=== PATIENT | male | born 1945 | race African-American/Black ===

== ENCOUNTER 2017-08-20 17:03 | Inpatient (IN) | payer OTHER ==
--- OUTSIDE RECORDS SUMMARY | 2017-08-20 17:07 | XMS REPORT | Continuity of Care Document ---
:1945 Author Organization Interface Problems Problem Status Onset Classification Date Comments Source Date Reported 4 WEEK FOLLOW UP Active 07/11/[address] NEW PT/ SHORTNESS Active 06/13/19 [facility] OS BREATH/REF. Medical [facility] Dizziness and 04/03/19 07/02/2017 Dior olvinyolanda [address] [place] [address] N18.3 - "CHRONIC Active 10/24/19 OPID KIDNEY DISEASE, 17 [facility]ior STAGE" Diabetes Resolved 01/17/20 Problem 08/08/[address] MANUEL R[facility] Hypertension Resolved 01/17/20 Problem 08/08/[address] MANUEL Rader, [facility] Diabetes Resolved 01/17/20 Problem 07/28/[address] MANUEL Rader,[facility] Hypertension Resolved 01/17/20 Problem 07/28/[address] MANUEL Rader,[facility] Chronic kidney Resolved Problem 08/08/2017 [facility] disease, stage 3 [facility] MANUEL Rader, [facility] Stage 4 chronic Active Problem 08/08/2017 [facility] kidney disease [facility] Medical [facility] Peripheral Active Problem 08/08/2017 [facility] neuropathy [facility] MANUEL Rader, [facility] Non-compliance Active Problem 08/08/2017 [facility] MANUEL Rader, [facility] Glaucoma Active Problem 08/08/2017 [facility] MANUEL Rader, [facility] Hyperlipidemia Active Problem 08/08/2017 [facility] MANUEL Rader, [facility] Malignant Resolved Problem 08/08/2017 [facility] hypertension [facility] renal OPID disease stage III [facility] Bladder cancer Resolved Problem 08/08/2017 [facility] MANUEL Rader, [facility] Obesity Active Problem 08/08/2017 [facility] MANUEL Rader, [facility] Cataracts, both Resolved Problem 08/08/2017 [facility] Medical Group Malignant Active Problem 08/08/2017 [facility] hypertension with Hospital, chronic kidney Medical disease Group Cataracts, both Resolved Problem 07/28/2017 [facility] Chronic kidney Resolved Problem 07/28/2017 [facility] disease, stage 3 Hospital,[facility] Dior,[facility] Stage 4 chronic Active Problem 07/28/2017 [facility] kidney disease [facility] Peripheral Active Problem 07/28/2017 [facility] Non-compliance Active Problem 07/28/2017 [facility] Glaucoma Active Problem 07/28/2017 [facility] Hyperlipidemia Active Problem 07/28/2017 [facility] Malignant Active Problem 07/28/2017 [facility] hypertension with Hospital, chronic kidney [facility] Malignant Resolved Problem 07/28/2017 [facility] hypertension with [facility], chronic renal OPID disease stage III [facility] Bladder cancer Resolved Problem 07/28/2017 [facility] MARIA R Dior,[facility] Obesity Active Problem 07/28/2017 [facility] MARIA R [facility]ior,[facility] Weakness Resolved Problem 08/08/2017 Medical Group Controlled type 2 Active Problem 08/08/2017 Medical diabetes with Group neuropathy Syncope and 07/02/2017 [facility] collapse Hospital Weakness 07/02/2017 [facility] Type 2 diabetes 07/02/2017 [facility] mellitus with Hospital diabetic chronic kidney disease Type 2 diabetes 07/02/2017 [facility] mellitus with Hospital hyperglycemia Hypertensive 07/02/2017 [facility] chronic kidney Hospital disease with stage 1 through stage 4 chronic kidney disease, or unspecified chronic kidney disease Chronic kidney 07/02/2017 [facility] disease, stage 4 Hospital Acute kidney 07/02/2017 [facility] failure, Hospital unspecified Hyperlipidemia, 07/02/2017 [facility] unspecified Hospital [facility] use of 07/02/2017 [facility] insulin Hospital ENCNTR FOR Active [facility] ADULT Medical MEDICAL EXAM W/ Center Medications Medication Details Route Status Patient Ordering Order Source Instructions Provider Date Fluticasone
See Active propionate 0.05 Instructions, 2018 Medical MG/ACTUAT Metered # 48 mL, Group Dose Nasal [place] Refill(s) 1, SHAKE LIQUID AND USE 2 SPRAYS IN EACH NOSTRIL DAILY, Pharmacy: [facility] [id number] pregabalin 50 MG
50 mg=1 Active Oral Capsule cap, PO, BID, 2018 Medical [Lyrica] # 180 cap, 0 Group Refill(s) Fluticasone
2 spray, Inactive propionate 0.05 NASAL, Daily, 2018 Medical MG/ACTUAT Metered in each Group Dose Nasal [place] nostril, # 16 gm, 1 Refill(s), Pharmacy: [facility] [id number] cilostazol 50 MG
50 mg=1 Active [facility] Oral Tablet tab, PO, BID, 2018 Medical [Pletal] # 60 tab, 3 Center Refill(s), [id number] 60 ACTUAT
2 puff, Active [facility] tiotropium 0.0025 INHALATION, 2018 Medical MG/ACTUAT Metered Daily, 0 Center Dose Inhaler Refill(s) [Spiriva] capsaicin topical
1 appl, Inactive [facility] 0.025% cream Route: [facility], 2018 [facility] TID, Drug form: CRM, Start date: 03/26/17 10:30:00 MINE ENGINEERING SUPERINTENDENT, Duration: 30 day, Stop date: 04/25/17 9:00:00 MINE ENGINEERING SUPERINTENDENT
Notes : (Same As: Zostrix) Clonidine
0.1 mg, Inactive [facility] Hydrochloride 0.1 1 tab, Route: 2018 Hospital MG Oral Tablet PO, Drug form: TAB, BID, Dosing Weight 88.182, kg, PRN Elevated BP, Priority: STAT, Start date: 03/26/17 9:25:00 MINE ENGINEERING SUPERINTENDENT, Duration: 30 day, Stop date: 04/25/17 9:24:00 MINE ENGINEERING SUPERINTENDENT
No brianda: (Same As: Catapres) Losartan
100 mg, Inactive Dior 1 tab, Route: 2018 [facility] PO, Drug form: TAB, Daily, Dosing Weight 88.182, kg, Start date: 03/26/17 9:00:00 MINE ENGINEERING SUPERINTENDENT, Duration: 30 day, Stop date: 04/24/17 9:00:00 MINE ENGINEERING SUPERINTENDENT
Notes : (Same as: Cozaar) Aspirin
81 mg, 1 Inactive Dior tab, Route: 2018 [facility] PO, Drug form: ECTAB, Daily, Dosing Weight 88.182, kg, Start date: 03/26/17 9:00:00 MINE ENGINEERING SUPERINTENDENT, Duration: 30 day, Stop date: 04/24/17 9:00:00 MINE ENGINEERING SUPERINTENDENT
Notes : Do not crush or chew. (Same As: Ecotrin) omega-3
1,000 Inactive Dior polyunsaturated mg, 1 cap, [address] [place] [address] fatty acids Route: PO, Drug form: CAP, Daily, Dosing Weight 88.182, kg, Start date: 03/26/17 9:00:00 MINE ENGINEERING SUPERINTENDENT, Duration: 30 day, Stop date: 04/24/17 9:00:00 MINE ENGINEERING SUPERINTENDENT
Notes : (Same as: Lovaza, formally named [place]) "Do Not Crush" NIFEdipine 60 mg
60 mg, 1 Inactive [facility]ior oral tablet, tab, Route: [address] [place] [address] extended release PO, Drug form: ERTAB, Daily, Dosing Weight 88.182, kg, Start date: 03/26/17 9:00:00 MINE ENGINEERING SUPERINTENDENT, Duration: 30 day, Stop date: 04/24/17 9:00:00 MINE ENGINEERING SUPERINTENDENT
Notes : (Same as: Adalat CC, Procardia XL) Give on empty stomach. Take 1 hour before or 2 hours after meal; "Avoid grapefruit and grapefruit juice". Do not crush Protonix
40 mg, 1 Inactive [facility]ior tab, Route: [address] [place] [address] PO, Drug form: ECTAB, Before Breakfast, Dosing Weight 88.182, kg, Start date: 03/26/17 7:30:00 MINE ENGINEERING SUPERINTENDENT, Duration: 30 day, Stop date: 04/24/17 7:30:00 MINE ENGINEERING SUPERINTENDENT
Notes : Tablet should not be chewed or crushed. (Same as: Protonix) latanoprost 0.05
1 drp, No Longer D[facility] MG/ML Ophthalmic Route: BOTH Active 2018 [facility] EYES, QPM, Drug form: SOLN, Start date: 03/25/17 21:00:00 MINE ENGINEERING SUPERINTENDENT, Duration: 30 day, Stop date: 04/23/17 21:00:00 MINE ENGINEERING SUPERINTENDENT
Notes : Keep refrigerated. (Same as:Xalatan) Opened bottle may be stored at room temperature for 6 weeks insulin glargine
30 unit, No Longer Dior 0.3 mL, Active [address] [place] [address] Route: SUB-Q, Drug form: SOLN, Q12H, Start date: 03/25/17 21:00:00 MINE ENGINEERING SUPERINTENDENT, Duration: 30 day, Stop date: 04/24/17 9:00:00 MINE ENGINEERING SUPERINTENDENT
Notes : (Same as: Bekah) Do not hold insulin without contacting prescriber WASTE: F/P - Black; E - [place] Trash Bin "single patient use only" heparin
5,000 No Longer [facility]ior unit, 1 mL, Active [address] [place] [address] Route: SUB-Q, Drug form: INJ, Q12H, Dosing Weight 88.182, kg, Start date: 03/25/17 21:00:00 MINE ENGINEERING SUPERINTENDENT, Duration: 30 day, Stop date: 04/24/17 9:00:00 MINE ENGINEERING SUPERINTENDENT
Notes : porcine heparin Crestor
20 mg, 2 No Longer [facility] tab, Route: Active [facility] PO, Drug form: TAB, Bedtime, Dosing Weight 88.182, kg, Start date: 03/25/17 21:00:00 MINE ENGINEERING SUPERINTENDENT, Stop date: 04/23/17 21:00:00 MINE ENGINEERING SUPERINTENDENT
Notes : (Same As: Crestor) isosorbide
20 mg, 2 No Longer Dior dinitrate tab, Route: Active [address] [place] [address] PO, Drug form: TAB, TID, Start date: 03/25/17 17:00:00 MINE ENGINEERING SUPERINTENDENT, Duration: 30 day, Stop date: 04/24/17 13:00:00 MINE ENGINEERING SUPERINTENDENT
Notes : (Same as:Isordil) Take on empty stomach/ full glass of water Hydralazine
1 tab, Inactive [facility] Hydrochloride Route: PO, 2018 Hospital 37.5 MG / Drug Form: Isosorbide TAB, Dosing Dinitrate 20 MG Weight Oral Tablet 88.182, kg, [Bidil] TID, Start date: 03/25/17 17:00:00 MINE ENGINEERING SUPERINTENDENT, Duration: 30 day, Stop date: 04/24/17 13:00:00 MINE ENGINEERING SUPERINTENDENT Levemir
30 unit, Inactive Dior Route: SUB-Q, [address] [place] [address] BID, Dosing Weight 88.182, kg, Start date: 03/25/17 17:00:00 MINE ENGINEERING SUPERINTENDENT, Duration: 30 day, Stop date: 04/24/17 9:00:00 MINE ENGINEERING SUPERINTENDENT hydrALAZINE
37.5 mg, No Longer Dior 1.5 tab, Active [facility] Route: PO, Drug form: TAB, TID, Start date: 03/25/17 17:00:00 MINE ENGINEERING SUPERINTENDENT, Duration: 30 day, Stop date: 04/24/17 13:00:00 MINE ENGINEERING SUPERINTENDENT
Notes : (Same as: Apresoline) May interfere w/enteral feedings Take With Food. Humalog
5 unit, No Longer Dior 0.05 mL, Active [address] [place] [address] Route: SUB-Q, Drug form: SOLN, TID-Before Meals, Dosing Weight 88.182, kg, Start date: 03/25/17 16:30:00 MINE ENGINEERING SUPERINTENDENT, Duration: 30 day, Stop date: 04/24/17 11:30:00 MINE ENGINEERING SUPERINTENDENT
Notes : Roll in palms of hands gently; Do not shake `vigorously. (Same as: Humalog ) "Single Patient Use Only " WASTE: F/P - Black; E - [place] Trash Bin Stable for 28 days at room temperature. Expires in days from _Date Amitiza
24 No Longer Dior microgram, [address] [place] [address] cap, Route: PO, Drug form: CAP, Daily, Dosing Weight 88.182, kg, PRN Constipation, Start date: 03/25/17 16:04:00 MINE ENGINEERING SUPERINTENDENT, Duration: 30 day, Stop date: 04/24/17 16:03:00 MINE ENGINEERING SUPERINTENDENT
Notes : Same as Amitiza (Do Not Crush) Non Formulary Insulin Lispro
3 unit, No Longer Dior 0.03 mL, Active 2018 [facility] Route: SUB-Q, Drug form: SOLN, TID-Before Meals, Dosing Weight 88.182, kg, PRN Blood Glucose Results, Start date: 03/25/17 16:04:00 MINE ENGINEERING SUPERINTENDENT, Duration: 30 day, Stop date: 04/24/17 16:03:00 MINE ENGINEERING SUPERINTENDENT
Notes : Roll in palms of hands gently; Do not shake `vigorously. (Same as: Humalog ) "Single Patient Use Only " WASTE: F/P - Black; E - [place] Trash Bin Stable for 28 days at room temperature. Expires in days from _Date Dextrose 50%
25 gm, No Longer Dior Syringe 50 mL, Route: Active 2018 [facility] IVP, Drug Form: INJ, Dosing Weight 88.182, kg, PRN, PRN Blood Glucose Results, Start date: 03/25/17 16:04:00 MINE ENGINEERING SUPERINTENDENT, Duration: 30 day, Stop date: 04/24/17 16:03:00 MINE ENGINEERING SUPERINTENDENT Glucagon
1 mg, No Longer Dior Route: IM, Active [address] [place] [address] Drug form: PDR/INJ, PRN, Dosing Weight 88.182, kg, PRN Blood Glucose Results, Start date: 03/25/17 16:04:00 MINE ENGINEERING SUPERINTENDENT, Duration: 30 day, Stop date: 04/24/17 16:03:00 MINE ENGINEERING SUPERINTENDENT Ondansetron
4 mg, 2 No Longer Dior mL, Route: Active 2018 [facility] IVP, Drug form: INJ, Q6H, Dosing Weight 88.182, kg, PRN Nausea & Vomiting, Start date: 03/25/17 16:00:00 MINE ENGINEERING SUPERINTENDENT, Duration: 30 day, Stop date: 04/24/17 15:59:00 MINE ENGINEERING SUPERINTENDENT
No brianda: (Same as: Markel) MEDICATION WASTE Product Size: 4 mg Product Wasted: ___ mg Acetaminophen
650 mg, No Longer Dior 2 tab, Route: Active 2018 Hospital PO, Drug form: TAB, Q4H, Dosing Weight 88.182, kg, PRN Pain 1-3/Temp > 100.4 F, Start date: 03/25/17 16:00:00 MINE ENGINEERING SUPERINTENDENT, Duration: 30 day, Stop date: 04/24/17 15:59:00 MINE ENGINEERING SUPERINTENDENT
No brianda: Do not exceed 4 gm/day. (Same as: Tylenol) influenza virus
0.5 mL, No Longer [facility] vaccine, Route: IM, Active 2018 Hospital inactivated Drug Form: SUSP, ONCALL, Start date: 03/25/17 16:00:00 MINE ENGINEERING SUPERINTENDENT, Duration: 1 doses or times
Not es: (Same as: Fluzone Quadrivalent, Fluarix Quadrivalent) For 3 years of age and older (0.5 mL IM) Shake well before use Humalog 100
5 unit, Active [facility]ior units/mL SUB-Q, [address] [place] [address] TID-Before Meals, 0 Refill(s) Amitiza
24 No Longer [facility] microgram, Active 2018 Hospital PO, PRN, 0 Refill(s) [place]-3 1000 mg
1,000 Active [facility] oral capsule mg=1 cap, PO, 2018 Hospital 0 Refill(s) Crestor
20 mg, No Longer [facility] PO, Bedtime, Active 2018 Hospital 0 Refill(s) Losartan
100 mg, No Longer [facility] PO, Daily, 0 Active 2018 Hospital Refill(s) Aspirin
325 mg, Inactive Dior 1 tab, Route: 2018 Hospital PO, Drug form: TAB, ONCE, Dosing Weight 85, kg, Priority: STAT, Start date: 03/25/17 13:44:00 MINE ENGINEERING SUPERINTENDENT, Stop date: 03/25/17 13:44:00 MINE ENGINEERING SUPERINTENDENT
Notes : Take with food. Sodium Chloride
1,000 Inactive Dior 0.9% (Bolus) IV mL, [address] [place] [address] ml/hr, Infuse Over: 1 hr, Route: IV, 1,000, Drug form: INJ, ONCE, Priority: STAT, Dosing Weight 86.364 kg, Start date: 03/25/17 11:41:00 MINE ENGINEERING SUPERINTENDENT, Stop date: 03/25/17 11:41:00 MINE ENGINEERING SUPERINTENDENT Saline Flush 0.9%
10 mL, No Longer Dior Route: IVP, Active [address] [place] [address] Drug Form: INJ, Dosing Weight 86.364, kg, PRN, PRN Line Flush, Start date: 03/25/17 11:41:00 MINE ENGINEERING SUPERINTENDENT, Duration: 30 day, Stop date: 04/24/17 11:40:00 MINE ENGINEERING SUPERINTENDENT
Notes : (Same as: BD Posiflush) 3 ML insulin
35 Active detemir 100 units, SUB-Q, 2017 Medical UNT/ML Prefilled BID, # 1 box, Group Syringe [Levemir] 3 Refill(s), Pharmacy: [facility] [id number] NIFEdipine 60 mg
60 mg=1 Active oral tablet, tab, PO, 2017 Medical extended release Daily, # 90 Group tab, 1 Refill(s) Hydralazine
1 tab, Active Hydrochloride PO, TID, # 90 2017 Medical 37.5 MG / tab, 0 Group Isosorbide Refill(s) Dinitrate 20 MG Oral Tablet [Bidil] lubiprostone
24 Active 0.024 MG Oral microgram=1 2017 Medical Capsule [Amitiza] cap, PO, BID, Group 0 Refill(s) Allergies, Adverse Reactions, Alerts Substance Category Reaction Severity Reaction Status Date Comments Source type Reported Lipitor<sup Assertion Propensity Active stomach MH >1</sup> to adverse upset Medical reactions Group to drug Vicodin Assertion Vomiting Propensity Active MH (disorder) to adverse Medical reactions Group to drug Immunizations Immunization Date Given Site Status Last Updated Comments Source Results Order Name Results Value Reference Date Interpretation Comments Source Range Chest 2 Chest 2 PA and lateral chest: The cardiomediastinal silhouette, pulmonary vasculature and jamila are within normal limits. The lungs and pleural spaces are clear. There are no significant osseous abnormalities. T 06/26 - [facility]ior views DX views DX here is no significant change compared to 03/25/2017. / 2018 - Hospital Read by: Kwabena Burgos MD IMPRESSION: Dictated Date/time: 06/26/17 14:38 Electronically Signed by: Kwabena Burgos MD 06/26/17 14:39 FINAL REPORT No acute radiographic abnormalities in the chest. [id number] Lung Lung PROCEDURE: 06/26 - [facility] ventilation ventilation/ - Hospital /perfusion perfusion Nuclear medicine ventilation perfusion lung scan. scan NM scan NM Read by: Bran Morgan MD Dictated Date/time: 06/26/17 14:56 INDICATION: Electronically Signed by: Bran Morgan MD 06/26/17 14:57 FINAL REPORT R94.39 Abnormal result of other cardiovascular function study R06.02 Shortness of breath. PROCEDURE: 16 mCi of Xenon-133 gas was inhaled for the ventilation study. Posterior planar imaging was obtained for approximately 1 minute. IV site: Right antecubital 7.3 mCi of 99 M-Technetium MAA was given intravenously for the perfusion study. Multiplanar imaging of the chest performed in anterior, posterior, bilateral anterior posterior oblique, and bilateral projections. COMPARISON: Chest radiographs dated 06/26/2017. FINDINGS: There is normal distribution of the inhaled radiopharmaceutical. Normal washout is demonstrated. Perfusion images demonstrate normal distribution of activity. No significant perfusion defects identified. IMPRESSION: 1. No evidence for pulmonary embolus. SL: [id number] Cardiac Cardiac LEXISCAN CARDIOLITE STRESS TEST 06/19 - [facility] SPECT multi SPECT formerly [facility] /2018 - [facility] studies (C) studies (C) NM NM Reason for study: Dyspnea on exertion Read by: Danya Torres MD Dictated Date/time: 06/20/17 07:30 Electronically Signed by: Danya Torres MD 06/20/17 07:39 FINAL REPORT Site of IV access: Right antecubital Stress ECG Results: After informed consent was obtained the patient was taken to the stress test lab and connected to continuous electrocardiogram monitoring. Baseline electrocardiogram showed sinus rhythm with a heart rat e of 66 bpm and nonspecific T wave abnormalities in the inferior and lateral leads. Blood pressure at rest was 181/79 mmHg. The patient was then injected with 0.4 mg IV of Lexiscan and monitored for tot al of 5 minutes. The heart rate did rise to 72 bpm and the blood pressure did drop to 150/67 mmHg. Electrocardiogram was without any changes. IMPRESSION: Electrocardiogram portion of studies considered nondiagnostic, correlate findings to SPECT imaging. Myocardial Perfusion Imaging: Gated myocardial perfusion SPECT imaging was carried out with 31.2 mCi of technetium 99 sestamibi with Lexiscan at stress and 13 mCi of technetium 99 sestamibi at rest. The end-diastolic volume is 110 , end-systolic volume is 45 , and the calculated stroke volume is 65 mL . The images show on rest imaging homogeneous radiotracer uptake, with the exception of a very small area mild to moderate intensity apical perfusion defect. On stress imaging again there is noted a small area, mild intensity apical wall perfusion defect . Raw imaging shows significant motion artifact. SSS: 7 SRS: 4 SDS: 3 TID: 1.05 Final Impression: 1. Lexiscan technetium 99 sestamibi study showing a fixed apical perfusion defect. Clinical correlation. . 2. Gated perfusion images show ejection fraction of 59% . Carotid Carot[facility] - [facility] Doppler Doppler bilat US bilat US HISTORY: Syncope Read by: Canelo Tompkins MD Dictated Date/time: 06/14/17 16:41 Electronically Signed by: Canelo Tompkins MD 06/14/17 16:43 FINAL REPORT TECHNIQUE: [place]-scale, color Doppler and spectral Doppler of the carotid arteries was performed. Any reported ICA stenoses indirectly reference the distal internal carotid diameter as the denominator fo r stenosis measurement, utilizing consensus panel criteria. RIGHT: There is mild carotid bulb plaque. ICA PSV 86 cm/sec CCA PSV 83 cm/sec ICA/CCA ratio 1.03 Vertebral flow is antegrade. LEFT: There is moderate carotid bulb plaque. ICA PSV 147 cm/sec CCA PSV 85 cm/sec ICA/CCA ratio 1.73 Vertebral flow is antegrade. IMPRESSION: 1. RIGHT: ICA stenosis less than 50 % by velocity criteria. 2. LEFT: ICA stenosis 50-69 % by velocity criteria. End Impression Consensus panel Doppler US criteria for diagnosis of ICA stenosis. Stenosis (%) ICA PSV (cm/sec) ICA/CCA ratio <50 <125 <2.0 50-69 125-230 2.0-4.0 >70 but less than >230 >4.0 near occlusion Near occlusion High, low, or Variable undetectable SL: CL76-M Ext Lower Ext Lower Procedure: Bilateral Lower Extremity Arterial Ultrasound. 06/14 - [facility] Arterial Arterial /2017 - [facility] Doppler Doppler bilat US bilat US Clinical Indication: Bilateral leg pain for 3 months. Read by: Esteban Brown MD Dictated Date/time: 06/14/17 16:53 Electronically Signed by: Esteban Garcia MD 06/14/17 16:56 FINAL REPORT Comparison: None TECHNIQUE: Bilateral lower extremity arterial Doppler evaluation without pressures was performed with madrid scale, color scale and Doppler waveforms evaluation. FINDINGS: RIGHT LOWER EXTREMITY: MIMI is 1.05 There are normal multiphasic waveforms and peak systolic velocities of the right common femoral artery, superficial femoral artery, popliteal artery, anterior tibial artery, posterior tibial artery, and dorsalis pedis artery. LEFT LOWER EXTREMITY: MIMI is 0.97 There are normal multiphasic waveforms and peak systolic velocities of the left common femoral artery, superficial femoral artery and popliteal artery. There are monophasic waveforms with diminished amp litude within the left anterior tibial, posterior tibial and dorsalis pedis artery. Atherosclerotic plaque formation is noted in the bilateral lower extremity arterial vessels. IMPRESSION: 1. Findings suggesting hemodynamically significant stenoses involving the left trifurcation vessels. [id number] CARDIAC Troponin-I 0.05 ng/mL 0.00 - 03/26 [facility] ENZYMES 0.40 /2018 [facility] CHEM PANEL A/G Ratio 0.5 0.7 - 1.6 03/26 Hospital CHEM PANEL ALT 8 unit/L 0 - 65 03/26 Hospital CHEM PANEL Total 6.0 g/dL 6.4 - 8.4 03/26 Hospital CHEM PANEL Globulin 4.1 g/dL 2.7 - 4.2 03/26 Hospital CHEM PANEL Albumin Lvl 1.9 g/dL 3.5 - 5.0 03/26 Hospital CHEM PANEL eGFR 16 03/26 Result Comment: The eGFR is calculated using the CKD-EPI formula. In most young, healthy individuals the eGFR will be >90 mL/ min/1.73m2. The eGFR declines with age. An eGFR of 60-89 may be normal in mL/min/1.7 some populations, particularly the elderly, for whom the CKD-EPI formula has not been extensively validated. Use of the eGFR is not recommended in the following populations: [address] Individuals with unstable creatinine concentrations, including patients and those with serious co-morbid conditions. Patients with extremes in muscle mass or diet. The data above are obtained from the National Kidney Disease Education Program (NKDEP) which additionally recommends that when the eGFR is used in patients with extremes of body mass index for purposes of drug dosing, the eGFR should be multiplied by the estimated BMI. CHEM PANEL Alk Phos 107 unit/L 39 - 136 03/26 Hospital CHEM PANEL Bili Total 0.2 mg/dL 0.2 - 1.3 03/26 Hospital CHEM PANEL AST 11 unit/L 0 - 37 03/26 Hospital CHEM PANEL B/C Ratio 12 6 - 25 03/26 Hospital CHEM PANEL Calcium Lvl 8.0 mg/dL 8.5 - 10.5 03/26 Hospital CHEM PANEL Chloride Lvl 109 meq/L 95 - 109 03/26 Hospital CHEM PANEL AGAP 15.4 meq/L 10.0 - 03/26 20.0 Hospital CHEM PANEL CO2 21 meq/L 24 - 32 03/26 Hospital CHEM PANEL Sodium Lvl 141 meq/L 135 - 145 03/26 Hospital CHEM PANEL Creatinine 4.17 mg/dL 0.50 - 01/16 MH [facility] Lvl 1.40 Hospital CHEM PANEL Potassium 4.4 meq/L 3.5 - 5.1 03/26 [facility] /2017 [facility] CHEM PANEL Glucose Lvl 243 mg/dL 70 - 99 03/26 [facility] CHEM PANEL BUN 48 mg/dL 7 - 22 03/26 [facility] HEMATOLOGY MCHC 34.6 g/dL 32.0 - 03/26 [facility]0 [facility] HEMATOLOGY MCH 30.4 pg 27.0 - 03/26 [facility]0 [facility] HEMATOLOGY MCV 88.0 fL 80.0 - 03/26 [facility] 94[facility]0 [facility] HEMATOLOGY Hgb 10.4 g/dL 14.0 - 03/26 [facility] 18[facility]0 [facility] HEMATOLOGY Hct 30.1 % 42.0 - 03/26 [facility] 54[facility]0 [facility] HEMATOLOGY MPV 7.5 fL 7.4 - 10.4 03/26 [facility] HEMATOLOGY RDW 14.7 % 11.5 - 03/26 [facility] HEMATOLOGY Platelet 325 K/CMM 133 - 450 03/26 [facility] HEMATOLOGY WBC 8.7 K/CMM 3.7 - 10.4 03/26 [facility] HEMATOLOGY RBC 3.43 M/CMM 4.70 - 03/26 [facility]10 [facility] HEMATOLOGY Monocytes # 0.9 K/CMM 0.0 - 0.8 03/26 [facility] HEMATOLOGY Eosinophils 0.1 K/CMM 0.0 - 0.5 03/26 [facility] # /2017 [facility] HEMATOLOGY Segs 66.1 % 45.0 - 03/26 [facility] 75[facility]0 [facility] HEMATOLOGY Lymphocytes 21.9 % 20.0 - 03/26 [facility] 40[facility]0 [facility] HEMATOLOGY Monocytes 10.1 % 2.0 - 12.0 03/26 [facility] HEMATOLOGY Segs-Bands # 5.8 K/CMM 1.5 - 8.1 03/26 [facility] HEMATOLOGY Eosinophils 1.7 % 0.0 - 4.0 03/26 [facility] HEMATOLOGY Basophils 0.2 % 0.0 - 1.0 03/26 [facility] HEMATOLOGY Lymphocytes 1.9 K/CMM 1.0 - 5.5 03/26 [facility] # /2017 [facility] CARDIAC Troponin-I 0.06 ng/mL 0.00 - 03/26 [facility] 0.40 [facility] LIPIDS VLDL 20 03/26 [facility] LIPIDS LDL 91 mg/dL <=99 mg/dL 03/26 [facility] (Calculated) [facility] LIPIDS HDL 40 mg/dL >=61 mg/dL 03/26 [facility] LIPIDS Chol 151 mg/dL <=199 03/26 [facility] mg/dL [facility] LIPIDS Trig 101 mg/dL <=149 03/26 [facility] mg/dL [facility] LIPIDS CHD Risk 3.78 4.00 - 03/26 [facility] 7[facility]30 [facility] SPECIAL Hgb A1C 10.6 % <=5.6 % 03/26 [facility] CHEMISTRY [facility] URINE AND UA Bacteria Occasional None Seen 03/25 [facility] STOOL /HPF /HPF [facility] URINE AND UA Mucus Few /LPF None Seen 03/25 [facility] STOOL /LPF [facility] URINE AND UA RBC 2 /HPF 0 - 2 03/25 [facility] URINE AND UA WBC 5 /HPF 0 - 5 03/25 [facility] URINE AND UA <=1.0 0.1 - 1.0 03/25 [facility] STOOL Urobilinogen mg/dL [facility] URINE AND UA Spec Grav 1.022 <=1.030 03/25 [facility] URINE AND UA Turbidity Marked Clear 03/25 [facility] *ABN* (03/25/17 1:02 PM) URINE AND UA Protein >=300 Negative 03/25 [facility] STOOL mg/dL mg/dL [facility] URINE AND UA pH 5.0 5.0 - 8.0 03/25 [facility] URINE AND UA Color Yellow Yellow 03/25 [facility] *NA* (03/25/17 1:02 PM) URINE AND UA Glucose 500 mg/dL Negative 03/25 [facility] mg/dL [facility] URINE AND UA Bili Negative Negative 03/25 [facility] [address] [place] [address] *NA* (03/25/17 1:02 PM) URINE AND UA Ketones Negative Negative 03/25 [facility] mg/dL mg/dL [facility] URINE AND UA Nitrite Negative Negative 03/25 [facility] (03/25/17 1:02 PM) URINE AND UA Blood Negative Negative 03/25 [facility] (03/25/17 1:02 PM) URINE AND UA Sq Epi Occasional Few /LPF 03/25 [facility] /LPF /2017 [facility] URINE AND UA Leuk Est Negative Negative 03/25 [facility] (03/25/17 1:02 PM) CHEM PANEL Lipase Lvl 213 unit/L 73 - 393 03/25 [facility] CARDIAC Troponin-I 0.02 ng/mL 0.00 - 03/25 [facility] ENZYMES 0.40 [facility] CARDIAC CK MB 1.1 ng/mL 0.5 - 3.6 03/25 [facility] CARDIAC Total CK 64 unit/L 12 - 191 03/25 [facility] CARDIAC CK MB Index 1.7 0.0 - 2.5 03/25 [facility] CHEM PANEL eGFR 17 03/25 Result Comment: The eGFR is calculated using the CKD-EPI formula. In most young, healthy individuals the eGFR will be >90 mL/ min/1.73m2. The eGFR declines with age. An eGFR of 60-89 may be normal in mL/min/1.7 some populations, particularly the elderly, for whom the CKD-EPI formula has not been extensively validated. Use of the eGFR is not recommended in the following populations: Hospital 3m2 Individuals with unstable creatinine concentrations, including patients and those with serious co-morbid conditions. Patients with extremes in muscle mass or diet. The data above are obtained from the National Kidney Disease Education Program (NKDEP) which additionally recommends that when the eGFR is used in patients with extremes of body mass index for purposes of drug dosing, the eGFR should be multiplied by the estimated BMI. CHEM PANEL Globulin 4.6 g/dL 2.7 - 4.2 03/25 [facility] CHEM PANEL A/G Ratio 0.5 0.7 - 1.6 03/25 [facility] CHEM PANEL B/C Ratio 12 6 - 25 03/25 [facility] CHEM PANEL Total 6.8 g/dL 6.4 - 8.4 03/25 [facility] CHEM PANEL Calcium Lvl 8.4 mg/dL 8.5 - 10.5 03/25 [facility] CHEM PANEL AST 6 unit/L 0 - 37 03/25 [facility] CHEM PANEL ALT 14 unit/L 0 - 65 03/25 [facility] CHEM PANEL Albumin Lvl 2.2 g/dL 3.5 - 5.0 03/25 [facility] CHEM PANEL Bili Total 0.2 mg/dL 0.2 - 1.3 03/25 [facility] CHEM PANEL AGAP 13.3 meq/L 10.0 - 03/25 [facility] 20[facility]0 [facility] CHEM PANEL Alk Phos 123 unit/L 39 - 136 03/25 [facility] CHEM PANEL Creatinine 3.90 mg/dL 0.50 - 03/25 [facility] 1[facility] CHEM PANEL Sodium Lvl 140 meq/L 135 - 145 03/25 [facility] CHEM PANEL BUN 47 mg/dL 7 - 22 03/25 [facility] CHEM PANEL Potassium 4.3 meq/L 3.5 - 5.1 03/25 [facility] CHEM PANEL CO2 21 meq/L 24 - 32 03/25 [facility] CHEM PANEL Chloride Lvl 110 meq/L 95 - 109 03/25 [facility] CHEM PANEL Glucose Lvl 174 mg/dL 70 - 99 03/25 [facility] HEMATOLOGY PTT 31.2 s 22.9 - 03/25 [facility] 35[facility]8 [facility] HEMATOLOGY INR 0.98 0.85 - 03/25 [facility] 1[facility]17 [facility] HEMATOLOGY PT 13.0 s 12.0 - 03/25 [facility] 14[facility]7 [facility] HEMATOLOGY MCH 29.6 pg 27.0 - 03/25 [facility] 31[facility] HEMATOLOGY Platelet 371 K/CMM 133 - 450 03/25 [facility] HEMATOLOGY MCV 87.1 fL 80.0 - 03/25 [facility] 94[facility] HEMATOLOGY Hct 33.8 % 42.0 - 03/25 [facility] 54[facility]0 [facility] HEMATOLOGY RBC 3.89 M/CMM 4.70 - 03/25 [facility] 6[facility] HEMATOLOGY Hgb 11.5 g/dL 14.0 - 03/25 [facility] 18[facility]0 [facility] HEMATOLOGY MPV 7.5 fL 7.4 - 10.4 03/25 [facility] HEMATOLOGY MCHC 34.0 g/dL 32.0 - 03/25 [facility] 36.0 [facility] HEMATOLOGY RDW 14.4 % 11.5 - 03/25 [facility] 14[facility] HEMATOLOGY WBC 11.2 K/CMM 3.7 - 10.4 03/25 [facility] HEMATOLOGY Basophils 1.3 % 0.0 - 1.0 03/25 [facility] HEMATOLOGY Eosinophils 0.9 % 0.0 - 4.0 03/25 [facility] HEMATOLOGY Basophils # 0.1 K/CMM 0.0 - 0.2 03/25 [facility] HEMATOLOGY Eosinophils 0.1 K/CMM 0.0 - 0.5 03/25 [facility] HEMATOLOGY Lymphocytes 1.6 K/CMM 1.0 - 5.5 03/25 [facility] HEMATOLOGY Monocytes # 1.1 K/CMM 0.0 - 0.8 03/25 [facility] HEMATOLOGY Segs-Bands # 8.3 K/CMM 1.5 - 8.1 03/25 [facility] HEMATOLOGY Lymphocytes 14.5 % 20.0 - 03/25 [facility] 40[facility]0 [facility] HEMATOLOGY Segs 73.8 % 45.0 - 03/25 [facility] 75[facility]0 [facility] HEMATOLOGY Monocytes 9.5 % 2.0 - 12.0 03/25 [facility] Chest/Abdom Chest/Abdome Study: Chest/Abdomen/Pelvis wo IV contrast 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 Axial, sagittal and coronal reconstructions are available. IV contrast: None. Oral contrast: None. CT radiation dose: FKD=292 mGy-cm FINDINGS: CT CHEST: LOWER NECK: Limited visualization. No abnormality. MEDIASTINUM: Coronary artery calcifications. Otherwise, heart and thoracic aorta are normal. No pericardial effusion. No pathologic adenopathy by size criteria. PULMONARY PARENCHYMA: No lobar consolidation, effusion, pneumothorax, or groundglass opacities. Airways are patent without bronchiectasis. MUSCULOSKELETAL: No acute osseous abnormalities or destructive bony lesions. Vertebral body height are maintained. OTHER: None. CT ABDOMEN/PELVIS: SOLID ORGANS: Liver, spleen, and pancreas are within normal limits. Bilateral adrenal glands and left kidney are within normal limits. Nonobstructing right lower pole intrarenal stone. No hydronephrosis or perinephric fluid collections. No gallstones. No biliary ductal dilatation. BOWEL: No bowel dilatation or bowel wall thickening. Sigmoid colon is unremarkable. Perirectal fat planes are within normal limits. Normal appearing appendix identified within right lower quadrant. PERITONEUM: No free intraperitoneal air or fluid. No stranding of the central mesentery. No peritoneal adenopathy by size criteria. RETROPERITONEUM: Atherosclerosis. Abdominal aorta is normal caliber. No periaortic hematoma. Lack of IV contrast limits assessment for aortic dissection. No retroperitoneal adenopathy by size criteria. PELVIS: No pelvic mass. No pelvic free fluid. Urinary bladder is unremarkable. No pelvic adenopathy by size criteria. MUSCULOSKELETAL: No acute osseous abnormalities or destructive bony lesions. Vertebral body height are maintained. IMPRESSION: 1. No acute findings 2. 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 Coronal and sagittal reformatted images were prepared. FINDINGS: BRAIN PARENCHYMA: 1. Mild diffuse age-appropriate atrophy is present associated with mild nonspecific periventricular low attenuation most consistent with old microangiopathic ischemic change. 2. No evidence of acute intracranial hemorrhage, mass lesion, mass effect , midline shift, or extra-axial fluid collection. 3. 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 4. Low-attenuation in the alyse representing artifact or old ischemic change. 5. Incidental cavum septum pellucidum. VENTRICLES: The lateral ventricles, third ventricle, fourth ventricle, and basilar cisterns are appropriate for degree of atrophy present. PARANASAL SINUSES: The visualized portions of the paranasal sinuses are clear. MASTOIDS: Clear. ORBITS: The visualized portions of the orbits are normal. SOFT TISSUES: No significant abnormality. SKULL: No acute fracture or suspicious osseous lesion. IMPRESSION: 1. Mild diffuse age-appropriate atrophy is present associated with mild nonspecific periventricular low attenuation most consistent with old microangiopathic ischemic change. 2. 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 3. Low-attenuation in the alyse representing artifact versus old ischemic change. SL: TPAINTER-PC Chest 1view Chest 1view PROCEDURE: Chest Radiograph. 03/25 - [facility] DX DX /2018 - [facility] Clinical Indication: Shortness of breath, dizziness, malignant neoplasm of bladder. Read by: Esteban Garcia MD Dictated Date/time: 03/25/17 12:45 Electronically Signed by: Esteban Garcia MD 03/25/17 12:47 FINAL REPORT Comparison: Chest radiograph 10/14/2014. FINDINGS: The chest shows normal lung volumes without interstitial or airspace opacities, pleural effusions or pneumothorax. The patient is rotated ROMANIAN, somewhat limiting interpretation. The cardiac silhouette is upper limits of normal in size for portable technique. Degenerative change involves the thoracic spine. IMPRESSION: 1. No chest radiographic evidence of acute cardiopulmonary disease. SL:[id number] Retroperito Retroperiton Procedure: Renal Ultrasound. 11/01 - MANUEL hdez eal Complete /2016 - [facility] Complete US Clinical Indication: Chronic kidney disease. Read by: Esteban Garcia MD Dictated Date/time: 11/01/16 08:45 Electronically Signed by: Esteban Garcia MD 11/01/16 08:49 FINAL REPORT Comparison: None. TECHNIQUE: Multiple longitudinal and transverse real time sonographic images of the kidneys and urinary bladder are obtained. FINDINGS: KIDNEYS: The right kidney measures 10.3 cm. The left kidney measures 12.4 cm. The kidneys are normal in size, shape, contour, and position. The cortices are normal in thickness and the corticomedullary differentiation is maintained. There is no hydronephrosis, nephrolithiasis, or abnormal perinephric collections. There are 3 cysts within the upper and mid pole of the right kidney measuring 9 mm, 9 mm and 13 mm respectively. There are 3 cysts in the upper to midpole of the le ft kidney measuring 8 mm, 8 mm and 7 mm respectively. BLADDER: Scanning through the pelvis reveals the bladder to be partially distended with anechoic urine. Bilateral ureteral jets are noted. IMPRESSION: 1. Bilateral renal cysts. [id number] Chest 2 Chest 2 Chest x-ray 2 views 10/14 - [facility] views DX views DX /2014 - [facility] Findings: Heart size and central vasculature are within normal limits. There is a probable calcified pulmonary nodule just above the left hilum. There is no effusion or focal pneumonia. No acute osseus Read by: Jose Angel Haywood MD pathology. Mild diffuse degenerative changes are noted. Dictated Date/time: 10/14/14 17:46 Electronically Signed by: Jose Angel Haywood MD 10/14/14 17:48 FINAL REPORT Impression: Possibly calcified 7 mm nodule just above left hilum. No acute abnormality. If there is clinical concern for secondary neoplasm, CT may be more sensitive. Vital Signs Vital Sign Value Date Comments Source Weight 81.818 07/29/2017 [facility] Systolic (mm Hg) 144 07/29/2017 [facility] Diastolic (mm Hg) 71 07/29/2017 [facility] Respitory Rate 16 07/29/2017 [facility] Heart Rate 76 07/29/2017 [facility] Height 172.72 cm 07/29/2017 [facility] BMI Calculated 27.43 07/29/2017 [facility] Height 167.64 cm 07/25/2017 [facility] Weight 80.966 07/25/2017 [facility] BMI Calculated 28.81 07/25/2017 [facility] Systolic (mm Hg) 149 07/25/2017 [facility] Diastolic (mm Hg) 77 07/25/2017 [facility] Respitory Rate 18 07/25/2017 [facility] Temperature Oral (F) 97.4 F 07/25/2017 [facility] Heart Rate 63 07/25/2017 [facility] BMI Calculated 27.81 06/21/2017 [facility] Temperature Oral (F) 97.9 F 06/21/2017 [facility] Heart Rate 65 06/21/2017 [facility] Respitory Rate 16 06/21/2017 [facility] Weight 82.955 06/21/2017 [facility] Height 172.72 cm 06/21/2017 [facility] Systolic (mm Hg) 136 06/21/2017 [facility] Diastolic (mm Hg) 65 06/21/2017 [facility] Respitory Rate 18 03/26/2017 [facility] Systolic (mm Hg) 171 03/26/2017 [facility] Diastolic (mm Hg) 77 03/26/2017 [facility] Heart Rate 66 03/26/2017 [facility] Temperature Oral (F) 98.4 F 03/26/2017 [facility] Heart Rate 70 03/26/2017 [facility] Temperature Oral (F) 98.0 F 03/26/2017 [facility] Systolic (mm Hg) 154 03/26/2017 [facility] Diastolic (mm Hg) 68 03/26/2017 [facility] Respitory Rate 18 03/26/2017 [facility] Temperature Oral (F) 98.0 F 03/26/2017 [facility] Respitory Rate 18 03/26/2017 [facility] Systolic (mm Hg) 131 03/26/2017 [facility] Diastolic (mm Hg) 67 03/26/2017 [facility] Heart Rate 68 03/26/2017 [facility] BMI Calculated 31.38 03/25/2017 [facility] Weight 88.182 03/25/2017 [facility] Height 167.64 cm 03/25/2017 [facility] Weight 85 03/25/2017 [facility] BMI Calculated 30.26 03/25/2017 [facility] Height 167.6 cm 03/25/2017 [facility] Respitory Rate 22 03/25/2017 [facility] Systolic (mm Hg) 109 03/25/2017 [facility] Diastolic (mm Hg) 66 03/25/2017 [facility] Heart Rate 68 03/25/2017 [facility] Weight 86.364 03/25/2017 [facility] BMI Calculated 30.73 03/25/2017 [facility] Height 167.64 cm 03/25/2017 [facility] BMI Calculated 29.25 02/22/2017 [facility] Weight 87.273 02/22/2017 [facility] Heart Rate 78 02/22/2017 [facility] Respitory Rate 16 02/22/2017 [facility] Height 172.72 cm 02/22/2017 [facility] Systolic (mm Hg) 130 02/22/2017 [facility] Diastolic (mm Hg) 78 02/22/2017 [facility] Encounters Location Location Encounter Encounter Reason Attending ADM DC Status Source Details Type Number For Provider Date Date Visit [facility] Outpt Diag [id number] Romario 10/14 10/15 [facility] Outpatient [id number] TALI 01/16 Active [facility] 0 [place] Outpatient [id number] TALI02/19 [facility] 1 [place] Outpatient [id number] TALI 03/21 [facility] 3 [place] Outpatient [id number] TALI04/23 [facility] 2 [place] Outpatient [id number] TALI 09/18 Active [facility] 4 [facility] Outpt Diag [id number] Gavin 11/01 11/02 [facility] 1 [facility] Outpatient [id number] TALI 02/22 Active [facility] 5 [facility] Outpatient [id number] Tali 02/22 02/23 [facility] [place] Outpatient [id number] TALI 03/25 Active [facility] 6 [facility] Outpatient [id number] Tali 03/25 03/26 [facility] [id number] Beverley Hackett 03/25 03/26 [facility] [place] [facility] Outpatient [id number] 04/02 [facility] 7 [place] Outpatient [id number] 04/02 [facility] 8 [place] Outpatient [id number] 04/29 [facility] [place] [facility] Ambulatory [id number] 04/29 Primary Pre-Reg 9 [facility] [place] Outpatient [id number] 05/02 Active [facility] 0 [place] [facility] Ambulatory [id number] 05/02 Primary Pre-Reg 0 [facility] [place] Outpatient [id number] BIBIANA 06/12 [facility] 2 [place] Outpatient [id number] BIBIANA 06/12 Active [facility] [id number] Imran Brian 06/19 06/20 [facility] Outpatient [id number] Imran Brian 06/21 06/22 [facility] [id number] [facility]26 06/27 [facility] Outpatient [id number] 07/01 [facility] [id number] 07/01 Primary Pre-Reg [facility] [place] Outpatient [id number] Imran Brian 07/25 07/26 [facility] [id number] 07/29 [facility] [id number] 07/29 [facility] [place] Outpatient [id number] 10/21 Active [facility] 5 [place] Procedures Procedure Code Date Perfomer Comments Source Bladder operation [id number] 03/11/2009 [facility] Bladder operation [id number] 03/11/2009 [facility] Bladder operation [id number] 03/11/2009 [facility] Bladder operation [id number] 03/11/2009 [facility] Cataract [id number] [facility] Circumcision [id number] [facility] Lithotripsy [id number] [facility] Circumcision [id number] [facility] Lithotripsy [id number] [facility] Circumcision [id number] [facility] Lithotripsy [id number] [facility] Cataract [id number] [facility] Cataract [id number] [facility] Circumcision [id number] [facility] Lithotripsy [id number] [facility]
[2017-08-20] MEDS ORDERED: NA CHLORIDE 0.9% 250 ML ONE (17:49)
[2017-08-20 18:00] LABS: Absolute Lymphocytes (CBC) 1.2 K/uL (0.7-4.9); Absolute Monocytes 0.7 K/uL (0.1-1.3); Absolute Neutrophil 4.7 K/uL (1.8-8.0); Basophils % 0.6 % (0-1.3); Eosinophils % 1.4 % (0-4.4); Hematocrit 34.7 % (39.6-49.0); Lymphocytes % 17.3 % (15.3-44.8); MCH 29.9 pg (27.0-35.0); MCV 92.4 fL (80-100); MPV 8.1 fL (7.6-11.3); Monocytes % 10.3 % (3.3-12.3); RBC Red Blood Cell Count 3.76 M/uL (4.33-5.43)
[2017-08-20 18:19] LABS: Magnesium 2.1 mg/dL (1.8-2.5)
[2017-08-20 18:21] LABS: Potassium 6.5 mEq/L (3.6-5.0)
[2017-08-20] MEDS ORDERED: INSULIN -REGULAR HUMAN 50 UNIT/0.5 ML ML ONE (19:00)
[2017-08-20] MEDS ORDERED: Calcium Gluconate 9.3 mEq (=2gm)/NS 100 mL IVPB IV ONE ×2 (19:00)
[2017-08-20] MEDS ORDERED: D50W 25 GM/50 ML SYRINGE IV ONE (19:00)
[2017-08-20] MEDS ORDERED: SOD POLYSTYREN SUL 15 GM/60 ML UCUP ONE (19:00)
[2017-08-20] MEDS ORDERED: SODIUM BICARB 50 MEQ/50ML VIAL ONE (19:01)
--- NOTE | 2017-08-20 19:14 | EDPHYS ---
Physician Documentation [facility] Name: Job Francis Age: 71 yrs Sex: Male : 1945 Arrival Date: 08/20/2017 Time: 17:07 Bed 30 Private MD: Floyd Keating ED Physician Gianni Ballard HPI: 08/20 18:15 This 71 yrs old Black Male presents to ER via Wheelchair with complaints of high rn potassium. 18:15 Reports sent in for abnormal labs, has had 2 potassiums high, today > 6. Denies any new rn symptoms, feels ok, sees dr renee. No chest pain/abd pain. No new urinary habits or symptoms. . Onset: The symptoms/episode began/occurred at an unknown time. Severity of symptoms: At their worst the symptoms were mild in the emergency department the symptoms are unchanged. The patient has not experienced similar symptoms in the past. The patient has not recently seen a physician. Historical: - Allergies: 17:18 Vicodin; ss - Home Meds: 17:33 hydralazine 100 mg Oral tab 1 tab 3 times per day [Active]; aspirin 81 mg Oral TbEC 1 ss tab once daily [Active]; losartan 100 mg oral tab 1 tab once daily [Active]; Crestor 20 mg oral tab 1 tab once daily [Active]; vit D [Active]; humalog 70/30 PRN [Active]; levemir insulin 35 units daily [Active]; Lyrica 50 mg Oral 2 times per day [Active]; - PMHx: 17:18 Renal Disease; Diabetes - IDDM; Hypertension; Kidney stones; bladder CA; in remission; ss - PSHx: 17:18 Lithotripsy; ss - Immunization history:: Adult Immunizations up to date. - Social history:: Smoking status: Patient/guardian denies using tobacco. - Ebola Screening: : Patient denies exposure to infectious person Patient denies travel to an Ebola-affected area in the 21 days before illness onset. - Family history:: not pertinent. - Hospitalizations: : No recent hospitalization is reported. ROS: 18:15 Constitutional: Negative for fever, chills, and weight loss, Eyes: Negative for injury, rn pain, redness, and discharge, Cardiovascular: Negative for chest pain, palpitations, and edema, Respiratory: Negative for shortness of breath, cough, wheezing, and pleuritic chest pain, Abdomen/GI: Negative for abdominal pain, nausea, vomiting, diarrhea, and constipation, MS/Extremity: Negative for injury and deformity, Skin: Negative for injury, rash, and discoloration, Neuro: Negative for headache, weakness, numbness, tingling, and seizure. Exam: 18:15 Constitutional: This is a well developed, well nourished patient who is awake, alert, rn and in no acute distress. Head/Face: Normocephalic, atraumatic. Eyes: Pupils equal round and reactive to light, extra-ocular motions intact. Lids and lashes normal. Conjunctiva and sclera are non-icteric and not injected. Cornea within normal limits. Periorbital areas with no swelling, redness, or edema. Cardiovascular: Regular rate and rhythm with a normal S1 and S2. No gallops, murmurs, or rubs. Normal PMI, no JVD. No pulse deficits. Respiratory: Lungs have equal breath sounds bilaterally, clear to auscultation and percussion. No rales, rhonchi or wheezes noted. No increased work of breathing, no retractions or nasal flaring. Abdomen/GI: Soft, non-tender, with normal bowel sounds. No distension or tympany. No guarding or rebound. No evidence of tenderness throughout. MS/ Extremity: Pulses equal, no cyanosis. Neurovascular intact. Full, normal range of motion. Equal circumference. Neuro: Awake and alert, GCS 15, oriented to person, place, time, and situation. Cranial nerves II-XII grossly intact. Motor strength 5/5 in all extremities. Sensory grossly intact. Cerebellar exam normal. Normal gait. Vital Signs: 17:18 Resp 16; Weight 79.38 kg; Height 5 ft. 6 in. (167.64 cm); Pain 0/10; ss 17:33 Pulse 62; Resp 16; Temp 97.8(TE); Pulse Ox 99% on R/A; ss 17:51 BP 168 / 64; kr2 19:30 BP 163 / 71; Pulse 61; Resp 17; Pulse Ox 99% on R/A; kr2 20:30 BP 160 / 69; Pulse 63; Resp 17; Pulse Ox 99% on R/A; kr2 22:32 BP 178 / 70; Pulse 88; Resp 16; Pulse Ox 99% on R/A; kr2 17:18 Body Mass Index 28.25 (79.38 kg, 167.64 cm) ss MDM: 17:21 Patient medically screened. rn 19:12 Differential Diagnosis hyperkalemia. Data reviewed: vital signs, nurses notes, lab test rn result(s), EKG, and as a result, I will admit patient. Counseling: I had a detailed discussion with the patient and/or guardian regarding: the historical points, exam findings, and any diagnostic results supporting the discharge/admit diagnosis, lab results, the need for further work-up and treatment in the hospital. Response to treatment: the patient's symptoms have mildly improved after treatment, and as a result, I will admit patient. Admission orders: after a detailed discussion of the patient's condition and case, the admit orders are written by me. 08/20 17:31 Order name: CBC with Diff; Complete Time: 18:20 rn 08/20 17:31 Order name: Basic Metabolic Panel; Complete Time: 18:21 rn 08/20 17:31 Order name: Magnesium; Complete Time: 18:21 08/20 20:50 Order name: Urine Dipstick--Ancillary (enter results); Complete Time: 21:07 08/20 17:31 Order name: IV Start; Complete Time: 17:50 rn 08/20 17:31 Order name: EKG; Complete Time: 17:32 rn 08/20 17:31 Order name: EKG - Nurse/Tech; Complete Time: 17:50 rn 08/20 17:31 Order name: Urine Dipstick-Ancillary (obtain specimen); Complete Time: 22:32 rn Administered Medications: 16:15 Drug: Insulin Regular Human 5 units {Co-Signature: ed1 (Mckenzie Gómez LVN).} Route: IVP; kr2 Site: right antecubital; 22:31 Follow up: Response: No adverse reaction kr2 17:50 Drug: NS 0.9% 250 ml Route: IV; Rate: 1 bolus; Site: right antecubital; kr2 22:31 Follow up: Response: No adverse reaction; IV Status: Completed infusion kr2 19:10 Drug: Sodium Bicarbonate 1 amp Route: IVP; Site: right antecubital; kr2 19:45 Follow up: Response: No adverse reaction kr2 19:20 Drug: Calcium Gluconate 2 grams Route: IVPB; Infused Over: 60 mins; Site: right kr2 antecubital; 20:30 Follow up: Response: No adverse reaction; IV Status: Completed infusion kr2 19:20 Drug: Kayexalate 30 grams Route: PO; kr2 20:00 Follow up: Response: No adverse reaction kr2 19:21 Drug: D50W 50 ml Route: IVP; Site: right antecubital; kr2 22:31 Follow up: Response: No adverse reaction kr2 Disposition: 08/20/17 19:13 Hospitalization ordered by Shani Rice for Inpatient Admission. Preliminary diagnosis is Hyperkalemia. - Bed requested for Telemetry/MedSurg (Inpatient). - Status is Inpatient Admission. kr2 - Condition is Stable. - Problem is new. - Symptoms are unchanged. UTI on Admission? No Signatures: Dispatcher [employer] EDMS Narda Thao RN RN mw Nieto, Roman, MD MD rn Smirch, Shelby, RN RN ss Reaves, Karey, RN RN [facility] Heather Mcmillan Mckenzie Gómez [facility] ed1 Corrections: (The following items were deleted from the chart) 19:45 19:13 Hospitalization Ordered by Shani Rice MD for Inpatient Admission. Preliminary diagnosis is Hyperkalemia. Bed requested for Telemetry/MedSurg (Inpatient). Status is Inpatient Admission. Condition is Stable. Problem is new. Symptoms are unchanged. UTI on Admission? No. rn 20:27 19:45 08/20/2017 19:13 Hospitalization Ordered by Shani Rice MD for Inpatient eb Admission. Preliminary diagnosis is Hyperkalemia. Bed requested for Telemetry/MedSurg (Inpatient). Status is Inpatient Admission. Condition is Stable. Problem is new. Symptoms are unchanged. UTI on Admission? No. mw 22:36 20:27 08/20/2017 19:13 Hospitalization Ordered by Shani Rice MD for Inpatient kr2 Admission. Preliminary diagnosis is Hyperkalemia. Bed requested for Telemetry/MedSurg (Inpatient). Status is Inpatient Admission. Condition is Stable. Problem is new. Symptoms are unchanged. UTI on Admission? No. eb
--- NOTE | 2017-08-20 19:14 | ER ---
Nurse's Notes [facility] Name: Job Francis Age: 71 yrs Sex: Male : 1945 Arrival Date: 08/20/2017 Time: 17:07 Bed 30 Private MD: Floyd Keating Diagnosis: Hyperkalemia Presentation: 08/20 17:12 Presenting complaint: Patient states: "I had blood work drawn yesterday and they said ss it was high so I had it redrawn today and they said it's still high so they sent me here." Dr. Lundberg's office reports pt's potassium level was 6.7 yesterday and was repeated today as 6.2. Pt has no complaints at this time other than his coordination that has been off since May, seems to have been getting worse over the past week or so. Transition of care: patient was not received from another setting of care. Onset of symptoms is unknown. Risk Assessment: Do you want to hurt yourself or someone else? Patient reports no desire to harm self or others. Initial Sepsis Screen: Does the patient meet any 2 criteria? No. Patient's initial sepsis screen is negative. Does the patient have a suspected source of infection? No. Patient's initial sepsis screen is negative. Care prior to arrival: None. 17:12 Method Of Arrival: Wheelchair ss 17:12 Acuity: TIFFANIE 2 ss Triage Assessment: 18:02 General: Appears in no apparent distress. comfortable, well groomed, well developed, kr2 well nourished. Historical: - Allergies: 17:18 Vicodin; ss - Home Meds: 17:33 hydralazine 100 mg Oral tab 1 tab 3 times per day [Active]; aspirin 81 mg Oral TbEC 1 ss tab once daily [Active]; losartan 100 mg oral tab 1 tab once daily [Active]; Crestor 20 mg oral tab 1 tab once daily [Active]; vit D [Active]; humalog 70/30 PRN [Active]; levemir insulin 35 units daily [Active]; Lyrica 50 mg Oral 2 times per day [Active]; - PMHx: 17:18 Renal Disease; Diabetes - IDDM; Hypertension; Kidney stones; bladder CA; in remission; ss - PSHx: 17:18 Lithotripsy; ss - Immunization history:: Adult Immunizations up to date. - Social history:: Smoking status: Patient/guardian denies using tobacco. - Ebola Screening: : Patient denies exposure to infectious person Patient denies travel to an Ebola-affected area in the 21 days before illness onset. - Family history:: not pertinent. - Hospitalizations: : No recent hospitalization is reported. Screenin:01 Abuse screen: Denies threats or abuse. Denies injuries from another. Nutritional kr2 screening: No deficits noted. Tuberculosis screening: No symptoms or risk factors identified. Fall Risk None identified. Assessment: 17:30 General: Appears in no apparent distress. comfortable, well groomed, well developed, kr2 well nourished, Behavior is calm, cooperative, appropriate for age. Neuro:. Neuro: Level of Consciousness is awake, alert, obeys commands, Oriented to person, place, time, situation, Appropriate for age. Cardiovascular: Capillary refill < 3 seconds in bilateral fingers Patient's skin is warm and dry. Respiratory: Airway is patent Respiratory effort is even, unlabored, Respiratory pattern is regular, symmetrical. GI: Bowel sounds present X 4 quads. Abd is soft X 4 quads. : Denies burning with urination, inability to void. EENT: Oral mucosa is moist. Derm: Skin is intact, is healthy with good turgor, Skin is pink, warm \\T\\ dry. Musculoskeletal: Circulation, motion, and sensation intact. 17:30 Pain: Complains of pain in mid abdomen Pain currently is 0 out of 10 on a pain scale. kr2 at worst was 10 out of 10 on a pain scale. Quality of pain is described as crampy, Pain began in April Is intermittent, Alleviated by rest, Aggravated by drinking. 21:30 Reassessment: Patient appears in no apparent distress at this time. Patient and/or kr2 family updated on plan of care and expected duration. Pain level reassessed. Patient is alert, oriented x 3, equal unlabored respirations, skin warm/dry/pink. Given a turkey sandwich and glass of water. Attempted to call report to receiving nurse, held for 6 minutes with no answer Patient denies pain at this time. 21:45 Reassessment: Attempted to call report again, held for 5 minutes. Called back and spoke kr2 with Lia. She states she will have the nurse call me back. Vital Signs: 17:18 Resp 16; Weight 79.38 kg; Height 5 ft. 6 in. (167.64 cm); Pain 0/10; ss 17:33 Pulse 62; Resp 16; Temp 97.8(TE); Pulse Ox 99% on R/A; ss 17:51 BP 168 / 64; kr2 19:30 BP 163 / 71; Pulse 61; Resp 17; Pulse Ox 99% on R/A; kr2 20:30 BP 160 / 69; Pulse 63; Resp 17; Pulse Ox 99% on R/A; kr2 22:32 BP 178 / 70; Pulse 88; Resp 16; Pulse Ox 99% on R/A; kr2 17:18 Body Mass Index 28.25 (79.38 kg, 167.64 cm) ED Course: 17:07 Patient arrived in ED. mr 17:07 Floyd Keating MD is Private Physician. mr 17:15 Triage completed. ss 17:18 Arm band placed on right wrist. ss 17:21 Gianni Ballard MD is Attending Physician. rn 17:30 Inserted saline lock: 22 gauge in right antecubital area, using aseptic technique. kr2 Blood collected. 17:36 Aide Elias RN is Primary Nurse. kr2 17:37 EKG done, by furniture technician. reviewed by Gianni Ballard MD. sm3 18:05 Patient has correct armband on for positive identification. Bed in low position. Call kr2 light in reach. Side rails up X 1. shelter monitor on. Pulse ox on. NIBP on. Door closed. Noise minimized. Warm blanket given. Head of bed elevated. 19:13 Shani Rice MD is Hospitalizing Provider. rn 22:34 No provider procedures requiring assistance completed. Patient admitted, IV remains in kr2 place. Administered Medications: 16:15 Drug: Insulin Regular Human 5 units {Co-Signature: ed1 (Mckenzie Gómez LVN).} Route: IVP; kr2 Site: right antecubital; 22:31 Follow up: Response: No adverse reaction kr2 17:50 Drug: NS 0.9% 250 ml Route: IV; Rate: 1 bolus; Site: right antecubital; kr2 22:31 Follow up: Response: No adverse reaction; IV Status: Completed infusion kr2 19:10 Drug: Sodium Bicarbonate 1 amp Route: IVP; Site: right antecubital; kr2 19:45 Follow up: Response: No adverse reaction kr2 19:20 Drug: Calcium Gluconate 2 grams Route: IVPB; Infused Over: 60 mins; Site: right kr2 antecubital; 20:30 Follow up: Response: No adverse reaction; IV Status: Completed infusion kr2 19:20 Drug: Kayexalate 30 grams Route: PO; kr2 20:00 Follow up: Response: No adverse reaction kr2 19:21 Drug: D50W 50 ml Route: IVP; Site: right antecubital; kr2 22:31 Follow up: Response: No adverse reaction kr2 Outcome: 19:13 Decision to Hospitalize by Provider. rn 22:34 Admitted to Tele accompanied by tech, via wheelchair, room 422, with chart, Report kr2 called to [facility] 22:34 Condition: stable 22:34 Instructed on the need for admit, Demonstrated understanding of instructions. 22:36 Patient left the ED. kr2 Signatures: Michelle Dudley Roman, MD MD rn Smirch, Shelby, RN RN ss Reaves, Karey, RN RN kr2 Savanah Walton 3 Mckenzie Gómez LEVERMAN ed1
--- NOTE | 2017-08-20 20:39 | P.HP ---
Certification for Inpatient Patient admitted to: Observation With expected LOS: <2 Midnights Practitioner: I am a practitioner with admitting privileges, knowledge of patient current condition, hospital course, and medical plan of care. Services: Services provided to patient in accordance with Admission requirements found in Title 42 Section 412.3 of the Code of Federal Regulations Patient History Date of Service: 08/20/17 Reason for admission: hyperkalemia History of Present Illness: Mr Francis is a 71 years old male with history of IDDM, HTN, CKD, who came to ED referred by his Gyn Physician Dr Keating. He has been followed up with lab works due to declining kidney function. Yesterday, his lab work done and today he got the results. It was remarkable for hyperkalemia 6.8. He was referred to ED for evaluation and treatment. The patient has no complaint today. He denied SOB, CP or dizziness. Lab work was again remarkable for hyperkalemia in ED, 6.5. No fever or chills. BP was 168/64. Allergies acetaminophen [From Vicodin] Allergy (Verified 08/20/17 20:18) Itching hydrocodone [From Vicodin] Allergy (Verified 08/20/17 20:18) Itching - Past Medical/Surgical History -: CKD -: IDDM -: HTN -: nephrolithiasis -: Lithoripsy - Family History Family History: Reviewed- Non-Contributory - Social History Smoking Status: Never smoker Alcohol use: No CD- Drugs: No Place of Residence: Home Review of Systems 10-point ROS is otherwise unremarkable Physical Examination - Physical Exam General: Alert, In no apparent distress HEENT: Atraumatic, PERRLA, Mucous membr. moist/pink, EOMI, Sclerae nonicteric Neck: Supple, 2+ carotid pulse no bruit, No LAD, Without JVD or thyroid abnormality Respiratory: Clear to auscultation bilaterally, Normal air movement Cardiovascular: Regular rate/rhythm, Normal S1 S2 Gastrointestinal: Normal bowel sounds, No tenderness Musculoskeletal: No tenderness, Swelling (bilateral LE edema 1+) Integumentary: No rashes Neurological: Normal speech, Normal strength at 5/5 x4 extr, Normal tone, Normal affect Lymphatics: No axilla or inguinal lymphadenopathy - Studies Laboratory Data (last 24 hrs) 08/20/17 17:40: Sodium 135, Potassium 6.5 H*, BUN 83 H, Creatinine 4.65 H, Glucose 158 H, Magnesium 2.1 08/20/17 17:40: WBC 6.7, Hgb 11.2 L, Hct 34.7 L, Plt Count 329 Assessment and Plan - Problems (Diagnosis) (1) CKD (chronic kidney disease) stage 4, GFR 15-29 ml/min Current Visit: Yes Status: Acute (2) Hyperkalemia Current Visit: Yes Status: Acute (3) HTN (hypertension) Current Visit: Yes Status: Acute Qualifiers: Hypertension type: unspecified Qualified Code(s): I10 - Essential (primary ) hypertension (4) Diabetes mellitus Current Visit: Yes Status: Acute Qualifiers: Diabetes mellitus type: type 2 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 The patient is bradycardic, about 55 bpm, EKG shows, with pick T waves in precordial leads. He has been treated with calcium gluconate, Glucose/ Insulin and kayexelate. Will order continue cardiac monitoring, frequent potassium level until decrease to normal limits. Will consult Dr Keating. Will order IV PRN medication for HTN. - Advance Directives Does patient have a Living Will: No Does patient have a Durable POA for Healthcare: No - Code Status/Comfort Care Code Status Assessed: Yes Code Status: Full Code
[2017-08-20 20:59] LABS: Urine Blood NEGATIVE (NEG); Urine Glucose TRACE (NEG); Urine Protein 3+ (NEG); Urine Specific Gravity 1.015 (1.005-1.030)
[2017-08-20] MEDS ORDERED: IPRATROPIUM BROM 0.5MG/2.5ML NEB PRN (22:37)
[2017-08-20] MEDS: INSULIN -REGULAR HUMAN 50 UNIT/0.5 ML ML SQ SCH (22:37)
[2017-08-20] MEDS ORDERED: ONDANSETRON 4 MG/2 ML VIAL IV PRN (22:37)
[2017-08-20] MEDS ORDERED: ACETAMINOPHEN 500 MG TAB PO PRN (22:37)
[2017-08-20] MEDS ORDERED: ALBUTEROL 2.5 MG/3 ML NEB SOL NEB PRN (22:37)
[2017-08-21 00:01] LABS: Potassium 4.8 mEq/L (3.6-5.0)
[2017-08-21] MEDS: SOD POLYSTYREN SUL 15 GM/60 ML UCUP PO SCH (01:00)
[2017-08-21] MEDS: HYDRALAZINE HCL 20 MG/ML VIAL IV PRN ×2 (04:09→11:11)
--- NOTE | 2017-08-21 06:20 | EKG ---
Test Date: 2017-08-20 Test Time: 17:30:17 Wind Operations Supervisor: SMILEY MEASUREMENT RESULTS: Intervals: Rate: 63 CA: 196 QRSD: 96 QT: 376 QTc: 384 Bernard: P: 41 CA: 196 QRS: 1 T: -22 INTERPRETIVE STATEMENTS: Normal sinus rhythm Anteroseptal infarct, age undetermined Abnormal ECG No previous ECG available for comparison Electronically Signed On 08-21-17 06:19:54 CDT by Martinez Mir
[2017-08-21 06:34] LABS: Absolute Lymphocytes (CBC) 0.7 K/uL (0.7-4.9); Absolute Monocytes 0.1 K/uL (0.1-1.3); Absolute Neutrophil 4.8 K/uL (1.8-8.0); Basophils % 0.2 % (0-1.3); Eosinophils % 1.7 % (0-4.4); Hematocrit 33.2 % (39.6-49.0); Lymphocytes % 12.4 % (15.3-44.8); MCH 30.3 pg (27.0-35.0); MCV 91.6 fL (80-100); MPV 8.5 fL (7.6-11.3); Monocytes % 2.4 % (3.3-12.3); RBC Red Blood Cell Count 3.62 M/uL (4.33-5.43)
[2017-08-21 07:04] LABS: Potassium 4.8 mEq/L (3.6-5.0)
[2017-08-21] MEDS: INSULIN -REGULAR HUMAN 50 UNIT/0.5 ML ML SQ SCH ×4 (07:30→21:00)
[2017-08-21 09:45] LABS: CKMB Creatine Kinase MB 3.2 ng/ml (0.3-4.0); Thyroid Stimulating Hormone 0.91 uIU/mL (0.34-5.60); Uric Acid 8.2 mg/dL (4.8-8.7)
[2017-08-21] MEDS: METRONIDAZOLE 500mg IVPB 500 MG/100 ML BAG IV SCH ×2 (11:10→18:17)
[2017-08-21] MEDS: NA CHLORIDE 0.9% 1,000 ML IV SCH (11:11)
--- NOTE | 2017-08-21 11:37 | P.PN ---
Subjective Date of Service: 08/21/17 Chief Complaint: hyperkalemia Subjective: No new changes, Improving Review of Systems Respiratory: SOB with Excertion, Other (for the past month) Gastrointestinal: Vomiting, Abdominal Pain, Diarrhea Physical Examination - Vital Signs Temperature: 100.1 F Blood Pressure: 160/71 Pulse: 87 Respirations: 21 Pulse Ox (%): 0 - Physical Exam General: Oriented x3 HEENT: Atraumatic, Normocephalic, PERRLA Neck: Supple, 2+ carotid pulse no bruit Respiratory: Clear to auscultation bilaterally Cardiovascular: No edema Gastrointestinal: Normal bowel sounds, Other (pt c/o epigastric tenderness, vomited 500ml just prior to my exam. ) Musculoskeletal: No clubbing, No swelling Integumentary: No rashes, No breakdown Neurological: Normal gait, Normal speech Lymphatics: No axilla or inguinal lymphadenopathy External genitalia: Deferred Rectal: Deferred - Studies Laboratory Data (last 24 hrs) 08/20/17 17:40: Sodium 135, Potassium 6.5 H*, BUN 83 H, Creatinine 4.65 H, Glucose 158 H, Magnesium 2.1 08/20/17 17:40: WBC 6.7, Hgb 11.2 L, Hct 34.7 L, Plt Count 329 Assessment & Plan - Problems (Diagnosis) (1) Hyperkalemia Current Visit: Yes Status: Acute Plan: Dr. Keating was in to assess. NS up at 75ml/hr. Flagyl given for diarrhea. Discussed SOB, Dr. Keating states he will reassess.
--- NOTE | 2017-08-21 12:18 | CON ---
Date of Consultation: 08/21/2017 Additional Consulting Physician: Dr. Leona Coates. Reason For Consultation: Elevated BUN and creatinine. History Of Present Illness: This is a pleasant 71-year-old gentleman, well known to me from the [facility] with significant past medical history of chronic kidney disease stage 4 secondary to diabetes neph ropathy with nephrotic range proteinuria, normal size kidney. Workup including SPEP and serology wer e negative, hypertension, diabetes complicated with nephropathy and neuropathy, the patient was in hi s regular state of health. His lab in my office showed elevation in potassium 6.5 and worsening kidn ey function. For that reason, send to the ER. In the ER, potassium 6.5, creatinine above 4, GFR christin n to 14. The patient was started on IV hydration. The patient did well, creatinine started trending down, hyperkalemia resolved. The patient denied taking any nonsteroidal. The patient had diarrhea with some nausea and vomiting after he received Kayexalate. Past Medical History: Includes: 1.Chronic kidney disease, stage 4, nephrotic range of proteinuria, normal sized kidney, secondary to diabetes nephropathy. 2.Diabetes complicated with neuropathy and nephropathy. 3.Hypertension. 4.Hyperlipidemia. 5.Nephrolithiasis, status post lithotripsy. Allergies: TO TYLENOL AND HYDROCODONE. Family History: Positive for hypertension. Social History: Denies smoking. Denies drinking. Denies drug abuse. Past Surgical History: Negative. Review of Systems: Head and Neck: No red eye. No ear pain. GI: Has nausea and vomiting. : No polyuria. No dysuria. NETWORK SYSTEMS ENGINEER: Not applicable. Respiratory: No shortness of breath. Cardiovascular: No chest pain. Neuro: No weakness. Musculoskeletal: Generalized fatigue. Endocrine: No polydipsia. Skin: No rash. Physical Examination: Vital Signs: When I saw the patient, the patient lying in bed, slightly nauseated. Vital Signs: Blood pressure 160/70, pulse of 87, afebrile. Chest: Clear to auscultation. Heart: S1, S2. Regular. Abdomen: Soft, nontender. Extremities: No edema. Laboratory Data: WBC 5.8, H and H 11/33.2, platelets 296. Sodium 141, potassium 4.8, bicarb 17, BUN 77, creatinine 3.8, GFR of 19, glucose 121, BUN 77, calcium 9.1, PTH of 91. Urinalysis negative for infection. Medications: Current medications the patient on its include metronidazole 500 t.i.d., albuterol, hyd ralazine, ipratropium. Assessment And Plan: 1.Acute kidney injury secondary to prerenal, complicated with acidosis and hyperkalemia. I am going to start the patient on IV hydration and we will monitor the patient. 2.Acidosis, non-anion gap, mostly secondary to gastrointestinal loss. I will monitor. I am not goi ng to start on bicarb yet. 3.Hypertension, uncontrolled. We will start the patient on nifedipine. We will keep holding losart an given the hyperkalemia and acute kidney injury. 4.Colitis, possibly secondary to Kayexalate. We will start the patient on symptomatic treatment wit h Flagyl. 5.Hyperkalemia secondary to renal failure and losartan. Discontinue losartan, continue hydration, a nd we will follow up. MARQUISE Voice ID: [id number] Report ID: [id number]
[2017-08-22] MEDS: NA CHLORIDE 0.9% 1,000 ML IV SCH (03:17)
[2017-08-22] MEDS: HYDRALAZINE HCL 20 MG/ML VIAL IV PRN (03:17)
[2017-08-22] MEDS: METRONIDAZOLE 500mg IVPB 500 MG/100 ML BAG IV SCH ×2 (03:17→10:46)
[2017-08-22] MEDS: INSULIN -REGULAR HUMAN 50 UNIT/0.5 ML ML SQ SCH ×2 (07:30→11:30)
[2017-08-22] MEDS ORDERED: NIFEDIPINE XL 60 MG TABLET PO SCH (09:00)
[2017-08-22 12:28] LABS: Potassium 4.5 mEq/L (3.6-5.0)
--- NOTE | 2017-08-22 14:17 | PN ---
Date of Progress Note: 08/22/2017 Subjective: The patient feeling better. No nausea. No vomiting. No diarrhea. Physical Examination: Vital Signs: Blood pressure 152/71, afebrile. Chest: Clear to auscultation. Heart: S1, S2. Regular. Abdomen: Soft, nontender. Extremities: No edema. Laboratory Data: WBC 5.8, H and H 11/33.2. Sodium 136, potassium 4.5, bicarb 18, BUN 57, creatinine 3.4, GFR up to 21. Calcium 7.8. Medications: Current medications the patient on its include: 1.Metronidazole. 2.Breathing treatment. 3.Carvedilol 6.25. 4.Nifedipine. 5.Normal saline. Assessment And Plan: 1.Acute kidney injury secondary to prerenal, recovered, resolved. 2.Hyperkalemia secondary to renal failure, resolved. 3.Acidosis secondary to IV fluid and renal failure. We will discontinue IV fluid. We will follow u p as outpatient. The patient cleared from the Renal standpoint for discharge planning to follow up i n the office in 2 weeks. MARQUISE Voice ID: [id number] Report ID: [id number]
--- NOTE | 2017-08-22 17:02 | P.SSS ---
Patient History Date of Service: 08/22/17 Reason for admission: hyperkalemia History of Present Illness: Mr Francis is a 71 years old male with history of IDDM, HTN, CKD, who came to ED referred by his Jewelry Dipper Dr Keating. He has been followed up with lab works due to declining kidney function. Yesterday, his lab work done and today he got the results. It was remarkable for hyperkalemia 6.8. He was referred to ED for evaluation and treatment. The patient has no complaint today. He denied SOB, CP or dizziness. Lab work was again remarkable for hyperkalemia in ED, 6.5. No fever or chills. BP was 168/64. Allergies acetaminophen [From Vicodin] Allergy (Verified 08/20/17 20:18) Itching hydrocodone [From Vicodin] Allergy (Verified 08/20/17:18) Itching Home Medications: Cilostazol 50 mg PO BID 08/20/17 Cyclosporine [Restasis] 1 gtt EACH EYE BID 08/20/17 Fluticasone [Flonase 50MCG Nasal [place]*] 2 spray JORDAN DAILY 08/20/17 Insulin Detemir [Levemir Flextouch] 35 units SQ BID 08/20/17 Latanoprost Ophth [Xalatan 0.005%*] 1 drop EACH EYE BEDTIME 08/20/17 Nifedipine [Nifedipine ER] 2 tab PO DAILY 08/20/17 [place]-3 Acid Ethyl Esters 1 cap PO DAILY 08/20/17 Pregabalin [Lyrica*] 50 mg PO BID 08/20/17 Tiotropium [place] [Spiriva Respimat] 1 inh PO DAILY 08/20/17 Carvedilol [Coreg*] 6.25 mg PO BID #60 tab 08/22/17 - Past Medical/Surgical History Has patient received pneumonia vaccine in the past: Yes Diabetic: Yes -: CKD -: IDDM -: HTN -: nephrolithiasis -: BLADDER CA -: Lithoripsy - Family History Family History: Reviewed- Non-Contributory - Social History Smoking Status: Never smoker Alcohol use: No CD- Drugs: No Caffeine use: No Place of Residence: Home Review of Systems General: As per HPI Physical Examination - Vital Signs Temperature: 98.5 F Blood Pressure: 152/71 Pulse: 65 Respirations: 18 Pulse Ox (%): 97 - Physical Exam General: Alert, In no apparent distress HEENT: Atraumatic, PERRLA, Mucous membr. moist/pink, EOMI, Sclerae nonicteric Neck: Supple, 2+ carotid pulse no bruit, No LAD, Without JVD or thyroid abnormality Respiratory: Clear to auscultation bilaterally, Normal air movement Cardiovascular: Regular rate/rhythm, Normal S1 S2 Gastrointestinal: Normal bowel sounds, No tenderness Musculoskeletal: No tenderness Integumentary: No rashes Neurological: Normal gait, Normal speech, Normal strength at 5/5 x4 extr, Normal tone, Normal affect Lymphatics: No axilla or inguinal lymphadenopathy - Diagnosis (Problem(s)) (1) Hyperkalemia Onset Date: 08/21/17 Status: Resolved (2) CKD (chronic kidney disease) stage 4, GFR 15-29 ml/min Onset Date: 08/21/17 Status: Chronic (3) Diabetes mellitus Onset Date: 08/21/17 Status: Chronic Qualifiers: Diabetes mellitus type: type 2 Diabetes mellitus shelter insulin use: with shelter use Diabetes mellitus complication status: with unspecified complications Qualified Code(s): E11.8 - Type 2 diabetes mellitus with unspecified complications; Z79.4 - halfway (current) use of insulin (4) HTN (hypertension) Onset Date: 08/21/17 Status: Chronic Qualifiers: Hypertension type: essential hypertension Qualified Code(s): I10 - Essential (primary) hypertension Treatment Summary: All during the hospital stay patient remained stable The patient was initially admitted to the hospital for acute on chronic kidney injury. Most likely secondary to prerenal which recovered after IV fluids. Nephrology was consulted who agreed with the plan of IV fluids as well. Patient also had hyperkalemia most likely secondary to renal failure which resolved with IV fluids as well. Once patient's BUN and creatinine improved markedly here in the hospital patient is fluids were discontinued and patient was cleared for discharge home and to have follow up with kidney doctor in about 2 weeks. - Disposition Disposition: ROUTINE DISCHARGE Condition: GOOD Patient Discharge Instructions: Please f.u with PCP and Nephrology in 1 to 2 week post discharge. New medication. Coreg 6.125mg BID daily. Stop taking losartan 100mg daily for now till you f.u with PCP. You will need repeat BMP at that time and can restart losartan if okay with PCP Diet: Regular Activity: Ad emma
[2017-08-22] MEDS ORDERED: CARVEDILOL 6.25 MG TAB PO SCH (21:00)
== END 2017-08-22 15:42 | disposition home or self-care (01) | DRG 683 ==
LOC: ER 17:03 → ERHOLD 20:36 → 4TH 22:23
PROVIDERS: ADMIT Internal Medicine; ATTEND Internal Medicine
DX: I12.9 Hypertensive chronic kidney disease with stage 1 through stage 4 chronic kidney disease, or unspecified chronic kidney disease (principal); N18.4 Chronic kidney disease, stage 4 (severe); N17.9 Acute kidney failure, unspecified; E11.22 Type 2 diabetes mellitus with diabetic chronic kidney disease; E87.5 Hyperkalemia; E11.40 Type 2 diabetes mellitus with diabetic neuropathy, unspecified; E78.5 Hyperlipidemia, unspecified; N25.89 Other disorders resulting from impaired renal tubular function
CPT/HCPCS: 36415; 80048; 81003; 82553; 82962; 83735; 83970; 84132; 84443; 84550; 85025; 93005; 96365; 96366; 96375; 99285; J0360; J0610; J7030

== ENCOUNTER 2018-07-30 14:41 | Inpatient (IN) | payer OTHER ==
--- NOTE | 2018-07-30 15:23 | P.HP ---
Certification for Inpatient Patient admitted to: Inpatient With expected LOS: >2 Midnights Patient will require the following post-hospital care: None Practitioner: I am a practitioner with admitting privileges, knowledge of patient current condition, hospital course, and medical plan of care. Services: Services provided to patient in accordance with Admission requirements found in Title 42 Section 412.3 of the Code of Federal Regulations Patient History Date of Service: 07/30/18 Primary Care Provider: Dr Keating - Nephrology Reason for admission: Anasarca History of Present Illness: 72 y/o M with PMHX of Type 2 DM, HTN and Previous TIA who was admitted to the hospital directly from the Nephrology office for progressively worsening renal Anasarca. Pt has been having Declining Kidney function for past 1 year and now has developed Severe Anasarca and needs to be started on HD per nephrology. Pt has had several Admission last year for Hyperkalemia and Volume overload. Denies having any chest pain, fever, chills, N/V. Does have SOB and abd pain. Per pt also has intermittent Slurred Speech. Allergies acetaminophen [From Vicodin] Allergy (Verified 08/20/17 20:18) Itching hydrocodone [From Vicodin] Allergy (Verified 08/20/17 20:18) Itching Home Medications: Cilostazol 50 mg PO BID 08/20/17 Cyclosporine [Restasis] 1 gtt EACH EYE BID 08/20/17 Fluticasone [Flonase 50MCG Nasal [place]*] 2 spray JORDAN DAILY 08/20/17 Insulin Detemir [Levemir Flextouch] 35 units SQ BID 08/20/17 Latanoprost Ophth [Xalatan 0.005%*] 1 drop EACH EYE BEDTIME 08/20/17 Nifedipine [Nifedipine ER] 2 tab PO DAILY 08/20/17 [place]-3 Acid Ethyl Esters 1 cap PO DAILY 08/20/17 Pregabalin [Lyrica*] 50 mg PO BID 08/20/17 Tiotropium [place] [Spiriva Respimat] 1 inh PO DAILY 08/20/17 Carvedilol [Coreg*] 6.25 mg PO BID #60 tab 08/22/17 - Past Medical/Surgical History Has patient received pneumonia vaccine in the past: Yes Diabetic: Yes -: CKD -: IDDM -: HTN -: nephrolithiasis -: BLADDER CA -: Lithoripsy - Family History Family History: Reviewed- Non-Contributory - Family History Father -: Heart disease, Diabetes Mother -: Hypertension Brother -: Hypertension, Diabetes - Social History Smoking Status: Former smoker Counseled patient to stop smoking for: more than 10 minutes Smoking therapy provided: Yes Patient receptive to therapy: Yes Alcohol use: No CD- Drugs: No Caffeine use: No Place of Residence: Home Review of Systems 10-point ROS is otherwise unremarkable Physical Examination - Physical Exam General: Alert, Oriented x3, Mild distress Respiratory: Normal air movement, Crackles/rales Cardiovascular: Regular rate/rhythm, Normal S1 S2, Edema (2+ [place] BL LE and Generalzied Edema ) Gastrointestinal: Normal bowel sounds, Other (Abdominal Anasarca noted ) Musculoskeletal: Swelling (2+ Pedal Edema ), Other (Swealling in the groin and Thigh area as well. ) Integumentary: No rashes Neurological: Normal speech, Normal tone Lymphatics: No axilla or inguinal lymphadenopathy Assessment and Plan - Problems (Diagnosis) (1) Renal anasarca Current Visit: Yes Status: Acute Plan: Renal Anasarca with progressive worsening. -2+ BL LE pedal Edema extending to the thigh and groin area. -+ orthopena and Dyspnea as well -Nephrology consulted. Appreciated Reccs -General Surgery consulted. Appreciated Reccs -Tunnled HD catheter to be placed jaret at 9AM -NPO after midnight -Hold ASA -Acute Hepatitis Panel, Renal U.S and CM consult (2) CKD (chronic kidney disease) stage 4, GFR 15-29 ml/min Onset Date: 08/21/17 Current Visit: No Status: Chronic Plan: See # 1 (3) H/O TIA (transient ischemic attack) and stroke Current Visit: Yes Status: Acute Plan: H.o Past TIA with Intermittent Slurred Speech. -Will get Head CT to R/o acute abnormality -Hold ASA for procedure jaret (4) Diabetes mellitus Onset Date: 08/21/17 Current Visit: No Status: Chronic Plan: Type 2 DM with CKD -ISS and Accu Checks Qualifiers: Diabetes mellitus type: type 2 Diabetes mellitus long term care pharmacist insulin use: without residential use Diabetes mellitus complication status: with kidney complications Diabetes mellitus complication detail: with chronic kidney disease Chronic kidney disease stage: stage 5, not on chronic dialysis Qualified Code(s): E11.22 - Type 2 diabetes mellitus with diabetic chronic kidney disease; N18.5 - Chronic kidney disease, stage 5 (5) HTN (hypertension) Onset Date: 08/21/17 Current Visit: No Status: Chronic Plan: Currently Stable -Restart home medication Qualifiers: Hypertension type: essential hypertension Qualified Code(s): I10 - Essential (primary) hypertension Discharge Plan: Other Plan to discharge in: Greater than 2 days - Advance Directives Does patient have a Living Will: No Does patient have a Durable POA for Healthcare: No - Code Status/Comfort Care Code Status Assessed: Yes Critical Care: No
[2018-07-30] MEDS ORDERED: D50W 25 GM/50 ML SYRINGE IV PRN (15:30)
[2018-07-30] MEDS ORDERED: GLUCAGON 1 MG/VIAL IM PRN (15:30)
[2018-07-30] MEDS: INSULIN -REGULAR HUMAN 50 UNIT/0.5 ML ML SQ SCH ×2 (15:51→20:05)
[2018-07-30] MEDS ORDERED: CEFAZOLIN/SWI 1gm 1 GM/10 ML SYR IVP SCH (16:00)
[2018-07-30 16:20] LABS: Albumin 2.9 g/dL (3.4-5.0); Bilirubin Total 0.3 mg/dL (0.2-1.0); Protein, Total 6.3 g/dL (6.4-8.2); Thyroid Stimulating Hormone 1.22 uIU/mL (0.360-3.740)
--- NOTE | 2018-07-30 16:20 | RAD REPORT ---
EXAM DESCRIPTION: CT - Head Brain Wo Cont - 07/30/2018 4:11 pm CLINICAL HISTORY: TIA h.o with Slurred Speech Intermittenly TIA symptomology COMPARISON: No comparisons TECHNIQUE: All CT scans are performed using dose optimization technique as appropriate and may inclu de automated exposure control or mA/KV adjustment according to patient size. FINDINGS: No intracranial hemorrhage, hydrocephalus or extra-axial fluid collection.Small areas of g liosis in the brainstem noted likely related to old infarctions.Mild generalized brain atrophy is pre sent with mild periventricular and deep white matter chronic microvascular ischemic changes. The paranasal sinuses and mastoids are clear. The calvarium is intact. IMPRESSION: No acute intracranial abnormality.
[2018-07-30 16:21] LABS: Protime INR 1.15
--- NOTE | 2018-07-30 16:40 | RAD REPORT ---
EXAM DESCRIPTION: US - Renal Ultrasound-Complete - 07/30/2018 4:28 pm CLINICAL HISTORY: ESRD COMPARISON: Renal Ultrasound-Complete dated 05/20/2017 FINDINGS: Both kidneys are highly echogenic. Small benign bilateral renal cysts. The right kidney measures 11.3 x 5.7 x 4.3 cm. No hydronephrosis, focal mass or perinephric fluid. The left kidney measures 11.4 x 6.0 x 5.9 cm. No hydronephrosis, focal mass or perinephric fluid. The urinary bladder is incompletely distended without gross abnormality seen. IMPRESSION: Highly echogenic kidneys compatible with underlying medical renal disease.
--- OUTSIDE RECORDS SUMMARY | 2018-07-30 16:41 | XMS REPORT ---
:1945 [facility] Address [address] [place] [address] Dr. Moody [address] [place] [id number] Care Team Providers Name Role Phone Unavailable Unavailable Unavailable Problems This patient has no known problems. Allergies, Adverse Reactions, Alerts This patient has no known allergies or adverse reactions. Medications This patient has no known medications. Encounters Start End Encounter Admission Attending Care Care Encounter Date/Time Date/Time Type Type Clinicians Facility Department ID 2018-07-14 2018-07-14 Outpatient [id number] 05:24:00 05:24:00
[2018-07-30 19:51] LABS: Absolute Lymphocytes (CBC) 0.8 K/uL (0.7-4.9); Absolute Monocytes 0.5 K/uL (0.1-1.3); Absolute Neutrophil 3.3 K/uL (1.8-8.0); Basophils % 1.2 % (0-1.3); Eosinophils % 4.4 % (0-4.4); Hematocrit 22.2 % (39.6-49.0); Lymphocytes % 16.5 % (15.3-44.8); MPV 8.2 fL (7.6-11.3); Monocytes % 10.9 % (3.3-12.3); RBC Red Blood Cell Count 2.37 M/uL (4.33-5.43)
[2018-07-30 22:31] LABS: Urine Appearance CLEAR; Urine Bilirubin NEGATIVE (NEG); Urine Blood NEGATIVE (NEG); Urine Color YELLOW; Urine Glucose TRACE (NEG); Urine Protein 2+ (NEG); Urine Specific Gravity 1.015 (1.005-1.030); Urine Urobilinogen 0.2 mg/dL (0.2-1.0)
[2018-07-30 22:32] LABS: Urine Microscopic Reflex ORDER UMIC
[2018-07-30 22:33] LABS: Urine Bacteria <20 /HPF (NONE SEEN); Urine Culture Reflex Order NOT NEEDED
[2018-07-30 23:48] LABS: Urine RBC <5 /HPF (NONE SEEN)
[2018-07-31] MEDS: FUROSEMIDE 40 MG/4 ML VIAL IV SCH ×3 (01:08→17:55)
[2018-07-31 05:31] LABS: Absolute Lymphocytes (CBC) 0.9 K/uL (0.7-4.9); Absolute Monocytes 0.5 K/uL (0.1-1.3); Absolute Neutrophil 3.1 K/uL (1.8-8.0); Basophils % 1.2 % (0-1.3); Eosinophils % 5.3 % (0-4.4); Hematocrit 24.1 % (39.6-49.0); Lymphocytes % 19.3 % (15.3-44.8); MPV 8.7 fL (7.6-11.3); Monocytes % 10.6 % (3.3-12.3); RBC Red Blood Cell Count 2.59 M/uL (4.33-5.43)
[2018-07-31 05:40] LABS: Albumin 2.8 g/dL (3.4-5.0); Bilirubin Total 0.2 mg/dL (0.2-1.0); Potassium 5.2 mmol/L (3.5-5.1); Protein, Total 5.9 g/dL (6.4-8.2)
[2018-07-31] MEDS: INSULIN -REGULAR HUMAN 50 UNIT/0.5 ML ML SQ SCH ×4 (07:30→21:00)
[2018-07-31] MEDS ORDERED: NS 0.9% VIAL 10 ML ONE (07:51)
[2018-07-31] MEDS: HEPARIN 5000 UNIT/ML 1 ML VIAL ONE ×3 (07:51→08:37)
[2018-07-31] MEDS ORDERED: LIDOCAINE 1% MPF 30 ML VIAL ONE (07:52)
[2018-07-31] MEDS ORDERED: NA CHLORIDE 0.9% 100 ML IV ONE (07:52)
[2018-07-31] MEDS ORDERED: HEPARIN 5000 UNIT/ML 1 ML VIAL ONE (07:55)
[2018-07-31] MEDS ORDERED: NA CHLORIDE 0.9% 500 ML ONE (08:02)
[2018-07-31] MEDS ORDERED: LIDOCAINE 2% MPF 5 ML VIAL ONE (08:14)
[2018-07-31] MEDS ORDERED: PROPOFOL 200 MG/20 ML VIAL IV ONE (08:14)
[2018-07-31] MEDS ORDERED: FENTANYL CITR 100 MCG/2 ML ONE (08:14)
[2018-07-31] MEDS ORDERED: MIDAZOLAM HCL 2 MG/2 ML INJ ONE (08:15)
[2018-07-31] MEDS ORDERED: ONDANSETRON 4 MG/2 ML VIAL ONE (08:15)
[2018-07-31] MEDS: CEFAZOLIN SODIUM 1 GM/VIAL ONE ×2 (08:27→08:35)
--- NOTE | 2018-07-31 08:41 | P.OP ---
Preoperative diagnosis: ESRD Postoperative diagnosis: same Primary procedure: DOMENICO Wills, Fluoroscopy Anesthesia: MAC Estimated blood loss: min Specimen: none Findings: normal anatomy Complications: None Transferred to: Recovery Room Condition: Good
--- NOTE | 2018-07-31 08:55 | RAD REPORT ---
EXAM DESCRIPTION: RAD - Fluoroscopy <1 Hour - 07/31/2018 8:46 am FINDINGS: There were 4 portable C-arm views obtained during fluoroscopic assisted placement of a lef t-sided Tessio catheter. No suspicious or unexpected findings. Fluoro time was 0.1 minutes.
--- NOTE | 2018-07-31 09:32 | RAD REPORT ---
EXAM DESCRIPTION: RAD - Chest Single View - 07/31/2018 9:12 am CLINICAL HISTORY: Left-side Tessio catheter placement COMPARISON: None. TECHNIQUE: AP portable chest image was obtained 0910 hours . FINDINGS: Left-sided Tessio catheter placement noted. Both the long and short arm of the catheter ar e in the brachiocephalic vein. No acute lung parenchymal process. Heart and vasculature are normal. No pneumothorax or pleural fluid collection. No acute bony abnormality seen. No acute aortic findings suspected. IMPRESSION: No pneumothorax. Long and short arm of the left-side Tessio catheter are in the brachiocephalic vein.
--- NOTE | 2018-07-31 10:01 | P.PN ---
Subjective Date of Service: 07/31/18 Primary Care Provider: Dr Keating - Nephrology Chief Complaint: Anasarca Patient seen and examined at bedside with RN. Chart reviewed. Case discussed with general surgery and nephrology. Currently patient is scheduled for a tunneled HD catheter placement today at 9 a.m. Review of Systems 10-point ROS is otherwise unremarkable Physical Examination - Vital Signs Temperature: 98 F Blood Pressure: 168/59 Pulse: 59 Respirations: 16 Pulse Ox (%): 100 - Physical Exam General: Alert, Mild distress Neck: JVD distended Respiratory: Normal air movement, Crackles/rales Cardiovascular: Regular rate/rhythm, Normal S1 S2, Edema (Bilateral lower extremity edema 2+ pitting edema) Gastrointestinal: Normal bowel sounds, No tenderness Musculoskeletal: Swelling Integumentary: No rashes Neurological: Normal speech, Normal tone, Normal affect Lymphatics: No axilla or inguinal lymphadenopathy - Studies Laboratory Data (last 24 hrs) 07/31/18 04:50: Sodium 143, Potassium 5.2 H, BUN 84 H, Creatinine 6.30 H*, Glucose 112 H, Total Bilirubin 0.2, AST 12 L, ALT 51, Alkaline Phosphatase 92 07/31/18 04:50: WBC 4.9, Hgb 7.9 L*, Hct 24.1 L, Plt Count 260 07/30/18 19:43: WBC 4.9, Hgb 7.2 L*, Hct 22.2 L, Plt Count 232 07/30/18 15:43: PT 13.5 H, INR 1.15, APTT 31.7 07/30/18 15:43: Sodium 143, Potassium 5.0, BUN 81 H, Creatinine 6.06 H*, Glucose 119 H, Total Bilirubin 0.3, AST 17, ALT 55, Alkaline Phosphatase 96 Medications List Reviewed: Yes Assessment And Plan - Current Problems (Diagnosis) (1) Renal anasarca Current Visit: Yes Status: Acute Plan: Renal Anasarca with progressive worsening. -2+ BL LE pedal Edema extending to the thigh and groin area. -+ orthopena and Dyspnea as well -Nephrology consulted. Appreciated Reccs -General Surgery consulted. Appreciated Reccs -Tunnled HD catheter to be placed today at 9AM -has been NPO after midnight -Hold ASA -Acute Hepatitis Panel, Renal U.S and CM consult (2) CKD (chronic kidney disease) stage 4, GFR 15-29 ml/min Onset Date: 08/21/17 Current Visit: No Status: Chronic Plan: See # 1 (3) H/O TIA (transient ischemic attack) and stroke Current Visit: Yes Status: Acute Plan: H.o Past TIA with Intermittent Slurred Speech. -head CT negative for any acute abnormality -Hold ASA for procedure jaret (4) Diabetes mellitus Onset Date: 08/21/17 Current Visit: No Status: Chronic Plan: Type 2 DM with CKD -ISS and Accu Checks Qualifiers: Diabetes mellitus type: type 2 Diabetes mellitus detention insulin use: without detention use Diabetes mellitus complication status: with kidney complications Diabetes mellitus complication detail: with chronic kidney disease Chronic kidney disease stage: stage 5, not on chronic dialysis Qualified Code(s): E11.22 - Type 2 diabetes mellitus with diabetic chronic kidney disease; N18.5 - Chronic kidney disease, stage 5 (5) HTN (hypertension) Onset Date: 08/21/17 Current Visit: No Status: Chronic Plan: Currently Stable -Restart home medication Qualifiers: Hypertension type: essential hypertension Qualified Code(s): I10 - Essential (primary) hypertension Discharge Plan: Home Plan to discharge in: 48 Hours - Code Status/Comfort Care Code Status Assessed: Yes Critical Care: No
--- NOTE | 2018-07-31 12:34 | PREOPCON ---
Date of Consultation: 07/30/2018 Reason For Consultation: The patient needs emergent dialysis. History Of Present Illness: The patient is a 72-year-old gentleman with chronic kidney disease, who was going to need dialysis, but he came in with anasarca, worsening of renal function. He has a fist go in his right upper extremity but has not matured yet. Therefore, he needs the Tesio catheter for urgent dialysis. He is awake and alert, in no acute distress. No fever or chills. No chest pain. No nausea or vomiting. Does have some shortness of breath. Occasional intermittent slurred speech with previous TIA. Review of Systems: Otherwise unremarkable. Past Medical History: Significant for diabetes, hypertension, TIA, and chronic renal disease. Past Surgical History: Lithotripsy, bladder cancer surgery, and right arm fistula. Allergies: HYDROCODONE AND TYLENOL. Social History: The patient used to smoke in the past. Does not currently. Does not drink alcohol. Family History: Significant for diabetes and hypertension. Physical Examination: Vital Signs: Stable. He is afebrile. General: He is awake, alert, and oriented x3. Head and neck: There is no evidence of icterus. Cranial nerves 2 through 12 are grossly within norm al limits. No neck masses. No JVD. Throat clear. Neck is supple. Chest: Clear. Heart: S1 and S2. Abdomen: Soft. Extremities: Neurovascularly intact. Neuro: Nonfocal. Laboratory Data: Showed H and H to be 7.9 and 24.1, platelets are 260, white cells are normal. INR is 1.15. BUN is 84 and creatinine 6.3. CO2 is 16. Assessment: A 72-year-old gentleman with multiple medical problems with end-stage renal disease requ iring dialysis. Recommendations: We will put a left-sided Tesio catheter. The patient understands the risks, benefi ts, and alternatives and agrees to procedure. /MODL Voice ID: [id number] Report ID: [id number]
[2018-07-31] MEDS ORDERED: NA CHLORIDE 0.9% 1,000 ML IV PRN (12:38)
[2018-07-31] MEDS ORDERED: MANNITOL 25% 12.5 GM/50 ML VIAL IV PRN (12:38)
[2018-07-31] MEDS ORDERED: ALBUMIN HUMAN 25% 50 ML IV SCH (13:00)
--- NOTE | 2018-07-31 15:57 | CON ---
Date of Consultation: 07/31/2018 Consulting Physician: Dr. Rothman. Reason For Consultation: Elevated BUN/creatinine, anasarca, hypertension. History Of Present Illness: This is a pleasant 72-year-old gentleman, well known to me from the [facility] with significant past medical history of hypertension; chronic kidney disease stage 4/5, progressi on to end-stage, normal-size kidney; diabetes complicated with neuropathy, nephropathy; hyperlipidemi a; nephrolithiasis, status post lithotripsy. The patient came to the office for followup. AV fistul a was placed on the 14 of July on his right upper arm. Since then, the patient started feeling weak, increase in his leg swelling with shortness of breath. In the office, patient was with respiratory distress. For that reason, we sent the patient for direct admission to initiate dialysis. The patie nt had his PermCath inserted by Dr. Lemus. We took the patient for dialysis for a session. The christiano ent is going to be dialyzed today and tomorrow and day after. Past Medical History: 1.Chronic kidney disease stage 5, progression to end-stage renal disease. 2.Diabetes complicated with neuropathy, nephropathy. 3.Hypertension. 4.Hyperlipidemia. 5.Nephrolithiasis, status post lithotripsy. Allergies: NO KNOWN DRUG ALLERGY. Family History: Positive for hypertension. Social History: Denies smoking. Denies drinking. Denies drug abuse. Past Surgical History: Negative. Review of Systems: Head and Neck: No red eye. No ear pain. GI: No nausea, no vomiting. : No polyuria. No dysuria. No hematuria. Decreased urine output. Spring Clipper: Not applicable. Respiratory: Has shortness of breath, has orthopnea, has leg edema. Neuro: Patient feeling fatigued and multiple episodes of slurred speech. Musculoskeletal: Low back pain. Endocrine: No polydipsia. Skin: No rash. Physical Examination: Vital Signs: When I saw the patient, the patient lying in bed, blood pressure 192/84, pulse of 61. Chest: Crackles at bilateral base. Heart: S1, S2. Systolic murmur. Abdomen: Soft, nontender. Extremities: +3 edema. Laboratory Data: WBC 4.9, H and H 7.9/24.1, platelets 260. Sodium 143, potassium 5.2, bicarb 16, ch loride 119, BUN 84, creatinine 6.3, calcium 8.1. Chest x-ray, cardiomegaly. Hepatitis still pending. Assessment And Plan: 1.End-stage renal disease, over volume. We will initiate the patient on dialysis. As I mentioned, the patient is going to require dialysis today and tomorrow and Saturday. Then, hopefully we will sw itch him, we will send workup to set up patient's dialysis. 2.Hypertension. I am going to utilize blood pressure for more ultrafiltration, and we will follow u p the patient. 3.We will continue Lasix 80 b.i.d. 4.I am going to start the patient on NELY inhibitor. We will follow up. 5.Diabetes, as by Primary. 6.Recurrent slurred speech. I am going to go ahead and get CT brain. We will follow up. MARQUISE Voice ID: [id number] Report ID: [id number]
--- NOTE | 2018-07-31 18:58 | OP ---
Date of Procedure: 07/31/2018 Surgeon: Fadi Lemus MD Preoperative Diagnosis: End-stage renal disease. Postoperative Diagnosis: End-stage renal disease. Procedures: Placement of left internal jugular Tesio catheter. Interpretation of intraoperative flu oroscopy. Estimated Blood Loss: Minimal. Specimen: None. Findings: Normal anatomy. Anesthesia: MAC. Complications: None. Disposition: The patient tolerated the procedure in stable condition and taken to Recovery in good g eneral condition. Procedure In Detail: The patient was brought to the OR, placed in the supine position. MAC anesthes ia was began. The patient was prepped and draped in the usual sterile fashion. Lidocaine 1% was inf iltrated locally. An 18-gauge needle was used to access the left IJ. Guidewire passed. Position co nfirmed with fluoroscopy. Counterincision was made on the left anterior chest and then tunneling dev ice was used to tunnel the catheter between the 2 wounds. Seldinger technique was used and tip of th e catheter was placed in the right side of the circulatory system in the proximal SVC, it had good bl ood flow. Catheter packed with heparin and flushed with heparin, and then 3-0 chromic used to approx imate the subcutaneous tissue and 3-0 nylon used to secure the tube to the chest wall. Sterile dress ing was applied. The patient was awakened and taken to Recovery in good general condition. A chest x-ra y has been ordered. /MODAlexandra Voice ID: [id number] Report ID: [id number]
[2018-07-31] MEDS: ONDANSETRON 4 MG/2 ML VIAL IV PRN (23:07)
[2018-08-01 06:40] LABS: Absolute Lymphocytes (CBC) 0.8 K/uL (0.7-4.9); Absolute Monocytes 0.8 K/uL (0.1-1.3); Absolute Neutrophil 4.9 K/uL (1.8-8.0); Basophils % 0.8 % (0-1.3); Eosinophils % 3.8 % (0-4.4); Hematocrit 26.3 % (39.6-49.0); Lymphocytes % 11.8 % (15.3-44.8); MPV 8.6 fL (7.6-11.3); Monocytes % 11.9 % (3.3-12.3); RBC Red Blood Cell Count 2.81 M/uL (4.33-5.43)
[2018-08-01 07:13] LABS: Albumin 2.8 g/dL (3.4-5.0); Bilirubin Total 0.4 mg/dL (0.2-1.0); Potassium 4.6 mmol/L (3.5-5.1); Protein, Total 6.4 g/dL (6.4-8.2)
[2018-08-01] MEDS: INSULIN -REGULAR HUMAN 50 UNIT/0.5 ML ML SQ SCH ×4 (07:30→21:00)
[2018-08-01] MEDS: LISINOPRIL 20 MG TAB PO SCH (08:08)
[2018-08-01] MEDS: FUROSEMIDE 40 MG/4 ML VIAL IV SCH ×2 (08:08→17:05)
--- NOTE | 2018-08-01 09:20 | P.PN ---
Subjective Date of Service: 08/01/18 Primary Care Provider: Dr Keating - Nephrology Chief Complaint: Anasarca Patient seen and examined at bedside with RN. Chart reviewed. Case discussed with general surgery and nephrology. DOing well overall. S/P HD placement and First HD session yesterday Review of Systems 10-point ROS is otherwise unremarkable Physical Examination - Vital Signs Temperature: 98.2 F Blood Pressure: 184/84 Pulse: 68 Respirations: 18 Pulse Ox (%): 100 - Physical Exam General: Alert, In no apparent distress Neck: JVD distended Respiratory: Clear to auscultation bilaterally, Normal air movement Cardiovascular: Regular rate/rhythm, Normal S1 S2, Edema Gastrointestinal: Normal bowel sounds, No tenderness Musculoskeletal: No tenderness, Swelling (2+ edema BL LE and Extending to the Groin area) Integumentary: No rashes Neurological: Normal speech, Normal tone, Normal affect Lymphatics: No axilla or inguinal lymphadenopathy - Studies Laboratory Data (last 24 hrs) 08/01/18 06:30: Sodium 142, Potassium 4.6, BUN 56 H D, Creatinine 5.20 H* D, Glucose 144 H, Total Bilirubin 0.4, AST 11 L, ALT 38, Alkaline Phosphatase 100 08/01/18 06:30: WBC 6.8 D, Hgb 8.7 L, Hct 26.3 L, Plt Count 253 Medications List Reviewed: Yes Assessment And Plan - Current Problems (Diagnosis) (1) Renal anasarca Current Visit: Yes Status: Acute Plan: Renal Anasarca with progressive worsening. -2+ BL LE pedal Edema extending to the thigh and groin area. Improving but minimally -+ orthopena and Dyspnea on admission, Now improved -Nephrology consulted. Appreciated Reccs -General Surgery consulted. Appreciated Reccs -S/P HD catheter Placement POD # 1 -Started on HD yesterday. Will receive Today and jaret. -Acute Hepatitis Panel, Renal U.S and CM consulted for Outpt HD setup (2) CKD (chronic kidney disease) stage 4, GFR 15-29 ml/min Onset Date: 08/21/17 Current Visit: No Status: Chronic Plan: See # 1 (3) H/O TIA (transient ischemic attack) and stroke Current Visit: Yes Status: Acute Plan: H.o Past TIA with Intermittent Slurred Speech. -head CT negative for any acute abnormality -Restart ASA now (4) Diabetes mellitus Onset Date: 08/21/17 Current Visit: No Status: Chronic Plan: Type 2 DM with CKD -ISS and Accu Checks Qualifiers: Diabetes mellitus type: type 2 Diabetes mellitus care home insulin use: without termite control representative use Diabetes mellitus complication status: with kidney complications Diabetes mellitus complication detail: with chronic kidney disease Chronic kidney disease stage: stage 5, not on chronic dialysis Qualified Code(s): E11.22 - Type 2 diabetes mellitus with diabetic chronic kidney disease; N18.5 - Chronic kidney disease, stage 5 (5) HTN (hypertension) Onset Date: 08/21/17 Current Visit: No Status: Chronic Plan: Currently Stable -Restart home medication Qualifiers: Hypertension type: essential hypertension Qualified Code(s): I10 - Essential (primary) hypertension Discharge Plan: Home Plan to discharge in: Greater than 2 days - Code Status/Comfort Care Code Status Assessed: Yes Critical Care: No
--- NOTE | 2018-08-01 15:59 | P.PN ---
Subjective Date of Service: 08/01/18 Primary Care Provider: Dr Keating - Nephrology Chief Complaint: Anasarca Subjective: No new changes Pt with CKD V, developed uremic symptoms and hypervolemia , started on HD via perm cath non mature AVF feels weak trace edema will do dialysis tomorrow and then X3/wk S/W for OP dialysis arrangement Physical Examination - Vital Signs Temperature: 98.2 F Blood Pressure: 184/84 Pulse: 68 Respirations: 18 Pulse Ox (%): 100 - Physical Exam General: Oriented x3, Oriented x2, Cooperative, Acute distress Neck: Supple, Without JVD or thyroid abnormality Respiratory: Clear to auscultation bilaterally, Normal air movement Cardiovascular: No edema (trace edema ), Regular rate/rhythm, Normal S1 S2, No rubs, No murmurs, Edema Gastrointestinal: Normal bowel sounds, Soft and benign - Studies Laboratory Data (last 24 hrs) 08/01/18 06:30: Sodium 142, Potassium 4.6, BUN 56 H D, Creatinine 5.20 H* D, Glucose 144 H, Total Bilirubin 0.4, AST 11 L, ALT 38, Alkaline Phosphatase 100 08/01/18 06:30: WBC 6.8 D, Hgb 8.7 L, Hct 26.3 L, Plt Count 253 Medications List Reviewed: Yes Assessment And Plan - Current Problems (Diagnosis) (1) ESRD (end stage renal disease) on dialysis Current Visit: Yes Status: Acute - Plan End-stage renal disease, over volume. Dialysis today and tomorrrow reanl dose meds HTN uncontrolled will add amlodipine edema almost resolved HD and lasix DM as per PCP
[2018-08-01] MEDS: CARVEDILOL 25 MG TAB PO SCH (21:24)
[2018-08-01] MEDS: ROSUVASTATIN 10 MG TAB PO SCH (21:24)
[2018-08-01] MEDS: CILOSTAZOL 100 MG TAB PO SCH (21:24)
[2018-08-01] MEDS: ONDANSETRON 4 MG/2 ML VIAL IV PRN (23:29)
[2018-08-02] MEDS: ONDANSETRON 4 MG/2 ML VIAL IV PRN ×2 (05:40→23:19)
[2018-08-02 06:28] LABS: Absolute Lymphocytes (CBC) 0.9 K/uL (0.7-4.9); Absolute Monocytes 0.9 K/uL (0.1-1.3); Basophils % 0.7 % (0-1.3); Eosinophils % 1.8 % (0-4.4); Hematocrit 26.8 % (39.6-49.0); Lymphocytes % 13.3 % (15.3-44.8); MPV 8.5 fL (7.6-11.3); Monocytes % 12.4 % (3.3-12.3); RBC Red Blood Cell Count 2.93 M/uL (4.33-5.43)
[2018-08-02 06:45] LABS: Albumin 2.7 g/dL (3.4-5.0); Bilirubin Total 0.3 mg/dL (0.2-1.0); Potassium 4.4 mmol/L (3.5-5.1); Protein, Total 6.4 g/dL (6.4-8.2)
[2018-08-02] MEDS: INSULIN -REGULAR HUMAN 50 UNIT/0.5 ML ML SQ SCH ×4 (07:30→20:11)
[2018-08-02] MEDS ORDERED: ALTEPLASE 2 MG/VIAL IV SCH (09:00)
--- NOTE | 2018-08-02 10:05 | P.PN ---
Subjective Date of Service: 08/02/18 Primary Care Provider: Dr Keating - Nephrology Chief Complaint: Anasarca Patient seen and examined at bedside with RN. Chart reviewed. Case discussed with general surgery and nephrology. Doing well overall. S/P HD placement and now started HD. Denies SOB, CP and N/V Review of Systems 10-point ROS is otherwise unremarkable Physical Examination - Vital Signs Temperature: 98.0 F Blood Pressure: 200/81 Pulse: 76 Respirations: 20 Pulse Ox (%): 96 - Physical Exam General: Alert, In no apparent distress HEENT: Atraumatic, PERRLA, EOMI Neck: Supple, JVD not distended Respiratory: Clear to auscultation bilaterally, Normal air movement Cardiovascular: Regular rate/rhythm, Normal S1 S2 Gastrointestinal: Normal bowel sounds, No tenderness Musculoskeletal: No tenderness, Swelling (2+ Pedal Edema) Integumentary: No rashes Neurological: Normal speech, Normal tone, Normal affect Lymphatics: No axilla or inguinal lymphadenopathy - Studies Laboratory Data (last 24 hrs) 08/02/18 05:46: Sodium 143, Potassium 4.4, BUN 41 H, Creatinine 4.76 H, Glucose 119 H, Total Bilirubin 0.3, AST 10 L, ALT 25, Alkaline Phosphatase 101 08/02/18 05:46: WBC 7.0, Hgb 9.3 L, Hct 26.8 L, Plt Count 244 Medications List Reviewed: Yes Assessment And Plan - Current Problems (Diagnosis) (1) Renal anasarca Current Visit: Yes Status: Acute Plan: Renal Anasarca now with Improvement. -2+ BL LE pedal Edema extending to the thigh and groin area. Improving Now -+ orthopena and Dyspnea on admission, which is Now improved -Nephrology consulted. Appreciated Reccs -General Surgery consulted. Appreciated Reccs -S/P HD catheter Placement POD # 2 -Receiving HD now. -Pending Outpt Chair time and HD setup. (2) CKD (chronic kidney disease) stage 4, GFR 15-29 ml/min Onset Date: 08/21/17 Current Visit: No Status: Chronic Plan: See # 1 (3) H/O TIA (transient ischemic attack) and stroke Current Visit: Yes Status: Acute Plan: H.o Past TIA with Intermittent Slurred Speech. -head CT negative for any acute abnormality -Restart ASA now (4) Diabetes mellitus Onset Date: 08/21/17 Current Visit: No Status: Chronic Plan: Type 2 DM with CKD -ISS and Accu Checks Qualifiers: Diabetes mellitus type: type 2 Diabetes mellitus termite treater insulin use: without termite treater use Diabetes mellitus complication status: with kidney complications Diabetes mellitus complication detail: with chronic kidney disease Chronic kidney disease stage: stage 5, not on chronic dialysis Qualified Code(s): E11.22 - Type 2 diabetes mellitus with diabetic chronic kidney disease; N18.5 - Chronic kidney disease, stage 5 (5) HTN (hypertension) Onset Date: 08/21/17 Current Visit: No Status: Chronic Plan: Currently Stable -Restart home medication Qualifiers: Hypertension type: essential hypertension Qualified Code(s): I10 - Essential (primary) hypertension - Plan Pending Chair time and HD outpt Setup. Doing well overall. Discharge Plan: Home Plan to discharge in: Greater than 2 days - Code Status/Comfort Care Code Status Assessed: Yes Critical Care: No
[2018-08-02] MEDS: CILOSTAZOL 100 MG TAB PO SCH ×2 (12:37→20:08)
[2018-08-02] MEDS: TIOTROPIUM 5 SPRAYS/INHALER IH SCH (12:37)
[2018-08-02] MEDS: LISINOPRIL 20 MG TAB PO SCH (12:38)
[2018-08-02] MEDS: PREGABALIN 50 MG CAP PO SCH (12:38)
[2018-08-02] MEDS: ISOSORBIDE MONO SR 30 MG TAB PO SCH (12:39)
[2018-08-02] MEDS: FUROSEMIDE 40 MG/4 ML VIAL IV SCH ×2 (12:39→16:50)
[2018-08-02] MEDS: CARVEDILOL 25 MG TAB PO SCH ×2 (12:39→20:10)
[2018-08-02] MEDS: DOCOSAHEXANOIC AC/EPA 1000 MG PO SCH (12:39)
[2018-08-02] MEDS: AMLODIPINE 5 MG TAB PO SCH (12:48)
[2018-08-02] MEDS: ROSUVASTATIN 10 MG TAB PO SCH (20:10)
[2018-08-02] MEDS: TRAMADOL HCL 50 MG TAB PO PRN (23:19)
--- NOTE | 2018-08-03 01:48 | PN ---
Date of Progress Note: 08/03/2018 Chief Complaint: Anasarca, chronic kidney disease stage 5. History Of Present Illness: The patient developed uremic symptoms and hypervolemia. He started on d ialysis via permanent catheter and AV fistula is maturing. The patient received dialysis today. Cat heter was malfunctioning and the patient had tPA procedure done for catheter. The patient completed treatment without difficulties. Review of Systems: Denies fever, chills. Physical Examination: Lungs: Clear to auscultation bilaterally. Heart: S1-S2. Abdomen: Soft, benign. Extremities: Edema in both legs. Laboratory Data: Sodium 142, potassium 4.6, BUN 56, creatinine 5.20, glucose 144, hemoglobin 8.7, pl atelet count 253,000. Impression And Plan: 1.End-stage renal disease, new onset. Continue renal diet. Dialysis started via permanent dialysis catheter. Monitor catheter performance. The patient will have dialysis tomorrow. 2.Hypoalbuminemia. Increase p.o. protein intake. 3.Renal osteodystrophy. Monitor phosphorus level. Adjust binders. 4.Hypertension. Blood pressure control. Continue low-sodium diet and medication. Adjust ultrafilt ration with dialysis to prevent fluid overload. 5.Edema, fluid overload. Continue low-sodium diet. 6.Treatment with dialysis is scheduled for tomorrow. TABATHA/VIKIL Voice ID: [id number] Report ID: [id number]
[2018-08-03] MEDS: TRAMADOL HCL 50 MG TAB PO PRN (05:24)
[2018-08-03] MEDS: ONDANSETRON 4 MG/2 ML VIAL IV PRN ×3 (05:25→17:20)
[2018-08-03] MEDS: INSULIN -REGULAR HUMAN 50 UNIT/0.5 ML ML SQ SCH ×4 (07:30→21:00)
[2018-08-03] MEDS: CILOSTAZOL 100 MG TAB PO SCH ×2 (10:19→21:02)
[2018-08-03] MEDS: DOCOSAHEXANOIC AC/EPA 1000 MG PO SCH (10:20)
[2018-08-03] MEDS: ISOSORBIDE MONO SR 30 MG TAB PO SCH (10:20)
[2018-08-03] MEDS: PREGABALIN 50 MG CAP PO SCH (10:20)
[2018-08-03] MEDS: FUROSEMIDE 40 MG/4 ML VIAL IV SCH ×2 (10:21→16:35)
[2018-08-03] MEDS: LISINOPRIL 20 MG TAB PO SCH (10:21)
[2018-08-03] MEDS: CARVEDILOL 25 MG TAB PO SCH ×2 (10:21→21:02)
[2018-08-03] MEDS: AMLODIPINE 5 MG TAB PO SCH (10:27)
[2018-08-03] MEDS: MORPHINE 2 MG/ML SYR IM PRN (10:32)
[2018-08-03] MEDS: TIOTROPIUM 5 SPRAYS/INHALER IH SCH (10:33)
--- NOTE | 2018-08-03 10:58 | P.PN ---
Subjective Date of Service: 08/03/18 Primary Care Provider: Dr Keating - Nephrology Chief Complaint: Anasarca Patient seen and examined at bedside with RN. Chart reviewed. Case discussed with general surgery and nephrology. S/P HD placement and now started HD. C/O of having Severe Left sided Shoulder pain, Unable to move arm per due to pain. Also c/o Nausea when getting up at the edge of the bed. Review of Systems 10-point ROS is otherwise unremarkable Physical Examination - Vital Signs Temperature: 97.6 F Blood Pressure: 168/71 Pulse: 65 Respirations: 18 Pulse Ox (%): 98 - Physical Exam General: Alert, In no apparent distress Respiratory: Normal air movement, Crackles/rales Cardiovascular: Regular rate/rhythm, Normal S1 S2 Gastrointestinal: Normal bowel sounds, No tenderness Musculoskeletal: Other (left Shoulder Decreased ROM due to Pain. ) Integumentary: No rashes Neurological: Normal speech, Normal tone, Normal affect Lymphatics: No axilla or inguinal lymphadenopathy - Studies Medications List Reviewed: Yes Assessment And Plan - Current Problems (Diagnosis) (1) Renal anasarca Current Visit: Yes Status: Acute Plan: Renal Anasarca now with Improvement. -1+ pedal Edema, marked improvement. -+ orthopena and Dyspnea on admission, which is Now improved -Nephrology consulted. Appreciated Reccs -General Surgery consulted. Appreciated Reccs -S/P HD catheter Placement POD # 3 -Receiving HD now. -Pending Outpt Chair time and HD setup. (2) CKD (chronic kidney disease) stage 4, GFR 15-29 ml/min Onset Date: 08/21/17 Current Visit: No Status: Chronic Plan: See # 1 (3) H/O TIA (transient ischemic attack) and stroke Current Visit: Yes Status: Acute Plan: H.o Past TIA with Intermittent Slurred Speech. -head CT negative for any acute abnormality -Restart ASA now (4) Diabetes mellitus Onset Date: 08/21/17 Current Visit: No Status: Chronic Plan: Type 2 DM with CKD -ISS and Accu Checks Qualifiers: Diabetes mellitus type: type 2 Diabetes mellitus termite technician insulin use: without termite technician use Diabetes mellitus complication status: with kidney complications Diabetes mellitus complication detail: with chronic kidney disease Chronic kidney disease stage: stage 5, not on chronic dialysis Qualified Code(s): E11.22 - Type 2 diabetes mellitus with diabetic chronic kidney disease; N18.5 - Chronic kidney disease, stage 5 (5) HTN (hypertension) Onset Date: 08/21/17 Current Visit: No Status: Chronic Plan: Currently Stable -Restart home medication Qualifiers: Hypertension type: essential hypertension Qualified Code(s): I10 - Essential (primary) hypertension (6) Left shoulder pain Current Visit: Yes Status: Acute Plan: Acute shoulder pain s/p HD catheter placement. Most likely pain 2.2 to surgery vs Frozen Shoulder -Limited ROM due to pain. -MRI of the shoulder, Wont be done till saturday -Pain mgmt and PT/OT consulted. -Reevaluate in 24 to 48hrs Qualifiers: Chronicity: acute Qualified Code(s): M25.512 - Pain in left shoulder - Plan Pending Chair time and HD outpt Setup. Doing well overall. Discharge Plan: Home Plan to discharge in: 48 Hours - Code Status/Comfort Care Code Status Assessed: Yes Critical Care: No
--- NOTE | 2018-08-03 12:19 | RAD REPORT ---
EXAM DESCRIPTION: RAD - Abdomen 1 View (KUB) - 08/03/2018 11:55 am CLINICAL HISTORY: Abdominal pain, decreased bowel movement COMPARISON: None. FINDINGS: Mild to moderate stool volume is present. No abnormal distention of the rectum or sigmoid colon. A few air-filled, nondilated small bowel loops present. No free air or pneumatosis. No bowel o bstruction. No suspicious calcifications. No significant bony findings IMPRESSION: Bowel gas pattern is nonspecific. No abnormal stool volume. No free air, pneumatosis or other emergent finding.
[2018-08-03] MEDS: PANTOPRAZOLE 40MG TABLET PO SCH (14:21)
[2018-08-03] MEDS: ROSUVASTATIN 10 MG TAB PO SCH (21:02)
[2018-08-03] MEDS: DOCUSATE NA 100 MG CAP PO SCH (21:04)
--- NOTE | 2018-08-04 02:32 | PN ---
Date of Progress Note: 08/03/2018 Chief Complaint: Anasarca and chronic kidney disease stage 5. Subjective: The patient developed uremic symptoms and hypervolemia. He was started on dialysis via permanent dialysis catheter and AV fistula is maturing. The patient received dialysis yesterday. Ca theter was malfunctioning and tPA procedure was done for the catheter. Review of Systems: Denies fever or chills. Physical Examination: Lungs: Few crackles at bases. Heart: S1, S2. Abdomen: Soft, benign. Extremities: Edema in both legs. Impression And Plan: 1.End-stage renal disease. Next dialysis tomorrow. 2.Hypoalbuminemia. Increase p.o. protein intake. 3.Renal osteodystrophy. Continue renal diet and binders. 4.Edema, fluid overload. Continue low-sodium diet and p.o. fluid restriction. Diuretic will be used for volemia control as well as dialysis with ultrafiltration. TABATHA/MODL Voice ID: [id number] Report ID: [id number]
[2018-08-04 02:54] LABS: HBsAG Nonreactive (Nonreactive); Hepatitis A IgM Antibody Nonreactive
[2018-08-04] MEDS: TRAMADOL HCL 50 MG TAB PO PRN ×3 (03:39→19:33)
[2018-08-04] MEDS: ONDANSETRON 4 MG/2 ML VIAL IV PRN (03:39)
[2018-08-04] MEDS: PANTOPRAZOLE 40MG TABLET PO SCH (05:35)
[2018-08-04 06:23] LABS: Albumin 3.1 g/dL (3.4-5.0); Bilirubin Total 0.3 mg/dL (0.2-1.0); Potassium 5.2 mmol/L (3.5-5.1); Protein, Total 7.5 g/dL (6.4-8.2)
[2018-08-04 06:46] LABS: Absolute Neutrophil 6.2 K/uL (1.8-8.0); Basophils % 0.5 % (0-1.3); Eosinophils % 0.9 % (0-4.4); Hematocrit 30.8 % (39.6-49.0); Lymphocytes % 11.6 % (15.3-44.8); MPV 8.3 fL (7.6-11.3); Monocytes % 12.4 % (3.3-12.3); RBC Red Blood Cell Count 3.36 M/uL (4.33-5.43)
[2018-08-04] MEDS: INSULIN -REGULAR HUMAN 50 UNIT/0.5 ML ML SQ SCH ×4 (07:30→20:57)
[2018-08-04] MEDS: DOCUSATE NA 100 MG CAP PO SCH ×2 (08:26→20:56)
[2018-08-04] MEDS: CARVEDILOL 25 MG TAB PO SCH ×2 (08:26→20:56)
[2018-08-04] MEDS: DOCOSAHEXANOIC AC/EPA 1000 MG PO SCH (08:26)
[2018-08-04] MEDS: FUROSEMIDE 40 MG/4 ML VIAL IV SCH ×2 (08:27→16:55)
[2018-08-04] MEDS: LISINOPRIL 20 MG TAB PO SCH (08:27)
[2018-08-04] MEDS: CILOSTAZOL 100 MG TAB PO SCH ×2 (08:27→20:56)
[2018-08-04] MEDS: AMLODIPINE 5 MG TAB PO SCH (09:00)
[2018-08-04] MEDS: PREGABALIN 50 MG CAP PO SCH (09:00)
[2018-08-04] MEDS: GLUCERNA SHAKE 237 ML CAN PO SCH ×2 (09:48→20:57)
[2018-08-04] MEDS: TIOTROPIUM 5 SPRAYS/INHALER IH SCH (09:52)
--- NOTE | 2018-08-04 10:21 | RAD REPORT ---
EXAM DESCRIPTION: MRI - Shoulder Left Wo Cont - 08/04/2018 10:03 am CLINICAL HISTORY: Shoulder pain ICD M 75.102 COMPARISON: None. TECHNIQUE: Axial, sagittal and coronal magnetic resonance imaging left shoulder obtained FINDINGS: Some images are degraded by patient motion artifact Signal within the supraspinatus tendon has the appearance of a partial tear. Hypertrophic changes involve the AC joint Bicep tendon lies within the bicipital groove demonstrating normal signal. A glenoid labrum tear is not seen. Small amount of fluid is present within the subacromion subdeltoid bursa. Subchondral cysts are present within the humeral head. Small glenohumeral joint effusion IMPRESSION: Partial tear of the supraspinatus tendon
--- NOTE | 2018-08-04 12:52 | P.PN ---
Subjective Date of Service: 08/04/18 Primary Care Provider: Dr Keating - Nephrology Chief Complaint: Anasarca Subjective: Other (Patient continues to have left shoulder pain. Some nausea.) Physical Examination - Vital Signs Temperature: 97 F Blood Pressure: 189/84 Pulse: 89 Respirations: 19 Pulse Ox (%): 100 - Physical Exam General: Alert, In no apparent distress, Cooperative HEENT: Atraumatic Neck: Supple Respiratory: Clear to auscultation bilaterally, Normal air movement Cardiovascular: Normal pulses, Regular rate/rhythm Gastrointestinal: Normal bowel sounds, Soft and benign, Non-distended, No rebound, No guarding Musculoskeletal: Tenderness (Pain to the left shoulder region) Neurological: Normal speech, Abnormal strength (Pain to the left shoulder region. Decreased strength to the left shoulder area.) - Studies Laboratory Data (last 24 hrs) 08/04/18 05:37: Sodium 138, Potassium 5.2 H, BUN 60 H, Creatinine 6.13 H* D, Glucose 157 H, Total Bilirubin 0.3, AST 13 L, ALT 25, Alkaline Phosphatase 111 08/04/18 05:37: WBC 8.3 D, Hgb 10.6 L, Hct 30.8 L, Plt Count 280 Medications List Reviewed: Yes Assessment & Plan Discharge Plan: Home Plan to discharge in: 48 Hours Physician Review Additional Text: Impression: Renal anasarca related to chronic renal disease stage 5 now in stage renal disease on hemodialysis Left shoulder pain secondary to partial tear of supraspinatus tendon Hypertension Diabetes mellitus type 2, insulin dependent History of TIA Anemia of chronic disease Diabetic neuropathy Plan: Renal anasarca related to chronic renal disease stage 5 now with End stage renal disease on hemodialysis: Patient status post hemodialysis catheter placed 4 days ago. Now on hemodialysis. Will discuss with nephrology and social work to arrange for outpatient chair time with hemodialysis and continued arrangements of care. Encourage ambulation. Anticipate discharge in the next 1-2 days if outpatient dialysis can be arranged. Left shoulder pain secondary to partial tear of supraspinatus tendon: Patient had shoulder plain after placement of hemodialysis catheter. MRI shows partial tear. Will continue with physical therapy. Patient will need orthopedic evaluation as an outpatient. Will provide medication for pain. Patient will likely require home health and physical therapy at discharge. Will discuss with patient and family. Hypertension: Continue with medication. Nephrology has adjusted medication for better control. Diabetes mellitus type 2, insulin dependent: Overall stable. Continue with medication. Patient on sliding scale. History of TIA: Continue with aspirin. Anemia of chronic disease: Overall stable. Will monitor closely. Diabetic neuropathy: Continue with pain control medication Time Spent Managing Pts Care (In Minutes): 55
--- NOTE | 2018-08-04 15:14 | PN ---
Date of Progress Note: 08/04/2018 Chief Complaint: Anasarca, fluid overload, chronic kidney disease stage 5. Subjective: The patient developed uremic symptoms and hypervolemia. He was started on dialysis via permanent dialysis catheter and AV fistula is maturing. The patient received dialysis on Saturday. Yesterday, he developed some left shoulder pain, and an MRI without contrast was done for evaluation. The patient was found to have malfunctioning dialysis catheter and tPA was used per the catheter pr otocol. Review of Systems: Denies headache or vision changes. He is complaining of some shoulder pain. Denies fever or chills. Left shoulder pain and has been worse over the last several days. Physical Examination: Lungs: Clear to auscultation bilaterally. Heart: S1, S2. Abdomen: Soft, benign. Extremities: Edema in both legs. Laboratory Data: Hemoglobin 10.6, WBC 8.3, platelet count is 280,000. Sodium 138, potassium 5.2, ch loride 103, CO2 of 24, BUN 60, creatinine 6.13, albumin 3.1, and total protein is 7.5. Impression And Plan: 1.End-stage renal disease. The patient has fluid overload, anasarca, hyperkalemia. Dialysis will b e done today for metabolic clearance and ultrafiltration. Monitor blood pressure during dialysis and advance ultrafiltration accordingly. 2.Hypertensive heart and kidney disease. Congestive heart failure with diastolic dysfunction, acute on chronic. No need of oxygenation and oxygen therapy. 3.Hypertension. Blood pressure elevated. Adjust blood pressure medication for adequate blood press ure control in view of hypertensive heart disease. The patient may start NELY inhibitor. Continue ca rvedilol and amlodipine dose to be advanced to 10 mg a day. 4.Osteoarthritis. MRI was done. Avoid nonsteroidal anti-inflammatory medication. 5.Renal osteodystrophy. Continue renal diet and binders. EB/MODL Voice ID: [id number] Report ID: [id number]
[2018-08-04] MEDS: AMLODIPINE 10 MG TAB PO SCH (15:18)
[2018-08-04] MEDS: ISOSORBIDE MONO SR 30 MG TAB PO SCH (15:19)
--- NOTE | 2018-08-04 17:08 | CON ---
Date of Consultation: 08/04/2018 Brief Hpi: The patient is a 72-year-old gentleman with past medical history of diab etes, hypertension, and previous TIA, admitted on 07/30 with worsening renal dysfunction and anasarca from the conceptor office. He had been having declining kidney function, ultimately during his a dmission he had a catheter placed on the left IJ position by Dr. Lemus on 07/31 for hemodialysis. He has been getting hemodialysis through this and there was some concern by report that there was oozin g/blood coming from the exit site of the hemodialysis catheter. The patient received dialysis earlie r today and had the dressings replaced. He has no active bleeding at this time. He has been complai presley of left shoulder pain as well for some time. Past Medical History: Significant for CKD, diabetes, hypertension, nephrolithiasis, bladder cancer, lithotripsy. Allergies: TO VICODIN, ACETAMINOPHEN/HYDROCODONE. Home Medications: Cilostazol, Restasis, Flonase, Levemir, Xalatan, nifedipine, Lyrica, Spiriva, Core g, omega-3 acid ethyl nori. Social History: He is a former smoker. Review of Systems: A 10-point review of systems other than HPI denies. Physical Examination: General: At time of my examination, he is awake, alert, and oriented. Psychiatric: He is appropriate, conversive. HEENT: Normocephalic. Focused examination; left IJ insertion site appears clean and dry without daiana dence of hematoma or infection. Catheter exit site on the chest wall appears clean, dry, and without any evidence of bleeding. There is no hematoma there. There is no fluid collection. There is no e vidence of infection. Skin: Otherwise is warm and dry. Imaging: He had a shoulder MRI performed on 08/04/2018, which was officially read as partial tear of the supraspinatus tendon on the left shoulder. His chest x-ray from 07/31/[address], the long and short arm of the left-sided Tesio catheter are in the brachiocephalic vein. Assessment And Plan: This is a 72-year-old male with end-stage renal disease, on hemodialysis, who b y report had oozing from his catheter. This can be related to anticoagulation/thrombolytic therapy a nd as such I recommend close monitoring and having the patient sit in a more upright position with sl ight pressure in the area should there be continued bleeding during dialysis. Additionally, please n otify me regarding any other future episodes of bleeding from this site as I do not find that there i s any active evidence of bleeding at this time and no hematomas or surgical interventions and by repo rt the dialysis catheter seems to be functioning at this point. I will sit the patient upright as mu ch as possible when in bed to help decrease the orthostatic pressure on the venous side to help with decreased bleeding from the site should this recur as well. I will be available for future needs. Thank you for this interesting consult. CLEMENTINA/TORY Voice ID: [id number] Report ID: [id number]
[2018-08-04] MEDS: ROSUVASTATIN 10 MG TAB PO SCH (20:56)
[2018-08-05] MEDS: TRAMADOL HCL 50 MG TAB PO PRN ×2 (02:08→07:56)
[2018-08-05 05:34] LABS: Basophils % 0.5 % (0-1.3); Eosinophils % 2.7 % (0-4.4); Lymphocytes % 13.7 % (15.3-44.8); MPV 7.8 fL (7.6-11.3); Monocytes % 13.6 % (3.3-12.3); RBC Red Blood Cell Count 2.87 M/uL (4.33-5.43)
[2018-08-05] MEDS: PANTOPRAZOLE 40MG TABLET PO SCH (05:59)
[2018-08-05 06:01] LABS: Albumin 2.8 g/dL (3.4-5.0); Bilirubin Total 0.3 mg/dL (0.2-1.0); Potassium 4.6 mmol/L (3.5-5.1); Protein, Total 6.4 g/dL (6.4-8.2)
[2018-08-05] MEDS: INSULIN -REGULAR HUMAN 50 UNIT/0.5 ML ML SQ SCH ×4 (07:30→21:00)
[2018-08-05] MEDS: PREGABALIN 50 MG CAP PO SCH (07:57)
[2018-08-05] MEDS: LISINOPRIL 20 MG TAB PO SCH (07:57)
[2018-08-05] MEDS: DOCOSAHEXANOIC AC/EPA 1000 MG PO SCH (07:57)
[2018-08-05] MEDS: DOCUSATE NA 100 MG CAP PO SCH ×2 (07:57→21:09)
[2018-08-05] MEDS: CARVEDILOL 25 MG TAB PO SCH (07:58)
[2018-08-05] MEDS: FUROSEMIDE 40 MG/4 ML VIAL IV SCH ×2 (07:58→16:50)
[2018-08-05] MEDS: ISOSORBIDE MONO SR 30 MG TAB PO SCH (07:58)
[2018-08-05] MEDS: AMLODIPINE 10 MG TAB PO SCH (07:58)
[2018-08-05] MEDS: TIOTROPIUM 5 SPRAYS/INHALER IH SCH (07:59)
[2018-08-05] MEDS: CILOSTAZOL 100 MG TAB PO SCH ×2 (07:59→21:08)
[2018-08-05] MEDS: GLUCERNA SHAKE 237 ML CAN PO SCH ×2 (08:05→21:10)
[2018-08-05] MEDS ORDERED: MORPHINE 2 MG/ML SYR IV PRN ×2 (08:22→08:25)
[2018-08-05] MEDS: LIDOCAINE 5% PATCH TOP SCH (09:41)
[2018-08-05] MEDS: PREGABALIN 75 MG CAP PO SCH ×2 (09:41→21:08)
[2018-08-05] MEDS: MORPHINE 2 MG/ML SYR IM PRN (09:41)
--- NOTE | 2018-08-05 10:49 | P.PN ---
Subjective Date of Service: 08/05/18 Primary Care Provider: Dr Keating - Nephrology Chief Complaint: Anasarca Subjective: Other (Still with pain to the left shoulder. Especially with motion. Patient requiring IV pain medication) Physical Examination - Vital Signs Temperature: 98.1 F Blood Pressure: 136/63 Pulse: 68 Respirations: 20 Pulse Ox (%): 100 - Physical Exam General: Alert, In no apparent distress, Cooperative HEENT: Atraumatic Neck: Supple Respiratory: Clear to auscultation bilaterally, Normal air movement Cardiovascular: Normal pulses, Regular rate/rhythm Gastrointestinal: Normal bowel sounds, Soft and benign, Non-distended, No tenderness, No masses, No rebound, No guarding Musculoskeletal: Tenderness (Pain to the left shoulder region. Not able to move arm appropriately without pain) Neurological: Normal speech, Normal strength at 5/5 x4 extr, Normal tone, Normal affect - Studies Laboratory Data (last 24 hrs) 08/05/18 05:19: Sodium 137, Potassium 4.6, BUN 52 H, Creatinine 5.42 H*, Glucose 158 H, Total Bilirubin 0.3, AST 9 L, ALT 22, Alkaline Phosphatase 95 08/05/18 05:19: WBC 7.2, Hgb 8.9 L, Hct 26.0 L D, Plt Count 234 Medications List Reviewed: Yes Assessment & Plan Discharge Plan: Home Plan to discharge in: 24 Hours (To 48 hr pending outpatient HD set up) Physician Review Additional Text: Impression: Renal anasarca related to chronic renal disease stage 5 now in stage renal disease on hemodialysis Left shoulder pain secondary to partial tear of supraspinatus tendon Hypertension Diabetes mellitus type 2, insulin dependent History of TIA Anemia of chronic disease Diabetic neuropathy Plan: Renal anasarca related to chronic renal disease stage 5 now with End stage renal disease on hemodialysis: Patient status post hemodialysis catheter placed 5 days ago. Now on hemodialysis. MRI of shoulder showed partial tear of tendon. Surgery reassessed HD catheter. This appears to be working appropriately. Continue with dialysis. Await outpatient set up for hemodialysis. Case discussed with social worker psychiatric. Will discuss further with nephrology. Anticipate discharge in the next 1 to 3 days for approval of HD set up. Left shoulder pain secondary to partial tear of supraspinatus tendon: Patient still with pain. MRI shows small amount of fluid within the subacromium subdeltoid bursa, small glenohumeral joint effusion and partial tear of supraspinatus tendon. Patient requires IV pain medication. Will add lidocaine patch. Will place patient in sleep. Will discuss case with orthopedics. May need to have orthopedic evaluation while in the hospital. Patient may benefit with injection to joint area for pain control. Hypertension: Continue with medication. Nephrology has adjusted medication for better control. Will continue to monitor and address closely. Diabetes mellitus type 2, insulin dependent: Overall stable. Continue with medication. Patient on sliding scale. History of distant TIA: Continue with aspirin. Anemia of chronic disease: Overall stable. Will monitor closely. Diabetic neuropathy: Continue with pain control medication Time Spent Managing Pts Care (In Minutes): 55
[2018-08-05] MEDS: METOCLOPRAMIDE 10 MG/2mL INJ IV SCH ×2 (12:18→16:38)
[2018-08-05] MEDS: ROSUVASTATIN 10 MG TAB PO SCH (21:09)
[2018-08-05] MEDS: CARVEDILOL 6.25 MG TAB PO SCH (21:09)
[2018-08-06] MEDS: TRAMADOL HCL 50 MG TAB PO PRN (00:01)
--- NOTE | 2018-08-06 00:09 | PN ---
Subjective: The patient was admitted with anasarca, shortness of breath, and treated on dialysis. Physical Examination: VITAL SIGNS: When I saw the patient, blood pressure 118/56, pulse 64. Chest: Clear to auscultation. Heart: S1, S2 regular. Abdomen: Soft, nontender. Extremities: Plus edema. Laboratory Data: WBC 7.3, H and H 8.9/26, platelets 234. Sodium 137, potassium 4.6, bicarb 27, BUN 52, creatinine 5.4, calcium 7.9. Current Medications: The patient on include amlodipine 10 mg, Plavix, carvedilol 25 b.i.d., isosorbi de, Lasix 80 b.i.d., lisinopril 20 daily, Zofran, pantoprazole, docusate, morphine, and tramadol. Assessment And Plan: 1.End-stage renal disease, tolerating dialysis very well. I am going to continue dialysis. The [facility] ient is going to be scheduled for dialysis tomorrow. 2.Hypertension. Given the controlled blood pressure, I am going to discontinue amlodipine, decrease carvedilol to 6.25, and we will monitor the patient. 3.Anemia of chronic kidney disease. Continue Epogen. 4.Shoulder pain secondary to partial tear of ligament. Follow up with primary. Follow up with Orth o. Continue shoulder rest. 5.Gastroenteritis. Start the patient on PPI and Reglan. We will follow up. MARQUISE Voice ID: [id number] Report ID: [id number]
[2018-08-06] MEDS: ONDANSETRON 4 MG/2 ML VIAL IV PRN (04:17)
[2018-08-06 04:25] LABS: Absolute Lymphocytes (CBC) 1.1 K/uL (0.7-4.9); Absolute Neutrophil 4.3 K/uL (1.8-8.0); Basophils % 0.9 % (0-1.3); Eosinophils % 2.9 % (0-4.4); Hematocrit 24.2 % (39.6-49.0); Lymphocytes % 16.7 % (15.3-44.8); Monocytes % 15.7 % (3.3-12.3); RBC Red Blood Cell Count 2.66 M/uL (4.33-5.43)
[2018-08-06 04:45] LABS: Albumin 2.5 g/dL (3.4-5.0); Bilirubin Total 0.2 mg/dL (0.2-1.0); Potassium 4.8 mmol/L (3.5-5.1)
[2018-08-06 05:21] LABS: Basophilic Stippling 2+; Blood Morphology Comment NOTED (NOT SEEN); Platelet Estimate ADEQ
[2018-08-06] MEDS: PANTOPRAZOLE 40MG TABLET PO SCH (05:27)
[2018-08-06] MEDS: INSULIN -REGULAR HUMAN 50 UNIT/0.5 ML ML SQ SCH ×4 (07:30→20:45)
[2018-08-06] MEDS: PREGABALIN 75 MG CAP PO SCH ×2 (08:35→20:43)
[2018-08-06] MEDS: DOCUSATE NA 100 MG CAP PO SCH ×2 (08:36→20:44)
[2018-08-06] MEDS: DOCOSAHEXANOIC AC/EPA 1000 MG PO SCH (08:36)
[2018-08-06] MEDS: GLUCERNA SHAKE 237 ML CAN PO SCH ×2 (08:37→20:45)
[2018-08-06] MEDS: LIDOCAINE 5% PATCH TOP SCH (08:37)
[2018-08-06] MEDS: TIOTROPIUM 5 SPRAYS/INHALER IH SCH (08:38)
[2018-08-06] MEDS: METOCLOPRAMIDE 10 MG/2mL INJ IV SCH ×3 (08:43→17:36)
[2018-08-06] MEDS: FUROSEMIDE 40 MG/4 ML VIAL IV SCH ×2 (09:00→17:37)
[2018-08-06] MEDS: ISOSORBIDE MONO SR 30 MG TAB PO SCH (09:00)
[2018-08-06] MEDS: CARVEDILOL 6.25 MG TAB PO SCH ×2 (09:00→20:44)
[2018-08-06] MEDS: CILOSTAZOL 100 MG TAB PO SCH (09:00)
--- NOTE | 2018-08-06 09:59 | P.PN ---
Subjective Date of Service: 08/06/18 Primary Care Provider: Dr Keating - Nephrology Chief Complaint: Anasarca Subjective: Improving (Patient doing better. Left arm improved with lidocaine patch. concerned about discharge status. She prefers skilled placement for the patient due to his current needs) Physical Examination - Vital Signs Temperature: 98.3 F Blood Pressure: 117/46 Pulse: 79 Respirations: 18 Pulse Ox (%): 99 - Physical Exam General: Alert, In no apparent distress, Cooperative HEENT: Atraumatic Neck: Supple Respiratory: Clear to auscultation bilaterally, Normal air movement Cardiovascular: Normal pulses, Regular rate/rhythm Gastrointestinal: Normal bowel sounds, Soft and benign, Non-distended Musculoskeletal: Other (Pain to the left shoulder improved. Better movement noted today.) Neurological: Normal speech, Normal strength at 5/5 x4 extr, Normal tone, Normal affect - Studies Laboratory Data (last 24 hrs) 08/06/18 03:59: Sodium 137, Potassium 4.8, BUN 65 H, Creatinine 7.11 H* D, Glucose 180 H, Total Bilirubin 0.2, AST 10 L, ALT 19, Alkaline Phosphatase 93 08/06/18 03:59: WBC 6.7, Hgb 8.3 L, Hct 24.2 L, Plt Count 223 Medications List Reviewed: Yes Assessment & Plan Discharge Plan: Other (nursing home facility) Plan to discharge in: 24 Hours Physician Review Additional Text: Impression: Renal anasarca related to chronic renal disease stage 5 now in stage renal disease on hemodialysis Left shoulder pain secondary to partial tear of supraspinatus tendon Hypertension Diabetes mellitus type 2, insulin dependent History of TIA Anemia of chronic disease Diabetic neuropathy COPD Plan: Renal anasarca related to chronic renal disease stage 5 now with End stage renal disease on hemodialysis: Patient status post hemodialysis catheter placed 6 days ago. Patient continues on hemodialysis. Awaiting approval for outpatient hemodialysis chair time. Patient desires skilled placement. Social work consulted to help in this process. Arrangements for dialysis from the skilled placement facility will need to be arranged. Likely discharge in the next 1-2 days once HD is set up along with skilled placement. Will continue with physical therapy and occupational therapy at this time. Will discuss further with nephrology concerning plan of care and medications. Left shoulder pain secondary to partial tear of supraspinatus tendon: Pain to the left shoulder improved. Case discussed with orthopedics yesterday. MRI shows small amount of fluid within the subacromium subdeltoid bursa, small glenohumeral joint effusion and partial tear of supraspinatus tendon. Continue with lidocaine patch which seems to be helping. Limit IV pain medication. Will provide other alternatives. Lyrica has been increased. Continue to work with physical therapy and occupational therapy Hypertension: Continue with medication. Overall stable. Will continue to monitor and adjust medication. Nephrology has adjusted medication for better control. Diabetes mellitus type 2, insulin dependent: Overall stable. Continue with medication. Patient on sliding scale. History of distant TIA: Continue with aspirin. Anemia of chronic disease: Overall stable. Will monitor closely. Diabetic neuropathy: Continue with pain control medication COPD: Stable this time. Continue with medication Time Spent Managing Pts Care (In Minutes): 55
[2018-08-06] MEDS ORDERED: WATER FOR INJ,STERILE 10 ML IV SCH (10:21)
[2018-08-06] MEDS ORDERED: ALTEPLASE 2 MG/VIAL IV SCH (10:21)
[2018-08-06] MEDS: EPOETIN ALFA 10,000 UNIT/ML VIAL IV SCH (10:22)
[2018-08-06] MEDS: LISINOPRIL 20 MG TAB PO SCH (14:21)
[2018-08-06] MEDS: ROSUVASTATIN 10 MG TAB PO SCH (20:43)
[2018-08-07 05:12] LABS: Magnesium 2.3 mg/dL (1.8-2.4); Potassium 4.7 mmol/L (3.5-5.1)
[2018-08-07] MEDS: PANTOPRAZOLE 40MG TABLET PO SCH (06:32)
[2018-08-07] MEDS: INSULIN -REGULAR HUMAN 50 UNIT/0.5 ML ML SQ SCH ×4 (07:30→21:39)
[2018-08-07] MEDS: DOCOSAHEXANOIC AC/EPA 1000 MG PO SCH (08:31)
[2018-08-07] MEDS: ISOSORBIDE MONO SR 30 MG TAB PO SCH ×2 (08:31→14:26)
[2018-08-07] MEDS: GLUCERNA SHAKE 237 ML CAN PO SCH ×2 (08:31→21:39)
[2018-08-07] MEDS: DOCUSATE NA 100 MG CAP PO SCH ×2 (08:31→21:39)
[2018-08-07] MEDS: CARVEDILOL 6.25 MG TAB PO SCH ×3 (08:31→21:38)
[2018-08-07] MEDS: PREGABALIN 75 MG CAP PO SCH ×2 (08:31→21:38)
[2018-08-07] MEDS: LISINOPRIL 20 MG TAB PO SCH ×2 (08:32→14:26)
[2018-08-07] MEDS: METOCLOPRAMIDE 10 MG/2mL INJ IV SCH ×3 (08:34→17:13)
[2018-08-07] MEDS: FUROSEMIDE 40 MG/4 ML VIAL IV SCH ×2 (08:34→18:43)
[2018-08-07] MEDS: TIOTROPIUM 5 SPRAYS/INHALER IH SCH (09:00)
[2018-08-07] MEDS: LIDOCAINE 5% PATCH TOP SCH ×2 (09:00→17:16)
[2018-08-07] MEDS: BUPIVACA 0.25%/EPI 0.0005% MDV 50 ML VIAL ONE ×2 (09:15→12:12)
[2018-08-07] MEDS: HEPARIN 5000 UNIT/ML 1 ML VIAL ONE ×2 (09:15→12:13)
[2018-08-07] MEDS ORDERED: LIDOCAINE 1% MPF 5 ML VIAL ONE (09:16)
[2018-08-07] MEDS ORDERED: FENTANYL CITR 100 MCG/2 ML ONE (09:16)
[2018-08-07] MEDS ORDERED: MIDAZOLAM HCL 2 MG/2 ML INJ ONE (09:16)
[2018-08-07] MEDS ORDERED: PROPOFOL 200 MG/20 ML VIAL IV ONE (09:16)
[2018-08-07] MEDS ORDERED: NA CHLORIDE 0.9% 0 ML ONE (09:17)
[2018-08-07] MEDS ORDERED: NA CHLORIDE 0.9% 100 ML IV ONE (09:18)
[2018-08-07] MEDS ORDERED: NA CHLORIDE 0.9% 500 ML ONE (09:59)
--- NOTE | 2018-08-07 10:55 | P.PN ---
Subjective Date of Service: 08/07/18 Primary Care Provider: Dr Keating - Nephrology Chief Complaint: Anasarca Subjective: Improving (Patient doing well. Patient to have dialysis catheter replaced today. Left arm/shoulder pain improved.) Physical Examination - Vital Signs Temperature: 98.9 F Blood Pressure: 140/56 Pulse: 67 Respirations: 16 Pulse Ox (%): 99 - Physical Exam General: Alert, In no apparent distress, Oriented x3, Cooperative HEENT: Atraumatic Neck: Supple Respiratory: Clear to auscultation bilaterally, Normal air movement Cardiovascular: Normal pulses, Regular rate/rhythm Gastrointestinal: Normal bowel sounds, Soft and benign, Non-distended Integumentary: Other (Left shoulder pain improved. Better movement noted.) Neurological: Normal speech, Normal strength at 5/5 x4 extr, Normal tone, Normal affect - Studies Laboratory Data (last 24 hrs) 08/07/18 03:38: Sodium 136, Potassium 4.7, BUN 52 H, Creatinine 6.33 H*, Glucose 135 H, Magnesium 2.3 Medications List Reviewed: Yes Assessment & Plan Discharge Plan: Other (detention facility) Plan to discharge in: 24 Hours Physician Review Additional Text: Impression: Renal anasarca related to chronic renal disease stage 5 now in stage renal disease on hemodialysis Left shoulder pain secondary to partial tear of supraspinatus tendon Hypertension Diabetes mellitus type 2, insulin dependent History of TIA Anemia of chronic disease Diabetic neuropathy COPD Plan: Renal anasarca related to chronic renal disease stage 5 now with End stage renal disease on hemodialysis: Patient to have hemodialysis catheter replaced today. Patient will continue with hemodialysis. Awaiting skilled placement approval. Arrangements for hemodialysis transportation to dialysis outpatient facility will need to be arranged through skilled placement. Patient working with physical therapy. Likely discharge in the next 1-2 days once arrangements have been set up. Will need to make sure he mall dialysis catheter replacement is working properly. Patient has follow up with cardiovascular surgery in the next 2 weeks to follow up AV graft on the right side. Left shoulder pain secondary to partial tear of supraspinatus tendon: Pain to the left shoulder improved. Patient continues to work with physical therapy. Case has been discussed with orthopedics. MRI shows small amount of fluid within the subacromium subdeltoid bursa, small glenohumeral joint effusion and partial tear of supraspinatus tendon. Continue with lidocaine patch which seems to be helping. Limit IV pain medication. Will provide other alternatives. Lyrica has been increased. Continue to work with physical therapy and occupational therapy Hypertension: Continue with medication. Overall stable. Will continue to monitor and adjust medication. Nephrology has adjusted medication for better control. Diabetes mellitus type 2, insulin dependent: Overall stable. Continue with medication. Patient on sliding scale. History of distant TIA: Continue with aspirin. Anemia of chronic disease: Overall stable. Will monitor closely. Diabetic neuropathy: Continue with pain control medication COPD: Stable this time. Continue with medication Time Spent Managing Pts Care (In Minutes): 55
[2018-08-07] MEDS ORDERED: NS 0.9% VIAL 10 ML ONE (12:24)
[2018-08-07] MEDS ORDERED: EPHEDRINE SULF 50 MG/ML VIAL ONE (12:24)
--- NOTE | 2018-08-07 12:26 | P.OP ---
Preoperative diagnosis: Catheter Dysfunction Postoperative diagnosis: Catheter Dysfunction Primary procedure: LEFT Subclavian Tesio, Fluoroscopy Secondary procedure: micro introducer used Anesthesia: MAC + Local Estimated blood loss: <5cc Specimen: None Findings: Non-pulsatile dark blood returned Complications: None Implants: 23cm hemospit catheter Transferred to: Recovery Room Condition: Good
--- NOTE | 2018-08-07 13:16 | RAD REPORT ---
EXAM DESCRIPTION: RAD - Chest Single View - 08/07/2018 1:09 pm CLINICAL HISTORY: S P HEMODIALYSIS CATH PLACEMENT Chest pain. COMPARISON: Abdomen 1 View (KUB) dated 08/03/2018; Chest Single View dated 07/31/2018 FINDINGS: Portable technique limits examination quality. A left-sided venous catheter is in place with tip in the SVC. No postprocedure pneumothorax. The lung s are clear. The heart is normal in size. No displaced fractures. IMPRESSION: No postprocedure pneumothorax.
--- NOTE | 2018-08-07 13:16 | RAD REPORT ---
EXAM DESCRIPTION: RAD - Fluoroscopy <1 Hour - 08/07/2018 12:54 pm CLINICAL HISTORY: Venous catheter insertion. HEMODIALYSIS CATHETER PLACEMENT COMPARISON: Fluoroscopy <1 Hour dated 07/31/2018 FINDINGS: Fluoroscopic imaging is submitted from placement of a venous catheter. Details of the pro cedure not available. Fluoroscopy time: 0.1 minutes.
--- NOTE | 2018-08-07 14:30 | EKG ---
Test Date: 2018-08-07 Test Time: 10:16:53 Head Charrer: SMILEY MEASUREMENT RESULTS: Intervals: Rate: 67 KS: 196 QRSD: 86 QT: 390 QTc: 412 [place]: P: 58 KS: 196 QRS: 26 T: 3 INTERPRETIVE STATEMENTS: Normal sinus rhythm Septal infarct, age undetermined T wave abnormality, consider inferior ischemia Abnormal ECG Compared to ECG 08/20/2017 17:30:17 T-wave abnormality now present Possible ischemia now present Myocardial infarct finding still present Electronically Signed On 08-07-18 14:28:49 CDT by Marv Castro
--- NOTE | 2018-08-07 19:58 | P.PN ---
Date of Service: 08/06/18 Subjective: The patient was admitted with anasarca, shortness of breath, and treated on dialysis. Physical Examination: VITAL SIGNS: When I saw the patient, blood pressure 118/56, pulse 64. Chest: Clear to auscultation. Heart: S1, S2 regular. Abdomen: Soft, nontender. Extremities: Plus edema. Laboratory Data: WBC 7.3, H and H 8.9/26, platelets 234. Sodium 137, potassium 4.6, bicarb 27, BUN 52, creatinine 5.4, calcium 7.9. Current Medications: The patient on include amlodipine 10 mg, Plavix, carvedilol 25 b.i.d., isosorbide, Lasix 80 b.i.d., lisinopril 20 daily, Zofran, pantoprazole, docusate, morphine, and tramadol. Assessment And Plan: 1. End-stage renal disease, tolerating dialysis very well. I am going to continue dialysis. poor function PC will discussed with the surgen for exchange 2. Hypertension. Given the controlled blood pressure, I am going to discontinue amlodipine, decrease carvedilol to 6.25, and we will monitor the patient. 3. Anemia of chronic kidney disease. Continue Epogen. 4. Shoulder pain secondary to partial tear of ligament. Follow up with primary. Follow up with Ortho. Continue shoulder rest. 5. Gastroenteritis. Start the patient on PPI and Reglan. We will follow up.
[2018-08-07] MEDS: ROSUVASTATIN 10 MG TAB PO SCH (21:37)
[2018-08-07] MEDS: CILOSTAZOL 100 MG TAB PO SCH (21:38)
--- NOTE | 2018-08-07 23:44 | OP ---
Date of Procedure: 08/07/2018 Surgeon: Bonilla Franco MD, Preoperative Diagnosis: Catheter dysfunction. Postoperative Diagnosis: Catheter dysfunction. Procedure Performed: A left subclavian Tesio/HemoSplit tunneled hemodialysis catheter placement usin g fluoroscopic guidance in the left subclavian position. Secondary Procedure: Microintroducer set was used. Anesthesia: MAC plus local with 0.25% Marcaine. Estimated Blood Loss: Less than 5 cc. Specimen: None. Findings: Dark red nonpulsatile blood returned. Complications: None. Implants: A 23 cm HemoSplit catheter. Disposition: Transferred to recovery room in good condition. Procedure In Detail: After informed consent was obtained, the patient was brought to the operating r oom, prepped and draped in the usual sterile fashion. After adequate anesthesia was achieved, the pa tient was placed in steep Trendelenburg position. A left subclavian insertion was made with a microi ntroducer set. Dark red nonpulsatile blood was returned. Microwire was advanced. Fluoroscopy confi rmed position. At this point, a maya incision was made over the wire insertion point and the microin troducer set was placed into the subclavian position without evidence of complication. The standard wire was then advanced through this. Fluoroscopy confirmed position once again. I then created a se parate incision inferolateral to the insertion site on the chest wall, anesthetized the tract appropr iately, and used the tunneling device to pass the 23 cm HemoSplit catheter out through the insertion site at this time. This was placed easily at this time without evidence of complication. I then per formed sequential dilatation of the tract and placed the catheter in using the introducer sheath. Th e introducer sheath was removed in its entirety, placed on the back table. Fluoroscopy confirmed pos ition of the catheter to be in good position at this time. Both ports flushed quite easily and were flushed with saline first and then packed with heparin super flush 2 cc per port. Only dark red nonp ulsatile blood was returned throughout the procedure. The catheter was then secured to the chest wal l. At this time, the previous catheter was then removed and sent on the back table. There was no in fection and it appeared to be intact at this time. I then cleansed the previous insertion site from the previous catheter and after irrigating and drying this completely, I placed sutures to close this defect. Pressure was placed on the internal jugular insertion site for approximately 5 minutes whil e the patient was placed in Trendelenburg. Ultimately, head up position for 5 minutes. Pressure was performed and there was no evidence a hematoma at the end of procedure. Sterile dressing was then p laced over top. The patient tolerated the procedure well without evidence of complication, transferr ed to PACU in good condition. All counts were correct at the end of the case. A stat chest x-ray wi ll be performed to confirm position in the PACU. CLEMENTINA/TORY Voice ID: [id number] Report ID: [id number]
[2018-08-08] MEDS: TRAMADOL HCL 50 MG TAB PO PRN (00:24)
[2018-08-08] MEDS: PANTOPRAZOLE 40MG TABLET PO SCH (05:41)
[2018-08-08 06:39] LABS: Magnesium 2.5 mg/dL (1.8-2.4)
[2018-08-08] MEDS: INSULIN -REGULAR HUMAN 50 UNIT/0.5 ML ML SQ SCH ×4 (07:30→20:38)
[2018-08-08] MEDS: DOCOSAHEXANOIC AC/EPA 1000 MG PO SCH (08:13)
[2018-08-08] MEDS: CARVEDILOL 6.25 MG TAB PO SCH ×2 (08:13→20:39)
[2018-08-08] MEDS: PREGABALIN 75 MG CAP PO SCH ×2 (08:13→20:40)
[2018-08-08] MEDS: ISOSORBIDE MONO SR 30 MG TAB PO SCH (08:14)
[2018-08-08] MEDS: LISINOPRIL 20 MG TAB PO SCH (08:14)
[2018-08-08] MEDS: FUROSEMIDE 40 MG/4 ML VIAL IV SCH ×2 (08:14→17:03)
[2018-08-08] MEDS: DOCUSATE NA 100 MG CAP PO SCH ×2 (08:15→20:40)
[2018-08-08] MEDS: METOCLOPRAMIDE 10 MG/2mL INJ IV SCH ×3 (08:15→16:30)
[2018-08-08] MEDS: CILOSTAZOL 100 MG TAB PO SCH ×2 (08:15→20:39)
[2018-08-08] MEDS: LIDOCAINE 5% PATCH TOP SCH (08:16)
[2018-08-08] MEDS: GLUCERNA SHAKE 237 ML CAN PO SCH ×2 (08:17→20:38)
[2018-08-08] MEDS: TIOTROPIUM 5 SPRAYS/INHALER IH SCH (08:17)
[2018-08-08] MEDS ORDERED: ALTEPLASE 2 MG/VIAL IV ONE (12:00)
--- NOTE | 2018-08-08 14:02 | P.PN ---
Subjective Date of Service: 08/08/18 Primary Care Provider: Dr Keating - Nephrology Chief Complaint: Anasarca Subjective: Other (Patient doing well this time. Nephrology reports HD catheter may not be working properly.) Physical Examination - Vital Signs Temperature: 98.6 F Blood Pressure: 137/62 Pulse: 65 Respirations: 19 Pulse Ox (%): 99 - Physical Exam General: Alert, In no apparent distress, Oriented x3, Cooperative HEENT: Atraumatic Neck: Supple Respiratory: Clear to auscultation bilaterally, Normal air movement Cardiovascular: Normal pulses, Regular rate/rhythm Gastrointestinal: Normal bowel sounds, Soft and benign, Non-distended - Studies Laboratory Data (last 24 hrs) 08/08/18 05:38: Sodium 139, Potassium 5.0, BUN 70 H, Creatinine 6.51 H*, Glucose 169 H, Magnesium 2.5 H Medications List Reviewed: Yes Assessment & Plan Discharge Plan: Other (alf facility) Plan to discharge in: 48 Hours Physician Review Additional Text: Impression: Renal anasarca related to chronic renal disease stage 5 now in stage renal disease on hemodialysis Left shoulder pain secondary to partial tear of supraspinatus tendon Hypertension Diabetes mellitus type 2, insulin dependent History of TIA Anemia of chronic disease Diabetic neuropathy COPD Plan: Renal anasarca related to chronic renal disease stage 5 now with End stage renal disease on hemodialysis: Patient had HD catheter replaced yesterday. Case discussed with surgery. Surgery did not have any problems putting in HD catheter yesterday. Today nephrology reports that HD had problems with catheter. Surgery recommends cath flow. Will continue to monitor and reassess. If still with HD catheter difficulties, wanted consider transfer for intervention Radiology to replace HD catheter. Will also need to consider CV surgery. Still awaiting approval for transfer to skilled placement and HD as an outpatient. Will continue to monitor and readdress with patient and nephrology. Left shoulder pain secondary to partial tear of supraspinatus tendon: Pain to the left shoulder improved. Patient continues to work with physical therapy. Case has been discussed with orthopedics. MRI shows small amount of fluid within the subacromium subdeltoid bursa, small glenohumeral joint effusion and partial tear of supraspinatus tendon. Continue with lidocaine patch which seems to be helping. Limit IV pain medication. Will provide other alternatives. Lyrica has been increased. Continue to work with physical therapy and occupational therapy Hypertension: Continue with medication. Overall stable. Will continue to monitor and adjust medication. Nephrology has adjusted medication for better control. Diabetes mellitus type 2, insulin dependent: Overall stable. Continue with medication. Patient on sliding scale. History of distant TIA: Continue with aspirin. Anemia of chronic disease: Overall stable. Will monitor closely. Diabetic neuropathy: Continue with pain control medication COPD: Stable this time. Continue with medication Time Spent Managing Pts Care (In Minutes): 55
--- NOTE | 2018-08-08 15:36 | P.PN ---
Subjective Date of Service: 08/08/18 Primary Care Provider: Dr Keating - Nephrology Chief Complaint: Anasarca Subjective: No new changes Pt with CKD V, developed uremic symptoms and hypervolemia , started on HD via perm cath non mature AVF new Subclavian cath placed today , High arterial pressure , improved after cathh flow pending op HD chair time arrangement will try dialysis again on Saturday and if still have issue then will need transfer for IR cath placement Physical Examination - Vital Signs Temperature: 98.6 F Blood Pressure: 137/62 Pulse: 65 Respirations: 19 Pulse Ox (%): 99 - Physical Exam General: Alert, In no apparent distress HEENT: Atraumatic Neck: Supple, Without JVD or thyroid abnormality Respiratory: Clear to auscultation bilaterally, Normal air movement Cardiovascular: No edema, Regular rate/rhythm, Normal S1 S2 Gastrointestinal: Normal bowel sounds, Soft and benign - Studies Laboratory Data (last 24 hrs) 08/08/18 05:38: Sodium 139, Potassium 5.0, BUN 70 H, Creatinine 6.51 H*, Glucose 169 H, Magnesium 2.5 H Medications List Reviewed: Yes Assessment And Plan - Current Problems (Diagnosis) (1) ESRD (end stage renal disease) on dialysis Current Visit: Yes Status: Acute - Plan End-stage renal disease, HD today renal dose meds HTN controlled Anemia Cont Epogen edema , resolved r DM as per PCP
[2018-08-08] MEDS: ROSUVASTATIN 10 MG TAB PO SCH (20:39)
[2018-08-09] MEDS: PANTOPRAZOLE 40MG TABLET PO SCH (05:15)
[2018-08-09 06:20] LABS: Magnesium 2.5 mg/dL (1.8-2.4); Potassium 4.6 mmol/L (3.5-5.1)
[2018-08-09] MEDS: INSULIN -REGULAR HUMAN 50 UNIT/0.5 ML ML SQ SCH ×4 (07:30→22:46)
[2018-08-09] MEDS: FUROSEMIDE 40 MG/4 ML VIAL IV SCH ×2 (08:21→18:06)
[2018-08-09] MEDS: METOCLOPRAMIDE 10 MG/2mL INJ IV SCH ×3 (08:21→18:07)
[2018-08-09] MEDS: LIDOCAINE 5% PATCH TOP SCH (08:21)
[2018-08-09] MEDS: CILOSTAZOL 100 MG TAB PO SCH ×2 (08:22→22:44)
[2018-08-09] MEDS: LISINOPRIL 20 MG TAB PO SCH (08:22)
[2018-08-09] MEDS: PREGABALIN 75 MG CAP PO SCH ×2 (08:22→22:45)
[2018-08-09] MEDS: ISOSORBIDE MONO SR 30 MG TAB PO SCH (08:22)
[2018-08-09] MEDS: DOCUSATE NA 100 MG CAP PO SCH ×2 (08:22→22:45)
[2018-08-09] MEDS: DOCOSAHEXANOIC AC/EPA 1000 MG PO SCH (08:22)
[2018-08-09] MEDS: TIOTROPIUM 5 SPRAYS/INHALER IH SCH (08:23)
[2018-08-09] MEDS: GLUCERNA SHAKE 237 ML CAN PO SCH ×2 (09:00→21:00)
[2018-08-09] MEDS: CARVEDILOL 6.25 MG TAB PO SCH ×2 (09:00→22:45)
--- NOTE | 2018-08-09 12:44 | P.PN ---
Subjective Date of Service: 08/09/18 Primary Care Provider: Dr Keating - Nephrology Chief Complaint: Anasarca Subjective: Doing well Physical Examination - Vital Signs Temperature: 97.8 F Blood Pressure: 117/53 Pulse: 65 Respirations: 18 Pulse Ox (%): 100 - Physical Exam General: Alert, In no apparent distress, Cooperative HEENT: Atraumatic Neck: Supple Respiratory: Clear to auscultation bilaterally, Normal air movement Cardiovascular: Normal pulses, Regular rate/rhythm Gastrointestinal: Normal bowel sounds, Soft and benign, Non-distended Neurological: Normal affect - Studies Laboratory Data (last 24 hrs) 08/09/18 05:26: Sodium 138, Potassium 4.6, BUN 43 H D, Creatinine 5.40 H* D, Glucose 148 H, Magnesium 2.5 H Medications List Reviewed: Yes Assessment & Plan Discharge Plan: Other (Skilled placement facility) Plan to discharge in: 48 Hours Physician Review Additional Text: Impression: Renal anasarca related to chronic renal disease stage 5 now in stage renal disease on hemodialysis Left shoulder pain secondary to partial tear of supraspinatus tendon Hypertension Diabetes mellitus type 2, insulin dependent History of TIA Anemia of chronic disease Diabetic neuropathy COPD Plan: Renal anasarca related to chronic renal disease stage 5 now with End stage renal disease on hemodialysis: Patient doing well this time. HD catheter seems to be working. This will be reassessed on Saturday. Patient continues with physical therapy. Awaiting skilled placement and outpatient HD approval. Likely this will occur on Saturday. Continue to monitor closely Left shoulder pain secondary to partial tear of supraspinatus tendon: Continued improvement noted. Patient continues to work with physical therapy. Case has been discussed with orthopedics. MRI shows small amount of fluid within the subacromium subdeltoid bursa, small glenohumeral joint effusion and partial tear of supraspinatus tendon. Continue with lidocaine patch which seems to be helping. Limit IV pain medication. Will provide other alternatives. Lyrica has been increased. Continue to work with physical therapy and occupational therapy Hypertension: Continue with medication. Overall stable. Will continue to monitor and adjust medication. Nephrology has adjusted medication for better control. Diabetes mellitus type 2, insulin dependent: Overall stable. Continue with medication. Patient on sliding scale. History of distant TIA: Continue with aspirin. Anemia of chronic disease: Overall stable. Will monitor closely. Diabetic neuropathy: Continue with pain control medication COPD: Stable this time. Continue with medication Time Spent Managing Pts Care (In Minutes): 55
--- NOTE | 2018-08-09 16:21 | PN ---
Date of Progress Note: 08/09/2018 Subjective: The patient was admitted with a progression of end-stage renal disease. The patient sta tus post PermCath placement. Physical Examination: Vital Signs: Blood pressure 117/53, pulse of 65. Chest: Clear to auscultation. Heart: S1 and S2. Systolic murmur. Abdomen: Soft and nontender. Extremities: Trace edema. Laboratory Data: H and H 8.3/24.2. Sodium 138, potassium 4.6, bicarb 27, BUN 43, creatinine 5, GFR of 13, calcium 8.2, magnesium 2.5. Current Medications: The patient on is include: 1.Spiriva. 2.Epogen. 3.Carvedilol 6.25. 4.Isosorbide. 5.Lisinopril. 6.Lyrica. 7.Zofran. Assessment And Plan: 1.End-stage renal disease. We will continue the patient on dialysis Saturday, Saturday, and Saturday. 2.Secondary hyperparathyroidism, stable. I am going to continue to monitor. 3.Anemia of chronic kidney disease. Continue Epogen. 4.Deconditioning. Continue PT/OT. CHANEL/TORY Voice ID: [id number] Report ID: [id number]
[2018-08-09] MEDS: ROSUVASTATIN 10 MG TAB PO SCH (22:44)
[2018-08-10] MEDS: PANTOPRAZOLE 40MG TABLET PO SCH (06:30)
[2018-08-10] MEDS: INSULIN -REGULAR HUMAN 50 UNIT/0.5 ML ML SQ SCH ×4 (07:30→21:58)
[2018-08-10] MEDS: DOCOSAHEXANOIC AC/EPA 1000 MG PO SCH (09:12)
[2018-08-10] MEDS: LISINOPRIL 20 MG TAB PO SCH (09:12)
[2018-08-10] MEDS: CILOSTAZOL 100 MG TAB PO SCH ×2 (09:13→22:01)
[2018-08-10] MEDS: PREGABALIN 75 MG CAP PO SCH ×2 (09:13→21:59)
[2018-08-10] MEDS: DOCUSATE NA 100 MG CAP PO SCH ×2 (09:13→21:59)
[2018-08-10] MEDS: CARVEDILOL 6.25 MG TAB PO SCH (09:13)
[2018-08-10] MEDS: ISOSORBIDE MONO SR 30 MG TAB PO SCH (09:13)
[2018-08-10] MEDS: FUROSEMIDE 40 MG/4 ML VIAL IV SCH (09:14)
[2018-08-10] MEDS: METOCLOPRAMIDE 10 MG/2mL INJ IV SCH ×3 (09:14→16:47)
[2018-08-10] MEDS: TIOTROPIUM 5 SPRAYS/INHALER IH SCH (09:15)
[2018-08-10] MEDS: GLUCERNA SHAKE 237 ML CAN PO SCH ×2 (09:17→22:00)
[2018-08-10] MEDS: LIDOCAINE 5% PATCH TOP SCH (09:21)
--- NOTE | 2018-08-10 09:59 | P.PN ---
Subjective Date of Service: 08/10/18 Primary Care Provider: Dr Keating - Nephrology Chief Complaint: Anasarca Subjective: Doing well Physical Examination - Vital Signs Temperature: 98.2 F Blood Pressure: 148/59 Pulse: 71 Respirations: 16 Pulse Ox (%): 100 - Physical Exam General: Alert, In no apparent distress HEENT: Atraumatic Neck: Supple Respiratory: Clear to auscultation bilaterally, Normal air movement Cardiovascular: Normal pulses, Regular rate/rhythm Gastrointestinal: Normal bowel sounds, Soft and benign, Non-distended Integumentary: No erythema, No warmth, No cyanosis - Studies Medications List Reviewed: Yes Assessment & Plan Discharge Plan: Other (SNF) Plan to discharge in: 24 Hours Physician Review Additional Text: Impression: Renal anasarca related to chronic renal disease stage 5 now in stage renal disease on hemodialysis Left shoulder pain secondary to partial tear of supraspinatus tendon Hypertension Diabetes mellitus type 2, insulin dependent History of TIA Anemia of chronic disease Diabetic neuropathy COPD Plan: Renal anasarca related to chronic renal disease stage 5 now with End stage renal disease on hemodialysis: Patient doing well this time. HD catheter seems to be working. This will be reassessed on again tomorrow. Patient continues with physical therapy. Spoke to Nephrology yesterday about setup for hemodialysis at outpatient. This has been arranged. He will get a chair time tomorrow. Awaiting skilled placement approval. This will likely occur tomorrow. Anticipate discharge tomorrow if hemodialysis arranged along with recheck of hemodialysis catheter is good. I will turn over the service to Dr. Rothman tomorrow. I will go over the plan of care with her. Left shoulder pain secondary to partial tear of supraspinatus tendon: Continued improvement noted. Patient seen by orthopedics. Patient continues to work with physical therapy. Case has been discussed with orthopedics. MRI shows small amount of fluid within the subacromium subdeltoid bursa, small glenohumeral joint effusion and partial tear of supraspinatus tendon. Continue with lidocaine patch which seems to be helping. Limit IV pain medication. Will provide other alternatives. Lyrica has been increased. Continue to work with physical therapy and occupational therapy Hypertension: Blood pressure stable at this time. Nephrology has adjusted medication. Continue to monitor closely. Diabetes mellitus type 2, insulin dependent: Overall stable. Continue with medication. Patient on sliding scale. History of distant TIA: Continue with aspirin. Anemia of chronic disease: Overall stable. Will monitor closely. Diabetic neuropathy: Continue with pain control medication COPD: Stable this time. Continue with medication Time Spent Managing Pts Care (In Minutes): 55
[2018-08-10] MEDS: FUROSEMIDE 40 MG TABLET PO SCH (16:47)
--- NOTE | 2018-08-10 19:53 | PN ---
Date of Progress Note: 08/10/2018 Subjective: The patient was admitted with CHF exacerbation, progression to end-stage renal disease. Objective: Vital Signs: Blood pressure 135/49, pulse of 70. Chest: Had crackles in the base. Heart: S1, S2. Systolic murmur. Abdomen: Soft, nontender. Extremities: No edema. Laboratory Data: H and H 8.3/24.2. Sodium 138, potassium 4.6, bicarb 27, BUN 43, creatinine 5.4, ca lcium 8.2, magnesium 2.5. Current Medications: The patient on its include Spiriva, albumin, heparin, isosorbide, lisinopril 20 , , Plavix, Lasix 80 b.i.d., tramadol. Assessment And Plan: 1.End-stage renal disease. Normal volume. I am going to continue current medication. Plan for aj lysis tomorrow. 2.Hypertension, controlled. Optimal. I am going to switch his Lasix to oral and we will decrease h is carvedilol to 3.125 and we will monitor the patient. 3.Malfunction, PermCath, status post exchange. 4.Deconditioning. Continue PT, OT. 5.Ligament tear on the left shoulder. Continue PT, OT. CHANEL/TORY Voice ID: [id number] Report ID: [id number]
[2018-08-10] MEDS: CARVEDILOL 3.125 MG TAB PO SCH (21:59)
[2018-08-10] MEDS: ROSUVASTATIN 10 MG TAB PO SCH (22:01)
[2018-08-11 04:57] LABS: Magnesium 2.6 mg/dL (1.8-2.4); Potassium 4.6 mmol/L (3.5-5.1)
[2018-08-11] MEDS: PANTOPRAZOLE 40MG TABLET PO SCH (05:18)
[2018-08-11 05:24] VITALS: BMI 23.6
[2018-08-11 05:58] VITALS: O2SAT 98
[2018-08-11] MEDS: TIOTROPIUM 5 SPRAYS/INHALER IH SCH (08:33)
[2018-08-11] MEDS: METOCLOPRAMIDE 10 MG/2mL INJ IV SCH ×3 (08:34→16:19)
[2018-08-11] MEDS: DOCOSAHEXANOIC AC/EPA 1000 MG PO SCH (08:34)
[2018-08-11] MEDS: CILOSTAZOL 100 MG TAB PO SCH ×2 (08:34→20:16)
[2018-08-11] MEDS: PREGABALIN 75 MG CAP PO SCH ×2 (08:34→20:15)
[2018-08-11] MEDS: DOCUSATE NA 100 MG CAP PO SCH ×2 (08:34→20:14)
[2018-08-11] MEDS: GLUCERNA SHAKE 237 ML CAN PO SCH ×2 (08:35→20:17)
[2018-08-11] MEDS: LIDOCAINE 5% PATCH TOP SCH (08:35)
[2018-08-11] MEDS: INSULIN -REGULAR HUMAN 50 UNIT/0.5 ML ML SQ SCH ×4 (08:35→21:39)
[2018-08-11] MEDS: CARVEDILOL 3.125 MG TAB PO SCH ×2 (09:00→20:15)
[2018-08-11] MEDS: FUROSEMIDE 40 MG TABLET PO SCH ×2 (09:00→16:16)
[2018-08-11] MEDS: EPOETIN ALFA 10,000 UNIT/ML VIAL IV SCH (11:26)
[2018-08-11] MEDS ORDERED: ALTEPLASE 2 MG/VIAL IV ONE (11:50)
[2018-08-11] MEDS ORDERED: WATER FOR INJ,STERILE 10 ML IV ONE (11:50)
[2018-08-11] MEDS: LISINOPRIL 20 MG TAB PO SCH (16:14)
[2018-08-11] MEDS: ISOSORBIDE MONO SR 30 MG TAB PO SCH (16:16)
[2018-08-11 16:37] LABS: Hematocrit 27.3 % (39.6-49.0)
--- NOTE | 2018-08-11 16:42 | CON ---
Date of Consultation: 08/07/2018 Additional Attending Physician: Dr. Collins. Consulting Physician: Drew Galan MD Reason For Consultation: Left shoulder pain. History Of Present Illness: Mr. Francis is a 72-year-old male who was admitted to the hospital on July 30, 2018 with history of diabetes, hypertension, and anasarca. While in the hospital, he had a ches t tube placement for dialysis. He subsequently was noted to have some left shoulder pain without par ticular injury. He ended up having an MRI of his left shoulder, which demonstrated a partial-thickne ss rotator cuff tear. He has also been treated with the lidocaine patches and he reports improvement of his left shoulder pain with lidocaine patches. Review of Systems: As above, otherwise negative. Past Medical History: Includes chronic kidney disease, diabetes, hypertension, bladder cancer. Past Surgical History: Includes Tesio catheter placement. Social History: Reports history of tobacco use. Does not currently use alcohol. The patient lives at home. Allergies: TO ACETAMINOPHEN AND HYDROCODONE. Home Medications: Per medication reconciliation. Physical Examination: General: No apparent distress. HEENT: Normocephalic, atraumatic. Neck: Supple. Cardiovascular: Brisk cap refill to all digits. Chest: Nonlabored breathing. Abdomen: Nondistended. Psychiatric: Response to exam. Extremity: Left upper extremity, no swelling about the shoulder. No erythema noted. Mild tendernes s to palpation over the proximal humerus. 4/5 strength at external rotation, abduction of the shoulde r. Neurovascularly intact distally. MRI of the left shoulder demonstrates a partial thickness supra spinatus tear with trace effusion. No significant soft tissue edema noted. Assessment: Mr. Francis is a 72-year-old male with left shoulder pain and a partial thickness rotator cuff tear. Plan: We will proceed to continue with conservative treatment measures including supportive care. M ay use a sling as needed and continue with the lidocaine patches. Physical therapy may be consulted to aid with mobilization and range of motion exercises. Once cleared if okay with general surgeons a fter chest tube placement, he may follow up in my clinic 2 weeks after discharge for further evaluati on if he continues to have pain. CV/MODL Voice ID: [id number] Report ID: [id number]
[2018-08-11 16:47] VITALS: TEMP 98
--- NOTE | 2018-08-11 16:54 | P.PN ---
Subjective Date of Service: 08/11/18 Primary Care Provider: Dr Keating - Nephrology Chief Complaint: Anasarca Patient seen and examined at bedside with RN. Chart reviewed. Case discussed with general surgery and nephrology. S/P HD placement and now started HD. Chair time set up at this time. Currently awaiting inpatient rehab placement. Review of Systems 10-point ROS is otherwise unremarkable Physical Examination - Vital Signs Temperature: 98.0 F Blood Pressure: 170/48 Pulse: 72 Respirations: 20 Pulse Ox (%): 99 - Physical Exam General: Alert, In no apparent distress HEENT: Atraumatic, PERRLA, EOMI Neck: Supple, JVD not distended Respiratory: Clear to auscultation bilaterally, Normal air movement Cardiovascular: Regular rate/rhythm, Normal S1 S2 Gastrointestinal: Normal bowel sounds, No tenderness Musculoskeletal: No tenderness Integumentary: No rashes Neurological: Normal speech, Normal tone, Normal affect Lymphatics: No axilla or inguinal lymphadenopathy - Studies Laboratory Data (last 24 hrs) 08/11/18 15:50: Hgb 9.4 L, Hct 27.3 L 08/11/18 03:51: Sodium 138, Potassium 4.6, BUN 78 H D, Creatinine 7.43 H* D, Glucose 154 H, Magnesium 2.6 H Medications List Reviewed: Yes Assessment And Plan - Current Problems (Diagnosis) (1) Renal anasarca Current Visit: Yes Status: Acute Plan: Renal Anasarca now with Improvement. -1+ pedal Edema, marked improvement. -+ orthopena and Dyspnea on admission, which is Now improved -Nephrology consulted. Appreciated Reccs -General Surgery consulted. Appreciated Reccs -S/P HD catheter Placement -Receiving HD now. -Chair time and HD setup completed at this time. (2) CKD (chronic kidney disease) stage 4, GFR 15-29 ml/min Onset Date: 08/21/17 Current Visit: No Status: Chronic Plan: See # 1 (3) H/O TIA (transient ischemic attack) and stroke Current Visit: Yes Status: Acute Plan: H.o Past TIA with Intermittent Slurred Speech. 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 insulin use: without detention use Diabetes mellitus complication status: with kidney complications Diabetes mellitus complication detail: with chronic kidney disease Chronic kidney disease stage: stage 5, not on chronic dialysis Qualified Code(s): E11.22 - Type 2 diabetes mellitus with diabetic chronic kidney disease; N18.5 - Chronic kidney disease, stage 5 (5) HTN (hypertension) Onset Date: 08/21/17 Current Visit: No Status: Chronic Plan: Currently Stable -Restart home medication Qualifiers: Hypertension type: essential hypertension Qualified Code(s): I10 - Essential (primary) hypertension (6) Left shoulder pain Current Visit: Yes Status: Acute Plan: Acute shoulder pain s/p HD catheter placement. -MRI of the shoulder consistent with supraspinatus tear -Limited ROM due to pain working with physical therapy. -Pain mgmt and PT/OT consulted. -currently pending inpatient rehab placement. Qualifiers: Chronicity: acute Qualified Code(s): M25.512 - Pain in left shoulder - Plan Pending placement at inpatient rehab Discharge Plan: Other Plan to discharge in: 48 Hours - Code Status/Comfort Care Code Status Assessed: Yes Critical Care: No
--- NOTE | 2018-08-11 17:35 | P.DS ---
Admission Date: 07/30/18 Discharge Date: 08/11/18 Primary Care Provider: Dr Keating - Nephrology Reason for Admission: Anasarca Consultations: Nephrology Orthopedic Procedures: HD catheter placement - Problems (1) Renal anasarca Current Visit: Yes Status: Acute (2) CKD (chronic kidney disease) stage 4, GFR 15-29 ml/min Onset Date: 08/21/17 Current Visit: No Status: Chronic (3) H/O TIA (transient ischemic attack) and stroke Current Visit: Yes Status: Acute (4) Diabetes mellitus Onset Date: 08/21/17 Current Visit: No Status: Chronic Qualifiers: Diabetes mellitus type: type 2 Diabetes mellitus group home insulin use: without buttermaker continuous churn use Diabetes mellitus complication status: with kidney complications Diabetes mellitus complication detail: with chronic kidney disease Chronic kidney disease stage: stage 5, not on chronic dialysis Qualified Code(s): E11.22 - Type 2 diabetes mellitus with diabetic chronic kidney disease; N18.5 - Chronic kidney disease, stage 5 (5) HTN (hypertension) Onset Date: 08/21/17 Current Visit: No Status: Chronic Qualifiers: Hypertension type: essential hypertension Qualified Code(s): I10 - Essential (primary) hypertension (6) Left shoulder pain Current Visit: Yes Status: Acute Qualifiers: Chronicity: acute Qualified Code(s): M25.512 - Pain in left shoulder Brief History of Present Illness: 72 y/o M with PMHX of Type 2 DM, HTN and Previous TIA who was admitted to the hospital directly from the Nephrology office for progressively worsening renal Anasarca. Pt has been having Declining Kidney function for past 1 year and now has developed Severe Anasarca and needs to be started on HD per nephrology. Pt has had several Admission last year for Hyperkalemia and Volume overload. Denies having any chest pain, fever, chills, N/V. Does have SOB and abd pain. Per pt also has intermittent Slurred Speech. Hospital Course: Overall during the hospital stay patient remained stable Patient was initially admitted to the hospital for anasarca and worsening of his kidney function. Patient most likely had renal anasarca. Nephrology was consulted. Nephrology recommended general surgery consultation for HD catheter placement. Patient had a HD catheter placed here in the hospital was started on hemodialysis. Initially when patient was admitted to the hospital he was having 2+ pedal edema along with orthopnea and fluid congestion in the lungs. Patient had marked improvement in his symptoms after he was started on hemodialysis. Patient was awaiting chair time while here in the hospital. Finally patient had chair time approved and was set up here in [place]. While here in the hospital patient developed having left-sided shoulder pain and was found to have supraspinatus partial tear. Physical therapy it was consulted at that time who recommended physical therapy for the shoulder. Patient had inpatient rehab consultation for generalized weakness along with supraspinatus tear. Patient was accepted at inpatient rehab and thus was transferred there for further care. Vital Signs/Physical Exam: Temp Pulse Resp BP Pulse Ox 98.0 F 72 20 170/48 H 99 08/11/18 16:54 08/11/18 16:54 08/11/18 16:54 08/11/18 16:54 08/11/18 16:54 General: Alert, In no apparent distress HEENT: Atraumatic, PERRLA, EOMI Neck: Supple, JVD not distended Respiratory: Clear to auscultation bilaterally, Normal air movement Cardiovascular: Regular rate/rhythm, Normal S1 S2 Gastrointestinal: Normal bowel sounds, No tenderness Musculoskeletal: No tenderness Integumentary: No rashes Neurological: Normal speech, Normal tone, Normal affect Lymphatics: No axilla or inguinal lymphadenopathy Laboratory Data at Discharge: WBC 6.7 K/uL (4.3-10.9) 08/06/18 03:59 Hgb 9.4 g/dL (13.6-17.9) L 08/11/18 15:50 Hct 27.3 % (39.6-49.0) L 08/11/18 15:50 Plt Count 223 K/uL (152-406) 08/06/18 03:59 PT 13.5 SECONDS (9.5-12.5) H 07/30/18 15:43 INR 1.15 07/30/18 15:43 APTT 31.7 SECONDS (24.3-36.9) 07/30/18 15:43 Sodium 138 mmol/L (136-145) 08/11/18 03:51 Potassium 4.6 mmol/L (3.5-5.1) 08/11/18 03:51 BUN 78 mg/dL (7-18) H D 08/11/18 03:51 Creatinine 7.43 mg/dL (0.55-1.3) H* D 08/11/18 03:51 Glucose 154 mg/dL (74-106) H 08/11/18 03:51 Magnesium 2.6 mg/dL (1.8-2.4) H 08/11/18 03:51 Total Bilirubin 0.2 mg/dL (0.2-1.0) 08/06/18 03:59 AST 10 U/L (15-37) L 08/06/18 03:59 ALT 19 U/L (12-78) 08/06/18 03:59 Alkaline Phosphatase 93 U/L (45-117) 08/06/18 03:59 Home Medications: Cilostazol 50 mg PO BID 08/20/17 Cyclosporine [Restasis] 1 gtt EACH EYE PRN 08/20/17 Fluticasone [Flonase 50MCG Nasal [place]*] 2 spray JORDAN PRN 08/20/17 Insulin Detemir [Levemir Flextouch] 35 units SQ SEECOM 08/20/17 Latanoprost Ophth [Xalatan 0.005%*] 1 drop EACH EYE BEDTIME 08/20/17 [place]-3 Acid Ethyl Esters 1 cap PO DAILY 08/20/17 Pregabalin [Lyrica*] 50 mg PO DAILY 08/20/17 Tiotropium [place] [Spiriva Respimat] 1 inh PO DAILY 08/20/17 Calcitriol [Rocaltrol] 0.25 mcg PO SEECOM 07/30/18 Carvedilol [Coreg*] 25 mg PO BID 07/30/18 Ergocalciferol (Vitamin D2) [Vitamin D2] 1 tab PO SEECOM 07/30/18 Furosemide 1 tab PO DAILY 07/30/18 Hydralazine HCl [Apresoline] 1 tab PO TID 07/30/18 Isosorbide Mononitrate [Isosorbide Mononitrate ER] 1 tab PO DAILY 07/30/18 Lubiprostone [Amitiza*] 1 tab PO PRN 07/30/18 Nitroglycerin 0.4 mg SL PRN 07/30/18 Rosuvastatin Calcium [Crestor] 1 tab PO BEDTIME 07/30/18
[2018-08-11] MEDS: TRAMADOL HCL 50 MG TAB PO PRN (18:29)
[2018-08-11] MEDS: ROSUVASTATIN 10 MG TAB PO SCH (20:15)
[2018-08-11 20:18] VITALS: BP 155/57
--- NOTE | 2018-08-12 03:49 | PN ---
Date of Progress Note: 08/11/2018 Chief Complaint: End-stage renal disease, on dialysis; anasarca; fluid overload. The patient is und ergoing dialysis today with ultrafiltration. He has a CHF exacerbation with fluid overload and he is on p.o. fluid restriction, low-sodium diet. Ultrafiltration was obtained to control volemia. Review of Systems: Denies fever, chills. Physical Examination: Lungs: Diminished breath sounds at bases. Heart: S1, S2. Abdomen: Soft, benign. Extremities: Minimal edema. Laboratory Data: BUN 43, creatinine 5.4. Sodium 138, potassium 4.6, magnesium 2.5, calcium 8.2. Impression And Plan: 1.End-stage renal disease, fluid overload. The patient is scheduled to have dialysis today. Contin ue p.o. fluid restriction. Ultrafiltration will be obtained to control hypervolemia. 2.Deconditioning. The patient will continue PT/OT. 3.Anemia of chronic kidney disease. Monitor hemoglobin level. Adjust VICK. 4.Renal osteodystrophy. Continue renal diet and binders. EB/MODL Voice ID: [id number] Report ID: [id number]
[2018-08-12] MEDS ORDERED: ASPIRIN 81 MG CHEWABLE TABLET PO SCH (09:00)
== END 2018-08-11 22:05 | DRG 673 ==
LOC: 4TH 14:43
PROVIDERS: ADMIT Family Medicine; ATTEND Family Medicine
PROC: 05HN33Z Insertion of Infusion Device into Left Internal Jugular Vein, Percutaneous Approach (ICD-10-PCS; 2018-07-31)
PROC: 5A1D70Z Performance of Urinary Filtration, Intermittent, Less than 6 Hours Per Day (ICD-10-PCS; 2018-07-31)
PROC: 0JH63XZ Insertion of Tunneled Vascular Access Device into Chest Subcutaneous Tissue and Fascia, Percutaneous Approach (ICD-10-PCS; principal; 2018-07-31 09:00)
PROC: 5A1D70Z Performance of Urinary Filtration, Intermittent, Less than 6 Hours Per Day (ICD-10-PCS; 2018-08-01)
PROC: 5A1D70Z Performance of Urinary Filtration, Intermittent, Less than 6 Hours Per Day (ICD-10-PCS; 2018-08-02)
PROC: 5A1D70Z Performance of Urinary Filtration, Intermittent, Less than 6 Hours Per Day (ICD-10-PCS; 2018-08-04)
PROC: 5A1D70Z Performance of Urinary Filtration, Intermittent, Less than 6 Hours Per Day (ICD-10-PCS; 2018-08-06)
PROC: 0JPT3XZ Removal of Tunneled Vascular Access Device from Trunk Subcutaneous Tissue and Fascia, Percutaneous Approach (ICD-10-PCS; 2018-08-07)
PROC: 0JH63XZ Insertion of Tunneled Vascular Access Device into Chest Subcutaneous Tissue and Fascia, Percutaneous Approach (ICD-10-PCS; 2018-08-07)
PROC: 05PY33Z Removal of Infusion Device from Upper Vein, Percutaneous Approach (ICD-10-PCS; 2018-08-07)
PROC: 05H633Z Insertion of Infusion Device into Left Subclavian Vein, Percutaneous Approach (ICD-10-PCS; 2018-08-07)
PROC: 5A1D70Z Performance of Urinary Filtration, Intermittent, Less than 6 Hours Per Day (ICD-10-PCS; 2018-08-08)
PROC: 5A1D70Z Performance of Urinary Filtration, Intermittent, Less than 6 Hours Per Day (ICD-10-PCS; 2018-08-11)
DX: I12.0 Hypertensive chronic kidney disease with stage 5 chronic kidney disease or end stage renal disease (principal); N18.6 End stage renal disease; N04.9 Nephrotic syndrome with unspecified morphologic changes; T82.898A Other specified complication of vascular prosthetic devices, implants and grafts, initial encounter; N25.81 Secondary hyperparathyroidism of renal origin; M75.112 Incomplete rotator cuff tear or rupture of left shoulder, not specified as traumatic; E11.22 Type 2 diabetes mellitus with diabetic chronic kidney disease; E11.40 Type 2 diabetes mellitus with diabetic neuropathy, unspecified; E78.5 Hyperlipidemia, unspecified; E88.09 Other disorders of plasma-protein metabolism, not elsewhere classified; N25.0 Renal osteodystrophy; M19.90 Unspecified osteoarthritis, unspecified site; K52.9 Noninfective gastroenteritis and colitis, unspecified; J44.9 Chronic obstructive pulmonary disease, unspecified; Z87.891 Personal history of nicotine dependence; Z86.73 Personal history of transient ischemic attack (TIA), and cerebral infarction without residual deficits
CPT/HCPCS: 36415; 70450; 71045; 74018; 76000; 76770; 80048; 80053; 80074; 81003; 81015; 82962; 83735; 84443; 85014; 85018; 85025; 85610; 85730; 86317; 86704; 86706; 90935; 93005; 97116; 97163; 97166; 97530; C1752; J0690; J1644; J1940; J2150; J2250; J2270; J2405; J2704; J2765; J2997; J3010; Q4081

== ENCOUNTER 2018-08-11 10:15 | Inpatient (IN) | payer OTHER ==
--- NOTE | 2018-08-11 16:42 | R.PREADM ---
SCREENING DATE AND TIME 08/11/2018 11:46 (CDT) ANTICIPATED REHAB ADMISSION DATE 08/13/2018 REFERRING FACILITY [facility] REFERRAL DATE AND TIME 08/11/2018 11:46 (CDT) ACUTE ADMIT DATE 07/30/2018 Previous Rehabilitation(s): No. 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 Elliott Bradley M.D. [facility]# [id number] [id number] NAME NEAL FRANCIS ADDRESS [address] [place] [address] PHONE [facility] [address] DATE OF 1945 AGE 72 SSN# [id number] GENDER male MARITAL STATUS RACE black ADMIT FROM 02 - [facility] PRE-HOSPITAL LIVING SETTING 01 - Home (private home/apt. board/care, assisted living, usp, transitional living) HOME TYPE AND DETAILS Type of home: single family house # of steps to enter the residence: 0 # of steps within the residence: 0 # of levels in the residence: 1 PRE-HOSPITAL LIVING WITH Family/Relatives FAMILY SUPPORT Yes PRIMARY FAMILY CONTACT NAME Sabina Francis PRIMARY FAMILY CONTACT PHONE PHONE PRIMARY FAMILY CONTACT ON ADM.? no IS PRIMARY FAMILY CONTACT AUTH. REP.? no 1ST EMERGENCY CONTACT Sabina Francis 1ST CONTACT PHONE PHONE 1ST CONTACT ON ADM. no IS 1ST CONTACT AUTH. REP.? no PHONE 2ND CONTACT ON ADM.? no PATIENT EMPLOYMENT STATUS Retired (for age) PATIENT EMPLOYER No Employer PAYOR INFORMATION: 1ST PAYOR NAME Medicare 1ST PAYOR PHONE 1ST PAYOR INJURY/ILLNESS DUE TO ACCIDENT? No ANOTHER LIBERTARIAN RESPONSIBLE? No PRIMARY REHAB/ACUTE DIAGNOSIS: ESRD Stage 5 ONSET DATE 07/30/2018 REHAB IMPAIRMENT CATEGORY (SULEMA): 20 Miscellaneous (Misc) does NOT meet 60% rule PRIMARY DIAGNOSIS-RELATED SURGERIES: No surgeries related to the primary diagnosis were performed. COMORBID REHAB/ACUTE DIAGNOSES: - N/A renal anasarca TIA ESRD Stage 5 on dialysis SUMMARY OF ACUTE HOSPITALIZATION: Pt. is a 72 yo Right-handed black male. On 07/30/2018 he was admitted to [facility] with diagnosis ESRD Stage 5. His impairment category is Medically Complex Conditions 17 - Terminal Care (17.6). Pre-morbidly, Pt. was independent/mod-I in Self-Care, Sphincter Control, Transfers Control, Communica tion, Social Cognition, and Locomotion; and he had good Sphincter Control. Currently, he has deficits of Transfers Control, Communication, Social Cognition, Endurance, Balance, Safety Awareness, Self-Care, and Locomotion. Pt. is now referred to [facility] for acute in-patient rehabilitation in order to maximize patient's functional independence in activities of daily living, strength, ROM, and mobi lity. Patient has realistic goal of being discharged at assistance level 6-Leonard to reside at Home with Fam michael/Relatives. Neal Francis is a 72 year old male that lives in a single yuri house with his . Patient is independent with ADLs and self care. On 07/30/2018, patient developed severe anasarca and was admitted to [facility] and treated. He is now medically stable but in need of 24-hour nursing, doctor supervision and oversite while receiving active and ongoing is reasonably expected to participate in 3hours of therapy a day/15 hours per week and receive care with an intensive interdisciplinary approach. PAST MEDICAL HISTORY ESRD Stage 5 on dialysis TIA renal anasarca hypertension MEDICATION ALLERGIES: Acetaminophen Hydrocodone ENVIRONMENTAL ALLERGIES: None Known - Substance Allergies None Known - Other Allergies None Known CODE STATUS: Full code WEIGHT/HEIGHT/BMI: WEIGHT 165 lbs HEIGHT 5' 10" BMI 23.7 DIET: - Diet Type Regular - Diet - Solid Texture Regular - Diet - Liquid Texture Regular - Tube Feed N/A REVIEW OF SYSTEMS: - Gen Alert and awake Lying in bed No apparent distress Oriented to: person, time, and place - Vital Signs Vital signs stable, afebrile - CVS RRR VITAL SIGNS Temperature: 97.8 F SBP/DBP: 127/56 Pulse: 68 Resp: 16 Vital signs stable, afebrile MEDICATIONS/TREATMENT: Other- See attached MAR (Medication Administration Record) Neal Francis.pdf. CURRENT SPHINCTER CONTROL: Pre-hospital bladder status: continent # of bladder accidents in the last 7 days prior to screenin Pre-hospital bowel status: continent # of bowel accidents in the last 7 days prior to screenin Last Bowel Movement Date: 08/11/2018 DETAILED CURRENT FUNCTIONAL STATUS: - Bladder accident frequency: Ind - No accidents in the past 7 days - Bowel accident frequency: Ind - No accidents in the past 7 days - Walking score based on distance walked: 1(<=50ft) FUNCTIONAL STATUS: - Self-Care A. Eating Ind Ind B. Grooming Ind Edwina C. Bathing Ind maxA D. Dressing - Upper Ind sup E. Dressing - Lower Ind maxA F. Toileting Ind Ind - Sphincter Control G: Bladder control Ind modA H: Bowel control Ind Ind - Transfers Control I. Bed/Chair/Wheelchair Ind modA J. Toilet Ind modA K. Tub/Shower Ind ADNO - Locomotion L. Walk/Wheelchair (B) Leonard modA M. Stairs Ind ADNO - Communication N. Comprehension (B) Ind sup O. Expression (B) Ind sup - Social Cognition P. Social Interaction Ind sup Q. Problem Solving Ind sup R. Memory Ind sup - Endurance Poor - Balance Poor - Safety Awareness Poor CURRENT FUNC. DEFICITS: Transfers Control, Communication, Social Cognition, Endurance, Balance, Safety Awareness, Self-Care, and Locomotion THERAPY NOTES FROM ACUTE CARE: Attached. SPECIAL NEEDS: - Safety Concerns Skin breakdown precautions needed due to skin breakdown risk PATIENT NEEDS ACTIVE AND ONGOING THERAPEUTIC INTERVENTION OF MULTIPLE THERAPY DISCIPLINES, INCLUDING: - Dietary and Nutrition Adequate Nutrition. Nutritional Education. Nutritional Supplements. PATIENT NEEDS CLOSE MEDICAL SUPERVISION BY A REHABILITATION PHYSICIAN FOR: Bowel and Bladder Management Coordination of Treatment Team Medical and Co-Morbidity Management PATIENT REQUIRES 24X7 REHAB NURSING FOR MEDICAL AND FUNCTIONAL MGT. OF THE FOLLOWING DEFICITS: ADL's Ambulation Bowel and Bladder Management Cognition Communication Disease Management Medication Management Patient/Family Education Providing Safe Environment Transfers Pain Management DVT Management PATIENT REQUIRES INTENSIVE, COORDINATED INTERDISCIPLINARY APPROACH TO REHAB: Arranging Home Equipment/Services Discharge Planning Family Intervention/Training Director Of Philanthropy/Case Management PATIENT REHAB POTENTIAL: Expected level of measurable improvement will be of a practical value to patient's functional capacit y or adaptations to impairments Has a viable Discharge Plan Medically appropriate; condition is sufficiently stable to participate in intensive rehab program Patient is able and expected to receive 3 hours of individualized therapy daily on at least 5 of ever y 7 days Patient's prognosis for significant practical improvement within a reasonable period of time appears Good DISCHARGE PLAN: - Estimated Length of Stay (days) 13. - Consensus on plan Discharge plan has been discussed with primary caregiver. Patient/Family is in agreement with the cindi n. Primary caregiver is in agreement with the plan. - Patient/Family Goals Return home with assistance. - Planned Living Setting Upon Discharge Home, to live with Family/Relatives. RECOMMENDED CARE LEVEL: IRF RECOMMENDATION DETAILS: Recommended Admission to Comprehensive Rehabilitation Program to Increase Functional [place] SCREENER'S COMPLETENESS CONFIRMATION: - Screening Confirmation The patient data collection on this preadmission screening form is finished PHYSICIANS REVIEW AND ADMISSION DETERMINATION Admit - Based on my review of the Pre-Admission Screening results, in my medical judgment and experie nce, I concur with the findings and recommend admission to [facility], as this patient requires an IRF level of care. SIGNATURE PANEL: Clinical Liaison - [electronically] signed by Ricardo Love on 08/11/2018 at 16:31 (CDT) Physician Reviewer - [electronically] signed by Dr. Elliott Bradley M.D. on 08/11/2018 at 16:42 (CDT )
--- OUTSIDE RECORDS SUMMARY | 2018-08-11 22:11 | XMS REPORT ---
:1945 [facility] [address] [place] [address] Dr. Moody [address] [place] [id number] Care Team Providers Name Role Phone Unavailable [...]
[2018-08-11] MEDS ORDERED: NITROGLYCERIN 0.4 MG/TAB SL PRN (23:32)
[2018-08-11] MEDS ORDERED: HOME MED 1 EA UNK OPTH PRN (23:32)
[2018-08-11] MEDS ORDERED: ONDANSETRON 4 MG (ODT) TAB PO PRN (23:32)
[2018-08-11] MEDS ORDERED: DOCUSATE NA 100 MG CAP PO PRN (23:32)
[2018-08-12] MEDS ORDERED: D50W 25 GM/50 ML SYRINGE IV PRN (00:11)
[2018-08-12] MEDS ORDERED: GLUCAGON 1 MG/VIAL IM PRN (00:11)
--- NOTE | 2018-08-12 01:37 | FAST ---
SHIFT START DATE/TIME: 08/11/2018 19:00 (CDT) SHIFT END DATE/TIME: 08/12/2018 07:00 (CDT) NAME NEAL BARBA DATE OF : 1945 DATE OF ADMISSION: 08/11/2018 22:00 (CDT) PHONE: AGE: 72 N# [id number] GENDER: Male ENCOUNTER PHYSICIAN: Dr. Elliott Bradley M.D. ADMISSION DIAGNOSIS: - Medically Complex Conditions 17 - Terminal Care (17.6) ESRD Stage 5. EATING: Activity did not occur on this shift EATING - SCORE: 0-UNK GROOMING: Activity did not occur on this shift GROOMING - SCORE: 0-UNK BATHING: Activity did not occur on this shift BATHING - SCORE: 0-UNK DRESSING - UPPER BODY: Patient is not dressing in public clothing ARTICLES SCORE Total number of steps: 0 DRESSING - UPPER BODY - SCORE: 0-UNK DRESSING - LOWER BODY: Patient is not dressing in public clothing ARTICLES SCORE Total number of steps: 0 DRESSING - LOWER BODY - SCORE: 0-UNK TOILETING: TOILETING - STEP 1: Does the patient require the assistance of a person or device, or need extra time with toileting? Yes . TOILETING - STEP 2: Does the patient require the assistance of a helper? Yes. TOILETING - STEP 3: How much assistance does the patient require from the helper? Only supervision TOILETING - SCORE: 5-SUP BLADDER MANAGEMENT: BLADDER MANAGEMENT - STEP 1: Does the patient control the bladder completely and intentionally without equipment or devices or med ications, and is always continent? No. BLADDER MANAGEMENT - STEP 2: Does the patient require the assistance of a helper? Yes. BLADDER MANAGEMENT - STEP 3: How much assistance does the patient require from the helper? Only supervision, stand-by, cuing, or c oaxing BLADDER MANAGEMENT - SCORE: 5-SUP BOWEL MANAGEMENT: Activity did not occur on this shift BOWEL MANAGEMENT - SCORE: 7-IND TRANSFERS: BED, CHAIR, WHEELCHAIR: TRANSFERS: BED, CHAIR, WHEELCHAIR - STEP 1: Does the patient require assistance of a person or device, or need extra time with bed, chair, or whe elchair transfers? Yes. TRANSFERS: BED, CHAIR, WHEELCHAIR - STEP 2: Does the patient require the assistance of a helper? Yes. TRANSFERS: BED, CHAIR, WHEELCHAIR - STEP 3: How much assistance does the patient require from the helper? Steadying/guiding assistance TRANSFERS: BED, CHAIR, WHEELCHAIR - SCORE: 4-MIN TRANSFERS: TOILET: Activity did not occur on this shift TRANSFERS: TOILET - SCORE: 0-UNK TRANSFERS: SHOWER: Activity did not occur on this shift TRANSFERS: SHOWER - SCORE: 0-UNK TRANSFERS: TUB: Activity did not occur on this shift TRANSFERS: TUB - SCORE: 0-UNK LOCOMOTION: WALK: Activity did not occur on this shift LOCOMOTION: WALK - SCORE: 0-UNK LOCOMOTION: WHEELCHAIR: Activity did not occur on this shift LOCOMOTION: WHEELCHAIR - SCORE: 0-UNK COMPREHENSION: COMPREHENSION: TYPE: Both COMPREHENSION - STEP 1: Does the patient require help from a person or device, or need extra time to understand complex and a bstract ideas (such as current events, finances, discharge planning, medical issues, relationships, e tc)? No. COMPREHENSION - STEP 2: Does the patient need extra time, require an assistive device (such as glasses for visual comprehensi on or a hearing aid for auditory comprehension) or does s/he have mild difficulty understanding compl ex and abstract information? Yes. COMPREHENSION - SCORE: 6-IZZY EXPRESSION EXPRESSION: TYPE: Both EXPRESSION - STEP 1: Does the patient require help from a person or device, or need extra time expressing complex and abst ract ideas (such as current events, finances, discharge planning, medical issues, relationships, etc) ? No. EXPRESSION - STEP 2: Does the patient need extra time, require an assistive device (such as augmentive communication syste m or a communication board), OR does s/he have mild difficulty expressing complex and abstract ideas (including mild dysarthria or mild word-find problems)? No. EXPRESSION - SCORE: 7-IND SOCIAL INTERACTION: SOCIAL INTERACTION - STEP 1: Does the patient require a helper to interact with others in social and therapeutic situations? No. SOCIAL INTERACTION - STEP 2: Does the patient need extra time in social situations, OR does s/he interact with staff, other patien ts, and family members ONLY in structured environments, OR does s/he require medication for social in teraction? Yes, patient needs extra time SOCIAL INTERACTION - SCORE: 6-IZZY PROBLEM SOLVING: PROBLEM SOLVING - STEP 1: Does the patient need help from a person or device, or need extra time to solve complex problems such as managing a checking account or confronting interpersonal problems? No. PROBLEM SOLVING - STEP 2: Does the patient require extra time to make decisions or solve problems, OR does s/he have slight dif ficulty reading, initiating, or self-correcting in unfamiliar situations? Yes, patient needs extra ti me. PROBLEM SOLVING - SCORE: 6-IZZY MEMORY: MEMORY - STEP 1: Does the patient need help from a person or device, or need extra time to remember frequently encount ered people, daily routines, and executing requests? No. MEMORY - STEP 2: Does the patient have slight difficulty recognizing frequently encountered people, daily routines, or executing requests without the need for repetition or using self-initiated or environmental cues to remember? Yes. MEMORY - SCORE: 6-IZZY SIGNATURE PANEL: The following modified sections: Eating - Score, Grooming - Score, Dressing - Upper Body - Score, [place] ssing - Lower Body - Score, Toileting - Score, Bladder Management - Score, Bowel Management - Score, Transfers: Bed, Chair, Wheelchair - Score, Transfers: Toilet - Score, Transfers: Shower - Score, Silva sfers: Tub - Score, Locomotion: Walk - Score, Locomotion: Wheelchair - Score, Comprehension - Score, Expression - Score, Social Interaction - Score, Problem Solving - Score, Memory - Score were [electro nically] signed by Demetra Menedz CNA on SatAug 12 2018 01:36:32 GMT-0500 (Central Daylight Time)
[2018-08-12] MEDS ORDERED: HOME MED 1 EA UNK OPTH PRN (02:16)
[2018-08-12 06:47] LABS: Absolute Lymphocytes (CBC) 1.4 K/uL (0.7-4.9); Basophils % 0.6 % (0-1.3); Eosinophils % 2.2 % (0-4.4); Hematocrit 25.8 % (39.6-49.0); Lymphocytes % 17.8 % (15.3-44.8); MPV 7.7 fL (7.6-11.3); Monocytes % 23.3 % (3.3-12.3); RBC Red Blood Cell Count 2.83 M/uL (4.33-5.43)
[2018-08-12] MEDS: PANTOPRAZOLE 40MG TABLET PO SCH (06:56)
[2018-08-12 07:06] LABS: Albumin 2.5 g/dL (3.4-5.0); Magnesium 2.4 mg/dL (1.8-2.4); Potassium 4.5 mmol/L (3.5-5.1)
[2018-08-12] MEDS ORDERED: METOCLOPRAMIDE 5 MG TAB PO SCH (07:30)
[2018-08-12] MEDS: INSULIN -REGULAR HUMAN 50 UNIT/0.5 ML ML SQ SCH ×4 (07:30→21:20)
[2018-08-12] MEDS: TIOTROPIUM 5 SPRAYS/INHALER IH SCH (08:00)
[2018-08-12] MEDS ORDERED: LISINOPRIL 20 MG TAB PO SCH (08:00)
[2018-08-12] MEDS: GLUCERNA SHAKE 237 ML CAN PO SCH ×2 (08:00→20:21)
[2018-08-12] MEDS ORDERED: CALCITROL 0.25 MCG CAP PO SCH ×2 (08:00→09:00)
[2018-08-12] MEDS ORDERED: PREGABALIN 75 MG CAP PO SCH ×2 (08:00→20:00)
[2018-08-12] MEDS: LIDOCAINE 5% PATCH TOP SCH (08:51)
[2018-08-12] MEDS: DOCUSATE NA 100 MG CAP PO SCH (08:52)
[2018-08-12] MEDS: DOCOSAHEXANOIC AC/EPA 1000 MG PO SCH (08:52)
[2018-08-12] MEDS: ASPIRIN 81 MG CHEWABLE TABLET PO SCH (08:53)
[2018-08-12] MEDS: CARVEDILOL 3.125 MG TAB PO SCH ×2 (08:53→20:20)
[2018-08-12 08:54] LABS: Blood Morphology Comment NOT SEEN (NOT SEEN); Platelet Estimate ADEQ
[2018-08-12] MEDS: ISOSORBIDE MONO SR 30 MG TAB PO SCH (08:54)
[2018-08-12] MEDS: METOCLOPRAMIDE 5 MG TAB PO SCH ×3 (08:54→17:02)
[2018-08-12] MEDS ORDERED: FUROSEMIDE 40 MG TABLET PO SCH (09:00)
[2018-08-12] MEDS: LISINOPRIL 20 MG TAB PO SCH (10:08)
[2018-08-12] MEDS: FUROSEMIDE 40 MG TABLET PO SCH ×2 (10:09→17:02)
[2018-08-12] MEDS: CILOSTAZOL 100 MG TAB PO SCH ×2 (10:10→20:22)
[2018-08-12] MEDS ORDERED: RESTASIS 0.05% OPTH PRN (10:44)
[2018-08-12] MEDS ORDERED: OPTHALMIC OPTH PRN (10:44)
--- NOTE | 2018-08-12 12:13 | FAST ---
ENCOUNTER DATE AND TIME: 08/12/2018 08:00 (CDT) NAME NEAL BARBA DATE OF : 1945 DATE OF ADMISSION: 08/11/2018 22:00 (CDT) PHONE: AGE: 72 SSN# [id number] GENDER: Male ENCOUNTER PHYSICIAN: Dr. Elliott Bradley M.D. ADMISSION DIAGNOSIS: - Medically Complex Conditions 17 - Terminal Care (17.6) ESRD Stage 5. EATING: Activity did not occur on this shift EATING - SCORE: 0-UNK GROOMING: Wash, rinse, and dry face Wash, rinse, and dry hands GROOMING - STEP 1: Does the patient require the assistance of a person or device, or need extra time when grooming? No. GROOMING - SCORE: 7-IND BATHING: Abdomen Buttocks Chest Left arm Left lower leg and foot Left upper leg Perineal area Right arm Right lower leg and foot Right upper leg BATHING - STEP 1: Does the patient require the assistance of a person or device, or need extra time when bathing? Yes. BATHING - STEP 2: Does the patient require the assistance of a helper? Yes. BATHING - STEP 3: How much assistance does the patient require from the helper? More than just incidental help BATHING - STEP 4: What percent of the body parts did the patient bathe WITHOUT the helper? Half or more of the body par ts BATHING - SCORE: 3-MOD DRESSING - UPPER BODY: Button down shirt or blouse - NOT tucked in (four steps) ARTICLES SCORE Total number of steps: 4 DRESSING - UPPER BODY - STEP 1: Does the patient require help from a person or device, or need extra time when dressing above the evie st? Yes. DRESSING - UPPER BODY - STEP 2: Does the patient require the assistance of a helper? Yes. DRESSING - UPPER BODY - STEP 3: Does the helper touch the patient while dressing? Yes. DRESSING - UPPER BODY - STEP 4: How many of the total steps does the patient complete on his/her own? 2 DRESSING - UPPER BODY - SCORE: 3-MOD DRESSING - LOWER BODY: Elastic waist pants (three steps) Sock - Left foot (one step) Sock - Right foot (one step) Tied or buckled shoe - Left foot (two steps) Tied or buckled shoe - Right foot (two steps) Underwear (three steps) ARTICLES SCORE Total number of steps: 12 DRESSING - LOWER BODY - STEP 1: Does the patient require help from a person or device, or need extra time when dressing below the evie st? Yes. DRESSING - LOWER BODY - STEP 2: Does the patient require the assistance of a helper? Yes. DRESSING - LOWER BODY - STEP 3: Does the helper touch the patient while dressing? Yes. DRESSING - LOWER BODY - STEP 4: How many of the total steps does the patient complete on his/her own? 2 DRESSING - LOWER BODY - STEP 5: Does patient require total assistance for dressing below the waist such as the helper holding clothin g and performing basically all the activities? No. DRESSING - LOWER BODY - SCORE: 2-MAX TOILETING: Activity did not occur on this shift TOILETING - SCORE: 0-UNK BLADDER MANAGEMENT: Activity did not occur on this shift BLADDER MANAGEMENT - SCORE: 7-IND BOWEL MANAGEMENT: Activity did not occur on this shift BOWEL MANAGEMENT - SCORE: 7-IND TRANSFERS: BED, CHAIR, WHEELCHAIR: Activity did not occur on this shift TRANSFERS: BED, CHAIR, WHEELCHAIR - SCORE: 0-UNK TRANSFERS: TOILET: Activity did not occur on this shift TRANSFERS: TOILET - SCORE: 0-UNK TRANSFERS: SHOWER: Activity did not occur on this shift TRANSFERS: SHOWER - SCORE: 0-UNK TRANSFERS: TUB: TRANSFERS: TUB - STEP 1: Does the patient require the assistance of a person or device, or need extra time with tub transfers? Yes. TRANSFERS: TUB - STEP 2: Does the patient require the assistance of a helper? Yes. TRANSFERS: TUB - STEP 3: How much assistance does the patient require from the helper? More than incidental help TRANSFERS: TUB - STEP 4: How much more help does the patient require from the helper? [place] lifts the patient either up OR do wn TRANSFERS: TUB - SCORE: 3-MOD LOCOMOTION: WALK: Activity did not occur on this shift LOCOMOTION: WALK - SCORE: 0-UNK LOCOMOTION: WHEELCHAIR: Activity did not occur on this shift LOCOMOTION: WHEELCHAIR - SCORE: 0-UNK LOCOMOTION: STAIRS: Activity did not occur on this shift LOCOMOTION: STAIRS - SCORE: 0-UNK COMPREHENSION: COMPREHENSION: TYPE: Both COMPREHENSION - STEP 1: Does the patient require help from a person or device, or need extra time to understand complex and a bstract ideas (such as current events, finances, discharge planning, medical issues, relationships, e tc)? No. COMPREHENSION - STEP 2: Does the patient need extra time, require an assistive device (such as glasses for visual comprehensi on or a hearing aid for auditory comprehension) or does s/he have mild difficulty understanding compl ex and abstract information? Yes. COMPREHENSION - SCORE: 6-IZZY EXPRESSION EXPRESSION: TYPE: Both EXPRESSION - STEP 1: Does the patient require help from a person or device, or need extra time expressing complex and abst ract ideas (such as current events, finances, discharge planning, medical issues, relationships, etc) ? No. EXPRESSION - STEP 2: Does the patient need extra time, require an assistive device (such as augmentive communication syste m or a communication board), OR does s/he have mild difficulty expressing complex and abstract ideas (including mild dysarthria or mild word-find problems)? Yes. EXPRESSION - SCORE: 6-IZZY SOCIAL INTERACTION: SOCIAL INTERACTION - STEP 1: Does the patient require a helper to interact with others in social and therapeutic situations? No. SOCIAL INTERACTION - STEP 2: Does the patient need extra time in social situations, OR does s/he interact with staff, other patien ts, and family members ONLY in structured environments, OR does s/he require medication for social in teraction? Yes, patient needs extra time SOCIAL INTERACTION - SCORE: 6-IZZY PROBLEM SOLVING: PROBLEM SOLVING - STEP 1: Does the patient need help from a person or device, or need extra time to solve complex problems such as managing a checking account or confronting interpersonal problems? Yes. PROBLEM SOLVING - STEP 2: Does the patient solve basic routine problems half or more of the time? Yes. PROBLEM SOLVING - STEP 3: How often does the patient need help to solve basic routine problems? Less than 10% of the time PROBLEM SOLVING - SCORE: 5-SUP MEMORY: MEMORY - STEP 1: Does the patient need help from a person or device, or need extra time to remember frequently encount ered people, daily routines, and executing requests? Yes. MEMORY - STEP 2: How often does the patient need help to remember frequently encountered people, daily routines, and e xecuting requests? Less than 10% of the time MEMORY - SCORE: 5-SUP SIGNATURE PANEL: The following modified sections: Grooming - Score, Eating - Score, Bathing - Score, Dressing - Upper Body - Score, Dressing - Lower Body - Score, Toileting - Score, Transfers: Bed, Chair, Wheelchair - S core, Transfers: Toilet - Score, Transfers: Shower - Score, Transfers: Tub - Score, Comprehension - S core, Expression - Score, Social Interaction - Score, Problem Solving - Score, Memory - Score were [e lectronically] signed by Love Diaz OT on SatAug 12 2018 12:12:20 T-0500 (Central Daylight T lina)
--- NOTE | 2018-08-12 13:26 | FAST ---
ENCOUNTER DATE AND TIME: 08/12/2018 08:00 (CDT) NAME NEAL BARBA DATE OF : 1945 DATE OF ADMISSION: 08/11/2018 22:00 (CDT) PHONE: AGE: 72 SSN# [id number] GENDER: Male ENCOUNTER PHYSICIAN: Dr. Elliott Bradley M.D. ADMISSION DIAGNOSIS: - Medically Complex Conditions 17 - Terminal Care (17.6) ESRD Stage 5. EATING: Activity did not occur on this shift EATING - SCORE: 0-UNK GROOMING: Activity did not occur on this shift GROOMING - SCORE: 0-UNK BATHING: Activity did not occur on this shift BATHING - SCORE: 0-UNK DRESSING - UPPER BODY: Activity did not occur on this shift Patient is not dressing in public clothing ARTICLES SCORE Total number of steps: 0 DRESSING - UPPER BODY - SCORE: 0-UNK DRESSING - LOWER BODY: Activity did not occur on this shift Patient is not dressing in public clothing ARTICLES SCORE Total number of steps: 0 DRESSING - LOWER BODY - SCORE: 0-UNK TOILETING: Activity did not occur on this shift TOILETING - SCORE: 0-UNK BLADDER MANAGEMENT: Activity did not occur on this shift BLADDER MANAGEMENT - SCORE: 7-IND BOWEL MANAGEMENT: Activity did not occur on this shift BOWEL MANAGEMENT - SCORE: 7-IND TRANSFERS: BED, CHAIR, WHEELCHAIR: TRANSFERS: BED, CHAIR, WHEELCHAIR - STEP 1: Does the patient require assistance of a person or device, or need extra time with bed, chair, or whe elchair transfers? Yes. TRANSFERS: BED, CHAIR, WHEELCHAIR - STEP 2: Does the patient require the assistance of a helper? Yes. TRANSFERS: BED, CHAIR, WHEELCHAIR - STEP 3: How much assistance does the patient require from the helper? Steadying/guiding assistance TRANSFERS: BED, CHAIR, WHEELCHAIR - SCORE: 4-MIN TRANSFERS: TOILET: Activity did not occur on this shift TRANSFERS: TOILET - SCORE: 0-UNK TRANSFERS: SHOWER: Activity did not occur on this shift TRANSFERS: SHOWER - SCORE: 0-UNK TRANSFERS: TUB: Activity did not occur on this shift TRANSFERS: TUB - SCORE: 0-UNK LOCOMOTION: WALK: LOCOMOTION: WALK - STEP 1: Does the patient need help from a person or device, or need extra time to walk 150 feet? Yes. LOCOMOTION: WALK - STEP 2: How much assistance does the patient require to walk a minimum of 150 feet? Only incidental help such as contact guarding or steadying LOCOMOTION: WALK - SCORE: 4-MIN LOCOMOTION: WHEELCHAIR: Activity did not occur on this shift LOCOMOTION: WHEELCHAIR - SCORE: 0-UNK LOCOMOTION: STAIRS: Activity did not occur on this shift LOCOMOTION: STAIRS - SCORE: 0-UNK COMPREHENSION: COMPREHENSION - SCORE: 0-UNK EXPRESSION EXPRESSION - SCORE: 0-UNK SOCIAL INTERACTION: SOCIAL INTERACTION - SCORE: 0-UNK PROBLEM SOLVING: PROBLEM SOLVING - SCORE: 0-UNK MEMORY: MEMORY - SCORE: 0-UNK SIGNATURE PANEL: The following modified sections: Transfers: Bed, Chair, Wheelchair - Score, Transfers: Toilet - Score , Locomotion: Walk - Score, Locomotion: Wheelchair - Score, Locomotion: Stairs - Score were [electron chad] signed by Elmer Patterson PT on SatAug 12 2018 13:26:03 [facility]-0500 (Central Daylight Time)
--- NOTE | 2018-08-12 15:27 | FAST ---
SHIFT START DATE/TIME: 08/12/2018 07:00 (CDT) SHIFT END DATE/TIME: 08/12/2018 19:00 (CDT) NAME NEAL BARBA DATE OF : 1945 DATE OF ADMISSION: 08/11/2018 22:00 (CDT) PHONE: AGE: 72 N# [id number] GENDER: Male ENCOUNTER PHYSICIAN: Dr. Elliott Bradley M.D. ADMISSION DIAGNOSIS: - Medically Complex Conditions 17 - Terminal Care (17.6) ESRD Stage 5. EATING: EATING - STEP 1: Does the patient require the assistance of a person or device, or need extra time when eating? Yes. EATING - STEP 2: Does the patient require the assistance of a helper? Yes. EATING - STEP 3: Does the patient perform half or more of the eating tasks? Yes. EATING - STEP 4: Does the patient need only supervision, cuing, coaxing OR help to apply an orthosis OR help to cut fo od, open containers, pour liquids, or butter bread? Yes. EATING - SCORE: 5-SUP GROOMING: Wash, rinse, and dry face Wash, rinse, and dry hands GROOMING - STEP 1: Does the patient require the assistance of a person or device, or need extra time when grooming? Yes. GROOMING - STEP 2: Does the patient require the assistance of a helper? Yes. GROOMING - STEP 3: How much assistance does the patient require from the helper? Only prior equipment preparation/set up from the helper GROOMING - SCORE: 5-SUP BATHING: Activity did not occur on this shift BATHING - SCORE: 0-UNK DRESSING - UPPER BODY: Activity did not occur on this shift ARTICLES SCORE Total number of steps: 0 DRESSING - UPPER BODY - SCORE: 0-UNK DRESSING - UPPER BODY - COMMENTS: Waiting for therapist for shower DRESSING - LOWER BODY: Activity did not occur on this shift ARTICLES SCORE Total number of steps: 0 DRESSING - LOWER BODY - SCORE: 0-UNK DRESSING - LOWER BODY - COMMENTS: Waiting for therapist and shower TOILETING: Activity did not occur on this shift TOILETING - SCORE: 0-UNK TOILETING - COMMENTS: Pt on Dialysis BLADDER MANAGEMENT: Patient is on renal dialysis or peritoneal dialysis and no voiding activity BLADDER MANAGEMENT - SCORE: 7-IND BLADDER MANAGEMENT - FREQUENCY OF ACCIDENTS: BLADDER MANAGEMENT(FA) - STEP 1: How many accidents has the patient had during the current shift? 0 BOWEL MANAGEMENT: Activity did not occur on this shift BOWEL MANAGEMENT - SCORE: 7-IND BOWEL MANAGEMENT - FREQUENCY OF ACCIDENTS: BOWEL MANAGEMENT(FA) - STEP 1: How many accidents has the patient had during the current shift? 0 TRANSFERS: BED, CHAIR, WHEELCHAIR: TRANSFERS: BED, CHAIR, WHEELCHAIR - STEP 1: Does the patient require assistance of a person or device, or need extra time with bed, chair, or whe elchair transfers? Yes. TRANSFERS: BED, CHAIR, WHEELCHAIR - STEP 2: Does the patient require the assistance of a helper? Yes. TRANSFERS: BED, CHAIR, WHEELCHAIR - STEP 3: How much assistance does the patient require from the helper? Steadying/guiding assistance TRANSFERS: BED, CHAIR, WHEELCHAIR - SCORE: 4-MIN TRANSFERS: TOILET: Activity did not occur on this shift TRANSFERS: TOILET - SCORE: 0-UNK TRANSFERS: TOILET - COMMENTS: Dialysis TRANSFERS: SHOWER: Activity did not occur on this shift TRANSFERS: SHOWER - SCORE: 0-UNK TRANSFERS: TUB: Activity did not occur on this shift TRANSFERS: TUB - SCORE: 0-UNK LOCOMOTION: WALK: Activity did not occur on this shift LOCOMOTION: WALK - SCORE: 0-UNK LOCOMOTION: WHEELCHAIR: Activity did not occur on this shift LOCOMOTION: WHEELCHAIR - SCORE: 0-UNK COMPREHENSION: COMPREHENSION: TYPE: Both COMPREHENSION - STEP 1: Does the patient require help from a person or device, or need extra time to understand complex and a bstract ideas (such as current events, finances, discharge planning, medical issues, relationships, e tc)? No. COMPREHENSION - STEP 2: Does the patient need extra time, require an assistive device (such as glasses for visual comprehensi on or a hearing aid for auditory comprehension) or does s/he have mild difficulty understanding compl ex and abstract information? Yes. COMPREHENSION - SCORE: 6-IZZY EXPRESSION EXPRESSION: TYPE: Both EXPRESSION - STEP 1: Does the patient require help from a person or device, or need extra time expressing complex and abst ract ideas (such as current events, finances, discharge planning, medical issues, relationships, etc) ? No. EXPRESSION - STEP 2: Does the patient need extra time, require an assistive device (such as augmentive communication syste m or a communication board), OR does s/he have mild difficulty expressing complex and abstract ideas (including mild dysarthria or mild word-find problems)? Yes. EXPRESSION - SCORE: 6-IZZY SOCIAL INTERACTION: SOCIAL INTERACTION - STEP 1: Does the patient require a helper to interact with others in social and therapeutic situations? No. SOCIAL INTERACTION - STEP 2: Does the patient need extra time in social situations, OR does s/he interact with staff, other patien ts, and family members ONLY in structured environments, OR does s/he require medication for social in teraction? Yes, patient needs extra time SOCIAL INTERACTION - SCORE: 6-IZZY PROBLEM SOLVING: PROBLEM SOLVING - STEP 1: Does the patient need help from a person or device, or need extra time to solve complex problems such as managing a checking account or confronting interpersonal problems? Yes. PROBLEM SOLVING - STEP 2: Does the patient solve basic routine problems half or more of the time? Yes. PROBLEM SOLVING - STEP 3: How often does the patient need help to solve basic routine problems? Less than 10% of the time PROBLEM SOLVING - SCORE: 5-SUP MEMORY: MEMORY - STEP 1: Does the patient need help from a person or device, or need extra time to remember frequently encount ered people, daily routines, and executing requests? Yes. MEMORY - STEP 2: How often does the patient need help to remember frequently encountered people, daily routines, and e xecuting requests? Less than 10% of the time MEMORY - SCORE: 5-SUP SIGNATURE PANEL: The following modified sections: Eating - Score, Grooming - Score, Bathing - Score, Dressing - Upper Body - Score, Dressing - Upper Body - Comments:, Dressing - Lower Body - Score, Dressing - Lower Body - Comments:, Toileting - Score, Toileting - Comments:, Bladder Management - Score, Bowel Management - Score, Transfers: Bed, Chair, Wheelchair - Score, Transfers: Toilet - Score, Transfers: Toilet - Co mments:, Transfers: Shower - Score, Transfers: Tub - Score, Locomotion: Walk - Score, Locomotion: Whe elchair - Score, Comprehension - Score, Expression - Score, Social Interaction - Score, Problem Solvi ng - Score, Memory - Score were [electronically] signed by Greer Walton C.N.A. on SatAug 12 2018 15 :26:20 T-0500 (Central Daylight Time)
[2018-08-12] MEDS ORDERED: BISACODYL 10 MG RECTAL SUPP PR PRN (16:04)
[2018-08-12] MEDS ORDERED: FLUTICASONE 50MCG NASAL SPRAY NAS PRN (16:15)
[2018-08-12] MEDS ORDERED: LATANOPROST 0.005% 2.5ML OPTH OPTH SCH (16:15)
--- NOTE | 2018-08-12 18:44 | R.HP ---
FACILITY: [facility] ENCOUNTER DATE AND TIME: 08/12/2018 18:31 (CDT) MR#: [id number] NAME NEAL BARBA ADDRESS: [address] [place] [address] CITY: [facility] ZIP [id number] PHONE: DATE OF : 1945 AGE: 72 SSN# [id number] GENDER: Male DEXTERITY Right-handed MARITAL STATUS RACE Black PRE-HOSPITAL LIVING SETTING 01 - Home (private home/apt. board/care, assisted living, chcf, transitional living) PRE-HOSPITAL LIVING WITH Family/Relatives ENCOUNTER PHYSICIAN: Dr. Elliott Bradley M.D. REFERRING DOCTOR: samra Rothman DATE OF ADMISSION: 08/11/2018 22:00 (CDT) REFERRING FACILITY [facility] HOME TYPE AND DETAILS: Type of home: single family house # of steps to enter the residence: 0 # of steps within the residence: 0 # of levels in the residence: 1 ADMISSION DIAGNOSIS: ESRD Stage 5 ONSET DATE: 07/30/2018 PRIMARY DIAGNOSIS-RELATED SURGERIES: No surgeries related to the primary diagnosis were performed. SECONDARY/COMORBID DIAGNOSES (TIERED): - N/A renal anasarca TIA ESRD Stage 5 on dialysis HISTORY OF PRESENT ILLNESS (HPI): Pt. is a 72 yo Right-handed black male. On 07/30/2018 he was admitted to [facility] with diagnosis ESRD Stage 5. His impairment category is Medically Complex Conditions 17 - Terminal Care (17.6). Pre-morbidly, Pt. was independent/mod-I in Self-Care, Sphincter Control, Transfers Control, Communica tion, Social Cognition, and Locomotion; and he had good Sphincter Control. Currently, he has deficits of Transfers Control, Communication, Social Cognition, Endurance, Balance, Safety Awareness, Self-Care, and Locomotion. Pt. is now referred to [facility] for acute in-patient rehabilitation in order to maximize patient's functional independence in activities of daily living, strength, ROM, and mobi lity. Patient has realistic goal of being discharged at assistance level 6-Leonard to reside at Home with Fam michael/Relatives. Neal Barba is a 72 year old male that lives in a single yuri house with his . Patient is independent with ADLs and self care. On 07/30/2018, patient developed severe anasarca and was admitted to [facility] and treated. He is now medically stable but in need of 24-hour nursing, doctor supervision and oversite while receiving active and ongoing is reasonably expected to participate in 3hours of therapy a day/15 hours per week and receive care with an intensive interdisciplinary approach. MEDICATION ALLERGIES: Acetaminophen Hydrocodone ENVIRONMENTAL ALLERGIES: None Known - Substance Allergies None Known - Other Allergies None Known PAST MEDICAL HISTORY: ESRD Stage 5 on dialysis TIA renal anasarca hypertension FAMILY HISTORY: Family history is not contributory. SOCIAL HISTORY: - Home Living Family/Relatives REVIEW OF SYSTEMS: - Gen No Chills Fatigue No Fever - Eyes No Double Vision No itchiness - ENMT No Difficulty Swallowing - CVS No Chest Discomfort No Chest Pain No Fatigue No Weight Gain - Resp No Cough No Shortness of Breath - GI Continent No Abdominal Pain No Constipation No Diarrhea - Continent No Kidney Pain No Painful Urination No Urinary Urgency - MSK Joint Pain Muscle Cramps Stiffness - Skin No Itching No Rash No Suspicious Lesions - Neuro Coordination Difficulty No Difficulty with Concentration No Memory Loss No Seizures Weakness - Psych No Anxiety No Depression No HIV Exposure No Persistent Infections No Seasonal Allergies - Endo No Cold/Heat Intolerance No Excessive Hunger No Excessive Thirst No Excessive Urination PHYSICAL EXAM - Gen Alert and awake Lying in bed No apparent distress Oriented to: person, time, and place - Skin No breakdown No abnormalities - Eyes No abnormalities - Neck 3/10 neck pain - CVS RRR - Chest No abnormalities - Resp CTA bilaterally - Abd + bowel sounds - GI nondistended Deferred - Little urine production. On hemodialysis three times weekly. - Ext No significant edema - MSK 4+/5 weakness in right upper and lower extremities - Neuro No focal deficits on exam - Psych No abnormalities VITAL SIGNS Temperature: 97.8 F SBP/DBP: 129/54 Pulse: 60 Resp: 16 NURSING: - Shower allowing shower ACTIVITIES OOB only with supervision FUNCTIONAL STATUS: - Self-Care A. Eating Ind Ind B. Grooming Ind Edwina C. Bathing Ind maxA D. Dressing - Upper Ind sup E. Dressing - Lower Ind maxA F. Toileting Ind Ind - Sphincter Control G: Bladder control Ind modA H: Bowel control Ind Ind - Transfers Control I. Bed/Chair/Wheelchair Ind modA J. Toilet Ind modA K. Tub/Shower Ind ADNO - Locomotion L. Walk/Wheelchair (B) Leonard modA M. Stairs Ind ADNO - Communication N. Comprehension (B) Ind sup O. Expression (B) Ind sup - Social Cognition P. Social Interaction Ind sup Q. Problem Solving Ind sup R. Memory Ind sup - Endurance Poor - Balance Poor - Safety Awareness Poor CURRENT FUNC. DEFICITS: Transfers Control, Communication, Social Cognition, Endurance, Balance, Safety Awareness, Self-Care, and Locomotion MEDICATIONS: - Other See attached MAR (Medication Administration Record) Neal Barba.pdf ASSESSMENT: Pt. is a 72 yo Right-handed black male.On 07/30/2018 he was admitted to [facility] with diagnosis ESRD Stage 5.His impairment category is Medically Complex Conditions 17 - Termina l Care (17.6).Pre-morbidly, Pt. was independent/mod-I in Self-Care, Sphincter Control, Transfers Cont rol, Communication, Social Cognition, and Locomotion; and he had good Sphincter Control.Currently, he has deficits of Transfers Control, Communication, Social Cognition, Endurance, Balance, Safety Aware ness, Self-Care, and Locomotion.Pt. is now referred to [facility] for acute in -patient rehabilitation in order to maximize patient's functional independence in activities of daily living, strength, ROM, and mobility.- Rehab Goal Patient has realistic goal of being discharged at assistance level 6-Leonard to reside at Home with Fam michael/Relatives. Neal Barba is a 72 year old male that lives in a single yuri house with his . Patient is independent with ADLs and self care. On 07/30/2018, patient developed severe anasarca and was admitted to [facility] and treated. He is now medically stable but in need of 24-hour nursing, doctor supervision and oversite while receiving active and ongoing is reasonably expected to participate in 3hours of therapy a day/15 hours per week and receive care with an intensive interdisciplinary approach.REHAB PLAN: - Physical Therapy Gait dysfunction - to improve, our physical therapists will perform initial evaluation of pt's status upon admission and devise an individualized program for Gait Training, and Wheel Chair mobility Inability to transfer - to improve, our physical therapists will perform initial evaluation of pt's s tatus upon admission and devise an individualized program for Bed mobility Need for home safety evaluation - to improve, our physical therapists will perform initial evaluation of pt's status upon admission and devise an individualized program for Home Evaluation Need in caregiver upon discharge - to improve, our physical therapists will perform initial evaluatio n of pt's status upon admission and devise an individualized program for Caregiver Training New precaution - to improve, our physical therapists will perform initial evaluation of pt's status u willem admission and devise an individualized program for Patient precaution education Edema - to improve, our physical therapists will perform initial evaluation of pt's status upon admi ssion and devise an individualized program for Elevation Training, and Lymphedema Therapy Poor balance - to improve, our physical therapists will perform initial evaluation of pt's status upo n admission and devise an individualized program for Balance Training Poor endurance - to improve, our physical therapists will perform initial evaluation of pt's status u willem admission and devise an individualized program for Endurance Training Weakness - to improve, our physical therapists will perform initial evaluation of pt's status upon ad mission and devise an individualized program for Aquatic Therapy, Neuromuscular Reeducation, and Stre ngthening Achieving independence - to improve, our physical therapists will perform initial evaluation of pt's status upon admission and devise an individualized program for Community Reintegration Activities - Occupational Therapy ADL deficits - to improve, our occupation therapists will perform initial evaluation of pt's status u willem admission and devise an individualized program for Bathing, Bed mobility, Community Reintegration , Cooking, Dressing, Eating, Fine Motor Skills, Grooming, Homemaking, Kitchen Mobility, Laundry, Alicia ent Education, Safety Awareness, Splinting - Positioning, Transfers(Toilet, Tub, Shower), and Wheel C hair Management Cognitive deficits - to improve, our occupation therapists will perform initial evaluation of pt's st atus upon admission and devise an individualized program for Cognition - orientation Need for health care law specialist - to improve, our occupation therapists will perform initial evaluation of pt's s tatus upon admission and devise an individualized program for Caregiver Training Weakness - to improve, our occupation therapists will perform initial evaluation of pt's status upon admission and devise an individualized program for Aquatic Therapy, Balance, Endurance, UE ROM, and U E strengthening MEDICAL PLAN: - Diet Type Start Regular - Diet - Liquid Texture Start Regular - Tube Feed Start N/A - Other See attached MAR (Medication Administration Record) Neal Barba.pdf - Diet - Solid Texture Regular - Shower shower DISCHARGE PLAN: - Estimated Length of Stay (days) 13. - Consensus on plan Discharge plan has been discussed with primary caregiver. Patient/Family is in agreement with the cindi n. Primary caregiver is in agreement with the plan. - Patient/Family Goals Return home with assistance. - Planned Living Setting Upon Discharge Home, to live with Family/Relatives. SIGNATURE PANEL: (CDT)
--- NOTE | 2018-08-12 18:49 | PAPE ---
PATIENT: [facility] MR# [id number] REFERRING DOCTOR samra Rothman EVALUATION DATE AND TIME 08/12/2018 18:49 (CDT) NAME NEAL BARBA DATE OF 1945 AGE 72 PHONE SSN# [id number] GENDER male EVALUATING PHYSICIAN Dr. Elliott Bradley M.D. ADMISSION DIAGNOSIS: ESRD Stage 5 ONSET DATE 07/30/2018 SECONDARY/COMORBID DIAGNOSES TIERED: - N/A renal anasarca TIA ESRD Stage 5 on dialysis POST-ADMISSION FUNCTIONAL/MEDICAL STATUS: - Bladder Same accident frequency: Ind - No accidents in the past 7 days - Bowel Same accident frequency: Ind - No accidents in the past 7 days - Walking Same score based on distance walked: 1(<=50ft) STATUS CHANGE EVALUATION: No change in Functional or Medical Status is identified compared with Pre-Admission screening. PATIENT NEEDS CLOSE MEDICAL SUPERVISION BY A REHABILITATION PHYSICIAN FOR: Bowel and Bladder Management Coordination of Treatment Team Medical and Co-Morbidity Management PATIENT REQUIRES 24X7 REHAB NURSING FOR MEDICAL AND FUNCTIONAL MGT. OF THE FOLLOWING DEFICITS: ADL's Ambulation Bowel and Bladder Management Cognition Communication Disease Management Medication Management Patient/Family Education Providing Safe Environment Transfers Pain Management DVT Management PATIENT REQUIRES INTENSIVE, COORDINATED INTERDISCIPLINARY APPROACH TO REHAB: Arranging Home Equipment/Services Discharge Planning Family Intervention/Training Log Roper/Case Management LIST OF IDENTIFIED AND POTENTIAL PROBLEMS: Alteration in leisure activities Bladder, Incontinence Bowel, Incontinence Infection, Actual or Potential Mobility Impaired Pain, Alteration in Comfort Self Care Deficit Skin Integrity, Actual or Potential Urinary Tract Infection (UTI), Actual or Potential PATIENT COULD BE AT RISK FOR COMPLICATIONS FROM ADVERSE MEDICAL CONDITIONS DUE TO HIS/HER COMORBIDITI ES AND THE RIGORS OF THE INTENSIVE REHABILLITATION PROGRAM. METHODS OR INTERVENTIONS TO AVOID COMPLIC ATIONS INCLUDE: - Infection Clinical staff to assess and manage the signs and symptoms of infection including fever, redness, war mth, etc. - Urinary Tract Infection - Falls Patient will be evaluated for Fall Precautions and will be placed on Fall Precautions as indicated pe r protocol. - Skin Breakdown Nursing will assess skin daily using assessment tool and will place on Skin Breakdown Precautions as indicated per protocol. - Pain Clinical staff may employ non-medication methods such as massage, distraction, decrease stimulus, etc . as needed. Clinical staff will assess patient's pain level every shift per protocol to assess and e nsure pain management effectiveness. Medications will be given and the pain level re-assessed. PRELIMINARY PLAN OF CARE: - Physical Therapy Patient needs Physical Therapy for a daily minimum of 1.5 hours at least 5 out of 7 days, to improve: Mobility, Strengthening, Transfers, Stretching, ROM, Endurance, Ability to manage stairs, Gait, and Balance. - Speech Therapy Patient needs Speech Therapy for a daily minimum of 0.5 hours at least 5 out of 7 days, to improve:. - Rehabilitation Nursing Patient requires 24x7 Rehabilitation Nursing for: Pain Issues, Identifying and preventing risk factor s, Monitoring and reporting current medical conditions, Assisting with ambulation and transfer, Mary ting with all ADL-s, Teaching patients about disease process and medications, Family teaching, Provid ing safe environment, Bowel and Bladder Issues, Skin Integrity, and Medication Management. Patient needs Log Roper and/or Case Management for: Discharge Planning, Arranging Home Equipmen t or Services, and Family Interventions. - Dietary and Nutrition Services Patient needs Dietary and Nutrition Services for: Adequate Nutrition, Nutritional Supplements, and Nu tritional Education. - Occupational Therapy Patient needs Occupational Therapy for a daily minimum of 1.5 hours at least 5 out of 7 days, to impr ove Activities of Daily Living, including: Eating, Grooming, Bathing, Dressing, Toileting, Toilet Tra nsfers, Community Reintegration, Higher functional activities, Adaptive Equipment, Splinting, Househo ld Tasks, and Other activities as determined. POTENTIAL FUNCTIONAL GOALS FOR PATIENT TO ACHIEVE BY DISCHARGE: - Safety Precaution Patient will remain free from falls or injury at time of discharge. - Bed Mobility Patient will perform bed mobility at 4-Edwina level of assistance. - Transfers Patient will complete transfers from bed to chair at 4-Edwina level of assistance. - Mobility Patient will ambulate 150 ft with 4-Edwina level of assistance with RW. PATIENT REHAB POTENTIAL Expected level of measurable improvement will be of a practical value to patient's functional capacit y or adaptations to impairments Has a viable Discharge Plan Medically appropriate; condition is sufficiently stable to participate in intensive rehab program Patient is able and expected to receive 3 hours of individualized therapy daily on at least 5 of ever y 7 days Patient's prognosis for significant practical improvement within a reasonable period of time appears Good DISCHARGE PLAN: - Estimated Length of Stay (days) 13. - Consensus on plan Discharge plan has been discussed with primary caregiver. Patient/Family is in agreement with the cindi n. Primary caregiver is in agreement with the plan. - Patient/Family Goals Return home with assistance. - Planned Living Setting Upon Discharge Home, to live with Family/Relatives. CONCLUSION ON REHABILITATION NECESSITY: I have evaluated patient's pre-admission functional status and, comparing it to the patient's post-ad mission functional status now, I conclude that the pre-admission assessment was accurate. Patient's c ondition on admission supports the medical necessity of admission to [facility]. It is safe to proceed with patient's therapy program. SIGNATURE PANEL: (CDT)
[2018-08-12] MEDS: DOCUSATE NA/SENNA CONC 1 TAB PO SCH (20:20)
[2018-08-12] MEDS: PREGABALIN 50 MG CAP PO SCH (20:20)
[2018-08-12] MEDS: ROSUVASTATIN 10 MG TAB PO SCH (20:20)
[2018-08-12] MEDS ORDERED: INSULIN -REGULAR HUMAN 50 UNIT/0.5 ML ML ONE (21:34)
--- NOTE | 2018-08-13 00:16 | FAST ---
SHIFT START DATE/TIME: 08/12/2018 19:00 (CDT) SHIFT END DATE/TIME: 08/13/2018 07:00 (CDT) NAME NEAL BARBA DATE OF : 1945 DATE OF ADMISSION: 08/11/2018 22:00 (CDT) PHONE: AGE: 72 SSN# [id number] GENDER: Male ENCOUNTER PHYSICIAN: Dr. Elliott Bradley M.D. ADMISSION DIAGNOSIS: - Medically Complex Conditions 17 - Terminal Care (17.6) ESRD Stage 5. EATING: Activity did not occur on this shift EATING - SCORE: 0-UNK GROOMING: Activity did not occur on this shift GROOMING - SCORE: 0-UNK BATHING: Activity did not occur on this shift BATHING - SCORE: 0-UNK DRESSING - UPPER BODY: Patient is not dressing in public clothing ARTICLES SCORE Total number of steps: 0 DRESSING - UPPER BODY - SCORE: 0-UNK DRESSING - LOWER BODY: Patient is not dressing in public clothing ARTICLES SCORE Total number of steps: 0 DRESSING - LOWER BODY - SCORE: 0-UNK TOILETING: TOILETING - STEP 1: Does the patient require the assistance of a person or device, or need extra time with toileting? Yes . TOILETING - STEP 2: Does the patient require the assistance of a helper? Yes. TOILETING - STEP 3: How much assistance does the patient require from the helper? Only supervision TOILETING - SCORE: 5-SUP BLADDER MANAGEMENT: BLADDER MANAGEMENT - STEP 1: Does the patient control the bladder completely and intentionally without equipment or devices or med ications, and is always continent? No. BLADDER MANAGEMENT - STEP 2: Does the patient require the assistance of a helper? No, patient only requires extra time BLADDER MANAGEMENT - SCORE: 6-IZZY BOWEL MANAGEMENT: Activity did not occur on this shift BOWEL MANAGEMENT - SCORE: 7-IND TRANSFERS: BED, CHAIR, WHEELCHAIR: Activity did not occur on this shift TRANSFERS: BED, CHAIR, WHEELCHAIR - SCORE: 0-UNK TRANSFERS: TOILET: Activity did not occur on this shift TRANSFERS: TOILET - SCORE: 0-UNK TRANSFERS: SHOWER: Activity did not occur on this shift TRANSFERS: SHOWER - SCORE: 0-UNK TRANSFERS: TUB: Activity did not occur on this shift TRANSFERS: TUB - SCORE: 0-UNK LOCOMOTION: WALK: Activity did not occur on this shift LOCOMOTION: WALK - SCORE: 0-UNK LOCOMOTION: WHEELCHAIR: Activity did not occur on this shift LOCOMOTION: WHEELCHAIR - SCORE: 0-UNK COMPREHENSION: COMPREHENSION: TYPE: Both COMPREHENSION - STEP 1: Does the patient require help from a person or device, or need extra time to understand complex and a bstract ideas (such as current events, finances, discharge planning, medical issues, relationships, e tc)? No. COMPREHENSION - STEP 2: Does the patient need extra time, require an assistive device (such as glasses for visual comprehensi on or a hearing aid for auditory comprehension) or does s/he have mild difficulty understanding compl ex and abstract information? Yes. COMPREHENSION - SCORE: 6-IZZY EXPRESSION EXPRESSION: TYPE: Both EXPRESSION - STEP 1: Does the patient require help from a person or device, or need extra time expressing complex and abst ract ideas (such as current events, finances, discharge planning, medical issues, relationships, etc) ? No. EXPRESSION - STEP 2: Does the patient need extra time, require an assistive device (such as augmentive communication syste m or a communication board), OR does s/he have mild difficulty expressing complex and abstract ideas (including mild dysarthria or mild word-find problems)? No. EXPRESSION - SCORE: 7-IND SOCIAL INTERACTION: SOCIAL INTERACTION - STEP 1: Does the patient require a helper to interact with others in social and therapeutic situations? No. SOCIAL INTERACTION - STEP 2: Does the patient need extra time in social situations, OR does s/he interact with staff, other patien ts, and family members ONLY in structured environments, OR does s/he require medication for social in teraction? Yes, patient needs extra time SOCIAL INTERACTION - SCORE: 6-IZZY PROBLEM SOLVING: PROBLEM SOLVING - STEP 1: Does the patient need help from a person or device, or need extra time to solve complex problems such as managing a checking account or confronting interpersonal problems? Yes. PROBLEM SOLVING - STEP 2: Does the patient solve basic routine problems half or more of the time? Yes. PROBLEM SOLVING - STEP 3: How often does the patient need help to solve basic routine problems? 25%-49% of the time PROBLEM SOLVING - SCORE: 3-MOD MEMORY: MEMORY - STEP 1: Does the patient need help from a person or device, or need extra time to remember frequently encount ered people, daily routines, and executing requests? No. MEMORY - STEP 2: Does the patient have slight difficulty recognizing frequently encountered people, daily routines, or executing requests without the need for repetition or using self-initiated or environmental cues to remember? Yes. MEMORY - SCORE: 6-IZZY SIGNATURE PANEL: The following modified sections: Eating - Score, Grooming - Score, Dressing - Upper Body - Score, Waldemar ssing - Lower Body - Score, Toileting - Score, Bladder Management - Score, Bowel Management - Score, Transfers: Bed, Chair, Wheelchair - Score, Transfers: Toilet - Score, Transfers: Shower - Score, Silva sfers: Tub - Score, Locomotion: Walk - Score, Locomotion: Wheelchair - Score, Comprehension - Score, Expression - Score, Social Interaction - Score, Problem Solving - Score, Memory - Score were [electro nically] signed by Demetra Mendez CNA on SatAug 13 2018 00:15:54 GMT-0500 (Central Daylight Time)
--- NOTE | 2018-08-13 01:46 | PN ---
Date of Progress Note: 08/11/2018 Chief Complaint: End-stage renal disease, on dialysis. Subjective: The patient was started on dialysis during this admission. The patient has history of d econditioning, is undergoing rehab. The patient was found to have anemia. The patient will start VICK. Review of Systems: Denies fever, chills. Physical Examination: Lungs: Clear to auscultation bilaterally. Heart: S1, S2. Abdomen: Soft, benign. Extremities: Slight edema. Laboratory Data: BUN 43, creatinine 5.4, sodium 138, potassium 4.6, magnesium 2.5, calcium is 8.2. Impression And Plan: 1.End-stage renal disease. Next dialysis tomorrow with ultrafiltration. Monitor blood flow rate an d monitor ultrafiltration during dialysis and blood pressure. 2.Deconditioning. The patient will continue PT, OT. 3.Anemia of chronic kidney disease. Continue VICK. 4.Renal osteodystrophy. Continue renal diet and binders. EB/MODL Voice ID: [id number] Report ID: [id number]
[2018-08-13] MEDS: METOCLOPRAMIDE 5 MG TAB PO SCH ×3 (07:16→16:41)
[2018-08-13] MEDS: PANTOPRAZOLE 40MG TABLET PO SCH (07:16)
[2018-08-13] MEDS: INSULIN -REGULAR HUMAN 50 UNIT/0.5 ML ML SQ SCH ×4 (07:25→20:39)
[2018-08-13] MEDS: GLUCERNA SHAKE 237 ML CAN PO SCH ×2 (08:00→20:39)
[2018-08-13] MEDS: DOCOSAHEXANOIC AC/EPA 1000 MG PO SCH (08:00)
[2018-08-13] MEDS: TIOTROPIUM 5 SPRAYS/INHALER IH SCH (08:00)
[2018-08-13] MEDS: LIDOCAINE 5% PATCH TOP SCH (09:02)
[2018-08-13] MEDS: HEPARIN 5000 UNIT/ML 1 ML VIAL SQ SCH (09:03)
[2018-08-13] MEDS: DOCUSATE NA 100 MG CAP PO SCH (09:03)
[2018-08-13] MEDS: ASPIRIN 81 MG CHEWABLE TABLET PO SCH (09:03)
[2018-08-13] MEDS: PREGABALIN 50 MG CAP PO SCH ×2 (09:04→20:38)
[2018-08-13] MEDS: ISOSORBIDE MONO SR 30 MG TAB PO SCH (09:04)
[2018-08-13] MEDS: CILOSTAZOL 100 MG TAB PO SCH ×2 (09:04→20:38)
[2018-08-13] MEDS: FUROSEMIDE 40 MG TABLET PO SCH ×2 (09:05→16:42)
[2018-08-13] MEDS: LISINOPRIL 20 MG TAB PO SCH (09:05)
[2018-08-13] MEDS: CARVEDILOL 3.125 MG TAB PO SCH ×2 (09:05→19:55)
--- NOTE | 2018-08-13 14:27 | FAST ---
SHIFT START DATE/TIME: 08/13/2018 07:00 (CDT) SHIFT END DATE/TIME: 08/13/2018 19:00 (CDT) NAME NEAL BARBA DATE OF : 1945 DATE OF ADMISSION: 08/11/2018 22:00 (CDT) PHONE: AGE: 72 N# [id number] GENDER: Male ENCOUNTER PHYSICIAN: Dr. Elliott Bradley M.D. ADMISSION DIAGNOSIS: - Medically Complex Conditions 17 - Terminal Care (17.6) ESRD Stage 5. EATING: EATING - STEP 1: Does the patient require the assistance of a person or device, or need extra time when eating? Yes. EATING - STEP 2: Does the patient require the assistance of a helper? Yes. EATING - STEP 3: Does the patient perform half or more of the eating tasks? Yes. EATING - STEP 4: Does the patient need only supervision, cuing, coaxing OR help to apply an orthosis OR help to cut fo od, open containers, pour liquids, or butter bread? Yes. EATING - SCORE: 5-SUP GROOMING: Comb/brush hair Wash, rinse, and dry face Wash, rinse, and dry hands GROOMING - STEP 1: Does the patient require the assistance of a person or device, or need extra time when grooming? Yes. GROOMING - STEP 2: Does the patient require the assistance of a helper? Yes. GROOMING - STEP 3: How much assistance does the patient require from the helper? Cuing, coaxing, instructions, or encour agement for completion of grooming GROOMING - SCORE: 5-SUP BATHING: Activity did not occur on this shift BATHING - SCORE: 0-UNK DRESSING - UPPER BODY: Activity did not occur on this shift ARTICLES SCORE Total number of steps: 0 DRESSING - UPPER BODY - SCORE: 0-UNK DRESSING - LOWER BODY: Activity did not occur on this shift ARTICLES SCORE Total number of steps: 0 DRESSING - LOWER BODY - SCORE: 0-UNK TOILETING: Activity did not occur on this shift TOILETING - SCORE: 0-UNK TOILETING - COMMENTS: Pt has dialysis on Saturday-Saturday- Saturday BLADDER MANAGEMENT: Patient is on renal dialysis or peritoneal dialysis and no voiding activity BLADDER MANAGEMENT - SCORE: 7-IND BLADDER MANAGEMENT - FREQUENCY OF ACCIDENTS: BLADDER MANAGEMENT(FA) - STEP 1: How many accidents has the patient had during the current shift? 0 BOWEL MANAGEMENT: Activity did not occur on this shift BOWEL MANAGEMENT - SCORE: 7-IND BOWEL MANAGEMENT - FREQUENCY OF ACCIDENTS: BOWEL MANAGEMENT(FA) - STEP 1: How many accidents has the patient had during the current shift? 0 TRANSFERS: BED, CHAIR, WHEELCHAIR: TRANSFERS: BED, CHAIR, WHEELCHAIR - STEP 1: Does the patient require assistance of a person or device, or need extra time with bed, chair, or whe elchair transfers? Yes. TRANSFERS: BED, CHAIR, WHEELCHAIR - STEP 2: Does the patient require the assistance of a helper? Yes. TRANSFERS: BED, CHAIR, WHEELCHAIR - STEP 3: How much assistance does the patient require from the helper? Steadying/guiding assistance TRANSFERS: BED, CHAIR, WHEELCHAIR - SCORE: 4-MIN TRANSFERS: TOILET: Activity did not occur on this shift TRANSFERS: TOILET - SCORE: 0-UNK TRANSFERS: SHOWER: Activity did not occur on this shift TRANSFERS: SHOWER - SCORE: 0-UNK TRANSFERS: TUB: Activity did not occur on this shift TRANSFERS: TUB - SCORE: 0-UNK LOCOMOTION: WALK: Activity did not occur on this shift LOCOMOTION: WALK - SCORE: 0-UNK LOCOMOTION: WHEELCHAIR: Activity did not occur on this shift LOCOMOTION: WHEELCHAIR - SCORE: 0-UNK COMPREHENSION: COMPREHENSION: TYPE: Both COMPREHENSION - STEP 1: Does the patient require help from a person or device, or need extra time to understand complex and a bstract ideas (such as current events, finances, discharge planning, medical issues, relationships, e tc)? No. COMPREHENSION - STEP 2: Does the patient need extra time, require an assistive device (such as glasses for visual comprehensi on or a hearing aid for auditory comprehension) or does s/he have mild difficulty understanding compl ex and abstract information? Yes. COMPREHENSION - SCORE: 6-IZZY EXPRESSION EXPRESSION: TYPE: Both EXPRESSION - STEP 1: Does the patient require help from a person or device, or need extra time expressing complex and abst ract ideas (such as current events, finances, discharge planning, medical issues, relationships, etc) ? No. EXPRESSION - STEP 2: Does the patient need extra time, require an assistive device (such as augmentive communication syste m or a communication board), OR does s/he have mild difficulty expressing complex and abstract ideas (including mild dysarthria or mild word-find problems)? Yes. EXPRESSION - SCORE: 6-IZZY SOCIAL INTERACTION: SOCIAL INTERACTION - STEP 1: Does the patient require a helper to interact with others in social and therapeutic situations? No. SOCIAL INTERACTION - STEP 2: Does the patient need extra time in social situations, OR does s/he interact with staff, other patien ts, and family members ONLY in structured environments, OR does s/he require medication for social in teraction? Yes, patient needs extra time SOCIAL INTERACTION - SCORE: 6-IZZY PROBLEM SOLVING: PROBLEM SOLVING - STEP 1: Does the patient need help from a person or device, or need extra time to solve complex problems such as managing a checking account or confronting interpersonal problems? Yes. PROBLEM SOLVING - STEP 2: Does the patient solve basic routine problems half or more of the time? Yes. PROBLEM SOLVING - STEP 3: How often does the patient need help to solve basic routine problems? Less than 10% of the time PROBLEM SOLVING - SCORE: 5-SUP MEMORY: MEMORY - STEP 1: Does the patient need help from a person or device, or need extra time to remember frequently encount ered people, daily routines, and executing requests? Yes. MEMORY - STEP 2: How often does the patient need help to remember frequently encountered people, daily routines, and e xecuting requests? Less than 10% of the time MEMORY - SCORE: 5-SUP SIGNATURE PANEL: The following modified sections: Eating - Score, Grooming - Score, Bathing - Score, Dressing - Upper Body - Score, Dressing - Lower Body - Score, Toileting - Score, Toileting - Comments:, Bladder Manage ment - Score, Bowel Management - Score, Transfers: Bed, Chair, Wheelchair - Score, Transfers: Toilet - Score, Transfers: Shower - Score, Transfers: Tub - Score, Locomotion: Walk - Score, Locomotion: Whe elchair - Score, Comprehension - Score, Expression - Score, Social Interaction - Score, Problem Solvi ng - Score, Memory - Score were [electronically] signed by Greer Walton C.N.A. on SatAug 13 2018 14 :26:41 GMT-0500 (Central Daylight Time)
--- NOTE | 2018-08-13 16:29 | RAD REPORT ---
EXAM DESCRIPTION: CT - Head Brain Wo Cont - 08/13/2018 4:07 pm CLINICAL HISTORY: Unresponsive COMPARISON: July 30, 2018 TECHNIQUE: Computed axial tomography of the head was obtained. IV contrast was not requested. All CT scans are performed using dose optimization technique as appropriate and may include automated exposure control or mA/KV adjustment according to patient size. FINDINGS: An intracranial bleed is not seen . The ventricles are normal in caliber. No extra-axial fluid collection is noted. Mild low-density areas within periventricular, deep and sub cortical white matter likely represent ischemic changes secondary to small vessel disease. Fluid within the sinuses/ mastoids is not seen. IMPRESSION: No acute intracranial abnormality is seen. If patient's symptoms persist MRI of the bra in would be recommended.
[2018-08-13] MEDS: ROSUVASTATIN 10 MG TAB PO SCH (20:38)
[2018-08-13] MEDS: DOCUSATE NA/SENNA CONC 1 TAB PO SCH (20:38)
--- NOTE | 2018-08-14 01:25 | FAST ---
SHIFT START DATE/TIME: 08/13/2018 19:00 (CDT) SHIFT END DATE/TIME: 08/14/2018 07:00 (CDT) NAME NEAL BARBA DATE OF : 1945 DATE OF ADMISSION: 08/11/2018 22:00 (CDT) PHONE: AGE: 72 N# [id number] GENDER: Male ENCOUNTER PHYSICIAN: Dr. Elliott Bradley M.D. ADMISSION DIAGNOSIS: - Medically Complex Conditions 17 - Terminal Care (17.6) ESRD Stage 5. EATING: Activity did not occur on this shift EATING - SCORE: 0-UNK GROOMING: Activity did not occur on this shift GROOMING - SCORE: 0-UNK BATHING: Activity did not occur on this shift BATHING - SCORE: 0-UNK DRESSING - UPPER BODY: Activity did not occur on this shift ARTICLES SCORE Total number of steps: 0 DRESSING - UPPER BODY - SCORE: 0-UNK DRESSING - LOWER BODY: Activity did not occur on this shift ARTICLES SCORE Total number of steps: 0 DRESSING - LOWER BODY - SCORE: 0-UNK TOILETING: TOILETING - STEP 1: Does the patient require the assistance of a person or device, or need extra time with toileting? Yes . TOILETING - STEP 2: Does the patient require the assistance of a helper? Yes. TOILETING - STEP 3: How much assistance does the patient require from the helper? Hands-on assistance from the helper TOILETING - STEP 4: Of the 3 tasks: 1) Adjusting clothing prior to use, 2) Cleansing of perineal area, 3) Adjusting clot aydee after use; How many tasks does the patient perform WITHOUT assistance of the helper? One task TOILETING - SCORE: 2-MAX BLADDER MANAGEMENT: Patient is on renal dialysis or peritoneal dialysis and no voiding activity BLADDER MANAGEMENT - SCORE: 7-IND BOWEL MANAGEMENT: Suppository: Marquand positions patient, places a pad, lubricates and inserts the suppository, provides digital stimulation, places patient on bedpan, and takes patient off of bedpan. BOWEL MANAGEMENT - SCORE: 1-DEP TRANSFERS: BED, CHAIR, WHEELCHAIR: TRANSFERS: BED, CHAIR, WHEELCHAIR - STEP 1: Does the patient require assistance of a person or device, or need extra time with bed, chair, or whe elchair transfers? Yes. TRANSFERS: BED, CHAIR, WHEELCHAIR - STEP 2: Does the patient require the assistance of a helper? Yes. TRANSFERS: BED, CHAIR, WHEELCHAIR - STEP 3: How much assistance does the patient require from the helper? Steadying/guiding assistance TRANSFERS: BED, CHAIR, WHEELCHAIR - SCORE: 4-MIN TRANSFERS: TOILET: TRANSFERS: TOILET - STEP 1: Does the patient require the assistance of a person or device, or need extra time with toilet transfe rs? Yes. TRANSFERS: TOILET - STEP 2: Does the patient require the assistance of a helper? Yes. TRANSFERS: TOILET - STEP 3: How much assistance does the patient require from the helper? Patient performs half or more of the tr ansferring tasks TRANSFERS: TOILET - STEP 4: Does the patient need only incidental help such as contact guard or steadying during toilet transfer? No. Patient needs more than incidental help TRANSFERS: TOILET - SCORE: 3-MOD TRANSFERS: SHOWER: Activity did not occur on this shift TRANSFERS: SHOWER - SCORE: 0-UNK TRANSFERS: TUB: Activity did not occur on this shift TRANSFERS: TUB - SCORE: 0-UNK LOCOMOTION: WALK: Activity did not occur on this shift LOCOMOTION: WALK - SCORE: 0-UNK LOCOMOTION: WHEELCHAIR: Activity did not occur on this shift LOCOMOTION: WHEELCHAIR - SCORE: 0-UNK COMPREHENSION: COMPREHENSION: TYPE: Both COMPREHENSION - STEP 1: Does the patient require help from a person or device, or need extra time to understand complex and a bstract ideas (such as current events, finances, discharge planning, medical issues, relationships, e tc)? No. COMPREHENSION - STEP 2: Does the patient need extra time, require an assistive device (such as glasses for visual comprehensi on or a hearing aid for auditory comprehension) or does s/he have mild difficulty understanding compl ex and abstract information? Yes. COMPREHENSION - SCORE: 6-IZZY EXPRESSION EXPRESSION: TYPE: Both EXPRESSION - STEP 1: Does the patient require help from a person or device, or need extra time expressing complex and abst ract ideas (such as current events, finances, discharge planning, medical issues, relationships, etc) ? No. EXPRESSION - STEP 2: Does the patient need extra time, require an assistive device (such as augmentive communication syste m or a communication board), OR does s/he have mild difficulty expressing complex and abstract ideas (including mild dysarthria or mild word-find problems)? Yes. EXPRESSION - SCORE: 6-IZZY SOCIAL INTERACTION: SOCIAL INTERACTION - STEP 1: Does the patient require a helper to interact with others in social and therapeutic situations? No. SOCIAL INTERACTION - STEP 2: Does the patient need extra time in social situations, OR does s/he interact with staff, other patien ts, and family members ONLY in structured environments, OR does s/he require medication for social in teraction? Yes, patient needs extra time SOCIAL INTERACTION - SCORE: 6-IZZY PROBLEM SOLVING: Patient requires bed/chair alarms due to attempts to get up unassisted when helper is needed. PROBLEM SOLVING - STEP 1: How often do the bed/chair alarms go off? Sometimes - the alarms go off about half the time PROBLEM SOLVING - SCORE: 3-MOD MEMORY: MEMORY - STEP 1: How often do the bed/chair alarms go off? Sometimes - the alarms go off about half the time MEMORY - SCORE: 3-MOD SIGNATURE PANEL: The following modified sections: Eating - Score, Grooming - Score, Bathing - Score, Dressing - Upper Body - Score, Dressing - Lower Body - Score, Toileting - Score, Bladder Management - Score, Bowel Man agement - Score, Transfers: Bed, Chair, Wheelchair - Score, Transfers: Toilet - Score, Transfers: Kathy wer - Score, Transfers: Tub - Score, Locomotion: Walk - Score, Locomotion: Wheelchair - Score, Compre hension - Score, Expression - Score, Social Interaction - Score, Problem Solving - Score, Memory - Sc ore were [electronically] signed by Kelsy Rivero RN on SatAug 14 2018 01:24:36 T-0500 (Formerly [facility] Time)
[2018-08-14] MEDS: PANTOPRAZOLE 40MG TABLET PO SCH (06:09)
[2018-08-14 07:16] LABS: Absolute Lymphocytes (CBC) 0.5 K/uL (0.7-4.9); Basophils % 0.5 % (0-1.3); Eosinophils % 0.6 % (0-4.4); Hematocrit 29.1 % (39.6-49.0); Lymphocytes % 3.8 % (15.3-44.8); MPV 7.7 fL (7.6-11.3); Monocytes % 14.7 % (3.3-12.3)
[2018-08-14] MEDS: TIOTROPIUM 5 SPRAYS/INHALER IH SCH (07:21)
[2018-08-14] MEDS: INSULIN -REGULAR HUMAN 50 UNIT/0.5 ML ML SQ SCH ×4 (07:30→21:03)
[2018-08-14 07:36] LABS: Albumin 2.8 g/dL (3.4-5.0); Prealbumin 17.8 mg/dL (20-40)
[2018-08-14 07:43] LABS: Potassium 5.9 mmol/L (3.5-5.1)
[2018-08-14] MEDS: GLUCERNA SHAKE 237 ML CAN PO SCH ×2 (08:00→20:42)
[2018-08-14] MEDS: CARVEDILOL 3.125 MG TAB PO SCH ×2 (08:00→20:42)
[2018-08-14] MEDS: LISINOPRIL 20 MG TAB PO SCH (08:00)
[2018-08-14] MEDS: HEPARIN 5000 UNIT/ML 1 ML VIAL SQ SCH (08:15)
[2018-08-14] MEDS: DOCUSATE NA 100 MG CAP PO SCH (08:44)
[2018-08-14] MEDS: DOCOSAHEXANOIC AC/EPA 1000 MG PO SCH (08:44)
[2018-08-14] MEDS: CILOSTAZOL 100 MG TAB PO SCH ×2 (08:44→20:42)
[2018-08-14] MEDS: LIDOCAINE 5% PATCH TOP SCH (08:44)
--- NOTE | 2018-08-14 08:44 | RAD REPORT ---
EXAM DESCRIPTION: Subha Single View08/14/2018 8:37 am CLINICAL HISTORY: Chest pain COMPARISON: August 07, 2018 FINDINGS: The lungs appear clear of acute infiltrate. The heart is normal size. One limb of a central venous catheter lies at the junction of the brachiocephalic vein and superior v keyonna cava. The other limb lies within the superior vena cava
[2018-08-14] MEDS: ASPIRIN 81 MG CHEWABLE TABLET PO SCH (08:48)
[2018-08-14] MEDS: METOCLOPRAMIDE 5 MG TAB PO SCH ×3 (08:48→16:30)
[2018-08-14] MEDS: PREGABALIN 50 MG CAP PO SCH ×2 (08:48→20:42)
[2018-08-14] MEDS: ISOSORBIDE MONO SR 30 MG TAB PO SCH (08:50)
[2018-08-14] MEDS: FUROSEMIDE 40 MG TABLET PO SCH (08:50)
[2018-08-14] MEDS: PIPER/TAZO/NS 2.25gm 2.25 GM/50 ML BAG IV SCH ×2 (09:50→17:29)
--- NOTE | 2018-08-14 11:12 | EKG ---
Test Date: 2018-08-13 Test Time: 15:55:30 Insecticide Expert: SMILEY MEASUREMENT RESULTS: Intervals: Rate: 66 CA: 198 QRSD: 90 QT: 392 QTc: 410 [place]: P: 40 CA: 198 QRS: 82 T: -10 INTERPRETIVE STATEMENTS: Normal sinus rhythm Nonspecific T wave abnormality Abnormal ECG Compared to ECG 08/07/2018 10:16:53 Myocardial infarct finding no longer present Possible ischemia no longer present T-wave abnormality still present Electronically Signed On 08-14-18 11:09:53 CDT by Marv Castro
[2018-08-14] MEDS ORDERED: PIPER/TAZO/NS 3.375gm 3.375 GM/100 ML BAG IVPB SCH (12:00)
--- NOTE | 2018-08-14 12:56 | P.CNS ---
Date of Consult: 08/14/18 Reason for Consult: Sepsis Requesting Physician: Elliott Bradley Chief Complaint: Sepsis History of Present Illness: 72 y/o M with significant Pmhx admitted to inpatient rehab from [facility] Floor after being started on HD for ESRD. Pt this AM had low grade fever and lab work was done. Medicine was consulted for further mgmt of possible sepsis. Allergies acetaminophen [From Vicodin] Allergy (Verified 08/12/18 00:19) Nausea/Vomiting hydrocodone [From Vicodin] Allergy (Verified 08/12/18 00:19) Nausea/Vomiting morphine Allergy (Verified 08/12/18 00:19) Nausea/Vomiting Home Medications: Cilostazol 50 mg PO BID 08/20/17 Cyclosporine [Restasis] 1 gtt EACH EYE PRN 08/20/17 Fluticasone [Flonase 50MCG Nasal Gaastra*] 2 spray JORDAN PRN 08/20/17 Insulin Detemir [Levemir Flextouch] 35 units SQ SEECOM 08/20/17 Latanoprost Ophth [Xalatan 0.005%*] 1 drop EACH EYE BEDTIME 08/20/17 [place]-3 Acid Ethyl Esters 1 cap PO DAILY 08/20/17 Pregabalin [Lyrica*] 75 mg PO BID 08/20/17 Tiotropium [place] [Spiriva Respimat] 2 inh PO DAILY 08/20/17 Ergocalciferol (Vitamin D2) [Vitamin D2] 1 tab PO EVERY 7TH DAY 07/30/18 Furosemide 2 tab PO DAILY 07/30/18 Isosorbide Mononitrate [Isosorbide Mononitrate ER] 1 tab PO DAILY 07/30/18 Lubiprostone [Amitiza*] 1 tab PO PRN 07/30/18 Rosuvastatin Calcium [Crestor] 1 tab PO BEDTIME 07/30/18 Aspirin Chewable [Aspirin Chewable*] 81 mg PO DAILY 08/12/18 Carvedilol [Coreg] 3.125 mg PO BID 08/12/18 Lisinopril [Prinivil] 20 mg PO DAILY 08/12/18 Pantoprazole [Protonix Tab] 40 mg PO DAILY 08/12/18 Tramadol HCl [Ultram] 50 mg PO Q6HP PRN 08/12/18 - Past Medical/Surgical History Diabetic: Yes -: CKD -: DM -: HTN -: nephrolithiasis -: BLADDER CA- had chemo -: neuropathy -: Lithotripsy -: AV fistula-right upper arm 07/14/18 -: hemo split- left subclavian - Family History Father Medical History: Heart disease, Diabetes Mother Medical History: Hypertension Notes: Brother Medical History: Hypertension, Diabetes - Social History Alcohol use: No CD- Drugs: No Caffeine use: Yes Place of Residence: Home Review of Systems 10-point ROS is otherwise unremarkable Physical Examination Temp Pulse Resp BP Pulse Ox 98.6 F 84 16 110/48 L 96 08/14/18 07:03 08/14/18 08:05 08/14/18 07:03 08/14/18 08:05 08/14/18 07:03 General: Alert, Other (Lethargic ) HEENT: Atraumatic, PERRLA, Mucous membr. moist/pink, EOMI, Sclerae nonicteric Neck: Supple, 2+ carotid pulse no bruit, No LAD, Without JVD or thyroid abnormality Respiratory: Normal air movement, Crackles/rales, Rhonchi/gurgles Cardiovascular: Regular rate/rhythm, Normal S1 S2 Gastrointestinal: Normal bowel sounds, No tenderness Musculoskeletal: No tenderness Integumentary: No rashes Neurological: Normal strength at 5/5 x4 extr, Sensation intact Lymphatics: No axilla or inguinal lymphadenopathy Laboratory Data (last 24 hrs) 08/14/18 07:06: Sodium 136, Potassium 5.9 H*, BUN 81 H D, Creatinine 7.50 H* D, Glucose 209 H 08/14/18 07:06: WBC 13.5 H D, Hgb 9.9 L, Hct 29.1 L, Plt Count 212 D Conclusions/Impression: Assessment And Plan 72 y/o M with ESRD, now on HD admitted to Inpatient Rehab for PT.OT. Now with possible Sepsis 2.2 to Line infection vs PNA vs other etiology. (1) Sepsis - Possible Sepsis 2.2 to line infection vs other etiology -CBC, CMP, LA and procal Ordered -Blood culture ordered as well -Xray pending as well -Started on IV zosyn for now -F.u with Results. (2) Renal anasarca - Resolved -Nephrology consulted. Appreciated Reccs -HD MWF started -Yesterday with HD catheter not functional. Will Retry today per nephrology (3) CKD (chronic kidney disease) stage 4, GFR 15-29 ml/min -See above (4) H/O TIA (transient ischemic attack) and stroke -H.o Past TIA -head CT negative for any acute abnormality -On ASA and Lipitor (5) Diabetes mellitus -Type 2 DM with CKD and hyperglycemia -ISS and Accu Checks (6) HTN (hypertension) -Currently Stable -Restart home medication (7) Left shoulder pain -MRI of the shoulder consistent with supraspinatus tear -Limited ROM due to pain working with physical therapy. -Pain mgmt and PT/OT consulted. Dispo: Will follow along Rehab team for possible Sepsis Critical Care: No
--- NOTE | 2018-08-14 13:20 | P.PN ---
Subjective Date of Service: 08/14/18 Chief Complaint: Sepsis pt with ESRD started on HD yesterday was confused during HD K elevated will stop lasix as pt is dry-euvolemic will stop lisniopril Hd tomorrow F/U Bcx Physical Examination - Vital Signs Temperature: 98.6 F Blood Pressure: 110/48 Pulse: 84 Respirations: 16 Pulse Ox (%): 96 - Physical Exam General: Alert, In no apparent distress HEENT: Atraumatic Neck: Supple, Without JVD or thyroid abnormality Respiratory: Clear to auscultation bilaterally, Normal air movement Cardiovascular: No edema, No gallops, No rubs, No murmurs Gastrointestinal: Normal bowel sounds, Soft and benign Musculoskeletal: No clubbing, No swelling - Studies Laboratory Data (last 24 hrs) 08/14/18 07:06: Sodium 136, Potassium 5.9 H*, BUN 81 H D, Creatinine 7.50 H* D, Glucose 209 H 08/14/18 07:06: WBC 13.5 H D, Hgb 9.9 L, Hct 29.1 L, Plt Count 212 D Assessment And Plan - Current Problems (Diagnosis) (1) ESRD (end stage renal disease) on dialysis Current Visit: No Status: Acute - Plan End-stage renal disease, HD today and tomorrow renal dose meds hyperkalemia low K diet will dc lisniopril Hd today HTN controlled will dc lisinopril Anemia Cont Epogen edema , resolved will dc lasix DM as per PCP
--- NOTE | 2018-08-14 14:28 | EEG ---
CHART: [id number] TEST ID#: [id number] DATE OF STUDY: 08/14/2018 THE EEG WAS RECORDED PORATBLE IN THE PATIENTS ROOM ON A 17 CHANNEL MACHINE. ELECTRODES WERE APPLIED IN THE USUAL MANNER USING THE INTERNATIONAL 10-20 SYSTEM. THE WAKING BACKGROUND RHYTHM IN THIS RECORD CONSISTS OF POORLY DEVELOPED AND POORLY ORGANIZED WAVES OF 7 HZ., IN A WIDE DISTRIBUTION WHICH ATTENUATE POORLY WITH EYE OPENING. MODERATE VOLTAGE 1.5-3 HZ MIXED WITH LOW TO MODERATE VOLTAGE 4-6 HZ ACTIVITY IS EXPRESSED IN THE FRONAL, CENTRAL AND TEMPORAL REGIONS. THERE ARE NO FOCAL OR LATERALIZING FEATURES. NO EPILEPTIFORM ACTIVITY APPEARS. SLEEP DID NOT OCCUR. HYPERVENTILATION WAS NOT PERFORMED. PHOTIC STIMULATION PRODUCED NO DRIVING BILATERALLY. IMPRESSION: THIS IS A MODERATELY ABNORMALROUTINE EEG DUE TO A MODERATELY SLOW BACKGROUND. THIS IS A NON-SPECIFIC FINDING INDICATING THE PRESENCE OF A MODERATE DIFFUSE DISTURBANCE IN CEREBRAL ACTIVITY.
--- NOTE | 2018-08-14 15:18 | FAST ---
SHIFT START DATE/TIME: 08/14/2018 07:00 (CDT) SHIFT END DATE/TIME: 08/14/2018 19:00 (CDT) NAME NEAL BARBA DATE OF : 1945 DATE OF ADMISSION: 08/11/2018 22:00 (CDT) PHONE: AGE: 72 SSN# [id number] GENDER: Male ENCOUNTER PHYSICIAN: Dr. Elliott Bradley M.D. ADMISSION DIAGNOSIS: - Medically Complex Conditions 17 - Terminal Care (17.6) ESRD Stage 5. EATING: Activity did not occur on this shift EATING - SCORE: 0-UNK EATING - COMMENTS: Pt not feeling good today GROOMING: Activity did not occur on this shift GROOMING - SCORE: 0-UNK GROOMING - COMMENTS: Pt staying in bed- not feeling good BATHING: Activity did not occur on this shift BATHING - SCORE: 0-UNK DRESSING - UPPER BODY: Activity did not occur on this shift ARTICLES SCORE Total number of steps: 0 DRESSING - UPPER BODY - SCORE: 0-UNK DRESSING - LOWER BODY: Activity did not occur on this shift ARTICLES SCORE Total number of steps: 0 DRESSING - LOWER BODY - SCORE: 0-UNK TOILETING: Activity did not occur on this shift TOILETING - SCORE: 0-UNK TOILETING - COMMENTS: Dialysis BLADDER MANAGEMENT: [place] removes incontinent device (Depends, pull ups, etc.); cleans the patient after accident / inco ntinent episode; and, applies new incontinent device. BLADDER MANAGEMENT - SCORE: 1-DEP BLADDER MANAGEMENT - FREQUENCY OF ACCIDENTS: BLADDER MANAGEMENT(FA) - STEP 1: How many accidents has the patient had during the current shift? 1 BOWEL MANAGEMENT: [place] removes incontinent device (depends, pull ups, etc.); cleans the patient after accident / inco ntinent episode; and, applies new device (depends, pull-ups, padding, etc.). BOWEL MANAGEMENT - SCORE: 1-DEP BOWEL MANAGEMENT - FREQUENCY OF ACCIDENTS: BOWEL MANAGEMENT(FA) - STEP 1: How many accidents has the patient had during the current shift? 3 TRANSFERS: BED, CHAIR, WHEELCHAIR: Activity did not occur on this shift TRANSFERS: BED, CHAIR, WHEELCHAIR - SCORE: 0-UNK TRANSFERS: TOILET: Activity did not occur on this shift TRANSFERS: TOILET - SCORE: 0-UNK TRANSFERS: SHOWER: Activity did not occur on this shift TRANSFERS: SHOWER - SCORE: 0-UNK TRANSFERS: TUB: Activity did not occur on this shift TRANSFERS: TUB - SCORE: 0-UNK LOCOMOTION: WALK: Activity did not occur on this shift LOCOMOTION: WALK - SCORE: 0-UNK LOCOMOTION: WHEELCHAIR: Activity did not occur on this shift LOCOMOTION: WHEELCHAIR - SCORE: 0-UNK COMPREHENSION: COMPREHENSION: TYPE: Both COMPREHENSION - STEP 1: Does the patient require help from a person or device, or need extra time to understand complex and a bstract ideas (such as current events, finances, discharge planning, medical issues, relationships, e tc)? Yes. COMPREHENSION - STEP 2: Does the patient require help to understand questions or statements about basic needs or ideas (such as hunger, thirst, sleep, safety, daily schedule, room location, or discomfort) half or more of the t lina? Yes. COMPREHENSION - STEP 3: Is the patient basically able to understand and respond appropriately and consistently? Yes. COMPREHENSION - SCORE: 2-MAX EXPRESSION EXPRESSION: TYPE: Both EXPRESSION - STEP 1: Does the patient require help from a person or device, or need extra time expressing complex and abst ract ideas (such as current events, finances, discharge planning, medical issues, relationships, etc) ? Yes. EXPRESSION - STEP 2: Does the patient require help to express basic necessities or ideas (such as hunger, thirst, sleep, s afety, daily schedule, room location, or discomfort) half or more of the time? Yes. EXPRESSION - STEP 3: Is the patient basically unable to express or does s/he express inappropriately or inconsistently becki pite prompting? Yes. Patient is basically unable to express. EXPRESSION - SCORE: 0-UNK EXPRESSION - COMMENTS: Pt does not feel like talking today SOCIAL INTERACTION: SOCIAL INTERACTION - STEP 1: Does the patient require a helper to interact with others in social and therapeutic situations? Yes. SOCIAL INTERACTION - STEP 2: Does the patient interact appropriately half or more of the time? Yes. SOCIAL INTERACTION - STEP 3: How often does the patient need help to interact appropriately? Less than 10% of the time SOCIAL INTERACTION - SCORE: 5-SUP PROBLEM SOLVING: PROBLEM SOLVING - SCORE: 0-UNK MEMORY: MEMORY - SCORE: 0-UNK SIGNATURE PANEL: The following modified sections: Eating - Score, Eating - Comments:, Grooming - Score, Dressing - Low er Body - Score, Dressing - Upper Body - Score, Bathing - Score, Grooming - Comments:, Toileting - Sc ore, Toileting - Comments:, Bladder Management - Score, Bowel Management - Score, Transfers: Bed, Maria C ir, Wheelchair - Score, Transfers: Toilet - Score, Transfers: Shower - Score, Transfers: Tub - Score, Locomotion: Walk - Score, Locomotion: Wheelchair - Score, Comprehension - Comments:, Expression - Sc ore, Expression - Comments:, Social Interaction - Score, Problem Solving - Score, Memory - Score, Com prehension - Score were [electronically] signed by Greer Walton C.N.A. on SatAug 14 2018 15:17:33 G MT-0500 (Central Daylight Time)
--- NOTE | 2018-08-14 19:06 | R.PN ---
ENCOUNTER DATE AND TIME: 08/14/2018 19:00 (CDT) NAME NEAL BARBA DATE OF : 1945 DATE OF ADMISSION: 08/11/2018 22:00 (CDT) ESRD Stage 5CHIEF COMPLAINT: Debility, ESRD on hemodialysis. SUBJECTIVE: Pt denied any depression. Pt denied any Shortness of Breath. He was more somnolent today. His WBC was elevate to 13.5, neutrophils 80.4, procalcitonin up to 0.98. He had an unremarkable head CT after an episode of unresponsiveness during dialysis yesterday. His c hest x-ray is negative. His EEG was moderately slow. The hospitalist was consulted to help rule out p ossible infection of his dialysis port. His therapy was held today. He is on Zosyn. Cultures are pend ing. VITAL SIGNS Temperature: 97.8 F SBP/DBP: 110-172/48-75 Pulse: 84 Resp: 16 MEDICATION ALLERGIES: Acetaminophen Hydrocodone ENVIRONMENTAL ALLERGIES: None Known - Substance Allergies None Known - Other Allergies None Known NURSING: - Shower allowing shower ACTIVITIES OOB only with supervision THERAPIES: - Dietary and Nutrition Adequate Nutrition. Nutritional Education. Nutritional Supplements. PHYSICAL EXAM - Gen Alert and awake Lying in bed No apparent distress Oriented to: person, time, and place - Skin No breakdown No abnormalities - Eyes No abnormalities - Neck 3/10 neck pain - CVS RRR - Chest No abnormalities - Resp CTA bilaterally - Abd + bowel sounds - GI nondistended Deferred - Little urine production. On hemodialysis three times weekly. - Ext No significant edema - MSK 4+/5 weakness in right upper and lower extremities - Neuro No focal deficits on exam - Psych No abnormalities ASSESSMENT: Pt. is a 72 yo Right-handed black male.On 07/30/2018 he was admitted to [facility] with diagnosis ESRD Stage 5.His impairment category is Medically Complex Conditions 17 - Termina l Care (17.6).Pre-morbidly, Pt. was independent/mod-I in Self-Care, Sphincter Control, Transfers Cont rol, Communication, Social Cognition, and Locomotion; and he had good Sphincter Control.Currently, he has deficits of Transfers Control, Communication, Social Cognition, Endurance, Balance, Safety Aware ness, Self-Care, and Locomotion.Pt. is now referred to [facility] for acute in -patient rehabilitation in order to maximize patient's functional independence in activities of daily living, strength, ROM, and mobility.- Rehab Goal Patient has realistic goal of being discharged at assistance level 6-Leonard to reside at Home with Fam michael/Relatives. MDM/PLAN: - Physical Therapy Gait dysfunction - to improve, our physical therapists will perform initial evaluation of pt's statu s upon admission and devise an individualized program for Gait Training, and Wheel Chair mobility Inability to transfer - to improve, our physical therapists will perform initial evaluation of pt's status upon admission and devise an individualized program for Bed mobility Need for home safety evaluation - to improve, our physical therapists will perform initial evaluatio n of pt's status upon admission and devise an individualized program for Home Evaluation Need in caregiver upon discharge - to improve, our physical therapists will perform initial evaluati on of pt's status upon admission and devise an individualized program for Caregiver Training New precaution - to improve, our physical therapists will perform initial evaluation of pt's status upon admission and devise an individualized program for Patient precaution education Edema - to improve, our physical therapists will perform initial evaluation of pt's status upon admis zeus and devise an individualized program for Elevation Training, and Lymphedema Therapy Poor balance - to improve, our physical therapists will perform initial evaluation of pt's status up on admission and devise an individualized program for Balance Training Poor endurance - to improve, our physical therapists will perform initial evaluation of pt's status upon admission and devise an individualized program for Endurance Training Weakness - to improve, our physical therapists will perform initial evaluation of pt's status upon a dmission and devise an individualized program for Aquatic Therapy, Neuromuscular Reeducation, and Str engthening Achieving independence - to improve, our physical therapists will perform initial evaluation of pt's status upon admission and devise an individualized program for Community Reintegration Activities - Occupational Therapy ADL deficits - to improve, our occupation therapists will perform initial evaluation of pt's status upon admission and devise an individualized program for Bathing, Bed mobility, Community Reintegratio n, Cooking, Dressing, Eating, Fine Motor Skills, Grooming, Homemaking, Kitchen Mobility, Laundry, Pat ient Education, Safety Awareness, Splinting - Positioning, Transfers(Toilet, Tub, Shower), and Wheel Chair Management Cognitive deficits - to improve, our occupation therapists will perform initial evaluation of pt's s tatus upon admission and devise an individualized program for Cognition - orientation Need for senior care assistant - to improve, our occupation therapists will perform initial evaluation of pt's status upon admission and devise an individualized program for Caregiver Training Weakness - to improve, our occupation therapists will perform initial evaluation of pt's status upon admission and devise an individualized program for Aquatic Therapy, Balance, Endurance, UE ROM, and UE strengthening - Other See attached MAR (Medication Administration Record) Neal Barba.pdf See attached MAR (Medication Administration Record) Neal Barba.pdf - Diet Type Continue Regular - Diet - Liquid Texture Continue Regular - Tube Feed Continue N/A - Diet - Solid Texture Continue Regular - Shower allowing shower FUNCTIONAL STATUS: UPDATED AT WEEKLY TEAM CONFERENCE - Bladder Same accident frequency: 7-Ind - No accidents in the past 7 days - Bowel Same accident frequency: 7-Ind - No accidents in the past 7 days - Walking Same score based on distance walked: 1(<=50ft) FUNCTIONAL STATUS: - Self-Care A. Eating Ind B. Grooming Edwina C. Bathing maxA D. Dressing - Upper sup E. Dressing - Lower maxA F. Toileting Ind - Sphincter Control G: Bladder control modA H: Bowel control Ind - Transfers Control I. Bed/Chair/Wheelchair modA J. Toilet modA K. Tub/Shower ADNO - Locomotion L. Walk/Wheelchair (B) modA M. Stairs ADNO - Communication N. Comprehension (B) sup O. Expression (B) sup - Social Cognition P. Social Interaction sup Q. Problem Solving sup R. Memory sup - Endurance Poor - Balance Poor - Safety Awareness Poor CURRENT FUNC. DEFICITS: Transfers Control, Communication, Social Cognition, Endurance, Balance, Safety Awareness, Self-Care, and Locomotion SIGNATURE PANEL: (CDT)
[2018-08-14] MEDS: DOCUSATE NA/SENNA CONC 1 TAB PO SCH (20:42)
[2018-08-14] MEDS: ROSUVASTATIN 10 MG TAB PO SCH (20:42)
[2018-08-15] MEDS: PIPER/TAZO/NS 2.25gm 2.25 GM/50 ML BAG IV SCH ×3 (00:46→17:30)
--- NOTE | 2018-08-15 04:19 | FAST ---
SHIFT START DATE/TIME: 08/14/2018 19:00 (CDT) SHIFT END DATE/TIME: 08/15/2018 07:00 (CDT) NAME NEAL BARBA DATE OF : 1945 DATE OF ADMISSION: 08/11/2018 22:00 (CDT) PHONE: AGE: 72 SSN# [id number] GENDER: Male ENCOUNTER PHYSICIAN: Dr. Elliott Bradley M.D. ADMISSION DIAGNOSIS: - Medically Complex Conditions 17 - Terminal Care (17.6) ESRD Stage 5. EATING: Activity did not occur on this shift EATING - SCORE: 0-UNK GROOMING: Activity did not occur on this shift GROOMING - SCORE: 0-UNK BATHING: Activity did not occur on this shift BATHING - SCORE: 0-UNK DRESSING - UPPER BODY: Patient is not dressing in public clothing ARTICLES SCORE Total number of steps: 0 DRESSING - UPPER BODY - SCORE: 0-UNK DRESSING - LOWER BODY: Patient is not dressing in public clothing ARTICLES SCORE Total number of steps: 0 DRESSING - LOWER BODY - SCORE: 0-UNK TOILETING: Activity did not occur on this shift TOILETING - SCORE: 0-UNK BLADDER MANAGEMENT: [place] removes incontinent device (Depends, pull ups, etc.); cleans the patient after accident / inco ntinent episode; and, applies new incontinent device. BLADDER MANAGEMENT - SCORE: 1-DEP BLADDER MANAGEMENT - FREQUENCY OF ACCIDENTS: BLADDER MANAGEMENT(FA) - STEP 1: How many accidents has the patient had during the current shift? 1 BOWEL MANAGEMENT: [place] removes incontinent device (depends, pull ups, etc.); cleans the patient after accident / inco ntinent episode; and, applies new device (depends, pull-ups, padding, etc.). BOWEL MANAGEMENT - SCORE: 1-DEP BOWEL MANAGEMENT - FREQUENCY OF ACCIDENTS: BOWEL MANAGEMENT(FA) - STEP 1: How many accidents has the patient had during the current shift? 1 TRANSFERS: BED, CHAIR, WHEELCHAIR: Activity did not occur on this shift TRANSFERS: BED, CHAIR, WHEELCHAIR - SCORE: 0-UNK TRANSFERS: TOILET: Activity did not occur on this shift TRANSFERS: TOILET - SCORE: 0-UNK TRANSFERS: SHOWER: Activity did not occur on this shift TRANSFERS: SHOWER - SCORE: 0-UNK TRANSFERS: TUB: Activity did not occur on this shift TRANSFERS: TUB - SCORE: 0-UNK LOCOMOTION: WALK: Activity did not occur on this shift LOCOMOTION: WALK - SCORE: 0-UNK LOCOMOTION: WHEELCHAIR: Activity did not occur on this shift LOCOMOTION: WHEELCHAIR - SCORE: 0-UNK COMPREHENSION: COMPREHENSION: TYPE: Both COMPREHENSION - STEP 1: Does the patient require help from a person or device, or need extra time to understand complex and a bstract ideas (such as current events, finances, discharge planning, medical issues, relationships, e tc)? Yes. COMPREHENSION - STEP 2: Does the patient require help to understand questions or statements about basic needs or ideas (such as hunger, thirst, sleep, safety, daily schedule, room location, or discomfort) half or more of the t lina? Yes. COMPREHENSION - STEP 3: Is the patient basically able to understand and respond appropriately and consistently? Yes. COMPREHENSION - SCORE: 2-MAX EXPRESSION EXPRESSION: TYPE: Both EXPRESSION - STEP 1: Does the patient require help from a person or device, or need extra time expressing complex and abst ract ideas (such as current events, finances, discharge planning, medical issues, relationships, etc) ? Yes. EXPRESSION - STEP 2: Does the patient require help to express basic necessities or ideas (such as hunger, thirst, sleep, s afety, daily schedule, room location, or discomfort) half or more of the time? Yes. EXPRESSION - STEP 3: Is the patient basically unable to express or does s/he express inappropriately or inconsistently becki pite prompting? No. EXPRESSION - SCORE: 2-MAX SOCIAL INTERACTION: SOCIAL INTERACTION - STEP 1: Does the patient require a helper to interact with others in social and therapeutic situations? Yes. SOCIAL INTERACTION - STEP 2: Does the patient interact appropriately half or more of the time? Yes. SOCIAL INTERACTION - STEP 3: How often does the patient need help to interact appropriately? 25-49% of the time SOCIAL INTERACTION - SCORE: 3-MOD PROBLEM SOLVING: Patient requires bed/chair alarms due to attempts to get up unassisted when helper is needed. PROBLEM SOLVING - STEP 1: How often do the bed/chair alarms go off? Most of the time - the alarms go off about 75% of the time PROBLEM SOLVING - SCORE: 2-MAX MEMORY: MEMORY - STEP 1: How often do the bed/chair alarms go off? Most of the time - the alarms go off about 75% of the time MEMORY - SCORE: 2-MAX SIGNATURE PANEL: The following modified sections: Eating - Score, Grooming - Score, Bathing - Score, Dressing - Upper Body - Score, Dressing - Lower Body - Score, Toileting - Score, Bladder Management - Score, Bowel Man agement - Score, Transfers: Bed, Chair, Wheelchair - Score, Transfers: Toilet - Score, Transfers: Kathy wer - Score, Transfers: Tub - Score, Locomotion: Walk - Score, Locomotion: Wheelchair - Score, Compre hension - Score, Expression - Score, Social Interaction - Score, Problem Solving - Score, Memory - Sc ore were [electronically] signed by Kelsy Rivero RN on SatAug 15 2018 04:18:22 [facility]-0500 ([facility] Time)
[2018-08-15] MEDS: PANTOPRAZOLE 40MG TABLET PO SCH (06:25)
[2018-08-15] MEDS: INSULIN -REGULAR HUMAN 50 UNIT/0.5 ML ML SQ SCH ×4 (06:56→20:54)
[2018-08-15] MEDS: TIOTROPIUM 5 SPRAYS/INHALER IH SCH (07:26)
[2018-08-15] MEDS: DOCUSATE NA 100 MG CAP PO SCH ×2 (08:00→08:27)
[2018-08-15] MEDS: GLUCERNA SHAKE 237 ML CAN PO SCH ×2 (08:00→20:00)
[2018-08-15] MEDS: DOCOSAHEXANOIC AC/EPA 1000 MG PO SCH (08:27)
[2018-08-15] MEDS: LIDOCAINE 5% PATCH TOP SCH (08:27)
[2018-08-15] MEDS: HEPARIN 5000 UNIT/ML 1 ML VIAL SQ SCH (08:27)
[2018-08-15] MEDS: CILOSTAZOL 100 MG TAB PO SCH ×2 (08:28→20:57)
[2018-08-15] MEDS: PREGABALIN 50 MG CAP PO SCH ×2 (08:28→20:58)
[2018-08-15] MEDS: METOCLOPRAMIDE 5 MG TAB PO SCH ×3 (08:28→16:10)
[2018-08-15] MEDS: CARVEDILOL 3.125 MG TAB PO SCH ×2 (08:28→20:00)
[2018-08-15] MEDS: ISOSORBIDE MONO SR 30 MG TAB PO SCH (08:29)
[2018-08-15] MEDS: TRAMADOL HCL 50 MG TAB PO PRN (08:29)
[2018-08-15] MEDS: ASPIRIN 81 MG CHEWABLE TABLET PO SCH (08:29)
[2018-08-15 09:08] LABS: Absolute Lymphocytes (CBC) 1.2 K/uL (0.7-4.9); Basophils % 0.3 % (0-1.3); Eosinophils % 0.5 % (0-4.4); Hematocrit 23.7 % (39.6-49.0); Lymphocytes % 8.4 % (15.3-44.8); MPV 7.4 fL (7.6-11.3); Monocytes % 16.1 % (3.3-12.3)
[2018-08-15 09:34] LABS: Potassium 4.3 mmol/L (3.5-5.1)
--- NOTE | 2018-08-15 09:49 | P.RH.PN ---
Estimated Length of Stay: 12 Expected Discharge Date: 08/22/18 Discharge Disposition Plan: Home Family Support: Yes Skilled Nursing Goal: Mobility, Transfers, Self Care Vital Signs: Last Vital Signs Temp 98.8 F 08/15/18 06:40 Pulse 77 08/15/18 08:28 Resp 16 08/15/18 06:40 BP 137/45 L 08/15/18 08:28 Pulse Ox 94 08/15/18 06:40 Laboratory: Laboratory Last Values WBC 13.9 K/uL (4.3-10.9) H 08/15/18 08:52 RBC 2.60 M/uL (4.33-5.43) L 08/15/18 08:52 Hgb 8.0 g/dL (13.6-17.9) L 08/15/18 08:52 Hct 23.7 % (39.6-49.0) L D 08/15/18 08:52 MCV 91.1 fL (80-100) 08/15/18 08:52 MCH 30.9 pg (27.0-35.0) 08/15/18 08:52 MCHC 33.9 g/dL (32.0-36.0) 08/15/18 08:52 RDW 14.8 % (12.1-15.2) 08/15/18 08:52 Plt Count 176 K/uL (152-406) 08/15/18 08:52 MPV 7.4 fL (7.6-11.3) L 08/15/18 08:52 Neutrophils % 74.7 % (41.7-73.7) H 08/15/18 08:52 Lymphocytes % 8.4 % (15.3-44.8) L 08/15/18 08:52 Monocytes % 16.1 % (3.3-12.3) H 08/15/18 08:52 Eosinophils % 0.5 % (0-4.4) 08/15/18 08:52 Basophils % 0.3 % (0-1.3) 08/15/18 08:52 Absolute Neutrophils 10.4 K/uL (1.8-8.0) H 08/15/18 08:52 Segmented Neutrophils 56 % (40-80) 08/12/18 06:20 Band Neutrophils 1 % (0-1) 08/12/18 06:20 Absolute Lymphocytes 1.2 K/uL (0.7-4.9) 08/15/18 08:52 Lymphocytes 24 % (15-42) 08/12/18 06:20 Monocytes 16 % (0-10) H 08/12/18 06:20 Absolute Monocytes 2.2 K/uL (0.1-1.3) H 08/15/18 08:52 Eosinophils 3 % (0-3) 08/12/18 06:20 Absolute Eosinophils 0.1 K/uL (0-0.5) 08/15/18 08:52 Absolute Basophils 0.0 K/uL (0-0.5) 08/15/18 08:52 Morphology Comment Not seen (NOT SEEN) 08/12/18 06:20 Sodium 136 mmol/L (136-145) 08/14/18 07:06 Potassium 5.9 mmol/L (3.5-5.1) H* 08/14/18 07:06 Chloride 103 mmol/L (98-107) 08/14/18 07:06 Carbon Dioxide 23 mmol/L (21-32) 08/14/18 07:06 BUN 81 mg/dL (7-18) H D 08/14/18 07:06 Creatinine 7.50 mg/dL (0.55-1.3) H* D 08/14/18 07:06 Estimated GFR 9 mL/min (=/>90) L 08/14/18 07:06 Glucose 209 mg/dL (74-106) H 08/14/18 07:06 POC Glucose 166 mg/dl (65-120) H 08/15/18 06:43 Lactic Acid 1.3 mmol/L (0.4-2.0) 08/14/18 09:10 Calcium 8.2 mg/dL (8.5-10.1) L 08/14/18 07:06 Magnesium 2.4 mg/dL (1.8-2.4) 08/12/18 06:20 Albumin 2.8 g/dL (3.4-5.0) L 08/14/18 07:06 Prealbumin 17.8 mg/dL (20-40) L 08/14/18 07:06 Procalcitonin 0.98 ng/mL (<0.50) H 06/06/19 09:10 Weight: 166 lb 11.2 oz Wound Present: Yes Closed Surgical Incision Present: No Negative Pressure Wound Therapy Present: No Physician Update: Labs have been reviewed. He had dialysis yesterday without extra fluid being removed. He is more awake today. He will resume physical and occupational therapy today. 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 Please see the Rehabilitation Signature page for all necessary signatures.
--- NOTE | 2018-08-15 09:50 | P.PN ---
Subjective Date of Service: 08/15/18 Chief Complaint: Sepsis Subjective: Improving pt with ESRD started on HD Saturday was confused during HD EEG: no seizure activity more alert today HD yesterday and today Leuckocytosis ,F/U Bcx Physical Examination - Vital Signs Temperature: 98.8 F Blood Pressure: 137/45 Pulse: 77 Respirations: 16 Pulse Ox (%): 94 - Physical Exam General: Alert, In no apparent distress HEENT: Atraumatic Neck: Supple, Without JVD or thyroid abnormality Respiratory: Clear to auscultation bilaterally, Normal air movement Cardiovascular: No edema, Regular rate/rhythm, Normal S1 S2, No gallops, No rubs , No murmurs - Studies Laboratory Data (last 24 hrs) 08/15/18 08:52: Sodium 147 H, Potassium 4.3, BUN 58 H D, Creatinine 5.43 H* D, Glucose 136 H 08/15/18 08:52: WBC 13.9 H, Hgb 8.0 L, Hct 23.7 L D, Plt Count 176 Assessment And Plan - Current Problems (Diagnosis) (1) ESRD (end stage renal disease) on dialysis Current Visit: No Status: Acute - Plan End-stage renal disease, HD today renal dose meds hyperkale michell low K diet will dc lisniopril Hd today leuckocytosis F//u Culture results including cultures from cathter procal mildly elevated in ESRD setting HTN controlled will dc lisinopril Anemia Cont Epogen edema , resolved will dc lasix DM as per PCP
[2018-08-15] MEDS ORDERED: VANCOMYCIN 1.25 GM in NA CHLORIDE 0.9% 250 ML IVPB SCH (11:00)
[2018-08-15] MEDS ORDERED: VANCOMYCIN 500 MG in NA CHLORIDE 0.9% 100 ML IVPB SCH (11:45)
[2018-08-15] MEDS ORDERED: VANCOMYCIN 2 GM in NA CHLORIDE 0.9% 500 ML IVPB ONE (12:00)
[2018-08-15] MEDS ORDERED: DOCUSATE NA 100 MG CAP PO PRN (12:00)
[2018-08-15] MEDS ORDERED: DOCUSATE NA/SENNA CONC 1 TAB PO PRN (12:01)
[2018-08-15] MEDS ORDERED: RESTASIS OPTH PRN (13:42)
--- NOTE | 2018-08-15 16:17 | FAST ---
SHIFT START DATE/TIME: 08/15/2018 07:00 (CDT) SHIFT END DATE/TIME: 08/15/2018 19:00 (CDT) NAME NEAL BARBA DATE OF : 1945 DATE OF ADMISSION: 08/11/2018 22:00 (CDT) PHONE: AGE: 72 N# [id number] GENDER: Male ENCOUNTER PHYSICIAN: Dr. Elliott Bradley M.D. ADMISSION DIAGNOSIS: - Medically Complex Conditions 17 - Terminal Care (17.6) ESRD Stage 5. EATING: EATING - STEP 1: Does the patient require the assistance of a person or device, or need extra time when eating? Yes. EATING - STEP 2: Does the patient require the assistance of a helper? No, patient only requires an assistive device, O R s/he takes more than reasonable time to eat, OR there is a safety concern, OR s/he requires modifie d food consistency EATING - SCORE: 6-IZZY GROOMING: Activity did not occur on this shift GROOMING - SCORE: 0-UNK BATHING: Activity did not occur on this shift BATHING - SCORE: 0-UNK DRESSING - UPPER BODY: Activity did not occur on this shift ARTICLES SCORE Total number of steps: 0 DRESSING - UPPER BODY - SCORE: 0-UNK DRESSING - LOWER BODY: Underwear (three steps) ARTICLES SCORE Total number of steps: 3 DRESSING - LOWER BODY - STEP 1: Does the patient require help from a person or device, or need extra time when dressing below the evie st? Yes. DRESSING - LOWER BODY - STEP 2: Does the patient require the assistance of a helper? Yes. DRESSING - LOWER BODY - STEP 3: Does the helper touch the patient while dressing? Yes. DRESSING - LOWER BODY - STEP 4: How many of the total steps does the patient complete on his/her own? 0 DRESSING - LOWER BODY - STEP 5: Does patient require total assistance for dressing below the waist such as the helper holding clothin g and performing basically all the activities? Yes. DRESSING - LOWER BODY - SCORE: 1-DEP TOILETING: TOILETING - STEP 1: Does the patient require the assistance of a person or device, or need extra time with toileting? Yes . TOILETING - STEP 2: Does the patient require the assistance of a helper? Yes. TOILETING - STEP 3: How much assistance does the patient require from the helper? Hands-on assistance from the helper TOILETING - STEP 4: Of the 3 tasks: 1) Adjusting clothing prior to use, 2) Cleansing of perineal area, 3) Adjusting clot aydee after use; How many tasks does the patient perform WITHOUT assistance of the helper? No tasks; h elper performs all three tasks TOILETING - SCORE: 1-DEP BLADDER MANAGEMENT: Lincoln removes incontinent device (Depends, pull ups, etc.); cleans the patient after accident / inco ntinent episode; and, applies new incontinent device. BLADDER MANAGEMENT - SCORE: 1-DEP BLADDER MANAGEMENT - FREQUENCY OF ACCIDENTS: BLADDER MANAGEMENT(FA) - STEP 1: How many accidents has the patient had during the current shift? 0 BOWEL MANAGEMENT: Lincoln removes incontinent device (depends, pull ups, etc.); cleans the patient after accident / inco ntinent episode; and, applies new device (depends, pull-ups, padding, etc.). BOWEL MANAGEMENT - SCORE: 1-DEP BOWEL MANAGEMENT - FREQUENCY OF ACCIDENTS: BOWEL MANAGEMENT(FA) - STEP 1: How many accidents has the patient had during the current shift? 4 TRANSFERS: BED, CHAIR, WHEELCHAIR: TRANSFERS: BED, CHAIR, WHEELCHAIR - STEP 1: Does the patient require assistance of a person or device, or need extra time with bed, chair, or whe elchair transfers? Yes. TRANSFERS: BED, CHAIR, WHEELCHAIR - STEP 2: Does the patient require the assistance of a helper? Yes. TRANSFERS: BED, CHAIR, WHEELCHAIR - STEP 3: How much assistance does the patient require from the helper? Steadying/guiding assistance TRANSFERS: BED, CHAIR, WHEELCHAIR - SCORE: 4-MIN TRANSFERS: TOILET: TRANSFERS: TOILET - STEP 1: Does the patient require the assistance of a person or device, or need extra time with toilet transfe rs? Yes. TRANSFERS: TOILET - STEP 2: Does the patient require the assistance of a helper? Yes. TRANSFERS: TOILET - STEP 3: How much assistance does the patient require from the helper? Patient performs half or more of the tr ansferring tasks TRANSFERS: TOILET - STEP 4: Does the patient need only incidental help such as contact guard or steadying during toilet transfer? Yes. TRANSFERS: TOILET - SCORE: 4-MIN TRANSFERS: SHOWER: Activity did not occur on this shift TRANSFERS: SHOWER - SCORE: 0-UNK TRANSFERS: TUB: Activity did not occur on this shift TRANSFERS: TUB - SCORE: 0-UNK LOCOMOTION: WALK: Activity did not occur on this shift LOCOMOTION: WALK - SCORE: 0-UNK LOCOMOTION: WHEELCHAIR: Activity did not occur on this shift LOCOMOTION: WHEELCHAIR - SCORE: 0-UNK COMPREHENSION: COMPREHENSION - SCORE: 0-UNK EXPRESSION EXPRESSION - SCORE: 0-UNK SOCIAL INTERACTION: SOCIAL INTERACTION - SCORE: 0-UNK PROBLEM SOLVING: PROBLEM SOLVING - SCORE: 0-UNK MEMORY: MEMORY - SCORE: 0-UNK SIGNATURE PANEL: The following modified sections: Eating - Score, Grooming - Score, Bathing - Score, Dressing - Upper Body - Score, Dressing - Lower Body - Score, Toileting - Score, Bladder Management - Score, Bowel Man agement - Score, Transfers: Bed, Chair, Wheelchair - Score, Transfers: Toilet - Score, Transfers: Kathy wer - Score, Transfers: Tub - Score, Locomotion: Walk - Score, Locomotion: Wheelchair - Score, Compre hension - Score, Expression - Score, Social Interaction - Score, Problem Solving - Score, Memory - Sc ore were [electronically] signed by Jen Mejias CNA on SatAug 15 2018 16:16:40 T-0500 (Centra l Daylight Time)
--- NOTE | 2018-08-15 16:44 | FAST ---
ENCOUNTER DATE AND TIME: 08/15/2018 08:00 (CDT) NAME NEAL BARBA DATE OF : 1945 DATE OF ADMISSION: 08/11/2018 22:00 (CDT) PHONE: AGE: 72 SSN# [id number] GENDER: Male ENCOUNTER PHYSICIAN: Dr. Elliott Braldey M.D. ADMISSION DIAGNOSIS: - Medically Complex Conditions 17 - Terminal Care (17.6) ESRD Stage 5. EATING: Activity did not occur on this shift EATING - SCORE: 0-UNK GROOMING: Activity did not occur on this shift GROOMING - SCORE: 0-UNK BATHING: Activity did not occur on this shift BATHING - SCORE: 0-UNK DRESSING - UPPER BODY: Activity did not occur on this shift Patient is not dressing in public clothing ARTICLES SCORE Total number of steps: 0 DRESSING - UPPER BODY - SCORE: 0-UNK DRESSING - LOWER BODY: Activity did not occur on this shift Patient is not dressing in public clothing ARTICLES SCORE Total number of steps: 0 DRESSING - LOWER BODY - SCORE: 0-UNK TOILETING: Activity did not occur on this shift TOILETING - SCORE: 0-UNK BLADDER MANAGEMENT: Activity did not occur on this shift BLADDER MANAGEMENT - SCORE: 7-IND BOWEL MANAGEMENT: Activity did not occur on this shift BOWEL MANAGEMENT - SCORE: 7-IND TRANSFERS: BED, CHAIR, WHEELCHAIR: TRANSFERS: BED, CHAIR, WHEELCHAIR - STEP 1: Does the patient require assistance of a person or device, or need extra time with bed, chair, or whe elchair transfers? Yes. TRANSFERS: BED, CHAIR, WHEELCHAIR - STEP 2: Does the patient require the assistance of a helper? Yes. TRANSFERS: BED, CHAIR, WHEELCHAIR - STEP 3: How much assistance does the patient require from the helper? Steadying/guiding assistance TRANSFERS: BED, CHAIR, WHEELCHAIR - SCORE: 4-MIN TRANSFERS: TOILET: Activity did not occur on this shift TRANSFERS: TOILET - SCORE: 0-UNK TRANSFERS: SHOWER: Activity did not occur on this shift TRANSFERS: SHOWER - SCORE: 0-UNK TRANSFERS: TUB: Activity did not occur on this shift TRANSFERS: TUB - SCORE: 0-UNK LOCOMOTION: WALK: Activity did not occur on this shift LOCOMOTION: WALK - SCORE: 0-UNK LOCOMOTION: WHEELCHAIR: LOCOMOTION: WHEELCHAIR - STEP 1: Does the patient need help to go 150 feet in a wheelchair? Yes. LOCOMOTION: WHEELCHAIR - STEP 2: How much assistance does the patient need from the helper? Only supervision, cuing, or coaxing LOCOMOTION: WHEELCHAIR - SCORE: 5-SUP LOCOMOTION: STAIRS: Activity did not occur on this shift LOCOMOTION: STAIRS - SCORE: 0-UNK COMPREHENSION: COMPREHENSION - SCORE: 0-UNK EXPRESSION EXPRESSION - SCORE: 0-UNK SOCIAL INTERACTION: SOCIAL INTERACTION - SCORE: 0-UNK PROBLEM SOLVING: PROBLEM SOLVING - SCORE: 0-UNK MEMORY: MEMORY - SCORE: 0-UNK SIGNATURE PANEL: The following modified sections: Transfers: Bed, Chair, Wheelchair - Score, Transfers: Toilet - Score , Locomotion: Walk - Score, Locomotion: Wheelchair - Score, Locomotion: Stairs - Score were [electron chad] signed by Humera Grande PTA on SatAug 15 2018 16:43:46 T-0500 (Central Daylight Time)
[2018-08-15] MEDS: ROSUVASTATIN 10 MG TAB PO SCH (20:58)
[2018-08-15] MEDS: SIMETHICONE 80 MG TAB PO SCH (20:58)
[2018-08-16] MEDS: PIPER/TAZO/NS 2.25gm 2.25 GM/50 ML BAG IV SCH ×3 (00:55→17:18)
[2018-08-16] MEDS: PANTOPRAZOLE 40MG TABLET PO SCH (05:19)
[2018-08-16] MEDS: INSULIN -REGULAR HUMAN 50 UNIT/0.5 ML ML SQ SCH ×4 (07:25→21:57)
[2018-08-16] MEDS: METOCLOPRAMIDE 5 MG TAB PO SCH ×3 (07:25→16:49)
[2018-08-16] MEDS: CARVEDILOL 3.125 MG TAB PO SCH ×2 (08:00→20:00)
[2018-08-16] MEDS: GLUCERNA SHAKE 237 ML CAN PO SCH ×2 (08:00→20:00)
[2018-08-16] MEDS: TIOTROPIUM 5 SPRAYS/INHALER IH SCH (08:01)
[2018-08-16] MEDS: HEPARIN 5000 UNIT/ML 1 ML VIAL SQ SCH (08:02)
[2018-08-16] MEDS: LIDOCAINE 5% PATCH TOP SCH (08:02)
[2018-08-16] MEDS: DOCOSAHEXANOIC AC/EPA 1000 MG PO SCH (08:03)
[2018-08-16] MEDS: ISOSORBIDE MONO SR 30 MG TAB PO SCH (08:03)
[2018-08-16] MEDS: ASPIRIN 81 MG CHEWABLE TABLET PO SCH (08:03)
[2018-08-16] MEDS: CILOSTAZOL 100 MG TAB PO SCH ×2 (08:03→20:58)
[2018-08-16] MEDS: SIMETHICONE 80 MG TAB PO SCH ×3 (08:03→20:58)
[2018-08-16] MEDS: PREGABALIN 50 MG CAP PO SCH ×2 (08:08→20:59)
--- NOTE | 2018-08-16 11:14 | P.PN ---
Subjective Date of Service: 08/16/18 Chief Complaint: Sepsis Subjective: No C/O voiced, Tolerating diet, Ambulating, Improving, Working w/ PT , Doing well Review of Systems 10-point ROS is otherwise unremarkable Physical Examination - Vital Signs Temperature: 97.8 F Blood Pressure: 107/49 Pulse: 82 Respirations: 16 Pulse Ox (%): 93 - Physical Exam General: Alert, In no apparent distress Respiratory: Normal air movement, Crackles/rales Cardiovascular: Regular rate/rhythm, Normal S1 S2 Gastrointestinal: Normal bowel sounds, No tenderness Musculoskeletal: No tenderness Integumentary: No rashes Neurological: Normal speech, Normal tone, Normal affect Lymphatics: No axilla or inguinal lymphadenopathy - Studies Medications List Reviewed: Yes Assessment And Plan - Plan 72 y/o M with ESRD, now on HD admitted to Inpatient Rehab for PT.OT. Now with possible Sepsis 2.2 to Line infection vs PNA vs other etiology. (1) Sepsis - Possible Sepsis 2.2 to line infection vs other etiology -CBC, CMP, LA and procal pending for today -Blood culture pending negative at this time -Started on IV zosyn and IV vanc -F.u with Results. (2) Renal anasarca - Resolved -Nephrology consulted. 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 -Pain mgmt and PT/OT consulted. Dispo: Will follow along Rehab team for possible Sepsis Discharge Plan: Home Plan to discharge in: Greater than 2 days - Code Status/Comfort Care Code Status Assessed: Yes Critical Care: No
[2018-08-16 12:23] LABS: Absolute Lymphocytes (CBC) 0.8 K/uL (0.7-4.9); Basophils % 0.4 % (0-1.3); Eosinophils % 2.4 % (0-4.4); Hematocrit 23.7 % (39.6-49.0); Lymphocytes % 5.9 % (15.3-44.8); MPV 7.5 fL (7.6-11.3); Monocytes % 14.6 % (3.3-12.3)
[2018-08-16 12:41] LABS: Albumin 1.9 g/dL (3.4-5.0); Bilirubin Total 0.4 mg/dL (0.2-1.0); Potassium 4.2 mmol/L (3.5-5.1); Protein, Total 5.9 g/dL (6.4-8.2)
[2018-08-16] MEDS: FE SULF/FA/VIT B COMP & C TAB PO SCH (16:49)
[2018-08-16] MEDS: FERROUS SULFATE 325 MG TAB PO SCH (20:58)
[2018-08-16] MEDS: ROSUVASTATIN 10 MG TAB PO SCH (20:58)
[2018-08-16] MEDS ORDERED: INSULIN -REGULAR HUMAN 50 UNIT/0.5 ML ML ONE (22:01)
[2018-08-17] MEDS: PIPER/TAZO/NS 2.25gm 2.25 GM/50 ML BAG IV SCH ×2 (00:19→09:09)
--- NOTE | 2018-08-17 00:55 | FAST ---
SHIFT START DATE/TIME: 08/16/2018 19:00 (CDT) SHIFT END DATE/TIME: 08/17/2018 07:00 (CDT) NAME NEAL BARBA DATE OF : 1945 DATE OF ADMISSION: 08/11/2018 22:00 (CDT) PHONE: AGE: 72 N# [id number] GENDER: Male ENCOUNTER PHYSICIAN: Dr. Elliott Bradley M.D. ADMISSION DIAGNOSIS: - Medically Complex Conditions 17 - Terminal Care (17.6) ESRD Stage 5. EATING: Activity did not occur on this shift EATING - SCORE: 0-UNK GROOMING: Activity did not occur on this shift GROOMING - SCORE: 0-UNK BATHING: Activity did not occur on this shift BATHING - SCORE: 0-UNK DRESSING - UPPER BODY: Patient is not dressing in public clothing ARTICLES SCORE Total number of steps: 0 DRESSING - UPPER BODY - SCORE: 0-UNK DRESSING - LOWER BODY: Patient is not dressing in public clothing ARTICLES SCORE Total number of steps: 0 DRESSING - LOWER BODY - SCORE: 0-UNK TOILETING: TOILETING - STEP 1: Does the patient require the assistance of a person or device, or need extra time with toileting? Yes . TOILETING - STEP 2: Does the patient require the assistance of a helper? Yes. TOILETING - STEP 3: How much assistance does the patient require from the helper? Hands-on assistance from the helper TOILETING - STEP 4: Of the 3 tasks: 1) Adjusting clothing prior to use, 2) Cleansing of perineal area, 3) Adjusting clot aydee after use; How many tasks does the patient perform WITHOUT assistance of the helper? No tasks; h anibal performs all three tasks TOILETING - SCORE: 1-DEP BLADDER MANAGEMENT: Patient is on renal dialysis or peritoneal dialysis and no voiding activity BLADDER MANAGEMENT - SCORE: 7-IND BOWEL MANAGEMENT: [place] removes incontinent device (depends, pull ups, etc.); cleans the patient after accident / inco ntinent episode; and, applies new device (depends, pull-ups, padding, etc.). BOWEL MANAGEMENT - SCORE: 1-DEP TRANSFERS: BED, CHAIR, WHEELCHAIR: Activity did not occur on this shift TRANSFERS: BED, CHAIR, WHEELCHAIR - SCORE: 0-UNK TRANSFERS: TOILET: Activity did not occur on this shift TRANSFERS: TOILET - SCORE: 0-UNK TRANSFERS: SHOWER: Activity did not occur on this shift TRANSFERS: SHOWER - SCORE: 0-UNK TRANSFERS: TUB: Activity did not occur on this shift TRANSFERS: TUB - SCORE: 0-UNK LOCOMOTION: WALK: Activity did not occur on this shift LOCOMOTION: WALK - SCORE: 0-UNK LOCOMOTION: WHEELCHAIR: Activity did not occur on this shift LOCOMOTION: WHEELCHAIR - SCORE: 0-UNK COMPREHENSION: COMPREHENSION: TYPE: Both COMPREHENSION - STEP 1: Does the patient require help from a person or device, or need extra time to understand complex and a bstract ideas (such as current events, finances, discharge planning, medical issues, relationships, e tc)? Yes. COMPREHENSION - STEP 2: Does the patient require help to understand questions or statements about basic needs or ideas (such as hunger, thirst, sleep, safety, daily schedule, room location, or discomfort) half or more of the t lina? No. COMPREHENSION - STEP 3: How often does the patient need help to understand directions and conversation about basic needs? 10% - 24% of the time COMPREHENSION - SCORE: 4-MIN EXPRESSION EXPRESSION: TYPE: Both EXPRESSION - STEP 1: Does the patient require help from a person or device, or need extra time expressing complex and abst ract ideas (such as current events, finances, discharge planning, medical issues, relationships, etc) ? No. EXPRESSION - STEP 2: Does the patient need extra time, require an assistive device (such as augmentive communication syste m or a communication board), OR does s/he have mild difficulty expressing complex and abstract ideas (including mild dysarthria or mild word-find problems)? Yes. EXPRESSION - SCORE: 6-IZZY SOCIAL INTERACTION: SOCIAL INTERACTION - STEP 1: Does the patient require a helper to interact with others in social and therapeutic situations? No. SOCIAL INTERACTION - STEP 2: Does the patient need extra time in social situations, OR does s/he interact with staff, other patien ts, and family members ONLY in structured environments, OR does s/he require medication for social in teraction? Yes, patient needs extra time SOCIAL INTERACTION - SCORE: 6-IZZY PROBLEM SOLVING: PROBLEM SOLVING - STEP 1: Does the patient need help from a person or device, or need extra time to solve complex problems such as managing a checking account or confronting interpersonal problems? Yes. PROBLEM SOLVING - STEP 2: Does the patient solve basic routine problems half or more of the time? Yes. PROBLEM SOLVING - STEP 3: How often does the patient need help to solve basic routine problems? 10%-24% of the time PROBLEM SOLVING - SCORE: 4-MIN MEMORY: MEMORY - STEP 1: Does the patient need help from a person or device, or need extra time to remember frequently encount ered people, daily routines, and executing requests? No. MEMORY - STEP 2: Does the patient have slight difficulty recognizing frequently encountered people, daily routines, or executing requests without the need for repetition or using self-initiated or environmental cues to remember? Yes. MEMORY - SCORE: 6-IZZY SIGNATURE PANEL: The following modified sections: Eating - Score, Grooming - Score, Dressing - Upper Body - Score, Waldemar ssing - Lower Body - Score, Toileting - Score, Bladder Management - Score, Bowel Management - Score, Transfers: Bed, Chair, Wheelchair - Score, Transfers: Toilet - Score, Transfers: Shower - Score, Silva sfers: Tub - Score, Locomotion: Walk - Score, Locomotion: Wheelchair - Score, Comprehension - Score, Expression - Score, Social Interaction - Score, Problem Solving - Score, Memory - Score were [electro nically] signed by Demetra Mendez CNA on SatAug 17 2018 00:54:13 GMT-0500 (Central Daylight Time)
--- NOTE | 2018-08-17 03:01 | PN ---
Date of Progress Note: 08/16/2018 Chief Complaint: End-stage renal disease. History Of Present Illness: The patient is on dialysis. The patient is feeling better. He is under going rehab. The patient has history of anemia due to chronic kidney disease. Hemoglobin level decl ined from 8.0 to 7.7. The patient is on VICK. Iron study will be done and patient is started on p.o. iron. The patient genesis l require blood transfusion. Plan is to reevaluate hemoglobin level and order blood transfusion. Review of Systems: Denies fever, chills. Physical Examination: Lungs: Clear to auscultation bilaterally. Heart: S1, S2. Abdomen: Soft, benign. Extremities: Minimal edema. Laboratory Data: Sodium 140, potassium 4.2, chloride 106, CO2 25, BUN 55, creatinine 5.73, albumin i s 1.9. Impression And Plan: 1.End-stage renal disease. The patient had dialysis yesterday. Volemia is in acceptable control. 2.Anemia. The patient will receive blood transfusion. Plan is to reevaluate hemoglobin level. 3.Continue p.o. iron. 4.Hypertension, blood pressure controlled. 5.Hypoalbuminemia. Increase p.o. intake with high-protein diet. TABATHA/MODL Voice ID: [id number] Report ID: [id number]
[2018-08-17 05:56] LABS: Basophils % 0.4 % (0-1.3); Eosinophils % 2.8 % (0-4.4); Hematocrit 23.6 % (39.6-49.0); Lymphocytes % 9.3 % (15.3-44.8); MPV 7.8 fL (7.6-11.3)
[2018-08-17 06:12] LABS: Albumin 1.9 g/dL (3.4-5.0); Bilirubin Total 0.3 mg/dL (0.2-1.0); Potassium 4.3 mmol/L (3.5-5.1); Protein, Total 5.9 g/dL (6.4-8.2)
[2018-08-17] MEDS: PANTOPRAZOLE 40MG TABLET PO SCH (06:34)
[2018-08-17] MEDS: INSULIN -REGULAR HUMAN 50 UNIT/0.5 ML ML SQ SCH ×4 (07:30→20:55)
[2018-08-17] MEDS: GLUCERNA SHAKE 237 ML CAN PO SCH ×2 (08:00→20:00)
[2018-08-17] MEDS: PREGABALIN 50 MG CAP PO SCH ×2 (09:06→20:53)
[2018-08-17] MEDS: LIDOCAINE 5% PATCH TOP SCH (09:06)
[2018-08-17] MEDS: CILOSTAZOL 100 MG TAB PO SCH ×2 (09:06→20:54)
[2018-08-17] MEDS: FE SULF/FA/VIT B COMP & C TAB PO SCH (09:07)
[2018-08-17] MEDS: FERROUS SULFATE 325 MG TAB PO SCH ×2 (09:07→20:52)
[2018-08-17] MEDS: ISOSORBIDE MONO SR 30 MG TAB PO SCH (09:07)
[2018-08-17] MEDS: SIMETHICONE 80 MG TAB PO SCH ×3 (09:07→20:53)
[2018-08-17] MEDS: ASPIRIN 81 MG CHEWABLE TABLET PO SCH (09:08)
[2018-08-17] MEDS: DOCOSAHEXANOIC AC/EPA 1000 MG PO SCH (09:08)
[2018-08-17] MEDS: CARVEDILOL 3.125 MG TAB PO SCH ×2 (09:08→20:52)
[2018-08-17] MEDS: TIOTROPIUM 5 SPRAYS/INHALER IH SCH (09:09)
[2018-08-17] MEDS: METOCLOPRAMIDE 5 MG TAB PO SCH ×3 (09:12→16:15)
[2018-08-17] MEDS ORDERED: NA CHLORIDE 0.9% 250 ML ONE (11:18)
--- NOTE | 2018-08-17 11:45 | P.PN ---
Subjective Date of Service: 08/17/18 Chief Complaint: Sepsis Subjective: No new changes, No C/O voiced, Tolerating diet, Ambulating, Working w/ PT, Doing well Review of Systems 10-point ROS is otherwise unremarkable Physical Examination - Vital Signs Temperature: 97.7 F Blood Pressure: 186/79 Pulse: 75 Respirations: 16 Pulse Ox (%): 98 - Physical Exam General: Alert, In no apparent distress HEENT: Atraumatic, PERRLA, EOMI Neck: Supple, JVD not distended Respiratory: Clear to auscultation bilaterally, Normal air movement Cardiovascular: Regular rate/rhythm, Normal S1 S2 Gastrointestinal: Normal bowel sounds, No tenderness Musculoskeletal: No tenderness Integumentary: No rashes Neurological: Normal speech, Normal tone, Normal affect Lymphatics: No axilla or inguinal lymphadenopathy - Studies Laboratory Data (last 24 hrs) 08/17/18 06:00: Hgb Cancelled, Hct Cancelled 08/17/18 05:35: Sodium 141, Potassium 4.3, BUN 64 H, Creatinine 6.58 H*, Glucose 112 H, Total Bilirubin 0.3, AST 16, ALT 15, Alkaline Phosphatase 68 08/17/18 05:35: WBC 10.5 D, Hgb 7.8 L*, Hct 23.6 L, Plt Count 246 D 08/16/18 12:05: Sodium 140, Potassium 4.2, BUN 55 H, Creatinine 5.73 H*, Glucose 167 H, Total Bilirubin 0.4, AST 18, ALT 13, Alkaline Phosphatase 72 08/16/18 12:05: WBC 13.2 H, Hgb 7.7 L*, Hct 23.7 L, Plt Count 200 Medications List Reviewed: Yes Assessment And Plan - Plan 72 y/o M with ESRD, now on HD admitted to Inpatient Rehab for PT.OT. Now with possible Sepsis 2.2 to Line infection vs PNA vs other etiology. (1) Sepsis - Possible Sepsis 2.2 to line infection vs other etiology. Now Improving. -improvement in Leukocytosis -Blood culture negative thus far -Deescalate Abx. to PO levaquin at this time. (2) Renal anasarca - Resolved -Nephrology consulted. 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 -Pain mgmt and PT/OT consulted. (8) Anemia -Anemia of Chronic Disease 2.2 to ESRD -Hgb today is 7.6. Will f.u with Nephrology regarding transfusion during Dialysis Dispo: Will follow along Rehab team for Sepsis Discharge Plan: Home Plan to discharge in: Greater than 2 days - Code Status/Comfort Care Code Status Assessed: Yes Critical Care: No
--- NOTE | 2018-08-17 12:01 | FAST ---
ENCOUNTER DATE AND TIME: 08/17/2018 08:00 (CDT) NAME NEAL BARBA DATE OF : 1945 DATE OF ADMISSION: 08/11/2018 22:00 (CDT) PHONE: AGE: 72 SSN# [id number] GENDER: Male ENCOUNTER PHYSICIAN: Dr. Elliott Bradley M.D. ADMISSION DIAGNOSIS: - Medically Complex Conditions 17 - Terminal Care (17.6) ESRD Stage 5. EATING: Activity did not occur on this shift EATING - SCORE: 0-UNK GROOMING: Activity did not occur on this shift GROOMING - SCORE: 0-UNK BATHING: Activity did not occur on this shift BATHING - SCORE: 0-UNK DRESSING - UPPER BODY: Activity did not occur on this shift Patient is not dressing in public clothing ARTICLES SCORE Total number of steps: 0 DRESSING - UPPER BODY - SCORE: 0-UNK DRESSING - LOWER BODY: Activity did not occur on this shift Patient is not dressing in public clothing ARTICLES SCORE Total number of steps: 0 DRESSING - LOWER BODY - SCORE: 0-UNK TOILETING: Activity did not occur on this shift TOILETING - SCORE: 0-UNK BLADDER MANAGEMENT: Activity did not occur on this shift BLADDER MANAGEMENT - SCORE: 7-IND BOWEL MANAGEMENT: Activity did not occur on this shift BOWEL MANAGEMENT - SCORE: 7-IND TRANSFERS: BED, CHAIR, WHEELCHAIR: TRANSFERS: BED, CHAIR, WHEELCHAIR - STEP 1: Does the patient require assistance of a person or device, or need extra time with bed, chair, or whe elchair transfers? Yes. TRANSFERS: BED, CHAIR, WHEELCHAIR - STEP 2: Does the patient require the assistance of a helper? Yes. TRANSFERS: BED, CHAIR, WHEELCHAIR - STEP 3: How much assistance does the patient require from the helper? Steadying/guiding assistance TRANSFERS: BED, CHAIR, WHEELCHAIR - SCORE: 4-MIN TRANSFERS: TOILET: TRANSFERS: TOILET - STEP 1: Does the patient require the assistance of a person or device, or need extra time with toilet transfe rs? Yes. TRANSFERS: TOILET - STEP 2: Does the patient require the assistance of a helper? Yes. TRANSFERS: TOILET - STEP 3: How much assistance does the patient require from the helper? Patient performs half or more of the tr ansferring tasks TRANSFERS: TOILET - STEP 4: Does the patient need only incidental help such as contact guard or steadying during toilet transfer? Yes. TRANSFERS: TOILET - SCORE: 4-MIN TRANSFERS: SHOWER: Activity did not occur on this shift TRANSFERS: SHOWER - SCORE: 0-UNK TRANSFERS: TUB: Activity did not occur on this shift TRANSFERS: TUB - SCORE: 0-UNK LOCOMOTION: WALK: LOCOMOTION: WALK - STEP 1: Does the patient need help from a person or device, or need extra time to walk 150 feet? Yes. LOCOMOTION: WALK - STEP 2: How much assistance does the patient require to walk a minimum of 150 feet? Only incidental help such as contact guarding or steadying LOCOMOTION: WALK - SCORE: 4-MIN LOCOMOTION: WHEELCHAIR: Activity did not occur on this shift LOCOMOTION: WHEELCHAIR - SCORE: 0-UNK LOCOMOTION: STAIRS: Activity did not occur on this shift LOCOMOTION: STAIRS - SCORE: 0-UNK COMPREHENSION: COMPREHENSION - SCORE: 0-UNK EXPRESSION EXPRESSION - SCORE: 0-UNK SOCIAL INTERACTION: SOCIAL INTERACTION - SCORE: 0-UNK PROBLEM SOLVING: PROBLEM SOLVING - SCORE: 0-UNK MEMORY: MEMORY - SCORE: 0-UNK SIGNATURE PANEL: The following modified sections: Transfers: Bed, Chair, Wheelchair - Score, Transfers: Toilet - Score , Locomotion: Walk - Score, Locomotion: Wheelchair - Score, Locomotion: Stairs - Score were [mili bonilla] signed by Elmer Patterson PT on SatAug 17 2018 12:00:09 T-0500 (Central Daylight Time)
[2018-08-17] MEDS ORDERED: FUROSEMIDE 40 MG TABLET PO SCH (13:52)
[2018-08-17] MEDS: levoFLOXacin 500 MG TAB PO SCH (13:55)
[2018-08-17 18:30] LABS: Hematocrit 25.5 % (39.6-49.0)
[2018-08-17] MEDS: ROSUVASTATIN 10 MG TAB PO SCH (20:53)
--- NOTE | 2018-08-18 01:55 | PN ---
Date of Progress Note: 08/17/2018 Chief Complaint: End-stage renal disease, on dialysis. The patient was found to have anemia. Hemoglobin dropped from 8.0 to 7.7. The patient received bloo d transfusion. Hemoglobin improved accordingly. The patient has end-stage renal disease. He is scheduled to have dialysis tomorrow. Review of Systems: Denies fever, chills. Physical Examination: Lungs: Clear to auscultation bilaterally. Heart: S1, S2. Abdomen: Soft, benign. Extremities: Slight edema. Impression And Plan: 1.End-stage renal disease, mild fluid overload. Dialysis will be scheduled tomorrow with ultrafiltr ation. Monitor blood pressure during dialysis. Adjust ultrafiltration goal accordingly. 2.Hypoalbuminemia. Increase p.o. protein intake. The patient is on p.o. high protein intake with p rotein supplements. 3.Anemia. The patient received blood transfusion. Continue VICK. Continue p.o. iron. 4.Hypertension. Blood pressure controlled. TABATHA/MODL Voice ID: [id number] Report ID: [id number]
--- NOTE | 2018-08-18 02:47 | FAST ---
SHIFT START DATE/TIME: 08/17/2018 19:00 (CDT) SHIFT END DATE/TIME: 08/18/2018 07:00 (CDT) NAME NEAL BARBA DATE OF : 1945 DATE OF ADMISSION: 08/11/2018 22:00 (CDT) PHONE: AGE: 72 N# [id number] GENDER: Male ENCOUNTER PHYSICIAN: Dr. Elliott Bradley M.D. ADMISSION DIAGNOSIS: - Medically Complex Conditions 17 - Terminal Care (17.6) ESRD Stage 5. EATING: Activity did not occur on this shift EATING - SCORE: 0-UNK GROOMING: Activity did not occur on this shift GROOMING - SCORE: 0-UNK BATHING: Activity did not occur on this shift BATHING - SCORE: 0-UNK DRESSING - UPPER BODY: Patient is not dressing in public clothing ARTICLES SCORE Total number of steps: 0 DRESSING - UPPER BODY - SCORE: 0-UNK DRESSING - LOWER BODY: Patient is not dressing in public clothing ARTICLES SCORE Total number of steps: 0 DRESSING - LOWER BODY - SCORE: 0-UNK TOILETING: TOILETING - STEP 1: Does the patient require the assistance of a person or device, or need extra time with toileting? Yes . TOILETING - STEP 2: Does the patient require the assistance of a helper? Yes. TOILETING - STEP 3: How much assistance does the patient require from the helper? Hands-on assistance from the helper TOILETING - STEP 4: Of the 3 tasks: 1) Adjusting clothing prior to use, 2) Cleansing of perineal area, 3) Adjusting clot aydee after use; How many tasks does the patient perform WITHOUT assistance of the helper? No tasks; h elper performs all three tasks TOILETING - SCORE: 1-DEP BLADDER MANAGEMENT: Donnelly removes incontinent device (Depends, pull ups, etc.); cleans the patient after accident / inco ntinent episode; and, applies new incontinent device. BLADDER MANAGEMENT - SCORE: 1-DEP BLADDER MANAGEMENT - FREQUENCY OF ACCIDENTS: BLADDER MANAGEMENT(FA) - STEP 1: How many accidents has the patient had during the current shift? 1 BOWEL MANAGEMENT: Donnelly removes incontinent device (depends, pull ups, etc.); cleans the patient after accident / inco ntinent episode; and, applies new device (depends, pull-ups, padding, etc.). BOWEL MANAGEMENT - SCORE: 1-DEP BOWEL MANAGEMENT - FREQUENCY OF ACCIDENTS: BOWEL MANAGEMENT(FA) - STEP 1: How many accidents has the patient had during the current shift? 1 TRANSFERS: BED, CHAIR, WHEELCHAIR: Activity did not occur on this shift TRANSFERS: BED, CHAIR, WHEELCHAIR - SCORE: 0-UNK TRANSFERS: TOILET: Activity did not occur on this shift TRANSFERS: TOILET - SCORE: 0-UNK TRANSFERS: SHOWER: Activity did not occur on this shift TRANSFERS: SHOWER - SCORE: 0-UNK TRANSFERS: TUB: Activity did not occur on this shift TRANSFERS: TUB - SCORE: 0-UNK LOCOMOTION: WALK: Activity did not occur on this shift LOCOMOTION: WALK - SCORE: 0-UNK LOCOMOTION: WHEELCHAIR: Activity did not occur on this shift LOCOMOTION: WHEELCHAIR - SCORE: 0-UNK COMPREHENSION: COMPREHENSION: TYPE: Both COMPREHENSION - STEP 1: Does the patient require help from a person or device, or need extra time to understand complex and a bstract ideas (such as current events, finances, discharge planning, medical issues, relationships, e tc)? Yes. COMPREHENSION - STEP 2: Does the patient require help to understand questions or statements about basic needs or ideas (such as hunger, thirst, sleep, safety, daily schedule, room location, or discomfort) half or more of the t lina? No. COMPREHENSION - STEP 3: How often does the patient need help to understand directions and conversation about basic needs? 10% - 24% of the time COMPREHENSION - SCORE: 4-MIN EXPRESSION EXPRESSION: TYPE: Both EXPRESSION - STEP 1: Does the patient require help from a person or device, or need extra time expressing complex and abst ract ideas (such as current events, finances, discharge planning, medical issues, relationships, etc) ? No. EXPRESSION - STEP 2: Does the patient need extra time, require an assistive device (such as augmentive communication syste m or a communication board), OR does s/he have mild difficulty expressing complex and abstract ideas (including mild dysarthria or mild word-find problems)? Yes. EXPRESSION - SCORE: 6-IZZY SOCIAL INTERACTION: SOCIAL INTERACTION - STEP 1: Does the patient require a helper to interact with others in social and therapeutic situations? No. SOCIAL INTERACTION - STEP 2: Does the patient need extra time in social situations, OR does s/he interact with staff, other patien ts, and family members ONLY in structured environments, OR does s/he require medication for social in teraction? Yes, patient needs extra time SOCIAL INTERACTION - SCORE: 6-IZZY PROBLEM SOLVING: PROBLEM SOLVING - STEP 1: Does the patient need help from a person or device, or need extra time to solve complex problems such as managing a checking account or confronting interpersonal problems? Yes. PROBLEM SOLVING - STEP 2: Does the patient solve basic routine problems half or more of the time? Yes. PROBLEM SOLVING - STEP 3: How often does the patient need help to solve basic routine problems? 25%-49% of the time PROBLEM SOLVING - SCORE: 3-MOD MEMORY: MEMORY - STEP 1: Does the patient need help from a person or device, or need extra time to remember frequently encount ered people, daily routines, and executing requests? No. MEMORY - STEP 2: Does the patient have slight difficulty recognizing frequently encountered people, daily routines, or executing requests without the need for repetition or using self-initiated or environmental cues to remember? Yes. MEMORY - SCORE: 6-IZZY SIGNATURE PANEL: The following modified sections: Eating - Score, Grooming - Score, Dressing - Upper Body - Score, Waldemar ssing - Lower Body - Score, Toileting - Score, Bladder Management - Score, Bowel Management - Score, Transfers: Bed, Chair, Wheelchair - Score, Transfers: Toilet - Score, Transfers: Shower - Score, Silva sfers: Tub - Score, Locomotion: Walk - Score, Locomotion: Wheelchair - Score, Comprehension - Score, Expression - Score, Social Interaction - Score, Problem Solving - Score, Memory - Score were [electro nically] signed by Demetra Mendez CNA on SatAug 18 2018 02:46:42 GMT-0500 (Central Daylight Time)
[2018-08-18 05:56] VITALS: BMI 23.7
[2018-08-18 06:50] LABS: Absolute Lymphocytes (CBC) 0.6 K/uL (0.7-4.9); Basophils % 0.4 % (0-1.3); Eosinophils % 3.3 % (0-4.4); Hematocrit 27.1 % (39.6-49.0); Lymphocytes % 6.5 % (15.3-44.8); MPV 7.9 fL (7.6-11.3); Monocytes % 13.6 % (3.3-12.3); RBC Red Blood Cell Count 2.99 M/uL (4.33-5.43)
[2018-08-18 07:28] LABS: Albumin 2.1 g/dL (3.4-5.0); Bilirubin Total 0.3 mg/dL (0.2-1.0); Potassium 4.5 mmol/L (3.5-5.1); Protein, Total 6.2 g/dL (6.4-8.2)
[2018-08-18] MEDS: INSULIN -REGULAR HUMAN 50 UNIT/0.5 ML ML SQ SCH ×4 (07:30→20:14)
[2018-08-18] MEDS: PANTOPRAZOLE 40MG TABLET PO SCH (07:35)
[2018-08-18] MEDS: METOCLOPRAMIDE 5 MG TAB PO SCH ×3 (07:35→16:02)
[2018-08-18] MEDS: GLUCERNA SHAKE 237 ML CAN PO SCH ×2 (08:00→20:19)
[2018-08-18] MEDS: TIOTROPIUM 5 SPRAYS/INHALER IH SCH (08:54)
[2018-08-18] MEDS: LIDOCAINE 5% PATCH TOP SCH (08:55)
[2018-08-18] MEDS: PREGABALIN 50 MG CAP PO SCH ×2 (08:56→20:19)
[2018-08-18] MEDS: ISOSORBIDE MONO SR 30 MG TAB PO SCH (08:56)
[2018-08-18] MEDS: DOCOSAHEXANOIC AC/EPA 1000 MG PO SCH (08:56)
[2018-08-18] MEDS: CARVEDILOL 3.125 MG TAB PO SCH ×2 (08:56→20:20)
[2018-08-18] MEDS: ASPIRIN 81 MG CHEWABLE TABLET PO SCH (08:57)
[2018-08-18] MEDS: FE SULF/FA/VIT B COMP & C TAB PO SCH (08:57)
[2018-08-18] MEDS: SIMETHICONE 80 MG TAB PO SCH ×3 (08:57→20:19)
[2018-08-18] MEDS: CILOSTAZOL 100 MG TAB PO SCH ×2 (08:57→20:19)
[2018-08-18] MEDS: FERROUS SULFATE 325 MG TAB PO SCH ×2 (08:57→20:20)
--- NOTE | 2018-08-18 13:31 | FAST ---
ENCOUNTER DATE AND TIME: 08/18/2018 08:00 (CDT) NAME NEAL BARBA DATE OF : 1945 DATE OF ADMISSION: 08/11/2018 22:00 (CDT) PHONE: AGE: 72 SSN# [id number] GENDER: Male ENCOUNTER PHYSICIAN: Dr. Elliott Bradley M.D. ADMISSION DIAGNOSIS: - Medically Complex Conditions 17 - Terminal Care (17.6) ESRD Stage 5. EATING: Activity did not occur on this shift EATING - SCORE: 0-UNK GROOMING: Activity did not occur on this shift GROOMING - SCORE: 0-UNK BATHING: Activity did not occur on this shift BATHING - SCORE: 0-UNK DRESSING - UPPER BODY: Activity did not occur on this shift Patient is not dressing in public clothing ARTICLES SCORE Total number of steps: 0 DRESSING - UPPER BODY - SCORE: 0-UNK DRESSING - LOWER BODY: Activity did not occur on this shift Patient is not dressing in public clothing ARTICLES SCORE Total number of steps: 0 DRESSING - LOWER BODY - SCORE: 0-UNK TOILETING: Activity did not occur on this shift TOILETING - SCORE: 0-UNK BLADDER MANAGEMENT: Activity did not occur on this shift BLADDER MANAGEMENT - SCORE: 7-IND BOWEL MANAGEMENT: Activity did not occur on this shift BOWEL MANAGEMENT - SCORE: 7-IND TRANSFERS: BED, CHAIR, WHEELCHAIR: TRANSFERS: BED, CHAIR, WHEELCHAIR - STEP 1: Does the patient require assistance of a person or device, or need extra time with bed, chair, or whe elchair transfers? Yes. TRANSFERS: BED, CHAIR, WHEELCHAIR - STEP 2: Does the patient require the assistance of a helper? Yes. TRANSFERS: BED, CHAIR, WHEELCHAIR - STEP 3: How much assistance does the patient require from the helper? Only supervision TRANSFERS: BED, CHAIR, WHEELCHAIR - SCORE: 5-SUP TRANSFERS: TOILET: Activity did not occur on this shift TRANSFERS: TOILET - SCORE: 0-UNK TRANSFERS: SHOWER: Activity did not occur on this shift TRANSFERS: SHOWER - SCORE: 0-UNK TRANSFERS: TUB: Activity did not occur on this shift TRANSFERS: TUB - SCORE: 0-UNK LOCOMOTION: WALK: LOCOMOTION: WALK - STEP 1: Does the patient need help from a person or device, or need extra time to walk 150 feet? Yes. LOCOMOTION: WALK - STEP 2: How much assistance does the patient require to walk a minimum of 150 feet? Only incidental help such as contact guarding or steadying LOCOMOTION: WALK - SCORE: 4-MIN LOCOMOTION: WHEELCHAIR: LOCOMOTION: WHEELCHAIR - STEP 1: Does the patient need help to go 150 feet in a wheelchair? Yes. LOCOMOTION: WHEELCHAIR - STEP 2: How much assistance does the patient need from the helper? Only supervision, cuing, or coaxing LOCOMOTION: WHEELCHAIR - SCORE: 5-SUP LOCOMOTION: STAIRS: Activity did not occur on this shift LOCOMOTION: STAIRS - SCORE: 0-UNK COMPREHENSION: COMPREHENSION - SCORE: 0-UNK EXPRESSION EXPRESSION - SCORE: 0-UNK SOCIAL INTERACTION: SOCIAL INTERACTION - SCORE: 0-UNK PROBLEM SOLVING: PROBLEM SOLVING - SCORE: 0-UNK MEMORY: MEMORY - SCORE: 0-UNK SIGNATURE PANEL: The following modified sections: Transfers: Bed, Chair, Wheelchair - Score, Transfers: Toilet - Score , Locomotion: Walk - Score, Locomotion: Wheelchair - Score, Locomotion: Stairs - Score were [mili bonilla] signed by Humera Grande PTA on SatAug 18 2018 13:30:26 T-0500 (Central Daylight Time)
[2018-08-18] MEDS: FUROSEMIDE 40 MG TABLET PO SCH (16:02)
--- NOTE | 2018-08-18 17:21 | FAST ---
SHIFT START DATE/TIME: 08/18/2018 07:00 (CDT) SHIFT END DATE/TIME: 08/18/2018 19:00 (CDT) NAME NEAL BARBA DATE OF : 1945 DATE OF ADMISSION: 08/11/2018 22:00 (CDT) PHONE: AGE: 72 N# [id number] GENDER: Male ENCOUNTER PHYSICIAN: Dr. Elliott Bradley M.D. ADMISSION DIAGNOSIS: - Medically Complex Conditions 17 - Terminal Care (17.6) ESRD Stage 5. EATING: EATING - STEP 1: Does the patient require the assistance of a person or device, or need extra time when eating? Yes. EATING - STEP 2: Does the patient require the assistance of a helper? No, patient only requires an assistive device, O R s/he takes more than reasonable time to eat, OR there is a safety concern, OR s/he requires modifie d food consistency EATING - SCORE: 6-IZZY GROOMING: Activity did not occur on this shift GROOMING - SCORE: 0-UNK BATHING: Activity did not occur on this shift BATHING - SCORE: 0-UNK DRESSING - UPPER BODY: Sweater (four steps) ARTICLES SCORE Total number of steps: 4 DRESSING - UPPER BODY - STEP 1: Does the patient require help from a person or device, or need extra time when dressing above the evie st? Yes. DRESSING - UPPER BODY - STEP 2: Does the patient require the assistance of a helper? Yes. DRESSING - UPPER BODY - STEP 3: Does the helper touch the patient while dressing? Yes. DRESSING - UPPER BODY - STEP 4: How many of the total steps does the patient complete on his/her own? 3 DRESSING - UPPER BODY - SCORE: 4-MIN DRESSING - LOWER BODY: Sock - Left foot (one step) Sock - Right foot (one step) Underwear (three steps) ARTICLES SCORE Total number of steps: 5 DRESSING - LOWER BODY - STEP 1: Does the patient require help from a person or device, or need extra time when dressing below the evie st? Yes. DRESSING - LOWER BODY - STEP 2: Does the patient require the assistance of a helper? Yes. DRESSING - LOWER BODY - STEP 3: Does the helper touch the patient while dressing? Yes. DRESSING - LOWER BODY - STEP 4: How many of the total steps does the patient complete on his/her own? 4 DRESSING - LOWER BODY - SCORE: 4-MIN TOILETING: TOILETING - STEP 1: Does the patient require the assistance of a person or device, or need extra time with toileting? Yes . TOILETING - STEP 2: Does the patient require the assistance of a helper? Yes. TOILETING - STEP 3: How much assistance does the patient require from the helper? Hands-on assistance from the helper TOILETING - STEP 4: Of the 3 tasks: 1) Adjusting clothing prior to use, 2) Cleansing of perineal area, 3) Adjusting clot aydee after use; How many tasks does the patient perform WITHOUT assistance of the helper? One task TOILETING - SCORE: 2-MAX BLADDER MANAGEMENT: Minco removes incontinent device (Depends, pull ups, etc.); cleans the patient after accident / inco ntinent episode; and, applies new incontinent device. BLADDER MANAGEMENT - SCORE: 1-DEP BLADDER MANAGEMENT - FREQUENCY OF ACCIDENTS: BLADDER MANAGEMENT(FA) - STEP 1: How many accidents has the patient had during the current shift? 2 BOWEL MANAGEMENT: Minco removes incontinent device (depends, pull ups, etc.); cleans the patient after accident / inco ntinent episode; and, applies new device (depends, pull-ups, padding, etc.). BOWEL MANAGEMENT - SCORE: 1-DEP BOWEL MANAGEMENT - FREQUENCY OF ACCIDENTS: BOWEL MANAGEMENT(FA) - STEP 1: How many accidents has the patient had during the current shift? 1 TRANSFERS: BED, CHAIR, WHEELCHAIR: TRANSFERS: BED, CHAIR, WHEELCHAIR - STEP 1: Does the patient require assistance of a person or device, or need extra time with bed, chair, or whe elchair transfers? Yes. TRANSFERS: BED, CHAIR, WHEELCHAIR - STEP 2: Does the patient require the assistance of a helper? Yes. TRANSFERS: BED, CHAIR, WHEELCHAIR - STEP 3: How much assistance does the patient require from the helper? Steadying/guiding assistance TRANSFERS: BED, CHAIR, WHEELCHAIR - SCORE: 4-MIN TRANSFERS: TOILET: TRANSFERS: TOILET - STEP 1: Does the patient require the assistance of a person or device, or need extra time with toilet transfe rs? Yes. TRANSFERS: TOILET - STEP 2: Does the patient require the assistance of a helper? Yes. TRANSFERS: TOILET - STEP 3: How much assistance does the patient require from the helper? Patient performs half or more of the tr ansferring tasks TRANSFERS: TOILET - STEP 4: Does the patient need only incidental help such as contact guard or steadying during toilet transfer? Yes. TRANSFERS: TOILET - SCORE: 4-MIN TRANSFERS: SHOWER: Activity did not occur on this shift TRANSFERS: SHOWER - SCORE: 0-UNK TRANSFERS: TUB: Activity did not occur on this shift TRANSFERS: TUB - SCORE: 0-UNK LOCOMOTION: WALK: Activity did not occur on this shift LOCOMOTION: WALK - SCORE: 0-UNK LOCOMOTION: WHEELCHAIR: Activity did not occur on this shift LOCOMOTION: WHEELCHAIR - SCORE: 0-UNK COMPREHENSION: COMPREHENSION - SCORE: 0-UNK EXPRESSION EXPRESSION - SCORE: 0-UNK SOCIAL INTERACTION: SOCIAL INTERACTION - SCORE: 0-UNK PROBLEM SOLVING: PROBLEM SOLVING - SCORE: 0-UNK MEMORY: MEMORY - SCORE: 0-UNK SIGNATURE PANEL: The following modified sections: Eating - Score, Grooming - Score, Bathing - Score, Dressing - Upper Body - Score, Dressing - Lower Body - Score, Toileting - Score, Bladder Management - Score, Bowel Man agement - Score, Transfers: Bed, Chair, Wheelchair - Score, Transfers: Toilet - Score, Transfers: Kathy wer - Score, Transfers: Tub - Score, Locomotion: Walk - Score, Locomotion: Wheelchair - Score, Compre hension - Score, Expression - Score, Social Interaction - Score, Problem Solving - Score, Memory - Sc ore were [electronically] signed by Jen Mejias CNA on SatAug 18 2018 17:20:09 [facility]-0500 (Centra l Daylight Time)
[2018-08-18] MEDS: EPOETIN ALFA 10,000 UNIT/ML VIAL SQ SCH (17:33)
--- NOTE | 2018-08-18 19:30 | R.PN ---
ENCOUNTER DATE AND TIME: 08/18/2018 19:27 (CDT) NAME NEAL BARBA DATE OF : 1945 DATE OF ADMISSION: 08/11/2018 22:00 (CDT) ESRD Stage 5CHIEF COMPLAINT: Debility, ESRD on hemodialysis. SUBJECTIVE: Pt denied any depression. Pt denied any Shortness of Breath. He was more somnolent today. His WBC is normal at 9.9, neutrophils 76.2. Unremarkable head CT after a n episode of unresponsiveness during dialysis yesterday. His chest x-ray is negative. His EEG was mod erately slow. He is on Levaquin. All cultures are negative. VITAL SIGNS Temperature: 97.5 F SBP/DBP: 176/52 Pulse: 74 Resp: 16 MEDICATION ALLERGIES: Acetaminophen Hydrocodone ENVIRONMENTAL ALLERGIES: None Known - Substance Allergies None Known - Other Allergies None Known NURSING: - Shower allowing shower ACTIVITIES OOB only with supervision THERAPIES: - Dietary and Nutrition Adequate Nutrition. Nutritional Education. Nutritional Supplements. PHYSICAL EXAM - Gen Alert and awake Lying in bed No apparent distress Oriented to: person, time, and place - Skin No breakdown No abnormalities - Eyes No abnormalities - Neck 3/10 neck pain - CVS RRR - Chest No abnormalities - Resp CTA bilaterally - Abd + bowel sounds - GI nondistended Deferred - Little urine production. On hemodialysis three times weekly. - Ext No significant edema - MSK 4+/5 weakness in right upper and lower extremities - Neuro No focal deficits on exam - Psych No abnormalities ASSESSMENT: Pt. is a 72 yo Right-handed black male.On 07/30/2018 he was admitted to [facility] with diagnosis ESRD Stage 5.His impairment category is Medically Complex Conditions 17 - Termina l Care (17.6).Pre-morbidly, Pt. was independent/mod-I in Self-Care, Sphincter Control, Transfers Cont rol, Communication, Social Cognition, and Locomotion; and he had good Sphincter Control.Currently, he has deficits of Transfers Control, Communication, Social Cognition, Endurance, Balance, Safety Aware ness, Self-Care, and Locomotion.Pt. is now referred to [facility] for acute in -patient rehabilitation in order to maximize patient's functional independence in activities of daily living, strength, ROM, and mobility.- Rehab Goal Patient has realistic goal of being discharged at assistance level 6-Leonard to reside at Home with Fam michael/Relatives. MDM/PLAN: - Physical Therapy Gait dysfunction - to improve, our physical therapists will perform initial evaluation of pt's statu s upon admission and devise an individualized program for Gait Training, and Wheel Chair mobility Inability to transfer - to improve, our physical therapists will perform initial evaluation of pt's status upon admission and devise an individualized program for Bed mobility Need for home safety evaluation - to improve, our physical therapists will perform initial evaluatio n of pt's status upon admission and devise an individualized program for Home Evaluation Need in caregiver upon discharge - to improve, our physical therapists will perform initial evaluati on of pt's status upon admission and devise an individualized program for Caregiver Training New precaution - to improve, our physical therapists will perform initial evaluation of pt's status upon admission and devise an individualized program for Patient precaution education Edema - to improve, our physical therapists will perform initial evaluation of pt's status upon admi ssion and devise an individualized program for Elevation Training, and Lymphedema Therapy Poor balance - to improve, our physical therapists will perform initial evaluation of pt's status up on admission and devise an individualized program for Balance Training Poor endurance - to improve, our physical therapists will perform initial evaluation of pt's status upon admission and devise an individualized program for Endurance Training Weakness - to improve, our physical therapists will perform initial evaluation of pt's status upon a dmission and devise an individualized program for Aquatic Therapy, Neuromuscular Reeducation, and Str engthening Achieving independence - to improve, our physical therapists will perform initial evaluation of pt's status upon admission and devise an individualized program for Community Reintegration Activities - Occupational Therapy ADL deficits - to improve, our occupation therapists will perform initial evaluation of pt's status upon admission and devise an individualized program for Bathing, Bed mobility, Community Reintegratio n, Cooking, Dressing, Eating, Fine Motor Skills, Grooming, Homemaking, Kitchen Mobility, Laundry, Pat ient Education, Safety Awareness, Splinting - Positioning, Transfers(Toilet, Tub, Shower), and Wheel Chair Management Cognitive deficits - to improve, our occupation therapists will perform initial evaluation of pt's s tatus upon admission and devise an individualized program for Cognition - orientation Need for point of care specialist - to improve, our occupation therapists will perform initial evaluation of pt's status upon admission and devise an individualized program for Caregiver Training Weakness - to improve, our occupation therapists will perform initial evaluation of pt's status upon admission and devise an individualized program for Aquatic Therapy, Balance, Endurance, UE ROM, and UE strengthening - Other See attached MAR (Medication Administration Record) Neal Barba.pdf - Diet Type Continue Regular - Diet - Liquid Texture Continue Regular - Tube Feed Continue N/A - Diet - Solid Texture Continue Regular - Shower allowing shower FUNCTIONAL STATUS: UPDATED AT WEEKLY TEAM CONFERENCE - Bladder Same accident frequency: 7-Ind - No accidents in the past 7 days - Bowel Same accident frequency: 7-Ind - No accidents in the past 7 days - Walking Same score based on distance walked: 1(<=50ft) FUNCTIONAL STATUS: - Self-Care A. Eating Ind B. Grooming Edwina C. Bathing maxA D. Dressing - Upper sup E. Dressing - Lower maxA F. Toileting Ind - Sphincter Control G: Bladder control modA H: Bowel control Ind - Transfers Control I. Bed/Chair/Wheelchair modA J. Toilet modA K. Tub/Shower ADNO - Locomotion L. Walk/Wheelchair (B) modA M. Stairs ADNO - Communication N. Comprehension (B) sup O. Expression (B) sup - Social Cognition P. Social Interaction sup Q. Problem Solving sup R. Memory sup - Endurance Poor - Balance Poor - Safety Awareness Poor CURRENT FUNC. DEFICITS: Transfers Control, Communication, Social Cognition, Endurance, Balance, Safety Awareness, Self-Care, and Locomotion SIGNATURE PANEL: (CDT)
[2018-08-18] MEDS: ROSUVASTATIN 10 MG TAB PO SCH (20:20)
--- NOTE | 2018-08-19 01:31 | FAST ---
SHIFT START DATE/TIME: 08/18/2018 19:00 (CDT) SHIFT END DATE/TIME: 08/19/2018 07:00 (CDT) NAME NEAL BARBA DATE OF : 1945 DATE OF ADMISSION: 08/11/2018 22:00 (CDT) PHONE: AGE: 72 SSN# [id number] GENDER: Male ENCOUNTER PHYSICIAN: Dr. Elliott Bradley M.D. ADMISSION DIAGNOSIS: - Medically Complex Conditions 17 - Terminal Care (17.6) ESRD Stage 5. EATING: Activity did not occur on this shift EATING - SCORE: 0-UNK GROOMING: Activity did not occur on this shift GROOMING - SCORE: 0-UNK BATHING: Activity did not occur on this shift BATHING - SCORE: 0-UNK DRESSING - UPPER BODY: Patient is not dressing in public clothing ARTICLES SCORE Total number of steps: 0 DRESSING - UPPER BODY - SCORE: 0-UNK DRESSING - LOWER BODY: Patient is not dressing in public clothing ARTICLES SCORE Total number of steps: 0 DRESSING - LOWER BODY - SCORE: 0-UNK TOILETING: Activity did not occur on this shift TOILETING - SCORE: 0-UNK BLADDER MANAGEMENT: [place] removes incontinent device (Depends, pull ups, etc.); cleans the patient after accident / inco ntinent episode; and, applies new incontinent device. BLADDER MANAGEMENT - SCORE: 1-DEP BOWEL MANAGEMENT: [place] removes incontinent device (depends, pull ups, etc.); cleans the patient after accident / inco ntinent episode; and, applies new device (depends, pull-ups, padding, etc.). BOWEL MANAGEMENT - SCORE: 1-DEP BOWEL MANAGEMENT - FREQUENCY OF ACCIDENTS: BOWEL MANAGEMENT(FA) - STEP 1: How many accidents has the patient had during the current shift? 1 TRANSFERS: BED, CHAIR, WHEELCHAIR: Activity did not occur on this shift TRANSFERS: BED, CHAIR, WHEELCHAIR - SCORE: 0-UNK TRANSFERS: TOILET: Activity did not occur on this shift TRANSFERS: TOILET - SCORE: 0-UNK TRANSFERS: SHOWER: Activity did not occur on this shift TRANSFERS: SHOWER - SCORE: 0-UNK TRANSFERS: TUB: Activity did not occur on this shift TRANSFERS: TUB - SCORE: 0-UNK LOCOMOTION: WALK: Activity did not occur on this shift LOCOMOTION: WALK - SCORE: 0-UNK LOCOMOTION: WHEELCHAIR: Activity did not occur on this shift LOCOMOTION: WHEELCHAIR - SCORE: 0-UNK COMPREHENSION: COMPREHENSION: TYPE: Both COMPREHENSION - STEP 1: Does the patient require help from a person or device, or need extra time to understand complex and a bstract ideas (such as current events, finances, discharge planning, medical issues, relationships, e tc)? No. COMPREHENSION - STEP 2: Does the patient need extra time, require an assistive device (such as glasses for visual comprehensi on or a hearing aid for auditory comprehension) or does s/he have mild difficulty understanding compl ex and abstract information? No. COMPREHENSION - SCORE: 7-IND EXPRESSION EXPRESSION: TYPE: Both EXPRESSION - STEP 1: Does the patient require help from a person or device, or need extra time expressing complex and abst ract ideas (such as current events, finances, discharge planning, medical issues, relationships, etc) ? No. EXPRESSION - STEP 2: Does the patient need extra time, require an assistive device (such as augmentive communication syste m or a communication board), OR does s/he have mild difficulty expressing complex and abstract ideas (including mild dysarthria or mild word-find problems)? No. EXPRESSION - SCORE: 7-IND SOCIAL INTERACTION: SOCIAL INTERACTION - STEP 1: Does the patient require a helper to interact with others in social and therapeutic situations? No. SOCIAL INTERACTION - STEP 2: Does the patient need extra time in social situations, OR does s/he interact with staff, other patien ts, and family members ONLY in structured environments, OR does s/he require medication for social in teraction? Yes, patient needs extra time SOCIAL INTERACTION - SCORE: 6-IZZY PROBLEM SOLVING: Patient requires bed/chair alarms due to attempts to get up unassisted when helper is needed. PROBLEM SOLVING - STEP 1: How often do the bed/chair alarms go off? Occasionally - the alarms go off about 25% or less PROBLEM SOLVING - SCORE: 4-MIN MEMORY: MEMORY - STEP 1: How often do the bed/chair alarms go off? Occasionally - the alarms go off about 25% of the time or l ess MEMORY - SCORE: 4-MIN SIGNATURE PANEL: The following modified sections: Eating - Score, Grooming - Score, Bathing - Score, Dressing - Upper Body - Score, Dressing - Lower Body - Score, Toileting - Score, Bladder Management - Score, Bowel Man agement - Score, Transfers: Bed, Chair, Wheelchair - Score, Transfers: Toilet - Score, Transfers: Kathy wer - Score, Transfers: Tub - Score, Locomotion: Walk - Score, Locomotion: Wheelchair - Score, Compre hension - Score, Expression - Score, Social Interaction - Score, Problem Solving - Score, Memory - Sc ore were [electronically] signed by Lou Mayo CNA on SatAug 19 2018 01:30:23 T-0500 ([place] Da [place]light Time)
--- NOTE | 2018-08-19 03:14 | PN ---
Date of Progress Note: 08/18/2018 Chief Complaint: End-stage renal disease, on dialysis. The patient is undergoing dialysis today for metabolic and to obtain ultrafiltration. The patient was found to have severe anemia. He received 1 unit of packed red blood cells transfusion. Fluid overload is improving in response to dialysis and p.o. fluid restriction. P.o. intake has been improving gradually. Review of Systems: Denies fever, chills. Physical Examination: Lungs: Clear to auscultation bilaterally. Heart: S1-S2. Abdomen: Soft, benign. Extremities: Minimal edema. Lab Work: Hemoglobin level 9.0, WBC 9.9, platelets count 310,000. Sodium 144, potassium 4.5, chlori de 111, CO2 24, BUN 64, creatinine 6.79, calcium 7.9, albumin at 2.1. Impression And Plan: 1.End-stage renal disease. Dialysis is done today and the patient is tolerating treatment. Cathete r is working well. The patient will continue dialysis 3 times per week. 2.Hypoalbuminemia. Continue high-protein intake. 3.Hypertension. Blood pressure is in acceptable control and stable during dialysis. 4.Anemia. The patient received blood transfusion for severe anemia. There is no evidence of bleedi ng. Continue VICK and iron. EB/MODL Voice ID: [id number] Report ID: [id number]
[2018-08-19 06:20] LABS: Absolute Lymphocytes (CBC) 0.9 K/uL (0.7-4.9); Basophils % 0.7 % (0-1.3); Eosinophils % 3.5 % (0-4.4); Hematocrit 27.6 % (39.6-49.0); Lymphocytes % 9.5 % (15.3-44.8); MPV 7.2 fL (7.6-11.3); Monocytes % 14.5 % (3.3-12.3); RBC Red Blood Cell Count 3.06 M/uL (4.33-5.43)
[2018-08-19 06:44] LABS: Albumin 2.2 g/dL (3.4-5.0); Bilirubin Total 0.3 mg/dL (0.2-1.0); Potassium 4.3 mmol/L (3.5-5.1); Protein, Total 6.3 g/dL (6.4-8.2)
[2018-08-19] MEDS: INSULIN -REGULAR HUMAN 50 UNIT/0.5 ML ML SQ SCH ×4 (07:01→20:28)
[2018-08-19] MEDS: PANTOPRAZOLE 40MG TABLET PO SCH (07:03)
[2018-08-19] MEDS: METOCLOPRAMIDE 5 MG TAB PO SCH ×3 (07:03→17:11)
[2018-08-19] MEDS: GLUCERNA SHAKE 237 ML CAN PO SCH ×2 (08:00→20:26)
[2018-08-19] MEDS: TIOTROPIUM 5 SPRAYS/INHALER IH SCH (08:51)
[2018-08-19] MEDS: LIDOCAINE 5% PATCH TOP SCH (08:52)
[2018-08-19] MEDS: ASPIRIN 81 MG CHEWABLE TABLET PO SCH (08:53)
[2018-08-19] MEDS: ISOSORBIDE MONO SR 30 MG TAB PO SCH (08:53)
[2018-08-19] MEDS: FE SULF/FA/VIT B COMP & C TAB PO SCH (08:53)
[2018-08-19] MEDS: DOCOSAHEXANOIC AC/EPA 1000 MG PO SCH (08:53)
[2018-08-19] MEDS: SIMETHICONE 80 MG TAB PO SCH ×3 (08:53→20:28)
[2018-08-19] MEDS: CARVEDILOL 3.125 MG TAB PO SCH ×2 (08:53→20:27)
[2018-08-19] MEDS: PREGABALIN 50 MG CAP PO SCH ×2 (08:53→20:27)
[2018-08-19] MEDS: CILOSTAZOL 100 MG TAB PO SCH ×2 (08:53→20:27)
[2018-08-19] MEDS: FERROUS SULFATE 325 MG TAB PO SCH ×2 (08:53→20:33)
[2018-08-19] MEDS: FUROSEMIDE 40 MG TABLET PO SCH ×2 (08:54→17:11)
[2018-08-19] MEDS: levoFLOXacin 500 MG TAB PO SCH (11:37)
--- NOTE | 2018-08-19 16:23 | FAST ---
ENCOUNTER DATE AND TIME: 08/19/2018 08:00 (CDT) NAME NEAL BARBA DATE OF : 1945 DATE OF ADMISSION: 08/11/2018 22:00 (CDT) PHONE: AGE: 72 SSN# [id number] GENDER: Male ENCOUNTER PHYSICIAN: Dr. Elliott Bradley M.D. ADMISSION DIAGNOSIS: - Medically Complex Conditions 17 - Terminal Care (17.6) ESRD Stage 5. EATING: Activity did not occur on this shift EATING - SCORE: 0-UNK GROOMING: Activity did not occur on this shift GROOMING - SCORE: 0-UNK BATHING: Activity did not occur on this shift BATHING - SCORE: 0-UNK DRESSING - UPPER BODY: Activity did not occur on this shift Patient is not dressing in public clothing ARTICLES SCORE Total number of steps: 0 DRESSING - UPPER BODY - SCORE: 0-UNK DRESSING - LOWER BODY: Activity did not occur on this shift Patient is not dressing in public clothing ARTICLES SCORE Total number of steps: 0 DRESSING - LOWER BODY - SCORE: 0-UNK TOILETING: Activity did not occur on this shift TOILETING - SCORE: 0-UNK BLADDER MANAGEMENT: Activity did not occur on this shift BLADDER MANAGEMENT - SCORE: 7-IND BOWEL MANAGEMENT: Activity did not occur on this shift BOWEL MANAGEMENT - SCORE: 7-IND TRANSFERS: BED, CHAIR, WHEELCHAIR: TRANSFERS: BED, CHAIR, WHEELCHAIR - STEP 1: Does the patient require assistance of a person or device, or need extra time with bed, chair, or whe elchair transfers? Yes. TRANSFERS: BED, CHAIR, WHEELCHAIR - STEP 2: Does the patient require the assistance of a helper? Yes. TRANSFERS: BED, CHAIR, WHEELCHAIR - STEP 3: How much assistance does the patient require from the helper? Only supervision TRANSFERS: BED, CHAIR, WHEELCHAIR - SCORE: 5-SUP TRANSFERS: TOILET: TRANSFERS: TOILET - STEP 1: Does the patient require the assistance of a person or device, or need extra time with toilet transfe rs? Yes. TRANSFERS: TOILET - STEP 2: Does the patient require the assistance of a helper? Yes. TRANSFERS: TOILET - STEP 3: How much assistance does the patient require from the helper? Only supervision, cuing, coaxing, OR he lp to set out transfer equipment or to lock brakes and/or lift foot rests TRANSFERS: TOILET - SCORE: 5-SUP TRANSFERS: SHOWER: Activity did not occur on this shift TRANSFERS: SHOWER - SCORE: 0-UNK TRANSFERS: TUB: Activity did not occur on this shift TRANSFERS: TUB - SCORE: 0-UNK LOCOMOTION: WALK: LOCOMOTION: WALK - STEP 1: Does the patient need help from a person or device, or need extra time to walk 150 feet? Yes. LOCOMOTION: WALK - STEP 2: How much assistance does the patient require to walk a minimum of 150 feet? Only incidental help such as contact guarding or steadying LOCOMOTION: WALK - SCORE: 4-MIN LOCOMOTION: WHEELCHAIR: LOCOMOTION: WHEELCHAIR - STEP 1: Does the patient need help to go 150 feet in a wheelchair? Yes. LOCOMOTION: WHEELCHAIR - STEP 2: How much assistance does the patient need from the helper? Only supervision, cuing, or coaxing LOCOMOTION: WHEELCHAIR - SCORE: 5-SUP LOCOMOTION: STAIRS: LOCOMOTION: STAIRS - STEP 1: Does the patient need help to go up and down 12 to 14 stairs? Yes. LOCOMOTION: STAIRS - STEP 2: How much assistance does the patient need from the helper to go a minimum of 12 to 14 stairs? Only in cidental help such as contact guarding or steadying LOCOMOTION: STAIRS - SCORE: 4-MIN COMPREHENSION: COMPREHENSION - SCORE: 0-UNK EXPRESSION EXPRESSION - SCORE: 0-UNK SOCIAL INTERACTION: SOCIAL INTERACTION - SCORE: 0-UNK PROBLEM SOLVING: PROBLEM SOLVING - SCORE: 0-UNK MEMORY: MEMORY - SCORE: 0-UNK SIGNATURE PANEL: The following modified sections: Transfers: Bed, Chair, Wheelchair - Score, Transfers: Toilet - Score , Locomotion: Walk - Score, Locomotion: Wheelchair - Score, Locomotion: Stairs - Score were [mili bonilla] signed by Humera rGande PTA on SatAug 19 2018 16:22:13 T-0500 (Central Daylight Time)
[2018-08-19] MEDS: ROSUVASTATIN 10 MG TAB PO SCH (20:26)
--- NOTE | 2018-08-20 01:52 | FAST ---
SHIFT START DATE/TIME: 08/19/2018 19:00 (CDT) SHIFT END DATE/TIME: 08/20/2018 07:00 (CDT) NAME NEAL BARBA DATE OF : 1945 DATE OF ADMISSION: 08/11/2018 22:00 (CDT) PHONE: AGE: 72 SSN# [id number] GENDER: Male ENCOUNTER PHYSICIAN: Dr. Elliott Bradley M.D. ADMISSION DIAGNOSIS: - Medically Complex Conditions 17 - Terminal Care (17.6) ESRD Stage 5. EATING: Activity did not occur on this shift EATING - SCORE: 0-UNK GROOMING: Activity did not occur on this shift GROOMING - SCORE: 0-UNK BATHING: Activity did not occur on this shift BATHING - SCORE: 0-UNK DRESSING - UPPER BODY: Activity did not occur on this shift ARTICLES SCORE Total number of steps: 0 DRESSING - UPPER BODY - SCORE: 0-UNK DRESSING - LOWER BODY: Patient is not dressing in public clothing ARTICLES SCORE Total number of steps: 0 DRESSING - LOWER BODY - SCORE: 0-UNK TOILETING: Activity did not occur on this shift TOILETING - SCORE: 0-UNK BLADDER MANAGEMENT: [place] removes incontinent device (Depends, pull ups, etc.); cleans the patient after accident / inco ntinent episode; and, applies new incontinent device. BLADDER MANAGEMENT - SCORE: 1-DEP BOWEL MANAGEMENT: [place] removes incontinent device (depends, pull ups, etc.); cleans the patient after accident / inco ntinent episode; and, applies new device (depends, pull-ups, padding, etc.). BOWEL MANAGEMENT - SCORE: 1-DEP TRANSFERS: BED, CHAIR, WHEELCHAIR: Activity did not occur on this shift TRANSFERS: BED, CHAIR, WHEELCHAIR - SCORE: 0-UNK TRANSFERS: TOILET: Activity did not occur on this shift TRANSFERS: TOILET - SCORE: 0-UNK TRANSFERS: SHOWER: Activity did not occur on this shift TRANSFERS: SHOWER - SCORE: 0-UNK TRANSFERS: TUB: Activity did not occur on this shift TRANSFERS: TUB - SCORE: 0-UNK LOCOMOTION: WALK: Activity did not occur on this shift LOCOMOTION: WALK - SCORE: 0-UNK LOCOMOTION: WHEELCHAIR: Activity did not occur on this shift LOCOMOTION: WHEELCHAIR - SCORE: 0-UNK COMPREHENSION: COMPREHENSION: TYPE: Both COMPREHENSION - STEP 1: Does the patient require help from a person or device, or need extra time to understand complex and a bstract ideas (such as current events, finances, discharge planning, medical issues, relationships, e tc)? No. COMPREHENSION - STEP 2: Does the patient need extra time, require an assistive device (such as glasses for visual comprehensi on or a hearing aid for auditory comprehension) or does s/he have mild difficulty understanding compl ex and abstract information? No. COMPREHENSION - SCORE: 7-IND EXPRESSION EXPRESSION: TYPE: Both EXPRESSION - STEP 1: Does the patient require help from a person or device, or need extra time expressing complex and abst ract ideas (such as current events, finances, discharge planning, medical issues, relationships, etc) ? No. EXPRESSION - STEP 2: Does the patient need extra time, require an assistive device (such as augmentive communication syste m or a communication board), OR does s/he have mild difficulty expressing complex and abstract ideas (including mild dysarthria or mild word-find problems)? No. EXPRESSION - SCORE: 7-IND SOCIAL INTERACTION: SOCIAL INTERACTION - STEP 1: Does the patient require a helper to interact with others in social and therapeutic situations? No. SOCIAL INTERACTION - STEP 2: Does the patient need extra time in social situations, OR does s/he interact with staff, other patien ts, and family members ONLY in structured environments, OR does s/he require medication for social in teraction? No. SOCIAL INTERACTION - SCORE: 7-IND PROBLEM SOLVING: Patient requires bed/chair alarms due to attempts to get up unassisted when helper is needed. PROBLEM SOLVING - STEP 1: How often do the bed/chair alarms go off? Occasionally - the alarms go off about 25% or less PROBLEM SOLVING - SCORE: 4-MIN MEMORY: MEMORY - STEP 1: How often do the bed/chair alarms go off? Occasionally - the alarms go off about 25% of the time or l ess MEMORY - SCORE: 4-MIN SIGNATURE PANEL: The following modified sections: Eating - Score, Grooming - Score, Bathing - Score, Dressing - Upper Body - Score, Dressing - Lower Body - Score, Toileting - Score, Bladder Management - Score, Bowel Man agement - Score, Transfers: Bed, Chair, Wheelchair - Score, Transfers: Toilet - Score, Transfers: Kathy wer - Score, Transfers: Tub - Score, Locomotion: Walk - Score, Locomotion: Wheelchair - Score, Compre hension - Score, Expression - Score, Social Interaction - Score, Problem Solving - Score, Memory - Sc ore were [electronically] signed by Lou Mayo CNA on SatAug 20 2018 01:51:18 T-0500 ([place] Da ylight Time)
--- NOTE | 2018-08-20 04:09 | PN ---
Date of Progress Note: 08/19/2018 Subjective: The patient was admitted for PT, OT. The patient had end-stage renal disease. Physical Examination: Vital Signs: Blood pressure 137/64, pulse is 75. Chest: Clear to auscultation. Heart: S1, S2. Regular. Abdomen: Soft, nontender. Extremities: No edema. Neurologic: Alert. Nonfocal. Laboratory Data: The patient's H and H 9.3/27.6. Sodium of 144, potassium 4.3 , bicarbonate 26, BUN 43, creatinine 5.2, calcium 8.2. Current Medications: The patient is on include: 1. Albuterol. 2. Tylenol. 3. Metoclopramide. 4. Ecotrin. 5. Heparin. 6. Isosorbide. 7. Carvedilol 6.25. 8. Pravastatin. Assessment And Plan: 1. End-stage renal disease. Normal volume. Continue current dialysis. 2. Hypertension, controlled, optimal. Continue current treatment. 3. Deconditioning. Continue PT/OT. MARQUISE Voice ID: [id number] Report ID: [id number] MTDD
[2018-08-20] MEDS: PANTOPRAZOLE 40MG TABLET PO SCH (06:50)
[2018-08-20] MEDS: INSULIN -REGULAR HUMAN 50 UNIT/0.5 ML ML SQ SCH ×4 (07:30→21:12)
[2018-08-20] MEDS: GLUCERNA SHAKE 237 ML CAN PO SCH ×2 (08:00→20:00)
[2018-08-20] MEDS ORDERED: VITAMIN D2 PO SCH (08:00)
[2018-08-20] MEDS: CILOSTAZOL 100 MG TAB PO SCH ×2 (08:44→20:58)
[2018-08-20] MEDS: DOCOSAHEXANOIC AC/EPA 1000 MG PO SCH (08:44)
[2018-08-20] MEDS: FE SULF/FA/VIT B COMP & C TAB PO SCH (08:45)
[2018-08-20] MEDS: SIMETHICONE 80 MG TAB PO SCH ×3 (08:46→20:59)
[2018-08-20] MEDS: ASPIRIN 81 MG CHEWABLE TABLET PO SCH (08:46)
[2018-08-20] MEDS: FUROSEMIDE 40 MG TABLET PO SCH ×2 (08:47→16:20)
[2018-08-20] MEDS: PREGABALIN 50 MG CAP PO SCH ×2 (08:48→20:58)
[2018-08-20] MEDS: CARVEDILOL 3.125 MG TAB PO SCH ×2 (08:48→20:00)
[2018-08-20] MEDS: FERROUS SULFATE 325 MG TAB PO SCH ×2 (08:58→20:58)
[2018-08-20] MEDS: METOCLOPRAMIDE 5 MG TAB PO SCH ×3 (09:00→16:42)
[2018-08-20] MEDS: LIDOCAINE 5% PATCH TOP SCH (10:05)
[2018-08-20] MEDS: TIOTROPIUM 5 SPRAYS/INHALER IH SCH (10:06)
[2018-08-20] MEDS: ISOSORBIDE MONO SR 30 MG TAB PO SCH (10:06)
--- NOTE | 2018-08-20 13:15 | FAST ---
ENCOUNTER DATE AND TIME: 08/20/2018 08:00 (CDT) NAME NEAL BARBA DATE OF : 1945 DATE OF ADMISSION: 08/11/2018 22:00 (CDT) PHONE: AGE: 72 SSN# [id number] GENDER: Male ENCOUNTER PHYSICIAN: Dr. Elliott Bradley M.D. ADMISSION DIAGNOSIS: - Medically Complex Conditions 17 - Terminal Care (17.6) ESRD Stage 5. EATING: Activity did not occur on this shift EATING - SCORE: 0-UNK GROOMING: Comb/brush hair Wash, rinse, and dry face Wash, rinse, and dry hands GROOMING - STEP 1: Does the patient require the assistance of a person or device, or need extra time when grooming? Yes. GROOMING - STEP 2: Does the patient require the assistance of a helper? Yes. GROOMING - STEP 3: How much assistance does the patient require from the helper? Only prior equipment preparation/set up from the helper GROOMING - SCORE: 5-SUP BATHING: Abdomen Buttocks Chest Left arm Left lower leg and foot Left upper leg Perineal area Right arm Right lower leg and foot BATHING - STEP 1: Does the patient require the assistance of a person or device, or need extra time when bathing? Yes. BATHING - STEP 2: Does the patient require the assistance of a helper? Yes. BATHING - STEP 3: How much assistance does the patient require from the helper? Only incidental help such as placement of a wash cloth in his/her hand a few times as s/he bathes OR help to bathe just one or two areas of the body BATHING - SCORE: 4-MIN DRESSING - UPPER BODY: T-shirt/pullover shirt (four steps) ARTICLES SCORE Total number of steps: 4 DRESSING - UPPER BODY - STEP 1: Does the patient require help from a person or device, or need extra time when dressing above the evie st? Yes. DRESSING - UPPER BODY - STEP 2: Does the patient require the assistance of a helper? Yes. DRESSING - UPPER BODY - STEP 3: Does the helper touch the patient while dressing? No. DRESSING - UPPER BODY - SCORE: 5-SUP DRESSING - LOWER BODY: Elastic waist pants (three steps) Sock - Left foot (one step) Sock - Right foot (one step) Underwear (three steps) ARTICLES SCORE Total number of steps: 8 DRESSING - LOWER BODY - STEP 1: Does the patient require help from a person or device, or need extra time when dressing below the evie st? Yes. DRESSING - LOWER BODY - STEP 2: Does the patient require the assistance of a helper? Yes. DRESSING - LOWER BODY - STEP 3: Does the helper touch the patient while dressing? Yes. DRESSING - LOWER BODY - STEP 4: How many of the total steps does the patient complete on his/her own? 8 DRESSING - LOWER BODY - SCORE: 4-MIN TOILETING: Activity did not occur on this shift TOILETING - SCORE: 0-UNK BLADDER MANAGEMENT: Activity did not occur on this shift BLADDER MANAGEMENT - SCORE: 7-IND BOWEL MANAGEMENT: Activity did not occur on this shift BOWEL MANAGEMENT - SCORE: 7-IND TRANSFERS: BED, CHAIR, WHEELCHAIR: Activity did not occur on this shift TRANSFERS: BED, CHAIR, WHEELCHAIR - SCORE: 0-UNK TRANSFERS: TOILET: Activity did not occur on this shift TRANSFERS: TOILET - SCORE: 0-UNK TRANSFERS: SHOWER: TRANSFERS: SHOWER - STEP 1: Does the patient require the assistance of a person or device, or need extra time with shower transfe rs? Yes. TRANSFERS: SHOWER - STEP 2: Does the patient require the assistance of a helper? Yes. TRANSFERS: SHOWER - STEP 3: How much assistance does the patient require from the helper? Only incidental help such as contact gu arding or steadying during shower transfers, or help to lift one leg into the shower TRANSFERS: SHOWER - SCORE: 4-MIN TRANSFERS: TUB: Activity did not occur on this shift TRANSFERS: TUB - SCORE: 0-UNK LOCOMOTION: WALK: Activity did not occur on this shift LOCOMOTION: WALK - SCORE: 0-UNK LOCOMOTION: WHEELCHAIR: Activity did not occur on this shift LOCOMOTION: WHEELCHAIR - SCORE: 0-UNK LOCOMOTION: STAIRS: Activity did not occur on this shift LOCOMOTION: STAIRS - SCORE: 0-UNK COMPREHENSION: COMPREHENSION: TYPE: Both COMPREHENSION - STEP 1: Does the patient require help from a person or device, or need extra time to understand complex and a bstract ideas (such as current events, finances, discharge planning, medical issues, relationships, e tc)? Yes. COMPREHENSION - STEP 2: Does the patient require help to understand questions or statements about basic needs or ideas (such as hunger, thirst, sleep, safety, daily schedule, room location, or discomfort) half or more of the t lina? No. COMPREHENSION - STEP 3: How often does the patient need help to understand directions and conversation about basic needs? 10% - 24% of the time COMPREHENSION - SCORE: 4-MIN EXPRESSION EXPRESSION: TYPE: Both EXPRESSION - STEP 1: Does the patient require help from a person or device, or need extra time expressing complex and abst ract ideas (such as current events, finances, discharge planning, medical issues, relationships, etc) ? Yes. EXPRESSION - STEP 2: Does the patient require help to express basic necessities or ideas (such as hunger, thirst, sleep, s afety, daily schedule, room location, or discomfort) half or more of the time? No. EXPRESSION - STEP 3: How often does the patient need help to express directions and conversation about basic needs? 10-24% of the time EXPRESSION - SCORE: 4-MIN SOCIAL INTERACTION: SOCIAL INTERACTION - STEP 1: Does the patient require a helper to interact with others in social and therapeutic situations? Yes. SOCIAL INTERACTION - STEP 2: Does the patient interact appropriately half or more of the time? Yes. SOCIAL INTERACTION - STEP 3: How often does the patient need help to interact appropriately? 10-24% of the time SOCIAL INTERACTION - SCORE: 4-MIN PROBLEM SOLVING: PROBLEM SOLVING - STEP 1: Does the patient need help from a person or device, or need extra time to solve complex problems such as managing a checking account or confronting interpersonal problems? Yes. PROBLEM SOLVING - STEP 2: Does the patient solve basic routine problems half or more of the time? Yes. PROBLEM SOLVING - STEP 3: How often does the patient need help to solve basic routine problems? 25%-49% of the time PROBLEM SOLVING - SCORE: 3-MOD MEMORY: MEMORY - STEP 1: Does the patient need help from a person or device, or need extra time to remember frequently encount ered people, daily routines, and executing requests? Yes. MEMORY - STEP 2: How often does the patient need help to remember frequently encountered people, daily routines, and e xecuting requests? 10% - 24% of the time MEMORY - SCORE: 4-MIN SIGNATURE PANEL: The following modified sections: Eating - Score, Grooming - Score, Bathing - Score, Dressing - Upper Body - Score, Dressing - Lower Body - Score, Toileting - Score, Transfers: Bed, Chair, Wheelchair - S core, Transfers: Toilet - Score, Transfers: Shower - Score, Transfers: Tub - Score, Comprehension - S core, Expression - Score, Social Interaction - Score, Problem Solving - Score, Memory - Score were [e lectronically] signed by Humera Hogan OT on SatAug 20 2018 13:14:48 [facility] [place]-0500 ([facility] ylight Time)
--- NOTE | 2018-08-20 13:28 | P.PN ---
Subjective Date of Service: 08/20/18 Primary Care Provider: Nephrology-Dr. Keating Chief Complaint: Sepsis Subjective: Doing well Physical Examination - Vital Signs Temperature: 97.4 F Blood Pressure: 130/56 Pulse: 77 Respirations: 16 Pulse Ox (%): 98 - Physical Exam General: Alert, In no apparent distress, Oriented x3, Cooperative HEENT: Atraumatic Neck: Supple Respiratory: Clear to auscultation bilaterally, Normal air movement Cardiovascular: Normal pulses, Regular rate/rhythm Gastrointestinal: Normal bowel sounds, Soft and benign, Non-distended Neurological: Normal speech, Normal strength at 5/5 x4 extr, Normal tone, Normal affect - Studies Microbiology Data (last 24 hrs): 08/14/18 14:02 Blood - Blood Aerobic Blood Culture - Final No growth in 5 days. 08/14/18 14:02 Blood - Blood Anaerobic Blood Culture - Final No growth in 5 days. 08/14/18 09:29 Blood - Blood Aerobic Blood Culture - Final No growth in 5 days. 08/14/18 09:29 Blood - Blood Anaerobic Blood Culture - Final No growth in 5 days. 08/14/18 09:10 Blood - Blood Aerobic Blood Culture - Final No growth in 5 days. 08/14/18 09:10 Blood - Blood Anaerobic Blood Culture - Final No growth in 5 days. Medications List Reviewed: Yes Assessment & Plan Discharge Plan: Home Plan to discharge in: 72 Hours Physician Review Additional Text: Impression/Plan: Sepsis likely related to line infection. White count improved. Blood cultures negative. Continue with oral Levaquin for a total of 2 weeks. Case discussed with nephrology. Patient currently in rehab. Likely discharge home on Saturday. End-stage renal disease on hemodialysis: Continue with dialysis. Case discussed with nephrology. Hypertension: Blood pressure stable. Continue with medication. Diabetes mellitus type 2: Continue with medication. Left shoulder pain with supraspinatus: Patient has done well. Continue rehabilitation. Patient may follow up with orthopedics as an outpatient. Anemia of chronic disease: Overall stable. Will monitor closely. Time Spent Managing Pts Care (In Minutes): 55
--- NOTE | 2018-08-20 14:52 | FAST ---
ENCOUNTER DATE AND TIME: 08/20/2018 08:00 (CDT) NAME NEAL BARBA DATE OF : 1945 DATE OF ADMISSION: 08/11/2018 22:00 (CDT) PHONE: AGE: 72 SSN# [id number] GENDER: Male ENCOUNTER PHYSICIAN: Dr. Elliott Bradley M.D. ADMISSION DIAGNOSIS: - Medically Complex Conditions 17 - Terminal Care (17.6) ESRD Stage 5. EATING: Activity did not occur on this shift EATING - SCORE: 0-UNK GROOMING: Activity did not occur on this shift GROOMING - SCORE: 0-UNK BATHING: Activity did not occur on this shift BATHING - SCORE: 0-UNK DRESSING - UPPER BODY: Activity did not occur on this shift Patient is not dressing in public clothing ARTICLES SCORE Total number of steps: 0 DRESSING - UPPER BODY - SCORE: 0-UNK DRESSING - LOWER BODY: Activity did not occur on this shift Patient is not dressing in public clothing ARTICLES SCORE Total number of steps: 0 DRESSING - LOWER BODY - SCORE: 0-UNK TOILETING: Activity did not occur on this shift TOILETING - SCORE: 0-UNK BLADDER MANAGEMENT: Activity did not occur on this shift BLADDER MANAGEMENT - SCORE: 7-IND BOWEL MANAGEMENT: Activity did not occur on this shift BOWEL MANAGEMENT - SCORE: 7-IND TRANSFERS: BED, CHAIR, WHEELCHAIR: TRANSFERS: BED, CHAIR, WHEELCHAIR - STEP 1: Does the patient require assistance of a person or device, or need extra time with bed, chair, or whe elchair transfers? Yes. TRANSFERS: BED, CHAIR, WHEELCHAIR - STEP 2: Does the patient require the assistance of a helper? Yes. TRANSFERS: BED, CHAIR, WHEELCHAIR - STEP 3: How much assistance does the patient require from the helper? Only supervision TRANSFERS: BED, CHAIR, WHEELCHAIR - SCORE: 5-SUP TRANSFERS: TOILET: Activity did not occur on this shift TRANSFERS: TOILET - SCORE: 0-UNK TRANSFERS: SHOWER: Activity did not occur on this shift TRANSFERS: SHOWER - SCORE: 0-UNK TRANSFERS: TUB: Activity did not occur on this shift TRANSFERS: TUB - SCORE: 0-UNK LOCOMOTION: WALK: LOCOMOTION: WALK - STEP 1: Does the patient need help from a person or device, or need extra time to walk 150 feet? Yes. LOCOMOTION: WALK - STEP 2: How much assistance does the patient require to walk a minimum of 150 feet? Only supervision, cuing, or coaxing LOCOMOTION: WALK - SCORE: 5-SUP LOCOMOTION: WHEELCHAIR: LOCOMOTION: WHEELCHAIR - STEP 1: Does the patient need help to go 150 feet in a wheelchair? Yes. LOCOMOTION: WHEELCHAIR - STEP 2: How much assistance does the patient need from the helper? Only supervision, cuing, or coaxing LOCOMOTION: WHEELCHAIR - SCORE: 5-SUP LOCOMOTION: STAIRS: LOCOMOTION: STAIRS - STEP 1: Does the patient need help to go up and down 12 to 14 stairs? Yes. LOCOMOTION: STAIRS - STEP 2: How much assistance does the patient need from the helper to go a minimum of 12 to 14 stairs? Only in cidental help such as contact guarding or steadying LOCOMOTION: STAIRS - SCORE: 4-MIN COMPREHENSION: COMPREHENSION - SCORE: 0-UNK EXPRESSION EXPRESSION - SCORE: 0-UNK SOCIAL INTERACTION: SOCIAL INTERACTION - SCORE: 0-UNK PROBLEM SOLVING: PROBLEM SOLVING - SCORE: 0-UNK MEMORY: MEMORY - SCORE: 0-UNK SIGNATURE PANEL: The following modified sections: Transfers: Bed, Chair, Wheelchair - Score, Transfers: Toilet - Score , Locomotion: Walk - Score, Locomotion: Wheelchair - Score, Locomotion: Stairs - Score were [mili bonilla] signed by Humera Grande PTA on SatAug 20 2018 14:50:51 GMT-0500 (Central Daylight Time)
--- NOTE | 2018-08-20 15:49 | FAST ---
SHIFT START DATE/TIME: 08/20/2018 07:00 (CDT) SHIFT END DATE/TIME: 08/20/2018 19:00 (CDT) NAME NEAL BARBA DATE OF : 1945 DATE OF ADMISSION: 08/11/2018 22:00 (CDT) PHONE: AGE: 72 SSN# [id number] GENDER: Male ENCOUNTER PHYSICIAN: Dr. Elliott Bradley M.D. ADMISSION DIAGNOSIS: - Medically Complex Conditions 17 - Terminal Care (17.6) ESRD Stage 5. EATING: EATING - STEP 1: Does the patient require the assistance of a person or device, or need extra time when eating? Yes. EATING - STEP 2: Does the patient require the assistance of a helper? No, patient only requires an assistive device, O R s/he takes more than reasonable time to eat, OR there is a safety concern, OR s/he requires modifie d food consistency EATING - SCORE: 6-IZZY GROOMING: Activity did not occur on this shift GROOMING - SCORE: 0-UNK BATHING: Activity did not occur on this shift BATHING - SCORE: 0-UNK DRESSING - UPPER BODY: Activity did not occur on this shift ARTICLES SCORE Total number of steps: 0 DRESSING - UPPER BODY - SCORE: 0-UNK DRESSING - LOWER BODY: Activity did not occur on this shift ARTICLES SCORE Total number of steps: 0 DRESSING - LOWER BODY - SCORE: 0-UNK TOILETING: Activity did not occur on this shift TOILETING - SCORE: 0-UNK TOILETING - COMMENTS: Dialysis BLADDER MANAGEMENT: Patient is on renal dialysis or peritoneal dialysis and no voiding activity BLADDER MANAGEMENT - SCORE: 7-IND BLADDER MANAGEMENT - FREQUENCY OF ACCIDENTS: BLADDER MANAGEMENT(FA) - STEP 1: How many accidents has the patient had during the current shift? 0 BOWEL MANAGEMENT: [place] removes incontinent device (depends, pull ups, etc.); cleans the patient after accident / inco ntinent episode; and, applies new device (depends, pull-ups, padding, etc.). BOWEL MANAGEMENT - SCORE: 1-DEP BOWEL MANAGEMENT - FREQUENCY OF ACCIDENTS: BOWEL MANAGEMENT(FA) - STEP 1: How many accidents has the patient had during the current shift? 1 TRANSFERS: BED, CHAIR, WHEELCHAIR: TRANSFERS: BED, CHAIR, WHEELCHAIR - STEP 1: Does the patient require assistance of a person or device, or need extra time with bed, chair, or whe elchair transfers? Yes. TRANSFERS: BED, CHAIR, WHEELCHAIR - STEP 2: Does the patient require the assistance of a helper? No. Patient only requires an assistive device fo r bed, chair, wheelchair transfers such as a sliding board, grab bar, or brace, OR s/he takes more th an reasonable time, OR there is a safety concern when s/he performs the transfers TRANSFERS: BED, CHAIR, WHEELCHAIR - SCORE: 6-IZZY TRANSFERS: TOILET: TRANSFERS: TOILET - STEP 1: Does the patient require the assistance of a person or device, or need extra time with toilet transfe rs? Yes. TRANSFERS: TOILET - STEP 2: Does the patient require the assistance of a helper? Yes. TRANSFERS: TOILET - STEP 3: How much assistance does the patient require from the helper? Patient performs half or more of the tr ansferring tasks TRANSFERS: TOILET - STEP 4: Does the patient need only incidental help such as contact guard or steadying during toilet transfer? Yes. TRANSFERS: TOILET - SCORE: 4-MIN TRANSFERS: SHOWER: Activity did not occur on this shift TRANSFERS: SHOWER - SCORE: 0-UNK TRANSFERS: TUB: Activity did not occur on this shift TRANSFERS: TUB - SCORE: 0-UNK LOCOMOTION: WALK: Activity did not occur on this shift LOCOMOTION: WALK - SCORE: 0-UNK LOCOMOTION: WHEELCHAIR: Activity did not occur on this shift LOCOMOTION: WHEELCHAIR - SCORE: 0-UNK COMPREHENSION: COMPREHENSION: TYPE: Both COMPREHENSION - STEP 1: Does the patient require help from a person or device, or need extra time to understand complex and a bstract ideas (such as current events, finances, discharge planning, medical issues, relationships, e tc)? Yes. COMPREHENSION - STEP 2: Does the patient require help to understand questions or statements about basic needs or ideas (such as hunger, thirst, sleep, safety, daily schedule, room location, or discomfort) half or more of the t lina? No. COMPREHENSION - STEP 3: How often does the patient need help to understand directions and conversation about basic needs? 10% - 24% of the time COMPREHENSION - SCORE: 4-MIN EXPRESSION EXPRESSION: TYPE: Both EXPRESSION - STEP 1: Does the patient require help from a person or device, or need extra time expressing complex and abst ract ideas (such as current events, finances, discharge planning, medical issues, relationships, etc) ? Yes. EXPRESSION - STEP 2: Does the patient require help to express basic necessities or ideas (such as hunger, thirst, sleep, s afety, daily schedule, room location, or discomfort) half or more of the time? No. EXPRESSION - STEP 3: How often does the patient need help to express directions and conversation about basic needs? 10-24% of the time EXPRESSION - SCORE: 4-MIN SOCIAL INTERACTION: SOCIAL INTERACTION - STEP 1: Does the patient require a helper to interact with others in social and therapeutic situations? No. SOCIAL INTERACTION - STEP 2: Does the patient need extra time in social situations, OR does s/he interact with staff, other patien ts, and family members ONLY in structured environments, OR does s/he require medication for social in teraction? Yes, patient needs extra time SOCIAL INTERACTION - SCORE: 6-IZZY PROBLEM SOLVING: PROBLEM SOLVING - STEP 1: Does the patient need help from a person or device, or need extra time to solve complex problems such as managing a checking account or confronting interpersonal problems? Yes. PROBLEM SOLVING - STEP 2: Does the patient solve basic routine problems half or more of the time? Yes. PROBLEM SOLVING - STEP 3: How often does the patient need help to solve basic routine problems? 10%-24% of the time PROBLEM SOLVING - SCORE: 4-MIN MEMORY: MEMORY - STEP 1: Does the patient need help from a person or device, or need extra time to remember frequently encount ered people, daily routines, and executing requests? Yes. MEMORY - STEP 2: How often does the patient need help to remember frequently encountered people, daily routines, and e xecuting requests? 10% - 24% of the time MEMORY - SCORE: 4-MIN SIGNATURE PANEL: The following modified sections: Eating - Score, Grooming - Score, Bathing - Score, Dressing - Upper Body - Score, Dressing - Lower Body - Score, Toileting - Score, Toileting - Comments:, Bladder Manage ment - Score, Bowel Management - Score, Transfers: Bed, Chair, Wheelchair - Score, Transfers: Toilet - Score, Transfers: Shower - Score, Transfers: Tub - Score, Locomotion: Walk - Score, Locomotion: Whe elchair - Score, Comprehension - Score, Expression - Score, Social Interaction - Score, Problem Solvi ng - Score, Memory - Score were [electronically] signed by Greer Walton C.N.A. on SatAug 20 2018 15 :48:11 GMT-0500 (Central Daylight Time)
--- NOTE | 2018-08-20 19:19 | R.PN ---
ENCOUNTER DATE AND TIME: 08/20/2018 19:16 (CDT) NAME NEAL BARBA DATE OF : 1945 DATE OF ADMISSION: 08/11/2018 22:00 (T) ESRD Stage 5CHIEF COMPLAINT: Debility, ESRD on hemodialysis. SUBJECTIVE: Pt denied any depression. Pt denied any Shortness of Breath. He was more somnolent today. His WBC is normal at 9.0 neutrophils 71.8.Glucose 173 to [address] after an episode of unresponsiveness during dialysis yesterday. His chest x-ray is negative . His EEG was moderately slow. He is on Levaquin. All cultures are negative. Ambulated 1000' with a rolling walker and standby assistance. VITAL SIGNS Temperature: 97.5 F SBP/DBP: 130/56 Pulse: 77 Resp: 16 MEDICATION ALLERGIES: Acetaminophen Hydrocodone ENVIRONMENTAL ALLERGIES: None Known - Substance Allergies None Known - Other Allergies None Known NURSING: - Shower allowing shower ACTIVITIES OOB only with supervision THERAPIES: - Dietary and Nutrition Adequate Nutrition. Nutritional Education. Nutritional Supplements. PHYSICAL EXAM - Gen Alert and awake Lying in bed No apparent distress Oriented to: person, time, and place - Skin No breakdown No abnormalities - Eyes No abnormalities - Neck 3/10 neck pain - CVS RRR - Chest No abnormalities - Resp CTA bilaterally - Abd + bowel sounds - GI nondistended Deferred - Little urine production. On hemodialysis three times weekly. - Ext No significant edema - MSK 4+/5 weakness in right upper and lower extremities - Neuro No focal deficits on exam - Psych No abnormalities ASSESSMENT: Pt. is a 72 yo Right-handed black male.On 07/30/2018 he was admitted to [facility] with diagnosis ESRD Stage 5.His impairment category is Medically Complex Conditions 17 - Termina l Care (17.6).Pre-morbidly, Pt. was independent/mod-I in Self-Care, Sphincter Control, Transfers Cont rol, Communication, Social Cognition, and Locomotion; and he had good Sphincter Control.Currently, he has deficits of Transfers Control, Communication, Social Cognition, Endurance, Balance, Safety Aware ness, Self-Care, and Locomotion.Pt. is now referred to [facility] for acute in -patient rehabilitation in order to maximize patient's functional independence in activities of daily living, strength, ROM, and mobility.- Rehab Goal Patient has realistic goal of being discharged at assistance level 6-Leonard to reside at Home with Fam micheal/Relatives. MDM/PLAN: - Physical Therapy Gait dysfunction - to improve, our physical therapists will perform initial evaluation of pt's statu s upon admission and devise an individualized program for Gait Training, and Wheel Chair mobility Inability to transfer - to improve, our physical therapists will perform initial evaluation of pt's status upon admission and devise an individualized program for Bed mobility Need for home safety evaluation - to improve, our physical therapists will perform initial evaluatio n of pt's status upon admission and devise an individualized program for Home Evaluation Need in caregiver upon discharge - to improve, our physical therapists will perform initial evaluati on of pt's status upon admission and devise an individualized program for Caregiver Training New precaution - to improve, our physical therapists will perform initial evaluation of pt's status upon admission and devise an individualized program for Patient precaution education Edema - to improve, our physical therapists will perform initial evaluation of pt's status upon admi ssion and devise an individualized program for Elevation Training, and Lymphedema Therapy Poor balance - to improve, our physical therapists will perform initial evaluation of pt's status up on admission and devise an individualized program for Balance Training Poor endurance - to improve, our physical therapists will perform initial evaluation of pt's status upon admission and devise an individualized program for Endurance Training Weakness - to improve, our physical therapists will perform initial evaluation of pt's status upon a dmission and devise an individualized program for Aquatic Therapy, Neuromuscular Reeducation, and Str engthening Achieving independence - to improve, our physical therapists will perform initial evaluation of pt's status upon admission and devise an individualized program for Community Reintegration Activities - Occupational Therapy ADL deficits - to improve, our occupation therapists will perform initial evaluation of pt's status upon admission and devise an individualized program for Bathing, Bed mobility, Community Reintegratio n, Cooking, Dressing, Eating, Fine Motor Skills, Grooming, Homemaking, Kitchen Mobility, Laundry, Pat ient Education, Safety Awareness, Splinting - Positioning, Transfers(Toilet, Tub, Shower), and Wheel Chair Management Cognitive deficits - to improve, our occupation therapists will perform initial evaluation of pt's s tatus upon admission and devise an individualized program for Cognition - orientation Need for animal care supervisor - to improve, our occupation therapists will perform initial evaluation of pt's status upon admission and devise an individualized program for Caregiver Training Weakness - to improve, our occupation therapists will perform initial evaluation of pt's status upon admission and devise an individualized program for Aquatic Therapy, Balance, Endurance, UE ROM, and UE strengthening - Other See attached MAR (Medication Administration Record) Neal Barba.pdf - Diet Type Continue Regular - Diet - Liquid Texture Continue Regular - Tube Feed Continue N/A - Diet - Solid Texture Continue Regular - Shower allowing shower FUNCTIONAL STATUS: UPDATED AT WEEKLY TEAM CONFERENCE - Bladder Same accident frequency: 7-Ind - No accidents in the past 7 days - Bowel Same accident frequency: 7-Ind - No accidents in the past 7 days - Walking Same score based on distance walked: 1(<=50ft) FUNCTIONAL STATUS: - Self-Care A. Eating Ind B. Grooming Edwina C. Bathing maxA D. Dressing - Upper sup E. Dressing - Lower maxA F. Toileting Ind - Sphincter Control G: Bladder control modA H: Bowel control Ind - Transfers Control I. Bed/Chair/Wheelchair modA J. Toilet modA K. Tub/Shower ADNO - Locomotion L. Walk/Wheelchair (B) modA M. Stairs ADNO - Communication N. Comprehension (B) sup O. Expression (B) sup - Social Cognition P. Social Interaction sup Q. Problem Solving sup R. Memory sup - Endurance Poor - Balance Poor - Safety Awareness Poor CURRENT FUNC. DEFICITS: Transfers Control, Communication, Social Cognition, Endurance, Balance, Safety Awareness, Self-Care, and Locomotion SIGNATURE PANEL: (CDT)
[2018-08-20] MEDS: ROSUVASTATIN 10 MG TAB PO SCH (20:59)
--- NOTE | 2018-08-21 01:40 | FAST ---
SHIFT START DATE/TIME: 08/20/2018 19:00 (CDT) SHIFT END DATE/TIME: 08/21/2018 07:00 (CDT) NAME NEAL BARBA DATE OF : 1945 DATE OF ADMISSION: 08/11/2018 22:00 (CDT) PHONE: AGE: 72 SSN# [id number] GENDER: Male ENCOUNTER PHYSICIAN: Dr. Elliott Bradley M.D. ADMISSION DIAGNOSIS: - Medically Complex Conditions 17 - Terminal Care (17.6) ESRD Stage 5. EATING: Activity did not occur on this shift EATING - SCORE: 0-UNK GROOMING: Activity did not occur on this shift GROOMING - SCORE: 0-UNK BATHING: Activity did not occur on this shift BATHING - SCORE: 0-UNK DRESSING - UPPER BODY: Patient is not dressing in public clothing ARTICLES SCORE Total number of steps: 0 DRESSING - UPPER BODY - SCORE: 0-UNK DRESSING - LOWER BODY: Patient is not dressing in public clothing ARTICLES SCORE Total number of steps: 0 DRESSING - LOWER BODY - SCORE: 0-UNK TOILETING: TOILETING - STEP 1: Does the patient require the assistance of a person or device, or need extra time with toileting? Yes . TOILETING - STEP 2: Does the patient require the assistance of a helper? Yes. TOILETING - STEP 3: How much assistance does the patient require from the helper? Hands-on assistance from the helper TOILETING - STEP 4: Of the 3 tasks: 1) Adjusting clothing prior to use, 2) Cleansing of perineal area, 3) Adjusting clot aydee after use; How many tasks does the patient perform WITHOUT assistance of the helper? No tasks; h elper performs all three tasks TOILETING - SCORE: 1-DEP BLADDER MANAGEMENT: [place] removes incontinent device (Depends, pull ups, etc.); cleans the patient after accident / inco ntinent episode; and, applies new incontinent device. BLADDER MANAGEMENT - SCORE: 1-DEP BOWEL MANAGEMENT: Activity did not occur on this shift BOWEL MANAGEMENT - SCORE: 7-IND TRANSFERS: BED, CHAIR, WHEELCHAIR: Activity did not occur on this shift TRANSFERS: BED, CHAIR, WHEELCHAIR - SCORE: 0-UNK TRANSFERS: TOILET: Activity did not occur on this shift TRANSFERS: TOILET - SCORE: 0-UNK TRANSFERS: SHOWER: Activity did not occur on this shift TRANSFERS: SHOWER - SCORE: 0-UNK TRANSFERS: TUB: Activity did not occur on this shift TRANSFERS: TUB - SCORE: 0-UNK LOCOMOTION: WALK: Activity did not occur on this shift LOCOMOTION: WALK - SCORE: 0-UNK LOCOMOTION: WHEELCHAIR: Activity did not occur on this shift LOCOMOTION: WHEELCHAIR - SCORE: 0-UNK COMPREHENSION: COMPREHENSION: TYPE: Both COMPREHENSION - STEP 1: Does the patient require help from a person or device, or need extra time to understand complex and a bstract ideas (such as current events, finances, discharge planning, medical issues, relationships, e tc)? No. COMPREHENSION - STEP 2: Does the patient need extra time, require an assistive device (such as glasses for visual comprehensi on or a hearing aid for auditory comprehension) or does s/he have mild difficulty understanding compl ex and abstract information? Yes. COMPREHENSION - SCORE: 6-IZZY EXPRESSION EXPRESSION: TYPE: Both EXPRESSION - STEP 1: Does the patient require help from a person or device, or need extra time expressing complex and abst ract ideas (such as current events, finances, discharge planning, medical issues, relationships, etc) ? No. EXPRESSION - STEP 2: Does the patient need extra time, require an assistive device (such as augmentive communication syste m or a communication board), OR does s/he have mild difficulty expressing complex and abstract ideas (including mild dysarthria or mild word-find problems)? Yes. EXPRESSION - SCORE: 6-IZZY SOCIAL INTERACTION: SOCIAL INTERACTION - STEP 1: Does the patient require a helper to interact with others in social and therapeutic situations? No. SOCIAL INTERACTION - STEP 2: Does the patient need extra time in social situations, OR does s/he interact with staff, other patien ts, and family members ONLY in structured environments, OR does s/he require medication for social in teraction? Yes, patient needs extra time SOCIAL INTERACTION - SCORE: 6-IZZY PROBLEM SOLVING: PROBLEM SOLVING - STEP 1: Does the patient need help from a person or device, or need extra time to solve complex problems such as managing a checking account or confronting interpersonal problems? Yes. PROBLEM SOLVING - STEP 2: Does the patient solve basic routine problems half or more of the time? Yes. PROBLEM SOLVING - STEP 3: How often does the patient need help to solve basic routine problems? 10%-24% of the time PROBLEM SOLVING - SCORE: 4-MIN MEMORY: MEMORY - STEP 1: Does the patient need help from a person or device, or need extra time to remember frequently encount ered people, daily routines, and executing requests? No. MEMORY - STEP 2: Does the patient have slight difficulty recognizing frequently encountered people, daily routines, or executing requests without the need for repetition or using self-initiated or environmental cues to remember? Yes. MEMORY - SCORE: 6-IZZY SIGNATURE PANEL: The following modified sections: Eating - Score, Grooming - Score, Dressing - Upper Body - Score, Waldemar ssing - Lower Body - Score, Toileting - Score, Bladder Management - Score, Bowel Management - Score, Transfers: Bed, Chair, Wheelchair - Score, Transfers: Toilet - Score, Transfers: Shower - Score, Silva sfers: Tub - Score, Locomotion: Walk - Score, Locomotion: Wheelchair - Score, Comprehension - Score, Expression - Score, Social Interaction - Score, Problem Solving - Score, Memory - Score were [electro nically] signed by Demetra Mendez CNA on SatAug 21 2018 01:38:47 GMT-0500 (Central Daylight Time)
[2018-08-21 06:25] LABS: Absolute Lymphocytes (CBC) 1.2 K/uL (0.7-4.9); Basophils % 0.7 % (0-1.3); Eosinophils % 2.6 % (0-4.4); Hematocrit 27.6 % (39.6-49.0); Lymphocytes % 12.6 % (15.3-44.8); MPV 7.6 fL (7.6-11.3); RBC Red Blood Cell Count 3.09 M/uL (4.33-5.43)
[2018-08-21 06:37] LABS: Potassium 3.9 mmol/L (3.5-5.1)
[2018-08-21] MEDS: PANTOPRAZOLE 40MG TABLET PO SCH (06:41)
[2018-08-21 06:53] LABS: Albumin 2.2 g/dL (3.4-5.0); Prealbumin 14.3 mg/dL (20-40)
[2018-08-21] MEDS: CARVEDILOL 3.125 MG TAB PO SCH ×2 (07:16→20:00)
[2018-08-21] MEDS: METOCLOPRAMIDE 5 MG TAB PO SCH ×3 (07:16→16:54)
[2018-08-21] MEDS: GLUCERNA SHAKE 237 ML CAN PO SCH ×2 (08:00→20:00)
[2018-08-21] MEDS: INSULIN -REGULAR HUMAN 50 UNIT/0.5 ML ML SQ SCH ×4 (08:41→22:18)
[2018-08-21] MEDS: LIDOCAINE 5% PATCH TOP SCH (08:41)
[2018-08-21] MEDS: CILOSTAZOL 100 MG TAB PO SCH ×2 (08:42→21:00)
[2018-08-21] MEDS: FERROUS SULFATE 325 MG TAB PO SCH ×2 (08:42→21:00)
[2018-08-21] MEDS: DOCOSAHEXANOIC AC/EPA 1000 MG PO SCH (08:42)
[2018-08-21] MEDS: FE SULF/FA/VIT B COMP & C TAB PO SCH (08:43)
[2018-08-21] MEDS: ISOSORBIDE MONO SR 30 MG TAB PO SCH (08:43)
[2018-08-21] MEDS: SIMETHICONE 80 MG TAB PO SCH ×3 (08:43→21:00)
[2018-08-21] MEDS: ASPIRIN 81 MG CHEWABLE TABLET PO SCH (08:43)
[2018-08-21] MEDS: PREGABALIN 50 MG CAP PO SCH ×2 (08:44→21:00)
[2018-08-21] MEDS: TIOTROPIUM 5 SPRAYS/INHALER IH SCH (08:50)
[2018-08-21] MEDS: FUROSEMIDE 40 MG TABLET PO SCH ×2 (10:05→17:12)
[2018-08-21] MEDS: levoFLOXacin 500 MG TAB PO SCH (12:28)
--- NOTE | 2018-08-21 15:07 | FAST ---
SHIFT START DATE/TIME: 08/21/2018 07:00 (CDT) SHIFT END DATE/TIME: 08/21/2018 19:00 (CDT) NAME NEAL BARBA DATE OF : 1945 DATE OF ADMISSION: 08/11/2018 22:00 (CDT) PHONE: AGE: 72 N# [id number] GENDER: Male ENCOUNTER PHYSICIAN: Dr. Elliott Bradley M.D. ADMISSION DIAGNOSIS: - Medically Complex Conditions 17 - Terminal Care (17.6) ESRD Stage 5. EATING: EATING - STEP 1: Does the patient require the assistance of a person or device, or need extra time when eating? Yes. EATING - STEP 2: Does the patient require the assistance of a helper? No, patient only requires an assistive device, O R s/he takes more than reasonable time to eat, OR there is a safety concern, OR s/he requires modifie d food consistency EATING - SCORE: 6-IZZY GROOMING: GROOMING - STEP 1: Does the patient require the assistance of a person or device, or need extra time when grooming? Yes. GROOMING - STEP 2: Does the patient require the assistance of a helper? Yes. GROOMING - STEP 3: How much assistance does the patient require from the helper? Only prior equipment preparation/set up from the helper GROOMING - SCORE: 5-SUP BATHING: Activity did not occur on this shift BATHING - SCORE: 0-UNK DRESSING - UPPER BODY: Activity did not occur on this shift ARTICLES SCORE Total number of steps: 0 DRESSING - UPPER BODY - SCORE: 0-UNK DRESSING - LOWER BODY: Elastic waist pants (three steps) Sock - Left foot (one step) Sock - Right foot (one step) Underwear (three steps) ARTICLES SCORE Total number of steps: 8 DRESSING - LOWER BODY - STEP 1: Does the patient require help from a person or device, or need extra time when dressing below the evie st? Yes. DRESSING - LOWER BODY - STEP 2: Does the patient require the assistance of a helper? Yes. DRESSING - LOWER BODY - STEP 3: Does the helper touch the patient while dressing? Yes. DRESSING - LOWER BODY - STEP 4: How many of the total steps does the patient complete on his/her own? 6 DRESSING - LOWER BODY - SCORE: 4-MIN TOILETING: TOILETING - STEP 1: Does the patient require the assistance of a person or device, or need extra time with toileting? Yes . TOILETING - STEP 2: Does the patient require the assistance of a helper? Yes. TOILETING - STEP 3: How much assistance does the patient require from the helper? Only supervision TOILETING - SCORE: 5-SUP BLADDER MANAGEMENT: Patient is on renal dialysis or peritoneal dialysis and no voiding activity BLADDER MANAGEMENT - SCORE: 7-IND BLADDER MANAGEMENT - FREQUENCY OF ACCIDENTS: BLADDER MANAGEMENT(FA) - STEP 1: How many accidents has the patient had during the current shift? 0 BOWEL MANAGEMENT: Activity did not occur on this shift BOWEL MANAGEMENT - SCORE: 7-IND BOWEL MANAGEMENT - FREQUENCY OF ACCIDENTS: BOWEL MANAGEMENT(FA) - STEP 1: How many accidents has the patient had during the current shift? 0 TRANSFERS: BED, CHAIR, WHEELCHAIR: TRANSFERS: BED, CHAIR, WHEELCHAIR - STEP 1: Does the patient require assistance of a person or device, or need extra time with bed, chair, or whe elchair transfers? Yes. TRANSFERS: BED, CHAIR, WHEELCHAIR - STEP 2: Does the patient require the assistance of a helper? Yes. TRANSFERS: BED, CHAIR, WHEELCHAIR - STEP 3: How much assistance does the patient require from the helper? Steadying/guiding assistance TRANSFERS: BED, CHAIR, WHEELCHAIR - SCORE: 4-MIN TRANSFERS: TOILET: Activity did not occur on this shift TRANSFERS: TOILET - SCORE: 0-UNK TRANSFERS: SHOWER: Activity did not occur on this shift TRANSFERS: SHOWER - SCORE: 0-UNK TRANSFERS: TUB: Activity did not occur on this shift TRANSFERS: TUB - SCORE: 0-UNK LOCOMOTION: WALK: Activity did not occur on this shift LOCOMOTION: WALK - SCORE: 0-UNK LOCOMOTION: WHEELCHAIR: Activity did not occur on this shift LOCOMOTION: WHEELCHAIR - SCORE: 0-UNK COMPREHENSION: COMPREHENSION: TYPE: Both COMPREHENSION - STEP 1: Does the patient require help from a person or device, or need extra time to understand complex and a bstract ideas (such as current events, finances, discharge planning, medical issues, relationships, e tc)? Yes. COMPREHENSION - STEP 2: Does the patient require help to understand questions or statements about basic needs or ideas (such as hunger, thirst, sleep, safety, daily schedule, room location, or discomfort) half or more of the t lina? No. COMPREHENSION - STEP 3: How often does the patient need help to understand directions and conversation about basic needs? 10% - 24% of the time COMPREHENSION - SCORE: 4-MIN EXPRESSION EXPRESSION: TYPE: Both EXPRESSION - STEP 1: Does the patient require help from a person or device, or need extra time expressing complex and abst ract ideas (such as current events, finances, discharge planning, medical issues, relationships, etc) ? Yes. EXPRESSION - STEP 2: Does the patient require help to express basic necessities or ideas (such as hunger, thirst, sleep, s afety, daily schedule, room location, or discomfort) half or more of the time? No. EXPRESSION - STEP 3: How often does the patient need help to express directions and conversation about basic needs? 10-24% of the time EXPRESSION - SCORE: 4-MIN SOCIAL INTERACTION: SOCIAL INTERACTION - STEP 1: Does the patient require a helper to interact with others in social and therapeutic situations? Yes. SOCIAL INTERACTION - STEP 2: Does the patient interact appropriately half or more of the time? Yes. SOCIAL INTERACTION - STEP 3: How often does the patient need help to interact appropriately? 10-24% of the time SOCIAL INTERACTION - SCORE: 4-MIN PROBLEM SOLVING: PROBLEM SOLVING - STEP 1: Does the patient need help from a person or device, or need extra time to solve complex problems such as managing a checking account or confronting interpersonal problems? Yes. PROBLEM SOLVING - STEP 2: Does the patient solve basic routine problems half or more of the time? Yes. PROBLEM SOLVING - STEP 3: How often does the patient need help to solve basic routine problems? 10%-24% of the time PROBLEM SOLVING - SCORE: 4-MIN MEMORY: MEMORY - STEP 1: Does the patient need help from a person or device, or need extra time to remember frequently encount ered people, daily routines, and executing requests? Yes. MEMORY - STEP 2: How often does the patient need help to remember frequently encountered people, daily routines, and e xecuting requests? 10% - 24% of the time MEMORY - SCORE: 4-MIN SIGNATURE PANEL: The following modified sections: Eating - Score, Bathing - Score, Dressing - Upper Body - Score, Dres sing - Lower Body - Score, Toileting - Score, Bladder Management - Score, Bowel Management - Score, T ransfers: Bed, Chair, Wheelchair - Score, Transfers: Toilet - Score, Transfers: Shower - Score, Trans fers: Tub - Score, Locomotion: Walk - Score, Locomotion: Wheelchair - Score, Comprehension - Score, E xpression - Score, Social Interaction - Score, Problem Solving - Score, Memory - Score, Grooming - Sc ore were [electronically] signed by August HammNFouzia on SatAug 21 2018 15:05:[address] [facility]-0500 (Centra l Daylight Time)
--- NOTE | 2018-08-21 17:23 | PN ---
Date of Progress Note: 08/21/2018 Subjective: The patient was admitted to initiate dialysis. The patient has deconditioning with tend on tear in the shoulder. The patient in rehab, doing well. Physical Examination: Vital Signs: Blood pressure 144/63, pulse of 77. Chest: Clear to auscultation. Heart: S1, S2. Systolic murmur. Abdomen: Soft, nontender. Extremities: No edema. Right AV fistula, good thrill. Laboratory Data: H and H 9.2/27.6. Sodium of 143, potassium 3.9, bicarb 24, BUN 38, creatinine 5.3, calcium 7.9. Current Medications: The patient on its include: 1.Epogen. 2.Pletal. 3.Oral iron. 4.Nephro-Meenu. 5.Carvedilol 3.125. 6.Isosorbide 30. 7.Pravastatin. 8.Lasix. 9.Lyrica. 10.Zofran. 11.Simethicone. 12.Pantoprazole. Assessment And Plan: 1.End-stage renal disease. Continue dialysis Saturday, Saturday, Saturday. We will switch to TTS as o utpatient. 2.Secondary hyperparathyroidism, stable. 3.Hypokalemia. The patient is going to be dialyzed on high potassium bath. 4.Deconditioning. Continue PT and OT. 5.Anemia of chronic kidney disease. Continue oral iron and Epogen. CHANEL/TORY Voice ID: [id number] Report ID: [id number]
[2018-08-21] MEDS: ROSUVASTATIN 10 MG TAB PO SCH (21:00)
--- NOTE | 2018-08-21 23:06 | R.PN ---
ENCOUNTER DATE AND TIME: 08/21/2018 23:03 (CDT) NAME NEAL BARBA DATE OF : 1945 DATE OF ADMISSION: 08/11/2018 22:00 (T) ESRD Stage 5CHIEF COMPLAINT: Debility, ESRD on hemodialysis. SUBJECTIVE: Pt denied any depression. Pt denied any Shortness of Breath. He was more somnolent today. His WBC is normal at 9.0 neutrophils 71.8.Glucose 173 to [address] after an episode of unresponsiveness during dialysis yesterday. His chest x-ray is negative . His EEG was moderately slow. He is on Levaquin. All cultures are negative. Ambulated 1000' with a rolling walker and standby assistance. VITAL SIGNS Temperature: 97.5 F SBP/DBP: 136/68 Pulse: 70 Resp: 16 MEDICATION ALLERGIES: Acetaminophen Hydrocodone ENVIRONMENTAL ALLERGIES: None Known - Substance Allergies None Known - Other Allergies None Known NURSING: - Shower allowing shower ACTIVITIES OOB only with supervision THERAPIES: - Dietary and Nutrition Adequate Nutrition. Nutritional Education. Nutritional Supplements. PHYSICAL EXAM - Gen Alert and awake Lying in bed No apparent distress Oriented to: person, time, and place - Skin No breakdown No abnormalities - Eyes No abnormalities - Neck 3/10 neck pain - CVS RRR - Chest No abnormalities - Resp CTA bilaterally - Abd + bowel sounds - GI nondistended Deferred - Little urine production. On hemodialysis three times weekly. - Ext No significant edema - MSK 4+/5 weakness in right upper and lower extremities - Neuro No focal deficits on exam - Psych No abnormalities ASSESSMENT: Pt. is a 72 yo Right-handed black male.On 07/30/2018 he was admitted to [facility] with diagnosis ESRD Stage 5.His impairment category is Medically Complex Conditions 17 - Termina l Care (17.6).Pre-morbidly, Pt. was independent/mod-I in Self-Care, Sphincter Control, Transfers Cont rol, Communication, Social Cognition, and Locomotion; and he had good Sphincter Control.Currently, he has deficits of Transfers Control, Communication, Social Cognition, Endurance, Balance, Safety Aware ness, Self-Care, and Locomotion.Pt. is now referred to [facility] for acute in -patient rehabilitation in order to maximize patient's functional independence in activities of daily living, strength, ROM, and mobility.- Rehab Goal Patient has realistic goal of being discharged at assistance level 6-Leonard to reside at Home with Fam michael/Relatives. MDM/PLAN: - Physical Therapy Gait dysfunction - to improve, our physical therapists will perform initial evaluation of pt's statu s upon admission and devise an individualized program for Gait Training, and Wheel Chair mobility Inability to transfer - to improve, our physical therapists will perform initial evaluation of pt's status upon admission and devise an individualized program for Bed mobility Need for home safety evaluation - to improve, our physical therapists will perform initial evaluatio n of pt's status upon admission and devise an individualized program for Home Evaluation Need in caregiver upon discharge - to improve, our physical therapists will perform initial evaluati on of pt's status upon admission and devise an individualized program for Caregiver Training New precaution - to improve, our physical therapists will perform initial evaluation of pt's status upon admission and devise an individualized program for Patient precaution education Edema - to improve, our physical therapists will perform initial evaluation of pt's status upon admi ssion and devise an individualized program for Elevation Training, and Lymphedema Therapy Poor balance - to improve, our physical therapists will perform initial evaluation of pt's status up on admission and devise an individualized program for Balance Training Poor endurance - to improve, our physical therapists will perform initial evaluation of pt's status upon admission and devise an individualized program for Endurance Training Weakness - to improve, our physical therapists will perform initial evaluation of pt's status upon a dmission and devise an individualized program for Aquatic Therapy, Neuromuscular Reeducation, and Str engthening Achieving independence - to improve, our physical therapists will perform initial evaluation of pt's status upon admission and devise an individualized program for Community Reintegration Activities - Occupational Therapy ADL deficits - to improve, our occupation therapists will perform initial evaluation of pt's status upon admission and devise an individualized program for Bathing, Bed mobility, Community Reintegratio n, Cooking, Dressing, Eating, Fine Motor Skills, Grooming, Homemaking, Kitchen Mobility, Laundry, Pat ient Education, Safety Awareness, Splinting - Positioning, Transfers(Toilet, Tub, Shower), and Wheel Chair Management Cognitive deficits - to improve, our occupation therapists will perform initial evaluation of pt's s tatus upon admission and devise an individualized program for Cognition - orientation Need for managed care director - to improve, our occupation therapists will perform initial evaluation of pt's status upon admission and devise an individualized program for Caregiver Training Weakness - to improve, our occupation therapists will perform initial evaluation of pt's status upon admission and devise an individualized program for Aquatic Therapy, Balance, Endurance, UE ROM, and UE strengthening - Other See attached MAR (Medication Administration Record) Neal Barba.pdf - Diet Type Continue Regular - Diet - Liquid Texture Continue Regular - Tube Feed Continue N/A - Diet - Solid Texture Continue Regular - Shower allowing shower FUNCTIONAL STATUS: UPDATED AT WEEKLY TEAM CONFERENCE - Bladder Same accident frequency: 7-Ind - No accidents in the past 7 days - Bowel Same accident frequency: 7-Ind - No accidents in the past 7 days - Walking Same score based on distance walked: 1(<=50ft) FUNCTIONAL STATUS: - Self-Care A. Eating Ind B. Grooming Edwina C. Bathing maxA D. Dressing - Upper sup E. Dressing - Lower maxA F. Toileting Ind - Sphincter Control G: Bladder control modA H: Bowel control Ind - Transfers Control I. Bed/Chair/Wheelchair modA J. Toilet modA K. Tub/Shower ADNO - Locomotion L. Walk/Wheelchair (B) modA M. Stairs ADNO - Communication N. Comprehension (B) sup O. Expression (B) sup - Social Cognition P. Social Interaction sup Q. Problem Solving sup R. Memory sup - Endurance Poor - Balance Poor - Safety Awareness Poor CURRENT FUNC. DEFICITS: Transfers Control, Communication, Social Cognition, Endurance, Balance, Safety Awareness, Self-Care, and Locomotion SIGNATURE PANEL: (CDT)
[2018-08-22 00:04] VITALS: TEMP 97.3
[2018-08-22] MEDS: TIOTROPIUM 5 SPRAYS/INHALER IH SCH (07:03)
[2018-08-22] MEDS: METOCLOPRAMIDE 5 MG TAB PO SCH ×2 (07:03→11:30)
[2018-08-22] MEDS: LIDOCAINE 5% PATCH TOP SCH (07:03)
[2018-08-22] MEDS: TRAMADOL HCL 50 MG TAB PO PRN (07:03)
[2018-08-22] MEDS: PANTOPRAZOLE 40MG TABLET PO SCH (07:03)
[2018-08-22] MEDS: INSULIN -REGULAR HUMAN 50 UNIT/0.5 ML ML SQ SCH ×2 (07:30→11:52)
[2018-08-22] MEDS: GLUCERNA SHAKE 237 ML CAN PO SCH (08:00)
--- NOTE | 2018-08-22 08:07 | FAST ---
ENCOUNTER DATE AND TIME: 08/22/2018 08:00 (CDT) NAME NEAL BARBA DATE OF : 1945 DATE OF ADMISSION: 08/11/2018 22:00 (CDT) PHONE: AGE: 72 SSN# [id number] GENDER: Male ENCOUNTER PHYSICIAN: Dr. Elliott Bradley M.D. ADMISSION DIAGNOSIS: - Medically Complex Conditions 17 - Terminal Care (17.6) ESRD Stage 5. EATING: Activity did not occur on this shift EATING - SCORE: 0-UNK GROOMING: Comb/brush hair Wash, rinse, and dry face Wash, rinse, and dry hands GROOMING - STEP 1: Does the patient require the assistance of a person or device, or need extra time when grooming? No. GROOMING - SCORE: 7-IND BATHING: Abdomen Buttocks Chest Left arm Left lower leg and foot Left upper leg Perineal area Right arm Right lower leg and foot Right upper leg BATHING - STEP 1: Does the patient require the assistance of a person or device, or need extra time when bathing? Yes. BATHING - STEP 2: Does the patient require the assistance of a helper? Yes. BATHING - STEP 3: How much assistance does the patient require from the helper? Only supervision, cuing, coaxing, instr uctions, encouragement BATHING - SCORE: 5-SUP DRESSING - UPPER BODY: Button down shirt or blouse - NOT tucked in (four steps) ARTICLES SCORE Total number of steps: 4 DRESSING - UPPER BODY - STEP 1: Does the patient require help from a person or device, or need extra time when dressing above the evie st? No. DRESSING - UPPER BODY - SCORE: 7-IND DRESSING - LOWER BODY: Elastic waist pants (three steps) Sock - Left foot (one step) Sock - Right foot (one step) Underwear (three steps) ARTICLES SCORE Total number of steps: 8 DRESSING - LOWER BODY - STEP 1: Does the patient require help from a person or device, or need extra time when dressing below the evie st? Yes. DRESSING - LOWER BODY - STEP 2: Does the patient require the assistance of a helper? Yes. DRESSING - LOWER BODY - STEP 3: Does the helper touch the patient while dressing? No. DRESSING - LOWER BODY - SCORE: 5-SUP TOILETING: Activity did not occur on this shift TOILETING - SCORE: 0-UNK BLADDER MANAGEMENT: Activity did not occur on this shift BLADDER MANAGEMENT - SCORE: 7-IND BOWEL MANAGEMENT: Activity did not occur on this shift BOWEL MANAGEMENT - SCORE: 7-IND TRANSFERS: BED, CHAIR, WHEELCHAIR: Activity did not occur on this shift TRANSFERS: BED, CHAIR, WHEELCHAIR - SCORE: 0-UNK TRANSFERS: TOILET: Activity did not occur on this shift TRANSFERS: TOILET - SCORE: 0-UNK TRANSFERS: SHOWER: Activity did not occur on this shift TRANSFERS: SHOWER - SCORE: 0-UNK TRANSFERS: TUB: TRANSFERS: TUB - STEP 1: Does the patient require the assistance of a person or device, or need extra time with tub transfers? Yes. TRANSFERS: TUB - STEP 2: Does the patient require the assistance of a helper? Yes. TRANSFERS: TUB - STEP 3: How much assistance does the patient require from the helper? Only supervision, cuing, coaxing, or he lp to set out transfer equipment or to lock brakes and/or lift foot rests TRANSFERS: TUB - SCORE: 5-SUP LOCOMOTION: WALK: Activity did not occur on this shift LOCOMOTION: WALK - SCORE: 0-UNK LOCOMOTION: WHEELCHAIR: Activity did not occur on this shift LOCOMOTION: WHEELCHAIR - SCORE: 0-UNK LOCOMOTION: STAIRS: Activity did not occur on this shift LOCOMOTION: STAIRS - SCORE: 0-UNK COMPREHENSION: COMPREHENSION: TYPE: Visual COMPREHENSION - STEP 1: Does the patient require help from a person or device, or need extra time to understand complex and a bstract ideas (such as current events, finances, discharge planning, medical issues, relationships, e tc)? No. COMPREHENSION - STEP 2: Does the patient need extra time, require an assistive device (such as glasses for visual comprehensi on or a hearing aid for auditory comprehension) or does s/he have mild difficulty understanding compl ex and abstract information? Yes. COMPREHENSION - SCORE: 6-IZZY EXPRESSION EXPRESSION: TYPE: Non-Vocal EXPRESSION - STEP 1: Does the patient require help from a person or device, or need extra time expressing complex and abst ract ideas (such as current events, finances, discharge planning, medical issues, relationships, etc) ? No. EXPRESSION - STEP 2: Does the patient need extra time, require an assistive device (such as augmentive communication syste m or a communication board), OR does s/he have mild difficulty expressing complex and abstract ideas (including mild dysarthria or mild word-find problems)? No. EXPRESSION - SCORE: 7-IND SOCIAL INTERACTION: SOCIAL INTERACTION - STEP 1: Does the patient require a helper to interact with others in social and therapeutic situations? No. SOCIAL INTERACTION - STEP 2: Does the patient need extra time in social situations, OR does s/he interact with staff, other patien ts, and family members ONLY in structured environments, OR does s/he require medication for social in teraction? No. SOCIAL INTERACTION - SCORE: 7-IND PROBLEM SOLVING: PROBLEM SOLVING - STEP 1: Does the patient need help from a person or device, or need extra time to solve complex problems such as managing a checking account or confronting interpersonal problems? No. PROBLEM SOLVING - STEP 2: Does the patient require extra time to make decisions or solve problems, OR does s/he have slight dif ficulty reading, initiating, or self-correcting in unfamiliar situations? No. PROBLEM SOLVING - SCORE: 7-IND MEMORY: MEMORY - STEP 1: Does the patient need help from a person or device, or need extra time to remember frequently encount ered people, daily routines, and executing requests? No. MEMORY - STEP 2: Does the patient have slight difficulty recognizing frequently encountered people, daily routines, or executing requests without the need for repetition or using self-initiated or environmental cues to remember? No. MEMORY - SCORE: 7-IND SIGNATURE PANEL: The following modified sections: Eating - Score, Grooming - Score, Bathing - Score, Dressing - Upper Body - Score, Dressing - Lower Body - Score, Toileting - Score, Transfers: Bed, Chair, Wheelchair - S core, Transfers: Toilet - Score, Transfers: Shower - Score, Transfers: Tub - Score, Comprehension - S core, Expression - Score, Social Interaction - Score, Problem Solving - Score, Memory - Score were [e lectronically] signed by DIANA Andino on SatAug 22 2018 08:06:36 T-0500 (Formerly [facility] Time)
[2018-08-22] MEDS: FE SULF/FA/VIT B COMP & C TAB PO SCH (08:09)
[2018-08-22] MEDS: DOCOSAHEXANOIC AC/EPA 1000 MG PO SCH (08:09)
[2018-08-22] MEDS: CILOSTAZOL 100 MG TAB PO SCH (08:09)
[2018-08-22] MEDS: CARVEDILOL 3.125 MG TAB PO SCH (08:09)
[2018-08-22] MEDS: ISOSORBIDE MONO SR 30 MG TAB PO SCH (08:09)
[2018-08-22] MEDS: FUROSEMIDE 40 MG TABLET PO SCH (08:10)
[2018-08-22] MEDS: FERROUS SULFATE 325 MG TAB PO SCH (08:10)
[2018-08-22] MEDS: PREGABALIN 50 MG CAP PO SCH (08:10)
[2018-08-22] MEDS: SIMETHICONE 80 MG TAB PO SCH ×2 (08:10→13:56)
[2018-08-22] MEDS: ASPIRIN 81 MG CHEWABLE TABLET PO SCH (08:10)
[2018-08-22 08:12] VITALS: BP 151/66
--- NOTE | 2018-08-22 09:23 | P.PN ---
Subjective Date of Service: 08/23/18 Primary Care Provider: Nephrology-Dr. Keating Chief Complaint: Sepsis Subjective: Improving pt with ESRD started on HD today Stable VS no overnight events dialysis today cleared for discharge from nephrology point of view scheduled for dialysis tomorrow as an OP to [facility] for total of 2 wks Physical Examination - Vital Signs Temperature: 97.3 F Blood Pressure: 151/66 Pulse: 70 Respirations: 18 Pulse Ox (%): 96 - Physical Exam General: In no apparent distress, Oriented x3 HEENT: Atraumatic Neck: Supple, JVD not distended Respiratory: Clear to auscultation bilaterally, Normal air movement Cardiovascular: No edema, Regular rate/rhythm, Normal S1 S2, No gallops, No rubs , No murmurs Gastrointestinal: Normal bowel sounds, Soft and benign Musculoskeletal: No swelling - Studies Medications List Reviewed: Yes Assessment And Plan - Current Problems (Diagnosis) (1) ESRD (end stage renal disease) on dialysis Status: Acute - Plan End-stage renal disease, HD today renal dose meds HTN controlled Anemia Cont Epogen DM as per PCP
--- NOTE | 2018-08-22 09:46 | P.RH.PN ---
Estimated Length of Stay: 12 Expected Discharge Date: 08/22/18 Discharge Disposition Plan: Home Family Support: Yes Shelter Goal: Mobility, Transfers, Self Care Vital Signs: Last Vital Signs Temp 97.3 F 08/22/18 09:24 Pulse 70 08/22/18 09:24 Resp 18 08/22/18 09:24 BP 151/66 H 08/22/18 09:24 Pulse Ox 96 08/22/18 09:24 Laboratory: Laboratory Last Values WBC 9.2 K/uL (4.3-10.9) 08/21/18 05:57 RBC 3.09 M/uL (4.33-5.43) L 08/21/18 05:57 Hgb 9.2 g/dL (13.6-17.9) L 08/21/18 05:57 Hct 27.6 % (39.6-49.0) L 08/21/18 05:57 MCV 89.4 fL (80-100) 08/21/18 05:57 MCH 29.9 pg (27.0-35.0) 08/21/18 05:57 MCHC 33.5 g/dL (32.0-36.0) 08/21/18 05:57 RDW 14.8 % (12.1-15.2) 08/21/18 05:57 Plt Count 370 K/uL (152-406) 08/21/18 05:57 MPV 7.6 fL (7.6-11.3) 08/21/18 05:57 Neutrophils % 67.1 % (41.7-73.7) 08/21/18 05:57 Lymphocytes % 12.6 % (15.3-44.8) L 08/21/18 05:57 Monocytes % 17.0 % (3.3-12.3) H 08/21/18 05:57 Eosinophils % 2.6 % (0-4.4) 08/21/18 05:57 Basophils % 0.7 % (0-1.3) 08/21/18 05:57 Absolute Neutrophils 6.1 K/uL (1.8-8.0) 08/21/18 05:57 Segmented Neutrophils 56 % (40-80) 08/12/18 06:20 Band Neutrophils 1 % (0-1) 08/12/18 06:20 Absolute Lymphocytes 1.2 K/uL (0.7-4.9) 08/21/18 05:57 Lymphocytes 24 % (15-42) 08/12/18 06:20 Monocytes 16 % (0-10) H 08/12/18 06:20 Absolute Monocytes 1.6 K/uL (0.1-1.3) H 08/21/18 05:57 Eosinophils 3 % (0-3) 08/12/18 06:20 Absolute Eosinophils 0.2 K/uL (0-0.5) 08/21/18 05:57 Absolute Basophils 0.1 K/uL (0-0.5) 08/21/18 05:57 Morphology Comment Not seen (NOT SEEN) 08/12/18 06:20 Sodium 143 mmol/L (136-145) 08/21/18 05:57 Potassium 3.9 mmol/L (3.5-5.1) 08/21/18 05:57 Chloride 109 mmol/L (98-107) H 08/21/18 05:57 Carbon Dioxide 24 mmol/L (21-32) 08/21/18 05:57 BUN 38 mg/dL (7-18) H 08/21/18 05:57 Creatinine 5.39 mg/dL (0.55-1.3) H* 08/21/18 05:57 Estimated GFR 13 mL/min (=/>90) L 08/21/18 05:57 Glucose 184 mg/dL (74-106) H 08/21/18 05:57 POC Glucose 177 mg/dl (65-120) H 08/22/18 07:48 Lactic Acid 1.3 mmol/L (0.4-2.0) 08/14/18 09:10 Calcium 7.9 mg/dL (8.5-10.1) L 08/21/18 05:57 Magnesium 2.4 mg/dL (1.8-2.4) 08/12/18 06:20 Total Bilirubin 0.3 mg/dL (0.2-1.0) 08/19/18 06:01 AST 15 U/L (15-37) 08/19/18 06:01 ALT 13 U/L (12-78) 08/19/18 06:01 Alkaline Phosphatase 72 U/L (45-117) 08/19/18 06:01 Serum Total Protein 6.3 g/dL (6.4-8.2) L 08/19/18 06:01 Albumin 2.2 g/dL (3.4-5.0) L 08/21/18 05:57 Globulin 4.1 g/dL (2.3-3.5) H 08/19/18 06:01 Albumin/Globulin Ratio 0.5 (1.1-1.8) L 08/19/18 06:01 Prealbumin 14.3 mg/dL (20-40) L 08/21/18 05:57 Procalcitonin 3.55 ng/mL (<0.50) H 08/15/18 08:52 ABO/Rh O POSITIVE 08/16/18 14:53 Antibody Screen Negative 08/16/18 14:53 Crossmatch See Detail 08/17/18 Unknown Weight: 162 lb 3 oz Wound Present: Yes Closed Surgical Incision Present: No Negative Pressure Wound Therapy Present: No Physician Update: Labs have been reviewed. He will have dialysis today. He is standby assistance for transfers and ambulation. He will be discharged home today. Medical Issues: DVT Prophylaxis - Heparin 5,000mg SQ DAily. Levaquin 500mg Q48H PO Pain Issues: Tramadol 50mg Q6H PRN. Lidocaine patch 5% Daily Functional Improvement Occupational Therapy: pt has met all the STG's and has great potential at reaching the LTG's. Cont with the POC and the goals by the supervising OTR. 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 Please see the Rehabilitation Signature page for all necessary signatures.
--- NOTE | 2018-08-22 09:54 | P.PN ---
Subjective Date of Service: 08/22/18 Primary Care Provider: Nephrology-Dr. Keating Chief Complaint: Sepsis Subjective: New changes Physical Examination - Vital Signs Temperature: 97.3 F Blood Pressure: 151/66 Pulse: 70 Respirations: 18 Pulse Ox (%): 96 - Physical Exam Other Physical/Emotional Findings: Stable this time. - Studies Medications List Reviewed: Yes Assessment & Plan Discharge Plan: Home Plan to discharge in: 24 Hours Physician Review Additional Text: Impression/Plan: Sepsis likely related to line infection. Infection remained stable. Patient will continue with oral Levaquin for a total of 2 weeks. Final day will be on August 31. There is plan for discharge today. End-stage renal disease on hemodialysis: Continue with dialysis. Case discussed with nephrology. Continue with dialysis as outpatient. Hypertension: Blood pressure stable. Continue with medication. Diabetes mellitus type 2: Continue with medication. Left shoulder pain with supraspinatus: Patient has done well. Follow up with orthopedics as an outpatient. Continue with exercises. Fall precaution to remain in place. Anemia of chronic disease: Overall stable. Will monitor closely. Time Spent Managing Pts Care (In Minutes): 15
--- NOTE | 2018-08-22 12:36 | FAST ---
ENCOUNTER DATE AND TIME: 08/22/2018 08:00 (CDT) NAME NEAL BARBA DATE OF : 1945 DATE OF ADMISSION: 08/11/2018 22:00 (CDT) PHONE: AGE: 72 SSN# [id number] GENDER: Male ENCOUNTER PHYSICIAN: Dr. Elliott Bradley M.D. ADMISSION DIAGNOSIS: - Medically Complex Conditions 17 - Terminal Care (17.6) ESRD Stage 5. EATING: Activity did not occur on this shift EATING - SCORE: 0-UNK GROOMING: Activity did not occur on this shift GROOMING - SCORE: 0-UNK BATHING: Activity did not occur on this shift BATHING - SCORE: 0-UNK DRESSING - UPPER BODY: Activity did not occur on this shift Patient is not dressing in public clothing ARTICLES SCORE Total number of steps: 0 DRESSING - UPPER BODY - SCORE: 0-UNK DRESSING - LOWER BODY: Activity did not occur on this shift Patient is not dressing in public clothing ARTICLES SCORE Total number of steps: 0 DRESSING - LOWER BODY - SCORE: 0-UNK TOILETING: Activity did not occur on this shift TOILETING - SCORE: 0-UNK BLADDER MANAGEMENT: Activity did not occur on this shift BLADDER MANAGEMENT - SCORE: 7-IND BOWEL MANAGEMENT: Activity did not occur on this shift BOWEL MANAGEMENT - SCORE: 7-IND TRANSFERS: BED, CHAIR, WHEELCHAIR: TRANSFERS: BED, CHAIR, WHEELCHAIR - STEP 1: Does the patient require assistance of a person or device, or need extra time with bed, chair, or whe elchair transfers? Yes. TRANSFERS: BED, CHAIR, WHEELCHAIR - STEP 2: Does the patient require the assistance of a helper? Yes. TRANSFERS: BED, CHAIR, WHEELCHAIR - STEP 3: How much assistance does the patient require from the helper? Only supervision TRANSFERS: BED, CHAIR, WHEELCHAIR - SCORE: 5-SUP TRANSFERS: TOILET: TRANSFERS: TOILET - STEP 1: Does the patient require the assistance of a person or device, or need extra time with toilet transfe rs? Yes. TRANSFERS: TOILET - STEP 2: Does the patient require the assistance of a helper? Yes. TRANSFERS: TOILET - STEP 3: How much assistance does the patient require from the helper? Only supervision, cuing, coaxing, OR he lp to set out transfer equipment or to lock brakes and/or lift foot rests TRANSFERS: TOILET - SCORE: 5-SUP TRANSFERS: SHOWER: Activity did not occur on this shift TRANSFERS: SHOWER - SCORE: 0-UNK TRANSFERS: TUB: Activity did not occur on this shift TRANSFERS: TUB - SCORE: 0-UNK LOCOMOTION: WALK: LOCOMOTION: WALK - STEP 1: Does the patient need help from a person or device, or need extra time to walk 150 feet? Yes. LOCOMOTION: WALK - STEP 2: How much assistance does the patient require to walk a minimum of 150 feet? Only supervision, cuing, or coaxing LOCOMOTION: WALK - SCORE: 5-SUP LOCOMOTION: WHEELCHAIR: LOCOMOTION: WHEELCHAIR - STEP 1: Does the patient need help to go 150 feet in a wheelchair? Yes. LOCOMOTION: WHEELCHAIR - STEP 2: How much assistance does the patient need from the helper? Only supervision, cuing, or coaxing LOCOMOTION: WHEELCHAIR - SCORE: 5-SUP LOCOMOTION: STAIRS: LOCOMOTION: STAIRS - STEP 1: Does the patient need help to go up and down 12 to 14 stairs? Yes. LOCOMOTION: STAIRS - STEP 2: How much assistance does the patient need from the helper to go a minimum of 12 to 14 stairs? Only carrizales pervision, cuing, or coaxing LOCOMOTION: STAIRS - SCORE: 5-SUP COMPREHENSION: COMPREHENSION - SCORE: 0-UNK EXPRESSION EXPRESSION - SCORE: 0-UNK SOCIAL INTERACTION: SOCIAL INTERACTION - SCORE: 0-UNK PROBLEM SOLVING: PROBLEM SOLVING - SCORE: 0-UNK MEMORY: MEMORY - SCORE: 0-UNK SIGNATURE PANEL: The following modified sections: Transfers: Bed, Chair, Wheelchair - Score, Transfers: Toilet - Score , Locomotion: Walk - Score, Locomotion: Wheelchair - Score, Locomotion: Stairs - Score were [mili bonilla] signed by Humera Grande PTA on SatAug 22 2018 12:35:59 GMT-0500 (Central Daylight Time)
[2018-08-22] MEDS: EPOETIN ALFA 10,000 UNIT/ML VIAL SQ SCH (14:44)
== END 2018-08-22 15:50 | disposition home health service (06) | DRG 682 ==
LOC: 5TH 22:09
PROVIDERS: ADMIT Psychiatry & Neurology Neurology with Special Qualifications in Child Neurology; ATTEND Psychiatry & Neurology Neurology with Special Qualifications in Child Neurology
PROC: 5A1D70Z Performance of Urinary Filtration, Intermittent, Less than 6 Hours Per Day (ICD-10-PCS; principal; 2018-08-13)
PROC: 5A1D70Z Performance of Urinary Filtration, Intermittent, Less than 6 Hours Per Day (ICD-10-PCS; 2018-08-14)
PROC: 5A1D70Z Performance of Urinary Filtration, Intermittent, Less than 6 Hours Per Day (ICD-10-PCS; 2018-08-15)
PROC: 5A1D70Z Performance of Urinary Filtration, Intermittent, Less than 6 Hours Per Day (ICD-10-PCS; 2018-08-18)
PROC: 5A1D70Z Performance of Urinary Filtration, Intermittent, Less than 6 Hours Per Day (ICD-10-PCS; 2018-08-20)
PROC: 5A1D70Z Performance of Urinary Filtration, Intermittent, Less than 6 Hours Per Day (ICD-10-PCS; 2018-08-22)
DX: I12.0 Hypertensive chronic kidney disease with stage 5 chronic kidney disease or end stage renal disease (principal); N18.6 End stage renal disease; A41.9 Sepsis, unspecified organism; T82.7XXA Infection and inflammatory reaction due to other cardiac and vascular devices, implants and grafts, initial encounter; N25.81 Secondary hyperparathyroidism of renal origin; D63.1 Anemia in chronic kidney disease; N25.0 Renal osteodystrophy; E11.22 Type 2 diabetes mellitus with diabetic chronic kidney disease; M25.512 Pain in left shoulder; E88.09 Other disorders of plasma-protein metabolism, not elsewhere classified; E87.6 Hypokalemia; Z99.2 Dependence on renal dialysis; Z86.73 Personal history of transient ischemic attack (TIA), and cerebral infarction without residual deficits
CPT/HCPCS: 36415; 70450; 71045; 80048; 80053; 82040; 82962; 83605; 83735; 84134; 84145; 85014; 85018; 85025; 86850; 86900; 86901; 87040; 87493; 90935; 93005; 95816; 97110; 97112; 97116; 97150; 97162; 97167; 97530; J1644; J2543; P9016; Q4081